=== PATIENT | female | born 1955 | race Two or more races ===

== ENCOUNTER 2016-08-03 21:01 | Emergency (ER) | payer MEDICAID ==
[~2016-08-03] VITALS: Ht 149.9 cm; Wt 61.2 kg
[~2016-08-03 21:01] MED LIST: CARV25TA55 PO; CLON0.1T PO; DOXA4TAB40 PO; FENO134C PO; IBUP800T24 PO; NIFE30TA76 PO; PIRO-23 PO
[2016-08-03] MEDS ORDERED: diphenhdrAMINE HCL 50 MG/1 ML VL IV ONE (21:15)
[2016-08-03] MEDS ORDERED: diphenhdrAMINE HCL 25 MG CAP PO ONE (21:15)
[2016-08-03] MEDS ORDERED: ONDANSETRON HCL 4 MG/2 ML VIAL IV ONE (21:15)
[2016-08-04 01:00] VITALS: BP 131/51
== END 2016-08-04 01:17 | disposition home or self-care (01) ==
LOC: ER 21:02
DX: L02.818 Cutaneous abscess of other sites (principal); L29.9 Pruritus, unspecified; T36.1X5A Adverse effect of cephalosporins and other beta-lactam antibiotics, initial encounter; Z86.73 Personal history of transient ischemic attack (TIA), and cerebral infarction without residual deficits; E78.5 Hyperlipidemia, unspecified; I10 Essential (primary) hypertension; H60.90 Unspecified otitis externa, unspecified ear; Z88.1 Allergy status to other antibiotic agents; Z88.8 Allergy status to other drugs, medicaments and biological substances; Z79.899 Other long term (current) drug therapy; Y93.89 Activity, other specified; Y99.8 Other external cause status; Y92.89 Other specified places as the place of occurrence of the external cause
CPT/HCPCS: 94761; 96374; 96375; 99284; J1200; J2405

== ENCOUNTER 2017-05-12 13:03 | Emergency (ER) | payer MEDICARE, MEDICAID ==
[~2017-05-12] VITALS: Ht 149.9 cm; Wt 68.0 kg
[2017-05-12 14:10] LABS: Basophils # (auto) 0 uL; Eosinophils # (auto) 0.3 uL; Hematocrit 30.6 % (36.0-46.0); Hemoglobin 9.7 g/dL (12.2-16.2); Mean Corpuscular Hemoglobin 24.7 pg (28.0-32.0); Monocytes # (auto) 0.7 uL; Nucleated Red Blood Cells % 0.1 %
[2017-05-12 14:13] LABS: Basophils % (auto) 0.5 % (0.0-2.0); Eosinophils % (auto) 4.9 % (0.0-7.0); Lymphocytes # (auto) 1.4 uL; Lymphocytes % (auto) 21.4 % (10.0-50.0); Mean Corpuscular Hgb Conc. 31.7 g/dL (32.0-36.0); Mean Corpuscular Volume 77.9 fL (80.0-100.0); Monocytes % (auto) 9.9 % (0.0-12.0); Neutrophils # (auto) 4.2 uL; Neutrophils % (auto) 63.3 % (37.0-80.0); Platelet Count (auto) 190 10^3/uL (140-450); Red Cell Distribution Width 19.2 % (11.8-14.3); White Blood Cell 6.6 10^3/uL (4.4-10.8)
[2017-05-12 14:29] LABS: BUN/Creatinine Ratio 21.7; Bilirubin, Total 0.6 mg/dL (0.2-1.0); Calcium 6.9 mg/dL (8.5-10.1); Total Protein 8.5 g/dL (6.4-8.2)
[2017-05-12 15:57] LABS: Platelet Estimate Adequate
[2017-05-12 15:58] LABS: Stomatocytes Few
[2017-05-12 15:59] LABS: Anisocytosis Slight; Hypochromia Slight; Microcytosis Slight
[2017-05-12] MEDS ORDERED: LABETALOL HCL 5 MG/ML 4ML SYRINGE IV ONE (16:15)
[2017-05-12] MEDS ORDERED: LABETALOL HCL 5 MG/ML ML 20ML VIAL IV ONE (16:30)
[2017-05-12 17:17] VITALS: BP 145/89
== END 2017-05-12 17:43 | disposition home or self-care (01) ==
LOC: ER 13:03
DX: I10 Essential (primary) hypertension (principal); E46 Unspecified protein-calorie malnutrition; R94.5 Abnormal results of liver function studies; E78.5 Hyperlipidemia, unspecified; Z88.1 Allergy status to other antibiotic agents; Z88.8 Allergy status to other drugs, medicaments and biological substances; Z98.51 Tubal ligation status
CPT/HCPCS: 36415; 70450; 71010; 80053; 82962; 85025; 93005; 96374; 99285; J7030

== ENCOUNTER 2017-10-17 11:19 | Observation (INO) | payer MEDICARE, MEDICAID ==
[~2017-10-17] VITALS: Ht 160 cm; Wt 72.6 kg
[2017-10-17 12:04] LABS: Basophils # (auto) 0 uL; Basophils % (auto) 0.5 % (0.0-2.0); Eosinophils # (auto) 0.3 uL; Eosinophils % (auto) 4.4 % (0.0-7.0); Hematocrit 42.5 % (36.0-46.0); Hemoglobin 14.3 g/dL (12.2-16.2); Lymphocytes # (auto) 0.8 uL; Lymphocytes % (auto) 11.3 % (10.0-50.0); Mean Corpuscular Hemoglobin 30.8 pg (28.0-32.0); Mean Corpuscular Hgb Conc. 33.5 g/dL (32.0-36.0); Mean Corpuscular Volume 91.8 fL (80.0-100.0); Monocytes # (auto) 0.4 uL; Monocytes % (auto) 5.1 % (0.0-12.0); Neutrophils # (auto) 5.8 uL; Neutrophils % (auto) 78.7 % (37.0-80.0); Platelet Count (auto) 192 10^3/uL (140-450); Red Blood Cells 4.63 10^6/uL (4.0-5.20); Red Cell Distribution Width 15.3 % (11.8-14.3); White Blood Cell 7.4 10^3/uL (4.4-10.8)
[2017-10-17 12:21] LABS: INR 0.99 (0.9-1.15); Partial Thromboplastin Time 27.3 sec (22.64-33.71); Prothrombin Time 10.8 sec (9.37-12.3)
[2017-10-17 12:24] LABS: Alanine Aminotransferase 59 U/L (13-56); Albumin 3.2 g/dL (3.4-5.0); Alkaline Phosphatase 490 U/L (45-117); Anion Gap 8 (5-15); Aspartate Aminotransferase 63 U/L (15-37); BUN/Creatinine Ratio 18.5; Bilirubin, Total 1.9 mg/dL (0.2-1.0); Blood Urea Nitrogen 15 mg/dL (7-18); Calcium 8.1 mg/dL (8.5-10.1); Carbon Dioxide 24 mmol/L (21-32); Chloride 106 mmol/L (98-107); GFR African American 93 mL/min; GFR Non-African American 77 mL/min; Glucose 172 mg/dL (74-106); Potassium 3.4 mmol/L (3.5-5.1); Sodium 138 mmol/L (136-145); Total Protein 9.1 g/dL (6.4-8.2)
[2017-10-17] MEDS ORDERED: LEVETIRACETAM INJ 500 MG in D5W 5% 100 ML IV ONE (12:45)
[2017-10-17] MEDS ORDERED: ONDANSETRON HCL 4 MG/2 ML VIAL ONE (12:45)
[2017-10-17] MEDS ORDERED: NICARDIPINE 25MG/250ML BAG KIT 250 ML IV SCH (12:45)
[2017-10-17] MEDS ORDERED: LOSARTAN/HCT (12:46)
[2017-10-17] MEDS ORDERED: PROP10TA57 (12:46)
[2017-10-17] MEDS ORDERED: FERR-20 (12:46)
[2017-10-17] MEDS ORDERED: PANT40T (12:46)
[2017-10-17] MEDS ORDERED: METO-169 (12:46)
[2017-10-17] MEDS ORDERED: SIMV10TA84 (12:46)
[2017-10-17] MEDS ORDERED: BISA-3 (12:46)
[2017-10-17] MEDS ORDERED: NICARDIPINE 25MG/250ML BAG KIT 250 ML IV ONE (12:52)
[2017-10-17 13:00] VITALS: BP 190/111
[2017-10-17] MEDS ORDERED: ONDANSETRON HCL 4 MG/2 ML VIAL IV ONE (13:00)
== END 2017-10-17 13:13 | disposition short-term general hospital (02) | DRG 64 ==
LOC: EDBD 11:19 → ER 11:19 → OVERFLOW 11:58 → ER 13:13
PROVIDERS: ADMIT Family Medicine; ATTEND Family Medicine
DX: I61.4 Nontraumatic intracerebral hemorrhage in cerebellum (principal); G93.6 Cerebral edema; I63.9 Cerebral infarction, unspecified; K21.9 Gastro-esophageal reflux disease without esophagitis; I10 Essential (primary) hypertension; Z82.49 Family history of ischemic heart disease and other diseases of the circulatory system; Z83.3 Family history of diabetes mellitus; Z86.73 Personal history of transient ischemic attack (TIA), and cerebral infarction without residual deficits; E78.5 Hyperlipidemia, unspecified
CPT/HCPCS: 36415; 70450; 71045; 80053; 82962; 83735; 84484; 85025; 85610; 85730; 93005; 96374; 96375; 99285; G0378; J1953; J2405; J7060

== ENCOUNTER 2018-04-21 11:14 | Emergency (ER) | payer MEDICARE, MEDICAID ==
[~2018-04-21] VITALS: Ht 149.9 cm; Wt 59.0 kg
[~2018-04-21 11:14] MED LIST changes: +BISA-3; +FERR-20; +LOSARTAN/HCT; +METO-169; +PANT40T; +PROP10TA57; +SIMV10TA84
[2018-04-21 11:29] VITALS: BP 149/75
[2018-04-21] MEDS ORDERED: HYDROcodone-ACET 5/325MG TAB PO ONE (12:30)
[2018-04-21] MEDS ORDERED: KETOROLAC TROMETH 30 MG/ML 1ML VIAL IM ONE (12:30)
[2018-04-21] MEDS ORDERED: METHOCARBAMOL 500 MG TAB PO ONE (12:30)
[2018-04-21] MEDS ORDERED: IBUPROFEN 800 MG TAB PO ONE (13:13)
== END 2018-04-21 13:24 | disposition home or self-care (01) ==
LOC: ER 11:16
DX: M54.42 Lumbago with sciatica, left side (principal); M54.41 Lumbago with sciatica, right side; I10 Essential (primary) hypertension; K21.9 Gastro-esophageal reflux disease without esophagitis; E78.5 Hyperlipidemia, unspecified; Z86.73 Personal history of transient ischemic attack (TIA), and cerebral infarction without residual deficits; Z88.1 Allergy status to other antibiotic agents
CPT/HCPCS: 72100; 93005; 96372; 99284; J1885

== ENCOUNTER 2018-04-24 18:09 | Emergency (ER) | payer MEDICARE, MEDICAID ==
[~2018-04-24] VITALS: Ht 149.9 cm; Wt 59.0 kg
[2018-04-24 19:44] VITALS: BP 145/84
[2018-04-24] MEDS ORDERED: TRIAMCINOLONE 40MG/ML 1ML VIAL IM ONE (20:15)
== END 2018-04-24 21:09 | disposition home or self-care (01) ==
LOC: ER 18:14
DX: S33.5XXA Sprain of ligaments of lumbar spine, initial encounter (principal); M54.16 Radiculopathy, lumbar region; K21.9 Gastro-esophageal reflux disease without esophagitis; E78.5 Hyperlipidemia, unspecified; I10 Essential (primary) hypertension; Z86.73 Personal history of transient ischemic attack (TIA), and cerebral infarction without residual deficits; Z88.6 Allergy status to analgesic agent; X50.1XXA Overexertion from prolonged static or awkward postures, initial encounter; Y93.89 Activity, other specified; Y92.89 Other specified places as the place of occurrence of the external cause; Y99.8 Other external cause status
CPT/HCPCS: 20552; 99284; J3301

== ENCOUNTER 2018-05-29 06:30 | Emergency (ER) | payer MEDICARE, MEDICAID ==
[~2018-05-29] VITALS: Ht 149.9 cm; Wt 62.6 kg
[2018-05-29] MEDS ORDERED: SODIUM CHLORIDE 0.9% 1,000 ML IV ONE (08:05)
[2018-05-29] MEDS ORDERED: KETOROLAC TROMETH 30 MG/ML 1ML VIAL IV ONE (09:30)
[2018-05-29 10:02] LABS: Basophils # (auto) 0 uL; Basophils % (auto) 0.2 % (0.0-2.0); Eosinophils # (auto) 0 uL; Eosinophils % (auto) 0.2 % (0.0-7.0); Hematocrit 36.2 % (36.0-46.0); Hemoglobin 11.9 g/dL (12.2-16.2); Lymphocytes # (auto) 0.9 uL; Lymphocytes % (auto) 12.4 % (10.0-50.0); Mean Corpuscular Hemoglobin 30.4 pg (28.0-32.0); Mean Corpuscular Hgb Conc. 32.8 g/dL (32.0-36.0); Mean Corpuscular Volume 92.7 fL (80.0-100.0); Monocytes # (auto) 0.4 uL; Monocytes % (auto) 6.3 % (0.0-12.0); Neutrophils # (auto) 5.5 uL; Neutrophils % (auto) 80.9 % (37.0-80.0); Nucleated Red Blood Cells % 0.1 %; Platelet Count (auto) 201 10^3/uL (140-450); Red Cell Distribution Width 14.5 % (11.8-14.3); White Blood Cell 6.9 10^3/uL (4.4-10.8)
[2018-05-29 10:14] LABS: Alanine Aminotransferase 47 U/L (13-56); Albumin 2.3 g/dL (3.4-5.0); Anion Gap 7 (5-15); Aspartate Aminotransferase 40 U/L (15-37); Blood Urea Nitrogen 15 mg/dL (7-18); Calcium 7.8 mg/dL (8.5-10.1); Carbon Dioxide 28 mmol/L (21-32); Chloride 106 mmol/L (98-107); GFR African American 131 mL/min; GFR Non-African American 108 mL/min; Glucose 121 mg/dL (74-106); Magnesium 2.7 mg/dL (1.6-2.6); Potassium 3.5 mmol/L (3.5-5.1); Sodium 141 mmol/L (136-145)
[2018-05-29 10:19] LABS: Alkaline Phosphatase 878 U/L (45-117); Bilirubin, Total 1.6 mg/dL (0.2-1.0); Total Protein 7.7 g/dL (6.4-8.2)
[2018-05-29 10:34] VITALS: BP 168/90
== END 2018-05-29 11:07 | disposition home or self-care (01) ==
LOC: ER 06:36
DX: M25.512 Pain in left shoulder (principal); R74.8 Abnormal levels of other serum enzymes; E43 Unspecified severe protein-calorie malnutrition; I10 Essential (primary) hypertension; K21.9 Gastro-esophageal reflux disease without esophagitis; E78.00 Pure hypercholesterolemia, unspecified; Z86.73 Personal history of transient ischemic attack (TIA), and cerebral infarction without residual deficits; Z88.1 Allergy status to other antibiotic agents; Z88.8 Allergy status to other drugs, medicaments and biological substances; Z79.1 Long term (current) use of non-steroidal anti-inflammatories (NSAID); Z79.899 Other long term (current) drug therapy
CPT/HCPCS: 36415; 71046; 80053; 83735; 84484; 85025; 93005; 96374; 99285; J1885

== ENCOUNTER 2018-06-27 20:06 | Emergency (ER) | payer MEDICARE, MEDICAID ==
[~2018-06-27] VITALS: Ht 149.9 cm; Wt 61.2 kg
[~2018-06-27 20:06] MED LIST changes: +BENA40TA7 PO; -BISA-3; +CYCL1TAB18 PO; -DOXA4TAB40 PO; -FENO134C PO; -FERR-20; +HYDR-4683 PO; -IBUP800T24 PO; -LOSARTAN/HCT; +MECL-87 PO; -METO-169; +NAP500T PO; -NIFE30TA76 PO; -PANT40T; -PIRO-23 PO; -PROP10TA57; -SIMV10TA84
[2018-06-27] MEDS ORDERED: MORPHINE SULFATE 4 MG/ML SYR/VIAL IV ONE (21:00)
[2018-06-27] MEDS ORDERED: ONDANSETRON HCL 4 MG/2 ML VIAL IV ONE (21:00)
[2018-06-27 21:15] LABS: Basophils # (auto) 0 uL; Basophils % (auto) 0.3 % (0.0-2.0); Eosinophils # (auto) 0.1 uL; Eosinophils % (auto) 0.6 % (0.0-7.0); Hematocrit 28.8 % (36.0-46.0); Hemoglobin 9.9 g/dL (12.2-16.2); Lymphocytes % (auto) 12.8 % (10.0-50.0); Mean Corpuscular Hemoglobin 31.9 pg (28.0-32.0); Mean Corpuscular Hgb Conc. 34.3 g/dL (32.0-36.0); Mean Corpuscular Volume 92.9 fL (80.0-100.0); Monocytes # (auto) 0.8 uL; Monocytes % (auto) 9.5 % (0.0-12.0); Neutrophils # (auto) 6.2 uL; Neutrophils % (auto) 76.8 % (37.0-80.0); Platelet Count (auto) 200 10^3/uL (140-450); Red Cell Distribution Width 15.5 % (11.8-14.3); White Blood Cell 8.1 10^3/uL (4.4-10.8)
[2018-06-27 21:22] LABS: Alanine Aminotransferase 25 U/L (13-56); Albumin 1.6 g/dL (3.4-5.0); Anion Gap 7 (5-15); Aspartate Aminotransferase 42 U/L (15-37); BUN/Creatinine Ratio 14.1; Blood Urea Nitrogen 13 mg/dL (7-18); Calcium 7.7 mg/dL (8.5-10.1); Carbon Dioxide 25 mmol/L (21-32); Chloride 104 mmol/L (98-107); GFR African American 80 mL/min; GFR Non-African American 66 mL/min; Glucose 116 mg/dL (74-106); Magnesium 1.8 mg/dL (1.6-2.6); Potassium 3.9 mmol/L (3.5-5.1); Sodium 136 mmol/L (136-145)
[2018-06-27 21:28] LABS: Alkaline Phosphatase 940 U/L (45-117); Bilirubin, Total 2.1 mg/dL (0.2-1.0); Total Protein 7.9 g/dL (6.4-8.2)
[2018-06-27] MEDS ORDERED: SPIRONOLACTONE 25 MG TAB PO ONE (22:45)
[2018-06-27] MEDS ORDERED: FUROSEMIDE 20 MG/2 ML VIAL IV ONE (22:45)
[2018-06-27 23:19] VITALS: BP 116/61
== END 2018-06-28 00:29 | disposition home or self-care (01) ==
LOC: ER 20:06
DX: R60.0 Localized edema (principal); J90 Pleural effusion, not elsewhere classified; K72.90 Hepatic failure, unspecified without coma; I13.0 Hypertensive heart and chronic kidney disease with heart failure and stage 1 through stage 4 chronic kidney disease, or unspecified chronic kidney disease; N18.9 Chronic kidney disease, unspecified; K21.9 Gastro-esophageal reflux disease without esophagitis; E78.5 Hyperlipidemia, unspecified; E66.01 Morbid (severe) obesity due to excess calories; Z86.73 Personal history of transient ischemic attack (TIA), and cerebral infarction without residual deficits; Z98.51 Tubal ligation status; Z88.1 Allergy status to other antibiotic agents; Z68.27 Body mass index [BMI] 27.0-27.9, adult; Z79.899 Other long term (current) drug therapy
CPT/HCPCS: 36415; 74176; 80053; 83735; 83880; 84484; 85025; 93005; 96374; 96375; 99284; J1940; J2270; J2405

== ENCOUNTER 2018-07-02 07:47 | Emergency (ER) | payer MEDICARE, MEDICAID ==
[~2018-07-02] VITALS: Ht 149.9 cm; Wt 59.0 kg
[2018-07-02] MEDS ORDERED: DOCUSATE SOD 100 MG CAP PO ONE (08:45)
[2018-07-02 09:34] LABS: Basophils # (auto) 0 uL; Basophils % (auto) 0.4 % (0.0-2.0); Eosinophils # (auto) 0 uL; Eosinophils % (auto) 0.3 % (0.0-7.0); Hematocrit 31.7 % (36.0-46.0); Hemoglobin 10.4 g/dL (12.2-16.2); Lymphocytes # (auto) 1.3 uL; Lymphocytes % (auto) 11.4 % (10.0-50.0); Mean Corpuscular Hemoglobin 29.5 pg (28.0-32.0); Mean Corpuscular Hgb Conc. 32.7 g/dL (32.0-36.0); Mean Corpuscular Volume 90.1 fL (80.0-100.0); Monocytes # (auto) 0.9 uL; Monocytes % (auto) 8.1 % (0.0-12.0); Neutrophils # (auto) 9.3 uL; Neutrophils % (auto) 79.8 % (37.0-80.0); Platelet Count (auto) 315 10^3/uL (140-450); Red Blood Cells 3.51 10^6/uL (4.0-5.20); Red Cell Distribution Width 15.9 % (11.8-14.3); White Blood Cell 11.6 10^3/uL (4.4-10.8)
[2018-07-02 09:57] LABS: Alanine Aminotransferase 31 U/L (13-56); Albumin 1.9 g/dL (3.4-5.0); Anion Gap 11 (5-15); BUN/Creatinine Ratio 14.7; Blood Urea Nitrogen 19 mg/dL (7-18); Calcium 8.3 mg/dL (8.5-10.1); Carbon Dioxide 27 mmol/L (21-32); Chloride 100 mmol/L (98-107); GFR African American 54 mL/min; GFR Non-African American 45 mL/min; Glucose 122 mg/dL (74-106); Potassium 3.6 mmol/L (3.5-5.1); Sodium 138 mmol/L (136-145)
[2018-07-02 10:06] VITALS: BP 111/78
[2018-07-02 10:13] LABS: Alkaline Phosphatase 958 U/L (45-117); Aspartate Aminotransferase 40 U/L (15-37); Bilirubin, Total 2.7 mg/dL (0.2-1.0); Total Protein 8.6 g/dL (6.4-8.2)
[2018-07-02] MEDS ORDERED: FLEET ENEMA(ADULT) 135 ML PR ONE (10:45)
== END 2018-07-02 12:36 | disposition home or self-care (01) ==
LOC: ER 07:47
DX: K59.00 Constipation, unspecified (principal); E43 Unspecified severe protein-calorie malnutrition; J40 Bronchitis, not specified as acute or chronic; R11.0 Nausea; K92.2 Gastrointestinal hemorrhage, unspecified; K21.9 Gastro-esophageal reflux disease without esophagitis; E78.5 Hyperlipidemia, unspecified; I13.0 Hypertensive heart and chronic kidney disease with heart failure and stage 1 through stage 4 chronic kidney disease, or unspecified chronic kidney disease; N18.9 Chronic kidney disease, unspecified; I50.9 Heart failure, unspecified; Z98.51 Tubal ligation status; Z68.26 Body mass index [BMI] 26.0-26.9, adult; Z88.8 Allergy status to other drugs, medicaments and biological substances; Z79.899 Other long term (current) drug therapy; Z86.73 Personal history of transient ischemic attack (TIA), and cerebral infarction without residual deficits
CPT/HCPCS: 36415; 74176; 80053; 83880; 84484; 85025; 93005

== ENCOUNTER 2018-07-06 09:55 | Inpatient (IN) | payer MEDICARE, MEDICAID ==
[~2018-07-06] VITALS: Ht 149.9 cm; Wt 58.5 kg
[2018-07-06] MEDS ORDERED: HYDROmorphone HCL 2 MG/ML VL IV ONE (10:45)
[2018-07-06] MEDS ORDERED: ONDANSETRON HCL 4 MG/2 ML VIAL IV ONE (10:45)
[2018-07-06 11:19] LABS: Basophils # (auto) 0.1 uL; Basophils % (auto) 0.5 % (0.0-2.0); Eosinophils # (auto) 0.1 uL; Eosinophils % (auto) 0.7 % (0.0-7.0); Hematocrit 31.1 % (36.0-46.0); Hemoglobin 10.2 g/dL (12.2-16.2); Lymphocytes # (auto) 1.8 uL; Lymphocytes % (auto) 17.5 % (10.0-50.0); Mean Corpuscular Hemoglobin 29.3 pg (28.0-32.0); Mean Corpuscular Hgb Conc. 32.8 g/dL (32.0-36.0); Mean Corpuscular Volume 89.5 fL (80.0-100.0); Monocytes # (auto) 1.1 uL; Monocytes % (auto) 10.6 % (0.0-12.0); Neutrophils # (auto) 7.1 uL; Neutrophils % (auto) 70.7 % (37.0-80.0); Platelet Count (auto) 268 10^3/uL (140-450); Red Blood Cells 3.48 10^6/uL (4.0-5.20); Red Cell Distribution Width 15.9 % (11.8-14.3); White Blood Cell 10.1 10^3/uL (4.4-10.8)
[2018-07-06 11:29] LABS: INR 1.09 (0.9-1.15); Partial Thromboplastin Time 30.9 sec (23.78-33.04); Prothrombin Time 11.6 sec (9.27-12.13)
[2018-07-06 11:34] LABS: Anion Gap 7 (5-15); Blood Urea Nitrogen 18 mg/dL (7-18); Calcium 8.2 mg/dL (8.5-10.1); Carbon Dioxide 28 mmol/L (21-32); Chloride 100 mmol/L (98-107); Glucose 106 mg/dL (74-106); Potassium 3.2 mmol/L (3.5-5.1); Sodium 135 mmol/L (136-145)
[2018-07-06 11:54] LABS: Alanine Aminotransferase 39 U/L (13-56); Alkaline Phosphatase 1187 U/L (45-117); Aspartate Aminotransferase 71 U/L (15-37); BUN/Creatinine Ratio 18.9; Bilirubin, Total 2.5 mg/dL (0.2-1.0); GFR African American 77 mL/min; GFR Non-African American 64 mL/min; Total Protein 8.7 g/dL (6.4-8.2)
[2018-07-06] MEDS ORDERED: NITROGLYCERIN 0.4 MG SL TAB SL PRN (12:15)
[2018-07-06] MEDS ORDERED: MORPHINE SULFATE 4 MG/ML SYR/VIAL IV PRN (12:15)
[2018-07-06] MEDS ORDERED: ONDANSETRON HCL 4 MG/2 ML VIAL IV PRN (12:15)
[2018-07-06] MEDS ORDERED: HYDROcodone-ACET 5/325MG TAB PO PRN (12:15)
[2018-07-06] MEDS ORDERED: POTASSIUM EFFERVESENT TAB 25 MEQ PO ONE (12:30)
[2018-07-06] MEDS ORDERED: VANCOMYCIN PER PHARMACY 0 MG IV SCH (12:45)
[2018-07-06] MEDS: PANTOPRAZOLE 40 MG TAB PO SCH (12:56)
[2018-07-06] MEDS: VANCOMYCIN 1,250 MG in D5W 5% 250 ML IV SCH (13:41)
[2018-07-06 14:25] VITALS: BP 119/73
[2018-07-06] MEDS ORDERED: LEVOFLOXACIN 500MG 100 ML IV ONE (14:45)
[2018-07-06] MEDS: MORPHINE SULFATE 4 MG/ML SYR/VIAL IV PRN (15:04)
[2018-07-06 16:30] VITALS: BP 116/60
[2018-07-06] MEDS ORDERED: FUROSEMIDE 20 MG TAB PO SCH (18:00)
[2018-07-06] MEDS ORDERED: POTASSIUM CHLORIDE 8 MEQ TAB PO ONE (19:00)
[2018-07-06] MEDS ORDERED: LACTULOSE 20Gm/30ML SOLN PO PRN (21:00)
[2018-07-06 21:12] LABS: Urine Bacteria NONE SEEN /hpf (None Seen); Urine Blood Negative /uL (Negative); Urine Hyaline Cast FEW /lpf (0 - 2); Urine Specific Gravity 1.017 (1.001-1.035); Urine WBC 24 /hpf (0 - 5)
[2018-07-06] MEDS: PROPRANOLOL HCL 20 MG TAB PO SCH (21:48)
[2018-07-06 22:00] VITALS: BP 139/88
[2018-07-07] MEDS: MORPHINE SULFATE 4 MG/ML SYR/VIAL IV PRN ×2 (04:30→20:59)
[2018-07-07 05:00] VITALS: BP 135/76
[2018-07-07 06:04] LABS: Basophils # (auto) 0 uL; Basophils % (auto) 0.4 % (0.0-2.0); Eosinophils # (auto) 0.1 uL; Eosinophils % (auto) 0.9 % (0.0-7.0); Hematocrit 29.7 % (36.0-46.0); Hemoglobin 9.9 g/dL (12.2-16.2); Lymphocytes # (auto) 1.6 uL; Lymphocytes % (auto) 22.2 % (10.0-50.0); Mean Corpuscular Hemoglobin 29.5 pg (28.0-32.0); Mean Corpuscular Hgb Conc. 33.3 g/dL (32.0-36.0); Mean Corpuscular Volume 88.5 fL (80.0-100.0); Monocytes # (auto) 0.8 uL; Monocytes % (auto) 11.1 % (0.0-12.0); Neutrophils # (auto) 4.7 uL; Neutrophils % (auto) 65.4 % (37.0-80.0); Platelet Count (auto) 221 10^3/uL (140-450); Red Blood Cells 3.36 10^6/uL (4.0-5.20); Red Cell Distribution Width 15.6 % (11.8-14.3); White Blood Cell 7.3 10^3/uL (4.4-10.8)
[2018-07-07 06:14] LABS: BUN/Creatinine Ratio 18.6; Calcium 8.1 mg/dL (8.5-10.1); Potassium 4.1 mmol/L (3.5-5.1)
[2018-07-07 08:58] VITALS: BP 129/69
[2018-07-07] MEDS: PROPRANOLOL HCL 20 MG TAB PO SCH ×2 (09:28→21:48)
[2018-07-07] MEDS: BENAZEPRIL HCL 10 MG TAB PO SCH (09:29)
[2018-07-07] MEDS: PANTOPRAZOLE 40 MG TAB PO SCH (09:29)
[2018-07-07] MEDS ORDERED: LEVOFLOXACIN 500MG 100 ML IV SCH (10:00)
[2018-07-07] MEDS ORDERED: SPIRONOLACTONE 25 MG TAB PO SCH (10:00)
[2018-07-07] MEDS ORDERED: DOCUSATE SOD 100 MG CAP PO ONE (11:15)
[2018-07-07 12:53] VITALS: BP 125/79
[2018-07-07] MEDS: VANCOMYCIN 1,250 MG in D5W 5% 250 ML IV SCH (15:23)
[2018-07-07] MEDS: PIPERACILLIN-TAZOB 3.375GM 100 ML IV SCH ×2 (15:23→21:47)
[2018-07-07 17:01] VITALS: BP 125/78
[2018-07-07 21:33] VITALS: BP 127/79
[2018-07-07] MEDS: DOCUSATE SOD 100 MG CAP PO SCH (21:47)
[2018-07-08 05:03] VITALS: BP 122/71
[2018-07-08] MEDS: PIPERACILLIN-TAZOB 3.375GM 100 ML IV SCH ×3 (05:57→22:24)
[2018-07-08 09:00] VITALS: BP 110/67
[2018-07-08] MEDS: PROPRANOLOL HCL 20 MG TAB PO SCH ×2 (11:16→22:33)
[2018-07-08] MEDS: DOCUSATE SOD 100 MG CAP PO SCH ×2 (11:16→22:31)
[2018-07-08] MEDS: PANTOPRAZOLE 40 MG TAB PO SCH (11:17)
[2018-07-08] MEDS: BENAZEPRIL HCL 10 MG TAB PO SCH (11:17)
[2018-07-08 13:00] VITALS: BP 111/72
[2018-07-08 16:41] VITALS: BP 115/73
[2018-07-08] MEDS: VANCOMYCIN 1,250 MG in D5W 5% 250 ML IV SCH (16:52)
[2018-07-08 21:56] VITALS: BP 105/71
[2018-07-09 05:07] VITALS: BP 120/72
[2018-07-09] MEDS: PIPERACILLIN-TAZOB 3.375GM 100 ML IV SCH ×3 (05:41→21:57)
[2018-07-09 05:54] LABS: Basophils # (auto) 0 uL; Basophils % (auto) 0.5 % (0.0-2.0); Eosinophils # (auto) 0.1 uL; Eosinophils % (auto) 1.7 % (0.0-7.0); Hematocrit 30.6 % (36.0-46.0); Hemoglobin 9.9 g/dL (12.2-16.2); Lymphocytes # (auto) 2.2 uL; Mean Corpuscular Hemoglobin 29.2 pg (28.0-32.0); Mean Corpuscular Hgb Conc. 32.5 g/dL (32.0-36.0); Mean Corpuscular Volume 89.9 fL (80.0-100.0); Monocytes # (auto) 0.8 uL; Monocytes % (auto) 11.5 % (0.0-12.0); Neutrophils # (auto) 3.9 uL; Neutrophils % (auto) 55.3 % (37.0-80.0); Platelet Count (auto) 233 10^3/uL (140-450)
[2018-07-09 05:57] LABS: Calcium 8.2 mg/dL (8.5-10.1); Potassium 3.6 mmol/L (3.5-5.1)
[2018-07-09 06:00] LABS: BUN/Creatinine Ratio 16.5
[2018-07-09 08:31] VITALS: BP 122/70
[2018-07-09] MEDS: DOCUSATE SOD 100 MG CAP PO SCH ×2 (10:11→21:57)
[2018-07-09] MEDS: PANTOPRAZOLE 40 MG TAB PO SCH (10:11)
[2018-07-09] MEDS: BENAZEPRIL HCL 10 MG TAB PO SCH (10:11)
[2018-07-09] MEDS: PROPRANOLOL HCL 20 MG TAB PO SCH ×2 (10:12→21:59)
[2018-07-09 13:00] VITALS: BP 104/68
[2018-07-09] MEDS: traMADol HCL 50 MG TAB PO PRN (15:54)
[2018-07-09 16:33] VITALS: BP 114/75
[2018-07-09] MEDS: VANCOMYCIN 1GM/250ML 250 ML IV SCH (18:25)
[2018-07-09 22:00] VITALS: BP 123/76
[2018-07-10] MEDS: traMADol HCL 50 MG TAB PO PRN ×3 (04:00→20:06)
[2018-07-10 05:13] VITALS: BP 111/61
[2018-07-10] MEDS: PIPERACILLIN-TAZOB 3.375GM 100 ML IV SCH ×3 (05:36→21:19)
[2018-07-10] MEDS: CYCLOBENZAPRINE HCL 10 MG TAB PO PRN ×3 (05:47→21:20)
[2018-07-10 08:23] VITALS: BP 122/73
[2018-07-10] MEDS: DOCUSATE SOD 100 MG CAP PO SCH ×2 (09:27→21:19)
[2018-07-10] MEDS: PROPRANOLOL HCL 20 MG TAB PO SCH ×2 (09:27→21:20)
[2018-07-10] MEDS: PANTOPRAZOLE 40 MG TAB PO SCH (09:28)
[2018-07-10] MEDS: BENAZEPRIL HCL 10 MG TAB PO SCH (09:28)
[2018-07-10 12:37] VITALS: BP 114/67
[2018-07-10 16:27] VITALS: BP 113/66
[2018-07-10] MEDS: VANCOMYCIN 1GM/250ML 250 ML IV SCH (17:34)
[2018-07-10] MEDS: MORPHINE SULFATE 4 MG/ML SYR/VIAL IV PRN (18:44)
[2018-07-10 22:01] VITALS: BP 123/72
[2018-07-11] MEDS: PIPERACILLIN-TAZOB 3.375GM 100 ML IV SCH ×3 (05:05→21:32)
[2018-07-11 05:39] LABS: Basophils # (auto) 0 uL; Basophils % (auto) 0.6 % (0.0-2.0); Eosinophils # (auto) 0.1 uL; Eosinophils % (auto) 1.9 % (0.0-7.0); Hematocrit 30.4 % (36.0-46.0); Lymphocytes # (auto) 1.9 uL; Lymphocytes % (auto) 30.3 % (10.0-50.0); Mean Corpuscular Hemoglobin 29.7 pg (28.0-32.0); Mean Corpuscular Volume 90.1 fL (80.0-100.0); Monocytes # (auto) 0.7 uL; Monocytes % (auto) 10.6 % (0.0-12.0); Neutrophils # (auto) 3.6 uL; Neutrophils % (auto) 56.6 % (37.0-80.0); Platelet Count (auto) 208 10^3/uL (140-450); Red Blood Cells 3.38 10^6/uL (4.0-5.20); Red Cell Distribution Width 16.5 % (11.8-14.3); White Blood Cell 6.4 10^3/uL (4.4-10.8)
[2018-07-11 05:46] VITALS: BP 114/72
[2018-07-11 05:49] LABS: Albumin 1.9 g/dL (3.4-5.0); Potassium 3.9 mmol/L (3.5-5.1)
[2018-07-11 06:06] LABS: BUN/Creatinine Ratio 12.1; Bilirubin, Total 1.9 mg/dL (0.2-1.0)
[2018-07-11 08:25] VITALS: BP 120/71
[2018-07-11] MEDS: PROPRANOLOL HCL 20 MG TAB PO SCH ×2 (10:00→21:33)
[2018-07-11] MEDS: PANTOPRAZOLE 40 MG TAB PO SCH (10:00)
[2018-07-11] MEDS: DOCUSATE SOD 100 MG CAP PO SCH ×2 (10:31→21:32)
[2018-07-11] MEDS: BENAZEPRIL HCL 10 MG TAB PO SCH (10:32)
[2018-07-11] MEDS: MORPHINE SULFATE 4 MG/ML SYR/VIAL IV PRN ×3 (11:02→17:56)
[2018-07-11 12:13] VITALS: BP 121/70
[2018-07-11 14:42] VITALS: BP 139/80
[2018-07-11] MEDS: traMADol HCL 50 MG TAB PO PRN ×2 (16:15→21:32)
[2018-07-11] MEDS: VANCOMYCIN 1GM/250ML 250 ML IV SCH (18:00)
[2018-07-11] MEDS: CYCLOBENZAPRINE HCL 10 MG TAB PO PRN (18:03)
[2018-07-11 22:00] VITALS: BP 147/62
[2018-07-12] MEDS: traMADol HCL 50 MG TAB PO PRN ×2 (04:04→15:33)
[2018-07-12 05:18] VITALS: BP 143/87
[2018-07-12] MEDS: PIPERACILLIN-TAZOB 3.375GM 100 ML IV SCH (05:18)
[2018-07-12 09:00] VITALS: BP 149/90
[2018-07-12] MEDS ORDERED: VANCOMYCIN PER PHARMACY 0 MG IV SCH (10:15)
[2018-07-12] MEDS ORDERED: MORPHINE SULF 15mg ER tab PO ONE ×2 (10:15→11:15)
[2018-07-12] MEDS: DOCUSATE SOD 100 MG CAP PO SCH ×2 (10:16→21:44)
[2018-07-12] MEDS: BENAZEPRIL HCL 10 MG TAB PO SCH (10:17)
[2018-07-12] MEDS: PANTOPRAZOLE 40 MG TAB PO SCH (10:17)
[2018-07-12] MEDS: PROPRANOLOL HCL 20 MG TAB PO SCH ×2 (10:18→21:46)
[2018-07-12] MEDS: VANCOMYCIN 1,500 MG in D5W 5% 250 ML IV SCH (12:08)
[2018-07-12 12:42] LABS: INR 1.05 (0.9-1.15); Prothrombin Time 11.2 sec (9.27-12.13)
[2018-07-12 13:00] VITALS: BP 148/78
[2018-07-12 13:18] LABS: Albumin 1.9 g/dL (3.4-5.0); Potassium 3.6 mmol/L (3.5-5.1)
[2018-07-12 13:42] LABS: BUN/Creatinine Ratio 12.7; Bilirubin, Total 1.9 mg/dL (0.2-1.0); Total Protein 8.2 g/dL (6.4-8.2)
[2018-07-12] MEDS ORDERED: LIDOCAINE 1% (LOCAL ANESTH.) PF 5ml SDV ID ONE (16:45)
[2018-07-12 17:00] VITALS: BP 142/87
[2018-07-12 21:38] VITALS: BP 139/85
[2018-07-12] MEDS: MORPHINE SULF 15mg ER tab PO SCH (21:45)
[2018-07-12] MEDS: SODIUM CHLOR 0.9% PF (SALINE LOCK) 10ML VIAL/SYR IV SCH (21:46)
[2018-07-13] MEDS: traMADol HCL 50 MG TAB PO PRN (04:11)
[2018-07-13 05:04] VITALS: BP 131/77
[2018-07-13 06:07] LABS: Calcium 8.1 mg/dL (8.5-10.1); Potassium 3.9 mmol/L (3.5-5.1)
[2018-07-13 06:21] LABS: BUN/Creatinine Ratio 14.3; Bilirubin, Total 2.1 mg/dL (0.2-1.0); Total Protein 8.3 g/dL (6.4-8.2)
[2018-07-13 08:00] VITALS: BP 125/71
[2018-07-13 08:15] VITALS: BP 128/71
[2018-07-13] MEDS ORDERED: cefTRIAXone 1GM/50ML D5W 50 ML IV SCH (09:00)
[2018-07-13] MEDS: PANTOPRAZOLE 40 MG TAB PO SCH (09:07)
[2018-07-13] MEDS: MORPHINE SULF 15mg ER tab PO SCH (09:07)
[2018-07-13] MEDS: BENAZEPRIL HCL 10 MG TAB PO SCH (09:10)
[2018-07-13] MEDS: DOCUSATE SOD 100 MG CAP PO SCH (09:10)
[2018-07-13] MEDS: SODIUM CHLOR 0.9% PF (SALINE LOCK) 10ML VIAL/SYR IV SCH (09:11)
[2018-07-13] MEDS: PROPRANOLOL HCL 20 MG TAB PO SCH (09:12)
[2018-07-13] MEDS: VANCOMYCIN 1,500 MG in D5W 5% 250 ML IV SCH (11:35)
[2018-07-13 12:26] VITALS: BP 127/75
== END 2018-07-13 14:00 | disposition home or self-care (01) | DRG 539 ==
LOC: ER 09:55 → OVERFLOW 12:21 → CENTRAL 14:21
PROVIDERS: ADMIT Nurse Practitioner Acute Care; ATTEND Internal Medicine
PROC: 02HV33Z Insertion of Infusion Device into Superior Vena Cava, Percutaneous Approach (ICD-10-PCS; principal; 2018-07-13)
DX: M46.26 Osteomyelitis of vertebra, lumbar region (principal); K68.12 Psoas muscle abscess; G93.41 Metabolic encephalopathy; E44.0 Moderate protein-calorie malnutrition; I85.00 Esophageal varices without bleeding; I13.0 Hypertensive heart and chronic kidney disease with heart failure and stage 1 through stage 4 chronic kidney disease, or unspecified chronic kidney disease; N39.0 Urinary tract infection, site not specified; E87.6 Hypokalemia; G89.4 Chronic pain syndrome; K74.60 Unspecified cirrhosis of liver; N18.3 Chronic kidney disease, stage 3 (moderate); D64.9 Anemia, unspecified; K21.9 Gastro-esophageal reflux disease without esophagitis; I50.9 Heart failure, unspecified; K59.00 Constipation, unspecified; Z86.73 Personal history of transient ischemic attack (TIA), and cerebral infarction without residual deficits; Z88.8 Allergy status to other drugs, medicaments and biological substances; Z88.1 Allergy status to other antibiotic agents; Z79.899 Other long term (current) drug therapy; Z68.26 Body mass index [BMI] 26.0-26.9, adult
CPT/HCPCS: 36415; 36569; 71045; 72110; 72148; 80048; 80053; 80202; 81001; 82140; 82565; 82962; 83880; 84443; 84484; 85025; 85610; 85652; 85730; 87081; 93005; G0378; J0696; J1956; J2405; J2543; J7060

== ENCOUNTER → 2018-07-28 | Outpatient (CLI) | payer MEDICARE, MEDICAID ==
--- NOTE | 2018-07-28 16:10 | NUR ---
Discharge from Hospital In stable condition and in company of grandsons. PICC line in right position, pt and family notified. Out of radiology via w/c. Addendum: 08/02/18 at 1617 by Elva Cooley RN RN PICC line placement Patient and family educated on need for PICC line placement exchanged over guidewire due to misposition of PICC line due to been outside original chad. All risks and benefits explained and all questions and concerns addressed prior to procedure. Noted past medical history and allergies with no contraindications. 4 fr PICC line inserted via left brachial vein using [employer] US and Tip Location System. Sterile technique with maximum barrier precautions utilized. Blood return obtained from single lumen and flushed easily with NS using proper technique. PICC secured with Stat-lock; biodisc and occlusive dressing applied. Stat portable chest x-ray obtained for PICC tip placement. *Baseline Arm Circumference 0 cm. *Internal Length 45 cm. *External Length 0 cm. *PICC lot #[id number]. Note: FROM 07/28/18 AT 7424 AVI ROSE.
== END | disposition home or self-care (01) ==
LOC: XYW 13:31
PROVIDERS: ATTEND Internal Medicine
DX: Z45.2 Encounter for adjustment and management of vascular access device (principal); I70.0 Atherosclerosis of aorta; I50.9 Heart failure, unspecified; I72.9 Aneurysm of unspecified site; Z88.1 Allergy status to other antibiotic agents; Z88.8 Allergy status to other drugs, medicaments and biological substances; Z98.51 Tubal ligation status; Z83.3 Family history of diabetes mellitus; Z82.49 Family history of ischemic heart disease and other diseases of the circulatory system
CPT/HCPCS: 36569; 71045; C1751; J7050

== ENCOUNTER → 2018-08-17 | Outpatient (CLI) | payer MEDICARE, MEDICAID ==
[2018-08-17 10:49] LABS: Basophils # (auto) 0.1 uL; Basophils % (auto) 0.7 % (0.0-2.0); Eosinophils # (auto) 0.2 uL; Eosinophils % (auto) 2.7 % (0.0-7.0); Hematocrit 42.1 % (36.0-46.0); Hemoglobin 14.2 g/dL (12.2-16.2); Lymphocytes % (auto) 27.7 % (10.0-50.0); Mean Corpuscular Hemoglobin 29.9 pg (28.0-32.0); Mean Corpuscular Hgb Conc. 33.6 g/dL (32.0-36.0); Mean Corpuscular Volume 88.8 fL (80.0-100.0); Monocytes # (auto) 0.5 uL; Monocytes % (auto) 7.4 % (0.0-12.0); Neutrophils # (auto) 4.5 uL; Neutrophils % (auto) 61.5 % (37.0-80.0); Nucleated Red Blood Cells % 0.1 %; Platelet Count (auto) 214 10^3/uL (140-450); Red Blood Cells 4.74 10^6/uL (4.0-5.20); Red Cell Distribution Width 15.4 % (11.8-14.3); White Blood Cell 7.3 10^3/uL (4.4-10.8)
[2018-08-17 12:37] LABS: Potassium 3.5 mmol/L (3.5-5.1)
[2018-08-17 12:44] LABS: Albumin 2.9 g/dL (3.4-5.0); BUN/Creatinine Ratio 18.2; Bilirubin, Total 1.5 mg/dL (0.2-1.0); Calcium 8.7 mg/dL (8.5-10.1); Total Protein 9.4 g/dL (6.4-8.2)
== END | disposition home or self-care (01) ==
LOC: LAB 10:19
PROVIDERS: ATTEND Internal Medicine
DX: I11.0 Hypertensive heart disease with heart failure (principal); D64.9 Anemia, unspecified; D68.9 Coagulation defect, unspecified; I50.9 Heart failure, unspecified; Z79.899 Other long term (current) drug therapy
CPT/HCPCS: 36415; 80053; 83036; 85025; 85652

== ENCOUNTER → 2018-08-17 | Outpatient (CLI) | payer MEDICARE, MEDICAID ==
[2018-08-17 13:26] LABS: INR 0.96 (0.9-1.15); Prothrombin Time 10.3 sec (9.27-12.13)
== END | disposition home or self-care (01) ==
LOC: LAB 12:50
PROVIDERS: ATTEND Internal Medicine
DX: D68.9 Coagulation defect, unspecified (principal); M46.26 Osteomyelitis of vertebra, lumbar region
CPT/HCPCS: 36415; 85610

== ENCOUNTER → 2018-08-19 | Outpatient (CLI) | payer MEDICARE, MEDICAID ==
[~2018-08-19] MED LIST changes: +LIDOCAINE 1% (LOCAL ANESTH.) PF 5ml SDV ID ONE
--- NOTE | 2018-08-19 15:17 | NUR ---
PICC line placement Patient/Patient'S family educated on need for PICC line placement. All risks and benefits explained and all questions and concerns addressed prior to procedure. Noted past medical history and allergies with no contraindications. INR and Plt counts within acceptable range. 4 fr PICC line inserted via left brachial vein using [employer] R[employer] US and Tip Location System. Sterile technique with maximum barrier precautions utilized. Blood return obtained from single lumen and each flushed easily with NS using proper technique. PICC secured with Stat-lock; biodisc and occlusive dressing applied. Stat portable chest x-ray obtained for PICC tip placement. *Baseline Arm Circumference 26 cm. *Internal Length 43 cm. *External Length 0 cm. *PICC lot #[id number].
--- NOTE | 2018-08-19 15:21 | NUR ---
CXR at bedside.
== END | disposition home or self-care (01) ==
LOC: XYW 13:38
PROVIDERS: ATTEND Internal Medicine
DX: Z45.2 Encounter for adjustment and management of vascular access device (principal); I70.0 Atherosclerosis of aorta; Z88.1 Allergy status to other antibiotic agents
CPT/HCPCS: 36569; 71045; C1751; J7050

== ENCOUNTER → 2018-08-24 | Outpatient (CLI) | payer MEDICARE, MEDICAID ==
[~2018-08-24] MED LIST changes: -LIDOCAINE 1% (LOCAL ANESTH.) PF 5ml SDV ID ONE
[2018-08-24 12:46] LABS: Calcium 8.9 mg/dL (8.5-10.1); Potassium 4.2 mmol/L (3.5-5.1)
== END | disposition home or self-care (01) ==
LOC: LAB 11:06
PROVIDERS: ATTEND Internal Medicine
DX: K74.69 Other cirrhosis of liver (principal); M46.20 Osteomyelitis of vertebra, site unspecified; R18.8 Other ascites
CPT/HCPCS: 36415; 80048

== ENCOUNTER → 2018-08-25 | Outpatient (CLI) | payer MEDICARE, MEDICAID ==
[2018-08-25 13:41] LABS: BUN/Creatinine Ratio 24.3; Calcium 8.7 mg/dL (8.5-10.1); Potassium 3.9 mmol/L (3.5-5.1)
== END | disposition home or self-care (01) ==
LOC: LAB 13:05
PROVIDERS: ATTEND Internal Medicine
DX: K72.90 Hepatic failure, unspecified without coma (principal); M46.26 Osteomyelitis of vertebra, lumbar region
CPT/HCPCS: 36415; 80048

== ENCOUNTER → 2018-08-30 | Outpatient (CLI) | payer MEDICARE, MEDICAID ==
[~2018-08-30] MED LIST changes: +HYDR-4924 PO; +TRAM50TA2 PO
[2018-08-30 09:19] LABS: BUN/Creatinine Ratio 23.2; Calcium 8.5 mg/dL (8.5-10.1); Potassium 4.3 mmol/L (3.5-5.1)
== END | disposition home or self-care (01) ==
LOC: LAB 08:27
PROVIDERS: ATTEND Internal Medicine
DX: M46.26 Osteomyelitis of vertebra, lumbar region (principal); I10 Essential (primary) hypertension; D64.9 Anemia, unspecified
CPT/HCPCS: 36415; 80048

== ENCOUNTER → 2018-09-03 | Day surgery (SDC) | payer MEDICARE, MEDICAID ==
[2018-08-31 11:21] LABS: Basophils # (auto) 0 uL; Basophils % (auto) 0.7 % (0.0-2.0); Eosinophils # (auto) 0.3 uL; Eosinophils % (auto) 3.8 % (0.0-7.0); Hematocrit 39.1 % (36.0-46.0); Hemoglobin 13.5 g/dL (12.2-16.2); Lymphocytes # (auto) 1.7 uL; Lymphocytes % (auto) 24.7 % (10.0-50.0); Mean Corpuscular Hemoglobin 30.1 pg (28.0-32.0); Mean Corpuscular Hgb Conc. 34.7 g/dL (32.0-36.0); Monocytes # (auto) 0.5 uL; Monocytes % (auto) 7.8 % (0.0-12.0); Neutrophils # (auto) 4.2 uL; Platelet Count (auto) 204 10^3/uL (140-450); Red Blood Cells 4.49 10^6/uL (4.0-5.20); Red Cell Distribution Width 15.3 % (11.8-14.3); White Blood Cell 6.7 10^3/uL (4.4-10.8)
[2018-08-31 11:34] LABS: INR 0.94 (0.9-1.15); Partial Thromboplastin Time 28.5 sec (23.78-33.04); Prothrombin Time 10.1 sec (9.27-12.13)
[2018-08-31 11:41] LABS: % Iron Saturation 22.4 % (15-50)
[~2018-09-03] VITALS: Ht 149.9 cm; Wt 58.1 kg
[~2018-09-03] MED LIST changes: -CARV25TA55 PO; -CLON0.1T PO; -HYDR-4683 PO; +LIDOCAINE VISCOUS 2% 15ML UD ONE; -MECL-87 PO; +MIDAZOLAM HCL 5 MG/ML-1ML VIAL ONE; -NAP500T PO; +SODIUM CHLORIDE LOCK 10 ML ONE; +diphenhdrAMINE HCL 50 MG/1 ML VL ONE; +fentaNYL CITRATE 100 MCG/2 ML VL ONE
[2018-09-03 10:55] VITALS: BP 105/64
== END | disposition home or self-care (01) ==
LOC: GI 08:34
PROVIDERS: ATTEND Internal Medicine Gastroenterology
DX: K74.60 Unspecified cirrhosis of liver (principal); I85.10 Secondary esophageal varices without bleeding; K20.9 Esophagitis, unspecified; K76.6 Portal hypertension; K31.89 Other diseases of stomach and duodenum; I50.9 Heart failure, unspecified; E11.9 Type 2 diabetes mellitus without complications; Z90.710 Acquired absence of both cervix and uterus; Z82.49 Family history of ischemic heart disease and other diseases of the circulatory system; Z83.3 Family history of diabetes mellitus; Z88.1 Allergy status to other antibiotic agents; Z88.8 Allergy status to other drugs, medicaments and biological substances; Z98.51 Tubal ligation status
CPT/HCPCS: 36415; 82105; 82390; 83540; 83550; 85025; 85610; 85730; J2250; J3010; J7030; 43235

== ENCOUNTER 2018-09-07 18:07 | Emergency (ER) | payer MEDICARE, MEDICAID ==
[~2018-09-07] VITALS: Ht 149.9 cm; Wt 59.0 kg
[~2018-09-07 18:07] MED LIST changes: -LIDOCAINE VISCOUS 2% 15ML UD ONE; -MIDAZOLAM HCL 5 MG/ML-1ML VIAL ONE; -SODIUM CHLORIDE LOCK 10 ML ONE; -diphenhdrAMINE HCL 50 MG/1 ML VL ONE; -fentaNYL CITRATE 100 MCG/2 ML VL ONE
[2018-09-07] MEDS ORDERED: hydrOXYzine 25 MG TAB or CAP PO ONE (21:30)
[2018-09-07 21:37] LABS: Basophils # (auto) 0 uL; Basophils % (auto) 0.7 % (0.0-2.0); Eosinophils # (auto) 0.1 uL; Eosinophils % (auto) 1.7 % (0.0-7.0); Hematocrit 33.9 % (36.0-46.0); Hemoglobin 11.6 g/dL (12.2-16.2); Lymphocytes # (auto) 1.7 uL; Lymphocytes % (auto) 27.6 % (10.0-50.0); Mean Corpuscular Hgb Conc. 34.1 g/dL (32.0-36.0); Monocytes # (auto) 0.6 uL; Monocytes % (auto) 9.2 % (0.0-12.0); Neutrophils # (auto) 3.8 uL; Neutrophils % (auto) 60.8 % (37.0-80.0); Nucleated Red Blood Cells % 0.1 %; Platelet Count (auto) 146 10^3/uL (140-450); Red Blood Cells 3.86 10^6/uL (4.0-5.20); Red Cell Distribution Width 15.7 % (11.8-14.3); White Blood Cell 6.2 10^3/uL (4.4-10.8)
[2018-09-07 21:48] LABS: Albumin 2.6 g/dL (3.4-5.0); Anion Gap 9 (5-15); Blood Urea Nitrogen 22 mg/dL (7-18); Calcium 7.7 mg/dL (8.5-10.1); Carbon Dioxide 26 mmol/L (21-32); Chloride 106 mmol/L (98-107); Glucose 127 mg/dL (74-106); Magnesium 2.2 mg/dL (1.6-2.6); Potassium 3.3 mmol/L (3.5-5.1); Sodium 141 mmol/L (136-145)
[2018-09-07 21:50] LABS: Alanine Aminotransferase 70 U/L (13-56); Aspartate Aminotransferase 75 U/L (15-37); BUN/Creatinine Ratio 18.3; GFR African American 59 mL/min; GFR Non-African American 49 mL/min
[2018-09-07 21:55] LABS: Alkaline Phosphatase 478 U/L (45-117); Bilirubin, Total 1.1 mg/dL (0.2-1.0); Total Protein 7.8 g/dL (6.4-8.2)
[2018-09-07 21:58] LABS: INR 0.99 (0.9-1.15); Partial Thromboplastin Time 25.2 sec (23.78-33.04); Prothrombin Time 10.6 sec (9.27-12.13)
[2018-09-07 23:02] VITALS: BP 166/96
== END 2018-09-07 23:35 | disposition home or self-care (01) ==
LOC: ER 18:07
DX: I16.0 Hypertensive urgency (principal); I13.0 Hypertensive heart and chronic kidney disease with heart failure and stage 1 through stage 4 chronic kidney disease, or unspecified chronic kidney disease; N18.9 Chronic kidney disease, unspecified; I50.9 Heart failure, unspecified; R51 Headache; K21.9 Gastro-esophageal reflux disease without esophagitis; E78.5 Hyperlipidemia, unspecified; Z86.73 Personal history of transient ischemic attack (TIA), and cerebral infarction without residual deficits; Z98.51 Tubal ligation status; Z88.1 Allergy status to other antibiotic agents
CPT/HCPCS: 36415; 70450; 71045; 80053; 80320; 83735; 83880; 84443; 84484; 85025; 85379; 85610; 85730; 93005; 94761

== ENCOUNTER 2018-09-18 07:24 | Emergency (ER) | payer MEDICARE, MEDICAID ==
[~2018-09-18] VITALS: Ht 149.9 cm; Wt 59.9 kg
[2018-09-18 07:58] VITALS: BP 130/74
[2018-09-18] MEDS ORDERED: ACETAMINOPHEN/CODEINE#3 (300/30mg) TAB PO ONE (09:00)
[2018-09-18] MEDS ORDERED: hydrOXYzine 25 MG TAB or CAP PO ONE (09:00)
== END 2018-09-18 10:07 | disposition home or self-care (01) ==
LOC: ER 07:24
DX: S20.212A Contusion of left front wall of thorax, initial encounter (principal); L29.9 Pruritus, unspecified; I13.0 Hypertensive heart and chronic kidney disease with heart failure and stage 1 through stage 4 chronic kidney disease, or unspecified chronic kidney disease; N18.9 Chronic kidney disease, unspecified; I50.9 Heart failure, unspecified; K21.9 Gastro-esophageal reflux disease without esophagitis; E78.5 Hyperlipidemia, unspecified; Z98.51 Tubal ligation status; Z86.73 Personal history of transient ischemic attack (TIA), and cerebral infarction without residual deficits; Z88.1 Allergy status to other antibiotic agents; W18.12XA Fall from or off toilet with subsequent striking against object, initial encounter; Y93.89 Activity, other specified; Y92.091 Bathroom in other non-institutional residence as the place of occurrence of the external cause; Y99.8 Other external cause status
CPT/HCPCS: 71101

== ENCOUNTER 2018-10-01 04:56 | Emergency (ER) | payer MEDICAID, MEDICARE ==
[~2018-10-01] VITALS: Ht 149.9 cm; Wt 59.9 kg
[2018-10-01] MEDS ORDERED: cloNIDine HCL 0.1 MG TAB PO ONE (05:15)
[2018-10-01] MEDS ORDERED: ONDANSETRON ODT 4 MG TAB PO ONE (05:15)
[2018-10-01] MEDS ORDERED: HYDROcodone-ACET 10/325MG TAB PO ONE (06:15)
[2018-10-01 06:24] LABS: Basophils # (auto) 0 uL; Basophils % (auto) 0.4 % (0.0-2.0); Eosinophils # (auto) 0.2 uL; Eosinophils % (auto) 3.8 % (0.0-7.0); Hematocrit 34.2 % (36.0-46.0); Hemoglobin 11.3 g/dL (12.2-16.2); Lymphocytes % (auto) 15.8 % (10.0-50.0); Mean Corpuscular Hemoglobin 29.8 pg (28.0-32.0); Mean Corpuscular Hgb Conc. 32.9 g/dL (32.0-36.0); Mean Corpuscular Volume 90.4 fL (80.0-100.0); Monocytes # (auto) 0.5 uL; Monocytes % (auto) 7.8 % (0.0-12.0); Neutrophils # (auto) 4.6 uL; Neutrophils % (auto) 72.2 % (37.0-80.0); Platelet Count (auto) 149 10^3/uL (140-450); Red Blood Cells 3.79 10^6/uL (4.0-5.20); Red Cell Distribution Width 17.3 % (11.8-14.3); White Blood Cell 6.4 10^3/uL (4.4-10.8)
[2018-10-01 06:45] LABS: Alanine Aminotransferase 30 U/L (13-56); Albumin 2.6 g/dL (3.4-5.0); Anion Gap 9 (5-15); Aspartate Aminotransferase 44 U/L (15-37); BUN/Creatinine Ratio 22.7; Blood Urea Nitrogen 22 mg/dL (7-18); Calcium 8.3 mg/dL (8.5-10.1); Carbon Dioxide 26 mmol/L (21-32); Chloride 105 mmol/L (98-107); GFR African American 75 mL/min; GFR Non-African American 62 mL/min; Glucose 120 mg/dL (74-106); Potassium 3.2 mmol/L (3.5-5.1); Sodium 140 mmol/L (136-145)
[2018-10-01 06:50] LABS: Alkaline Phosphatase 408 U/L (45-117); Bilirubin, Total 1.9 mg/dL (0.2-1.0); Total Protein 7.7 g/dL (6.4-8.2)
[2018-10-01] MEDS ORDERED: amLODIPine BESYLATE 5 MG TAB ONE (06:59)
[2018-10-01] MEDS ORDERED: amLODIPine BESYLATE 5 MG TAB PO ONE (07:15)
[2018-10-01] MEDS ORDERED: POTASSIUM EFFERVESENT TAB 25 MEQ PO ONE (07:30)
[2018-10-01] MEDS ORDERED: FUROSEMIDE 40 MG/4 ML VIAL IV ONE (07:30)
[2018-10-01 09:28] LABS: Urine Bacteria NONE SEEN /hpf (None Seen); Urine Blood Negative /uL (Negative); Urine Specific Gravity 1.008 (1.001-1.035); Urine WBC <1 /hpf (0 - 5)
[2018-10-01 09:36] VITALS: BP 128/91
== END 2018-10-01 10:07 | disposition home or self-care (01) ==
LOC: ER 04:56
DX: I13.0 Hypertensive heart and chronic kidney disease with heart failure and stage 1 through stage 4 chronic kidney disease, or unspecified chronic kidney disease (principal); R42 Dizziness and giddiness; N18.9 Chronic kidney disease, unspecified; I50.9 Heart failure, unspecified; K21.9 Gastro-esophageal reflux disease without esophagitis; E78.5 Hyperlipidemia, unspecified; Z86.73 Personal history of transient ischemic attack (TIA), and cerebral infarction without residual deficits; Z98.51 Tubal ligation status; Z88.1 Allergy status to other antibiotic agents; Z79.899 Other long term (current) drug therapy
CPT/HCPCS: 36415; 70450; 72131; 80053; 81001; 82140; 83880; 84484; 85025; 94761; 96374; 99284; J1940

== ENCOUNTER 2018-10-20 07:53 | Inpatient (IN) | payer MEDICARE | END 2018-10-22 16:02 | disposition home or self-care (01) | LOC: ER 07:53 → TELE 13:04 → TELE-CENTR 17:25 | DX: I63.9 Cerebral infarction, unspecified (principal); I13.0 Hypertensive heart and chronic kidney disease with heart failure and stage 1 through stage 4 chronic kidney disease, or unspecified chronic kidney disease; E44.0 Moderate protein-calorie malnutrition; K76.6 Portal hypertension; G40.209 Localization-related (focal) (partial) symptomatic epilepsy and epileptic syndromes with complex partial seizures, not intractable, without status epilepticus; K92.2 Gastrointestinal hemorrhage, unspecified; I50.9 Heart failure, unspecified; N18.3 Chronic kidney disease, stage 3 (moderate); D63.8 Anemia in other chronic diseases classified elsewhere; E87.6 Hypokalemia; K74.60 Unspecified cirrhosis of liver; F02.80 Dementia in other diseases classified elsewhere, unspecified severity, without behavioral disturbance, psychotic disturbance, mood disturbance, and anxiety; G30.9 Alzheimer's disease, unspecified; E11.21 Type 2 diabetes mellitus with diabetic nephropathy; E11.22 Type 2 diabetes mellitus with diabetic chronic kidney disease ==

== ENCOUNTER 2018-11-29 17:08 | Emergency (ER) | payer MEDICARE, MEDICAID ==
[~2018-11-29] VITALS: Ht 149.9 cm; Wt 59.0 kg
[2018-11-29 18:34] LABS: Albumin 2.6 g/dL (3.4-5.0); Anion Gap 6 (5-15); Blood Urea Nitrogen 21 mg/dL (7-18); Carbon Dioxide 29 mmol/L (21-32); Chloride 104 mmol/L (98-107); Glucose 130 mg/dL (74-106); Magnesium 2.3 mg/dL (1.6-2.6); Potassium 3.7 mmol/L (3.5-5.1); Sodium 139 mmol/L (136-145)
[2018-11-29 18:40] LABS: Basophils # (auto) 0 uL; Basophils % (auto) 0.6 % (0.0-2.0); Eosinophils # (auto) 0.4 uL; Hematocrit 36.5 % (36.0-46.0); Hemoglobin 12.4 g/dL (12.2-16.2); Lymphocytes # (auto) 1.5 uL; Lymphocytes % (auto) 24.3 % (10.0-50.0); Mean Corpuscular Hemoglobin 29.5 pg (28.0-32.0); Mean Corpuscular Volume 86.8 fL (80.0-100.0); Monocytes # (auto) 0.6 uL; Monocytes % (auto) 10.5 % (0.0-12.0); Neutrophils # (auto) 3.6 uL; Neutrophils % (auto) 58.6 % (37.0-80.0); Platelet Count (auto) 167 10^3/uL (140-450); White Blood Cell 6.2 10^3/uL (4.4-10.8)
[2018-11-29 18:50] LABS: Alanine Aminotransferase 65 U/L (13-56); Alkaline Phosphatase 902 U/L (45-117); Aspartate Aminotransferase 93 U/L (15-37); BUN/Creatinine Ratio 17.9; Bilirubin, Total 1.1 mg/dL (0.2-1.0); GFR African American 60 mL/min; GFR Non-African American 50 mL/min; Total Protein 8.1 g/dL (6.4-8.2)
[2018-11-29 20:52] LABS: Urine Bacteria NONE SEEN /hpf (None Seen); Urine Blood Negative /uL (Negative); Urine Hyaline Cast FEW /lpf (0 - 2); Urine Specific Gravity 1.018 (1.001-1.035); Urine WBC 1 /hpf (0 - 5)
[2018-11-29 20:55] VITALS: BP 118/66
== END 2018-11-29 21:25 | disposition home or self-care (01) ==
LOC: ER 17:11
DX: R53.1 Weakness (principal); R51 Headache; R42 Dizziness and giddiness; I13.0 Hypertensive heart and chronic kidney disease with heart failure and stage 1 through stage 4 chronic kidney disease, or unspecified chronic kidney disease; E11.22 Type 2 diabetes mellitus with diabetic chronic kidney disease; N18.9 Chronic kidney disease, unspecified; I50.9 Heart failure, unspecified; E78.5 Hyperlipidemia, unspecified; Z86.2 Personal history of diseases of the blood and blood-forming organs and certain disorders involving the immune mechanism; Z86.73 Personal history of transient ischemic attack (TIA), and cerebral infarction without residual deficits; Z88.1 Allergy status to other antibiotic agents; Z88.8 Allergy status to other drugs, medicaments and biological substances; Z79.899 Other long term (current) drug therapy
CPT/HCPCS: 36415; 70450; 80053; 81001; 83735; 84484; 85025; 93005; 94761

== ENCOUNTER 2018-12-02 11:51 | Emergency (ER) | payer MEDICARE, MEDICAID ==
[~2018-12-02] VITALS: Ht 149.9 cm; Wt 59.0 kg
[2018-12-02 11:58] VITALS: BP 133/78
[2018-12-02] MEDS ORDERED: traMADol HCL 50 MG TAB PO ONE (13:45)
== END 2018-12-02 14:15 | disposition home or self-care (01) ==
LOC: ER 11:54
DX: S76.011A Strain of muscle, fascia and tendon of right hip, initial encounter (principal); S29.012A Strain of muscle and tendon of back wall of thorax, initial encounter; I13.0 Hypertensive heart and chronic kidney disease with heart failure and stage 1 through stage 4 chronic kidney disease, or unspecified chronic kidney disease; N18.9 Chronic kidney disease, unspecified; K21.9 Gastro-esophageal reflux disease without esophagitis; E78.5 Hyperlipidemia, unspecified; I50.9 Heart failure, unspecified; Z88.8 Allergy status to other drugs, medicaments and biological substances; Z79.899 Other long term (current) drug therapy; Z86.73 Personal history of transient ischemic attack (TIA), and cerebral infarction without residual deficits; Z98.51 Tubal ligation status; W01.0XXA Fall on same level from slipping, tripping and stumbling without subsequent striking against object, initial encounter; Y93.89 Activity, other specified; Y99.8 Other external cause status; Y92.89 Other specified places as the place of occurrence of the external cause
CPT/HCPCS: 72070; 72100; 73502

== ENCOUNTER 2018-12-04 16:20 | Emergency (ER) | payer MEDICARE, MEDICAID ==
[~2018-12-04] VITALS: Ht 149.9 cm; Wt 60.8 kg
[2018-12-04 19:58] LABS: Basophils # (auto) 0 uL; Basophils % (auto) 0.6 % (0.0-2.0); Eosinophils # (auto) 0.4 uL; Eosinophils % (auto) 5.4 % (0.0-7.0); Hematocrit 33.8 % (36.0-46.0); Hemoglobin 11.3 g/dL (12.2-16.2); Lymphocytes # (auto) 1.7 uL; Lymphocytes % (auto) 23.8 % (10.0-50.0); Mean Corpuscular Hemoglobin 28.7 pg (28.0-32.0); Mean Corpuscular Hgb Conc. 33.5 g/dL (32.0-36.0); Mean Corpuscular Volume 85.6 fL (80.0-100.0); Monocytes # (auto) 0.8 uL; Monocytes % (auto) 10.8 % (0.0-12.0); Neutrophils # (auto) 4.4 uL; Neutrophils % (auto) 59.4 % (37.0-80.0); Platelet Count (auto) 152 10^3/uL (140-450); Red Blood Cells 3.94 10^6/uL (4.0-5.20); Red Cell Distribution Width 14.6 % (11.8-14.3); White Blood Cell 7.3 10^3/uL (4.4-10.8)
[2018-12-04] MEDS ORDERED: traMADol HCL 50 MG TAB PO ONE (20:15)
[2018-12-04 20:20] LABS: Alanine Aminotransferase 37 U/L (13-56); Albumin 2.4 g/dL (3.4-5.0); Anion Gap 6 (5-15); Blood Urea Nitrogen 20 mg/dL (7-18); Calcium 8.3 mg/dL (8.5-10.1); Carbon Dioxide 28 mmol/L (21-32); Chloride 104 mmol/L (98-107); Glucose 120 mg/dL (74-106); Magnesium 2.6 mg/dL (1.6-2.6); Potassium 3.5 mmol/L (3.5-5.1); Sodium 138 mmol/L (136-145)
[2018-12-04 20:25] LABS: Alkaline Phosphatase 707 U/L (45-117); Aspartate Aminotransferase 54 U/L (15-37); BUN/Creatinine Ratio 21.5; Bilirubin, Total 1.1 mg/dL (0.2-1.0); GFR African American 79 mL/min; GFR Non-African American 65 mL/min; Total Protein 7.7 g/dL (6.4-8.2)
[2018-12-04 20:25] LABS: Urine WBC None Seen /hpf (0 - 5)
[2018-12-04 20:59] LABS: Urine Bacteria NONE SEEN /hpf (None Seen); Urine Blood Negative /uL (Negative); Urine Specific Gravity 1.016 (1.001-1.035)
[2018-12-04 21:32] VITALS: BP 131/74
[2018-12-04 21:54] LABS: INR 0.96 (0.9-1.15); Partial Thromboplastin Time 29.4 sec (23.78-33.04); Prothrombin Time 10.3 sec (9.27-12.13)
== END 2018-12-04 21:43 | disposition home or self-care (01) ==
LOC: ER 16:24
DX: R07.89 Other chest pain (principal); G89.29 Other chronic pain; M54.5 Low back pain; M47.896 Other spondylosis, lumbar region; C79.51 Secondary malignant neoplasm of bone; I12.9 Hypertensive chronic kidney disease with stage 1 through stage 4 chronic kidney disease, or unspecified chronic kidney disease; N18.9 Chronic kidney disease, unspecified; E78.5 Hyperlipidemia, unspecified; K21.9 Gastro-esophageal reflux disease without esophagitis
CPT/HCPCS: 36415; 71250; 72131; 80053; 81001; 83735; 83880; 84484; 85025; 85610; 85730; 93005; 94761

== ENCOUNTER → 2018-12-06 | Outpatient (CLI) | payer MEDICARE, MEDICAID | END | disposition home or self-care (01) | LOC: XY 08:15 | PROVIDERS: ATTEND Internal Medicine | DX: M46.24 Osteomyelitis of vertebra, thoracic region (principal); M54.9 Dorsalgia, unspecified; D72.829 Elevated white blood cell count, unspecified | CPT/HCPCS: 78805; A9547 ==

== ENCOUNTER → 2018-12-16 | Outpatient (CLI) | payer MEDICARE, MEDICAID | END | disposition home or self-care (01) | LOC: Rad HDHVI 09:48 | PROVIDERS: ATTEND Internal Medicine Cardiovascular Disease | DX: I25.5 Ischemic cardiomyopathy (principal); I11.0 Hypertensive heart disease with heart failure; I50.23 Acute on chronic systolic (congestive) heart failure | CPT/HCPCS: 93306 ==

== ENCOUNTER → 2018-12-21 | Outpatient (CLI) | payer MEDICARE, MEDICAID ==
[2018-12-21 14:21] LABS: Albumin 2.7 g/dL (3.4-5.0); BUN/Creatinine Ratio 19.6; Calcium 8.3 mg/dL (8.5-10.1); Potassium 3.6 mmol/L (3.5-5.1)
[2018-12-21 14:35] LABS: Bilirubin, Total 1.2 mg/dL (0.2-1.0); Total Protein 8.5 g/dL (6.4-8.2)
== END | disposition home or self-care (01) ==
LOC: LAB 13:49
PROVIDERS: ATTEND Internal Medicine
DX: I12.9 Hypertensive chronic kidney disease with stage 1 through stage 4 chronic kidney disease, or unspecified chronic kidney disease (principal); N18.3 Chronic kidney disease, stage 3 (moderate); E78.5 Hyperlipidemia, unspecified
CPT/HCPCS: 36415; 80053

== ENCOUNTER → 2019-01-13 | Outpatient (CLI) | payer MEDICARE, MEDICAID ==
[~2019-01-13] MED LIST changes: +ADENOSINE 49 MG in GIVE UN-DILUTED 0 ML IV ONE; +ADENOSINE 90 MG/30 ML INJ IV ONE
== END | disposition home or self-care (01) ==
LOC: Rad HDHVI 13:28
PROVIDERS: ATTEND Internal Medicine Cardiovascular Disease
DX: I25.5 Ischemic cardiomyopathy (principal); I13.0 Hypertensive heart and chronic kidney disease with heart failure and stage 1 through stage 4 chronic kidney disease, or unspecified chronic kidney disease; E11.22 Type 2 diabetes mellitus with diabetic chronic kidney disease; I50.43 Acute on chronic combined systolic (congestive) and diastolic (congestive) heart failure; N18.9 Chronic kidney disease, unspecified; I63.9 Cerebral infarction, unspecified; K76.89 Other specified diseases of liver; R06.02 Shortness of breath
CPT/HCPCS: 78452; 93005; 96374; 96375; A9500; J0153

== ENCOUNTER → 2019-01-17 | Outpatient (CLI) | payer MEDICARE, MEDICAID ==
[~2019-01-17] MED LIST changes: -ADENOSINE 49 MG in GIVE UN-DILUTED 0 ML IV ONE; -ADENOSINE 90 MG/30 ML INJ IV ONE
== END | disposition home or self-care (01) ==
LOC: XY 07:04
PROVIDERS: ATTEND Internal Medicine
DX: M46.26 Osteomyelitis of vertebra, lumbar region (principal)
CPT/HCPCS: 78306; A9503

== ENCOUNTER → 2019-01-25 | Outpatient (CLI) | payer MEDICARE, MEDICAID ==
[2019-01-25 13:31] LABS: Basophils # (auto) 0.1 uL; Basophils % (auto) 1.3 % (0.0-2.0); Eosinophils # (auto) 0.5 uL; Eosinophils % (auto) 9.1 % (0.0-7.0); Hematocrit 36.7 % (36.0-46.0); Hemoglobin 12.2 g/dL (12.2-16.2); Lymphocytes # (auto) 1.5 uL; Lymphocytes % (auto) 26.1 % (10.0-50.0); Mean Corpuscular Hemoglobin 28.8 pg (28.0-32.0); Mean Corpuscular Hgb Conc. 33.3 g/dL (32.0-36.0); Mean Corpuscular Volume 86.5 fL (80.0-100.0); Monocytes # (auto) 0.5 uL; Monocytes % (auto) 9.2 % (0.0-12.0); Neutrophils # (auto) 3.1 uL; Neutrophils % (auto) 54.3 % (37.0-80.0); Platelet Count (auto) 151 10^3/uL (140-450); Red Blood Cells 4.24 10^6/uL (4.0-5.20); Red Cell Distribution Width 17.1 % (11.8-14.3); White Blood Cell 5.6 10^3/uL (4.4-10.8)
[2019-01-25 14:38] LABS: Albumin 2.7 g/dL (3.4-5.0); Calcium 8.4 mg/dL (8.5-10.1); Potassium 3.6 mmol/L (3.5-5.1)
[2019-01-25 14:56] LABS: BUN/Creatinine Ratio 21.2; Bilirubin, Total 1.2 mg/dL (0.2-1.0); Total Protein 8.7 g/dL (6.4-8.2)
== END | disposition home or self-care (01) ==
LOC: LAB 13:04
PROVIDERS: ATTEND Internal Medicine
DX: I13.0 Hypertensive heart and chronic kidney disease with heart failure and stage 1 through stage 4 chronic kidney disease, or unspecified chronic kidney disease (principal); N18.9 Chronic kidney disease, unspecified; I50.9 Heart failure, unspecified; J44.9 Chronic obstructive pulmonary disease, unspecified
CPT/HCPCS: 36415; 80053; 85025

== ENCOUNTER 2019-02-16 01:05 | Inpatient (IN) | payer MEDICARE, MEDICAID | END 2019-02-18 15:00 | disposition home or self-care (01) | LOC: ER 01:05 → OVERFLOW 01:06 → CENTRAL 09:56 | DX: G93.41 Metabolic encephalopathy (principal); E43 Unspecified severe protein-calorie malnutrition; N17.0 Acute kidney failure with tubular necrosis; N39.0 Urinary tract infection, site not specified; D64.9 Anemia, unspecified; N18.3 Chronic kidney disease, stage 3 (moderate); F02.80 Dementia in other diseases classified elsewhere, unspecified severity, without behavioral disturbance, psychotic disturbance, mood disturbance, and anxiety; G30.9 Alzheimer's disease, unspecified; K72.90 Hepatic failure, unspecified without coma; K74.60 Unspecified cirrhosis of liver; I10 Essential (primary) hypertension; G92 Toxic encephalopathy ==

== ENCOUNTER → 2019-04-11 | Outpatient (CLI) | payer MEDICARE, MEDICAID ==
[~2019-04-11] MED LIST changes: +AMLO5TAB15 PO; +ASPI-404 PO; +ATOR20TA PO; +CALC667C PO; +CHOL20007 PO; +DOCU-55 PO; +GABA300C10 PO; +HYDR25TA4 PO; +PANT40TA2 PO; +POTA1TAB61 PO; +PROP60CA34 PO; +TEMA30CA PO
[2019-04-11 16:00] LABS: Cholesterol 165 mg/dL (< 200); HDL Cholesterol 30 mg/dL (40-59); LDL Cholesterol 101 mg/dL (< 100); Triglycerides 149 mg/dL (< 150)
== END | disposition home or self-care (01) ==
LOC: LAB 15:16
PROVIDERS: ATTEND Internal Medicine
DX: Z12.11 Encounter for screening for malignant neoplasm of colon (principal); K74.69 Other cirrhosis of liver; I13.0 Hypertensive heart and chronic kidney disease with heart failure and stage 1 through stage 4 chronic kidney disease, or unspecified chronic kidney disease; E11.22 Type 2 diabetes mellitus with diabetic chronic kidney disease; I50.9 Heart failure, unspecified; N18.3 Chronic kidney disease, stage 3 (moderate)
CPT/HCPCS: 36415; 80061; 82043; 83036

== ENCOUNTER → 2019-04-20 | Outpatient (CLI) | payer MEDICARE, MEDICAID ==
[~2019-04-20] MED LIST changes: +ATOR20TA50 PO; +DOCU100T15 PO; +FLUT110A INH; +FLUT1INH2 IN; +GABA300C PO; +KET30I PO; +LACT10SO70 PO; +MECL-87 PO; +MIDAZOLAM HCL 1MG/1ML-2 ML VIAL ONE; +POTA10TA51 PO; +URSO300C9 PO; +fentaNYL CITRATE 100 MCG/2 ML VL ONE
[2019-04-20 10:29] LABS: Basophils # (auto) 0 uL; Basophils % (auto) 0.7 % (0.0-2.0); Eosinophils # (auto) 0.4 uL; Hematocrit 38.6 % (36.0-46.0); Hemoglobin 13.3 g/dL (12.2-16.2); Lymphocytes # (auto) 0.6 uL; Lymphocytes % (auto) 9.3 % (10.0-50.0); Mean Corpuscular Hemoglobin 29.4 pg (28.0-32.0); Mean Corpuscular Hgb Conc. 34.5 g/dL (32.0-36.0); Mean Corpuscular Volume 85.2 fL (80.0-100.0); Monocytes # (auto) 0.6 uL; Monocytes % (auto) 8.5 % (0.0-12.0); Neutrophils # (auto) 5.1 uL; Neutrophils % (auto) 75.5 % (37.0-80.0); Nucleated Red Blood Cells % 0.1 %; Platelet Count (auto) 152 10^3/uL (140-450); Red Blood Cells 4.53 10^6/uL (4.0-5.20); Red Cell Distribution Width 16.7 % (11.8-14.3); White Blood Cell 6.7 10^3/uL (4.4-10.8)
[2019-04-20 10:42] LABS: INR 1.01 (0.9-1.15); Partial Thromboplastin Time 30.1 sec (23.64-32.05)
== END | disposition home or self-care (01) ==
LOC: LAB 09:55
PROVIDERS: ATTEND Internal Medicine Gastroenterology
DX: Z01.812 Encounter for preprocedural laboratory examination (principal); I11.0 Hypertensive heart disease with heart failure; I50.9 Heart failure, unspecified
CPT/HCPCS: 36415; 85025; 85610; 85730

== ENCOUNTER → 2019-04-21 | Outpatient (CLI) | payer MEDICARE, MEDICAID ==
[~2019-04-21] VITALS: Ht 30.5 cm; Wt 0.5 kg
[~2019-04-21] MED LIST changes: +GELATIN 1 SPONGE SIZE 50 TOP ONE; +LIDOCAINE 2%HCL (LOCAL ANESTH.) INJ 20ML MDV ONE; +MIDAZOLAM HCL 1MG/1ML-2 ML VIAL IV ONE; -MIDAZOLAM HCL 1MG/1ML-2 ML VIAL ONE; +fentaNYL CITRATE 100 MCG/2 ML VL IV ONE; -fentaNYL CITRATE 100 MCG/2 ML VL ONE
== END | disposition home or self-care (01) ==
LOC: CT 08:40
PROVIDERS: ATTEND Internal Medicine Gastroenterology
DX: K74.69 Other cirrhosis of liver (principal)
CPT/HCPCS: 47000; 74150; 77012; 88307; 88313; J2250; J3010; 10022; 99152; 99153

== ENCOUNTER 2019-04-26 10:06 | Inpatient (IN) | payer MEDICARE, MEDICAID ==
[~2019-04-26] VITALS: Ht 149.9 cm; Wt 63.4 kg
[~2019-04-26 10:06] MED LIST changes: -ATOR20TA50 PO; -DOCU100T15 PO; -FLUT110A INH; -FLUT1INH2 IN; -GABA300C PO; -GELATIN 1 SPONGE SIZE 50 TOP ONE; -KET30I PO; -LACT10SO70 PO; -LIDOCAINE 2%HCL (LOCAL ANESTH.) INJ 20ML MDV ONE; -MECL-87 PO; -MIDAZOLAM HCL 1MG/1ML-2 ML VIAL IV ONE; -POTA10TA51 PO; -URSO300C9 PO; -fentaNYL CITRATE 100 MCG/2 ML VL IV ONE
[2019-04-26 11:45] LABS: Basophils # (auto) 0 uL; Basophils % (auto) 0.8 % (0.0-2.0); Eosinophils # (auto) 0.4 uL; Eosinophils % (auto) 8.8 % (0.0-7.0); Hemoglobin 12.4 g/dL (12.2-16.2); Lymphocytes # (auto) 1.1 uL; Lymphocytes % (auto) 23.1 % (10.0-50.0); Mean Corpuscular Hemoglobin 29.5 pg (28.0-32.0); Mean Corpuscular Hgb Conc. 33.5 g/dL (32.0-36.0); Mean Corpuscular Volume 88.1 fL (80.0-100.0); Monocytes # (auto) 0.5 uL; Monocytes % (auto) 9.5 % (0.0-12.0); Neutrophils # (auto) 2.8 uL; Neutrophils % (auto) 57.8 % (37.0-80.0); Platelet Count (auto) 135 10^3/uL (140-450); Red Cell Distribution Width 16.9 % (11.8-14.3); White Blood Cell 4.9 10^3/uL (4.4-10.8)
[2019-04-26 12:49] LABS: Chloride 106 mmol/L (98-107); Potassium 3.6 mmol/L (3.5-5.1); Sodium 139 mmol/L (136-145)
[2019-04-26 13:05] LABS: Alanine Aminotransferase 103 U/L (13-56); Albumin 2.6 g/dL (3.4-5.0); Alkaline Phosphatase 819 U/L (45-117); Anion Gap 5 (5-15); Aspartate Aminotransferase 143 U/L (15-37); BUN/Creatinine Ratio 25.7; Bilirubin, Total 0.9 mg/dL (0.2-1.0); Blood Urea Nitrogen 29 mg/dL (7-18); Calcium 7.9 mg/dL (8.5-10.1); Carbon Dioxide 28 mmol/L (21-32); GFR African American 63 mL/min; GFR Non-African American 52 mL/min; Glucose 121 mg/dL (74-106); Total Protein 7.9 g/dL (6.4-8.2)
[2019-04-26 13:21] LABS: Urine Bacteria FEW /hpf (None Seen); Urine Blood 2+ /uL (Negative); Urine Hyaline Cast FEW /lpf (0 - 2); Urine Specific Gravity 1.014 (1.001-1.035); Urine WBC 2 /hpf (0 - 5)
[2019-04-26] MEDS ORDERED: MORPHINE SULF INJ 2 MG/ML SYRINGE 1ML IV PRN (14:45)
[2019-04-26] MEDS ORDERED: traMADol HCL 50 MG TAB PO PRN (14:45)
[2019-04-26] MEDS ORDERED: ONDANSETRON HCL 4 MG/2 ML VIAL IV PRN (14:45)
[2019-04-26] MEDS ORDERED: SODIUM CHLORIDE 0.9% 1,000 ML IV SCH (14:45)
[2019-04-26] MEDS ORDERED: NITROGLYCERIN 0.4 MG SL TAB SL PRN (14:45)
[2019-04-26] MEDS ORDERED: LEVOFLOXACIN 500MG 100 ML IV ONE (14:45)
[2019-04-26] MEDS ORDERED: FLUT110A INH (15:02)
--- NOTE | 2019-04-26 16:48 | NUR ---
Telemetry admit from ER NICOLE OROPEZA admitted to Telemetry unit after SBAR received. Patient oriented to LYNDA ODONNELL RN primary RN, unit, room, bed, and unit policies regarding patient care and visiting hours. Patient now on continuous telemetry monitoring, tele box # 1 and telemetry reading on arrival to unit is SR . Weighed by bedscale and encouraged to call if they need something. All questions and concerns addressed, patient verbalized understanding. Bed in lowest position with alarm on siderails up x2
[2019-04-26 17:55] VITALS: BP 147/87
[2019-04-26] MEDS ORDERED: BENA40TA7 PO (18:26)
[2019-04-26] MEDS ORDERED: MECL-87 PO (18:26)
[2019-04-26] MEDS ORDERED: TEMA30CA PO (18:26)
[2019-04-26] MEDS ORDERED: PANT40TA2 PO (18:26)
[2019-04-26] MEDS ORDERED: ATOR20TA50 PO (18:26)
[2019-04-26] MEDS ORDERED: HYDR25TA4 PO (18:26)
[2019-04-26] MEDS ORDERED: KET30I PO (18:26)
[2019-04-26] MEDS ORDERED: PROP60CA34 PO (18:26)
[2019-04-26] MEDS ORDERED: AMLO5TAB15 PO (18:26)
[2019-04-26] MEDS ORDERED: POTA10TA51 PO (18:26)
[2019-04-26] MEDS ORDERED: FLUT1INH2 IN (18:26)
[2019-04-26] MEDS ORDERED: ASPI-404 PO (18:26)
[2019-04-26] MEDS ORDERED: DOCU100T15 PO (18:26)
[2019-04-26] MEDS ORDERED: GABA300C PO (18:26)
[2019-04-26] MEDS ORDERED: CYCL1TAB18 PO (18:26)
--- NOTE | 2019-04-26 18:45 | NUR ---
PT TRANSFERRED TO NEW ROOM 18B NO S/S OF DISTRESS OR SOB NOTED AT TIME OF DEPARTURE.
[2019-04-26] MEDS: IPRATROPIUM BROM 0.5 MG/2.5ML INH SOL NEB SCH (19:11)
[2019-04-26] MEDS: ALBUTEROL SULF 2.5 MG/0.5ML(0.5%) NEB SOLN NEB SCH (19:11)
[2019-04-26 19:25] VITALS: BP 147/87
--- NOTE | 2019-04-26 19:30 | NUR ---
RECEIVED PATIENT FROM DAY SHIFT RN. PATIENT RESTING IN BED. NO S/S OF DISTRESS NOTED. DENIED PAIN FOR NOW. REORIENTED PATIENT SITUATION. PATIENT VERBALIZED UNDERSTANDING. POC INSTRUCTED AND ENCOURAGED PATIENT TO CALL FOR FINISH SPECIALIST IF NEEDED. BED IN LOWEST POSITION WITH SIDE RAILS UP X 2. CALL HAQ WITHIN REACH. ALARM ON. SITTER AT BEDSIDE FOR SAFETY. CONTINUE TO MONITOR FOR CHANGES Q1H AND PRN.
[2019-04-26] MEDS: rifAXIMin 550 MG TAB PO SCH (21:42)
[2019-04-26] MEDS: URSODIOL 300 MG CAP PO SCH (21:42)
[2019-04-26] MEDS: LACTULOSE 20Gm/30ML SOLN PO SCH (21:43)
[2019-04-26 22:03] VITALS: BP 117/78
--- NOTE | 2019-04-26 23:35 | NUR ---
PATIENT WALKED TO BATHROOM AND BACK TO BED WITH ASSIST. NO S/S OF DISTRESS NOTED. CONTINUE TO MONITOR.
[2019-04-27] MEDS: LACTULOSE 20Gm/30ML SOLN PO SCH ×6 (02:24→21:52)
--- NOTE | 2019-04-27 02:40 | NUR ---
PATIENT SLEEPING. NO S/S OF DISTRESS NOTED. CONTINUE CARE.
--- NOTE | 2019-04-27 04:42 | NUR ---
PATIENT UP TO THE COMMODE WITH ASSIST, HAD LOOSE BM. PATIENT TOLERATED WELL. NO C/O DIZZINESS AND NO S/S OF DISTRESS NOTED. CONTINUE TO MONITOR.
[2019-04-27 05:17] VITALS: BP 110/76
[2019-04-27] MEDS: URSODIOL 300 MG CAP PO SCH ×3 (05:48→21:53)
[2019-04-27 06:07] LABS: Basophils # (auto) 0 uL; Basophils % (auto) 1.2 % (0.0-2.0); Eosinophils # (auto) 0.4 uL; Eosinophils % (auto) 9.2 % (0.0-7.0); Hematocrit 35.9 % (36.0-46.0); Hemoglobin 11.9 g/dL (12.2-16.2); Lymphocytes # (auto) 0.8 uL; Lymphocytes % (auto) 20.8 % (10.0-50.0); Mean Corpuscular Hemoglobin 29.2 pg (28.0-32.0); Mean Corpuscular Hgb Conc. 33.2 g/dL (32.0-36.0); Mean Corpuscular Volume 87.8 fL (80.0-100.0); Monocytes # (auto) 0.4 uL; Monocytes % (auto) 10.1 % (0.0-12.0); Neutrophils # (auto) 2.3 uL; Neutrophils % (auto) 58.7 % (37.0-80.0); Nucleated Red Blood Cells % 0.1 %; Platelet Count (auto) 117 10^3/uL (140-450); Red Blood Cells 4.09 10^6/uL (4.0-5.20); Red Cell Distribution Width 16.6 % (11.8-14.3)
[2019-04-27] MEDS: ALBUTEROL SULF 2.5 MG/0.5ML(0.5%) NEB SOLN NEB SCH ×3 (06:19→18:28)
[2019-04-27] MEDS: IPRATROPIUM BROM 0.5 MG/2.5ML INH SOL NEB SCH ×3 (06:19→18:28)
[2019-04-27 06:24] LABS: INR 1.02 (0.9-1.15); Partial Thromboplastin Time 28.9 sec (23.64-32.05)
[2019-04-27 06:33] LABS: Potassium 3.7 mmol/L (3.5-5.1)
[2019-04-27 06:40] LABS: Albumin 2.6 g/dL (3.4-5.0); BUN/Creatinine Ratio 17.8; Bilirubin, Total 1.1 mg/dL (0.2-1.0); Calcium 8.1 mg/dL (8.5-10.1); Total Protein 7.7 g/dL (6.4-8.2)
--- NOTE | 2019-04-27 08:10 | NUR ---
Opening Shift Note Assumed care of patient, awake and alert. No S/S of distress/SOB or pain. Instructed on POC and to call for assist PRN, will continue to monitor for changes Q1hr and PRN. Sitter at bedside for safety.
[2019-04-27 09:00] VITALS: BP 150/73
[2019-04-27] MEDS: LEVOFLOXACIN 500MG 100 ML IV SCH (09:51)
[2019-04-27] MEDS: rifAXIMin 550 MG TAB PO SCH ×2 (09:52→21:52)
[2019-04-27] MEDS ORDERED: FAMOTIDINE 20 MG TAB PO SCH (10:00)
--- NOTE | 2019-04-27 12:51 | NUR ---
Estimated needs based on AJBW 48.6 kg-weight maintenance factors [id number] kcal (25-27 kcal/kg) 49-58 g protein (1.0-1.2 g/kg) Addendum: 04/27/19 at [address] Amended: Links added.
[2019-04-27 13:00] VITALS: BP 130/85
[2019-04-27 17:38] VITALS: BP 128/88
--- NOTE | 2019-04-27 19:48 | NUR ---
RECEIVED PATIENT FROM DAY SHIFT RN. PATIENT RESTING IN BED. NO S/S OF DISTRESS NOTED. DENIED PAIN FOR NOW. PATIENT COULD VERBALIZE SITUATION AND ANSWER QUESTIONS PROPERLY. POC INSTRUCTED AND ENCOURAGED PATIENT TO CALL FOR GEOSCIENCE SPECIALIST IF NEEDED. BED IN LOWEST POSITION WITH SIDE RAILS UP X 2. CALL HAQ WITHIN REACH. ALARM ON. SITTER AT BEDSIDE FOR SAFETY. CONTINUE TO MONITOR FOR CHANGES Q1H AND PRN.
[2019-04-27 21:40] VITALS: BP 135/75
--- NOTE | 2019-04-27 23:37 | NUR ---
PATIENT WALKED TO BATHROOM WITH ASSIST. NO S/S OF DISTRESS NOTED. CONTINUE CARE.
--- NOTE | 2019-04-28 01:47 | NUR ---
PATIENT SLEEPING. NO S/S OF DISTRESS NOTED. SITTER AT BEDSIDE FOR SAFETY. CONTINUE TO MONITOR.
[2019-04-28] MEDS: LACTULOSE 20Gm/30ML SOLN PO SCH ×3 (02:20→09:52)
--- NOTE | 2019-04-28 02:47 | NUR ---
ASSISTED PATIENT TO BATHROOM AND BACK TO BED WITH STEADY GAIT. PATIENT HAD BM. NO S/S OF DISTRESS NOTED. CONTINUE CARE.
[2019-04-28 05:06] VITALS: BP 142/78
[2019-04-28] MEDS: URSODIOL 300 MG CAP PO SCH (05:43)
[2019-04-28 06:25] LABS: Calcium 8.8 mg/dL (8.5-10.1); Potassium 3.5 mmol/L (3.5-5.1)
[2019-04-28 06:30] LABS: Albumin 2.7 g/dL (3.4-5.0); BUN/Creatinine Ratio 11.6; Bilirubin, Total 1.8 mg/dL (0.2-1.0); Total Protein 7.9 g/dL (6.4-8.2)
[2019-04-28] MEDS: IPRATROPIUM BROM 0.5 MG/2.5ML INH SOL NEB SCH ×2 (06:52→12:54)
[2019-04-28] MEDS: ALBUTEROL SULF 2.5 MG/0.5ML(0.5%) NEB SOLN NEB SCH ×2 (06:52→12:54)
[2019-04-28 08:00] VITALS: BP 137/83
[2019-04-28] MEDS: LEVOFLOXACIN 500MG 100 ML IV SCH (09:51)
[2019-04-28] MEDS: rifAXIMin 550 MG TAB PO SCH (09:52)
[2019-04-28] MEDS ORDERED: FAMOTIDINE 20 MG TAB PO SCH (10:00)
--- NOTE | 2019-04-28 10:20 | NUR ---
Family members at bedside.
[2019-04-28] MEDS ORDERED: LEVOFLOXACIN 500 MG TAB PO ONE (11:00)
[2019-04-28 11:23] VITALS: BP 137/83
--- NOTE | 2019-04-28 12:54 | NUR ---
Respiratory note: SCHEDULED MED NEB TX NOT GIVEN . PT IS DRESSED AND READY TO GET DISCHARGED. NO RESP DISTRESS NOTED. FAMILY AT BEDSIDE WAITING FOR DISCHARGE PAPERS.
--- NOTE | 2019-04-28 13:14 | NUR ---
Discharge instructions given as ordered. Encourage to follow up with PMD as instructed. All questions and concerns addressed. Patient verbalized understanding. Medication reconciliation form completed and copy given to patient. IV removed with catheter intact and pressure dressing applied. Telemetry unit returned to ICU. Patient taken to vehicle via wheelchair with all personal belongings, accompanied by staff and family member. No distress noted at time of departure.
[2019-04-29] MEDS ORDERED: LEVOFLOXACIN 500 MG TAB PO SCH (10:00)
[2019-06-07] MEDS ORDERED: URSO300C9 PO (15:32)
[2019-06-07] MEDS ORDERED: LACT10SO70 PO (15:32)
== END 2019-04-28 13:10 | disposition home or self-care (01) | DRG 442 ==
LOC: ER 10:06 → TELE 10:07 → TELE-EAST 16:51 → TELE-CENTR 18:45
PROVIDERS: ADMIT Internal Medicine; ATTEND Internal Medicine
DX: K72.90 Hepatic failure, unspecified without coma (principal); N39.0 Urinary tract infection, site not specified; E44.1 Mild protein-calorie malnutrition; K74.3 Primary biliary cirrhosis; K21.9 Gastro-esophageal reflux disease without esophagitis; N18.9 Chronic kidney disease, unspecified; I12.9 Hypertensive chronic kidney disease with stage 1 through stage 4 chronic kidney disease, or unspecified chronic kidney disease; Z86.73 Personal history of transient ischemic attack (TIA), and cerebral infarction without residual deficits; Z87.440 Personal history of urinary (tract) infections; Z90.710 Acquired absence of both cervix and uterus; Z88.1 Allergy status to other antibiotic agents; Z88.8 Allergy status to other drugs, medicaments and biological substances; Z79.899 Other long term (current) drug therapy
CPT/HCPCS: 36415; 71045; 76700; 80053; 81001; 82140; 83880; 84484; 85025; 85610; 85730; 87081; 87086; 94640; 94761; 96361; 96365; 96367; 97116; 97530; G0378; J1956; J2250

== ENCOUNTER 2019-05-26 11:29 | Emergency (ER) | payer MEDICARE, MEDICAID ==
[~2019-05-26] VITALS: Ht 149.9 cm; Wt 61.2 kg
[~2019-05-26 11:29] MED LIST changes: +ATOR20TA50 PO; +DOCU100T15 PO; +FLUT110A INH; +FLUT1INH2 IN; +GABA300C PO; +KET30I PO; +MECL-87 PO; +POTA10TA51 PO
[2019-05-26 13:41] LABS: Basophils # (auto) 0.1 uL; Basophils % (auto) 0.7 % (0.0-2.0); Eosinophils # (auto) 0.5 uL; Eosinophils % (auto) 7.3 % (0.0-7.0); Hematocrit 36.2 % (36.0-46.0); Hemoglobin 11.9 g/dL (12.2-16.2); Lymphocytes # (auto) 1.4 uL; Lymphocytes % (auto) 19.7 % (10.0-50.0); Mean Corpuscular Hgb Conc. 32.8 g/dL (32.0-36.0); Mean Corpuscular Volume 88.4 fL (80.0-100.0); Monocytes # (auto) 0.6 uL; Monocytes % (auto) 9.3 % (0.0-12.0); Neutrophils # (auto) 4.4 uL; Nucleated Red Blood Cells % 0.1 %; Platelet Count (auto) 149 10^3/uL (140-450)
[2019-05-26 13:58] LABS: Albumin 2.9 g/dL (3.4-5.0); BUN/Creatinine Ratio 19.6; Calcium 8.7 mg/dL (8.5-10.1)
[2019-05-26 14:01] LABS: Bilirubin, Total 0.8 mg/dL (0.2-1.0); Total Protein 8.4 g/dL (6.4-8.2)
[2019-05-26 14:08] LABS: Potassium 2.9 mmol/L (3.5-5.1)
[2019-05-26] MEDS ORDERED: SODIUM CHLORIDE 0.9% 1,000 ML IVB ONE (15:08)
[2019-05-26] MEDS ORDERED: ONDANSETRON HCL 4 MG/2 ML VIAL IV ONE (15:15)
[2019-05-26 15:47] LABS: Magnesium 2.3 mg/dL (1.6-2.6)
[2019-05-26] MEDS: POTASSIUM CHL 20MEQ/100ML 100 ML IV SCH ×2 (16:06→17:15)
[2019-05-26 16:47] VITALS: BP 131/67
[2019-05-26] MEDS ORDERED: POTASSIUM CHL 20 Meq TABLET PO ONE (17:00)
== END 2019-05-26 18:13 | disposition home or self-care (01) ==
LOC: ER 11:29
DX: E87.6 Hypokalemia (principal); D64.9 Anemia, unspecified; I63.81 Other cerebral infarction due to occlusion or stenosis of small artery; R42 Dizziness and giddiness; I12.9 Hypertensive chronic kidney disease with stage 1 through stage 4 chronic kidney disease, or unspecified chronic kidney disease; N18.9 Chronic kidney disease, unspecified; K21.9 Gastro-esophageal reflux disease without esophagitis; E78.5 Hyperlipidemia, unspecified; Z86.73 Personal history of transient ischemic attack (TIA), and cerebral infarction without residual deficits; Z98.51 Tubal ligation status; Z90.710 Acquired absence of both cervix and uterus
CPT/HCPCS: 36415; 70450; 71045; 80053; 83735; 84484; 85025; 93005; 94761; 96361; 96365; 96375; 99284; J2405; J3480; J7030

== ENCOUNTER → 2019-05-31 | Outpatient (CLI) | payer MEDICARE, MEDICAID ==
[2019-05-31 11:28] LABS: BUN/Creatinine Ratio 17.6; Calcium 8.7 mg/dL (8.5-10.1); Potassium 3.9 mmol/L (3.5-5.1)
== END | disposition home or self-care (01) ==
LOC: LAB 10:41
PROVIDERS: ATTEND Internal Medicine
DX: E87.6 Hypokalemia (principal)
CPT/HCPCS: 36415; 80048

== ENCOUNTER → 2019-06-06 | Outpatient (CLI) | payer MEDICARE, MEDICAID ==
[~2019-06-06] MED LIST changes: +LACT10SO70 PO; +URSO300C9 PO
[2019-06-06 12:08] LABS: Albumin 2.9 g/dL (3.4-5.0); BUN/Creatinine Ratio 15.8; Bilirubin, Total 0.9 mg/dL (0.2-1.0); Calcium 8.4 mg/dL (8.5-10.1); Total Protein 8.3 g/dL (6.4-8.2)
== END | disposition home or self-care (01) ==
LOC: LAB 11:19
PROVIDERS: ATTEND Internal Medicine Gastroenterology
DX: K74.69 Other cirrhosis of liver (principal); I10 Essential (primary) hypertension; E78.5 Hyperlipidemia, unspecified; K74.60 Unspecified cirrhosis of liver; Z98.890 Other specified postprocedural states; Z88.8 Allergy status to other drugs, medicaments and biological substances
CPT/HCPCS: 36415; 80053

== ENCOUNTER → 2019-07-18 | Outpatient (CLI) | payer MEDICARE, MEDICAID ==
[~2019-07-18] MED LIST changes: -ATOR20TA PO; -DOCU-55 PO; -DOCU100T15 PO; -FLUT1INH2 IN; -GABA300C10 PO; -POTA1TAB61 PO
[2019-07-18 10:25] LABS: BUN/Creatinine Ratio 27.8; Potassium 4.1 mmol/L (3.5-5.1)
== END | disposition home or self-care (01) ==
LOC: LAB 09:32
PROVIDERS: ATTEND Internal Medicine
DX: E11.9 Type 2 diabetes mellitus without complications (principal)
CPT/HCPCS: 36415; 80048

== ENCOUNTER → 2019-08-25 | Outpatient (CLI) | payer MEDICARE ==
[2019-08-25 08:21] LABS: Basophils # (auto) 0 uL; Basophils % (auto) 0.7 % (0.0-2.0); Eosinophils # (auto) 0.5 uL; Eosinophils % (auto) 11.3 % (0.0-7.0); Hematocrit 34.9 % (36.0-46.0); Hemoglobin 11.5 g/dL (12.2-16.2); Lymphocytes % (auto) 24.8 % (10.0-50.0); Mean Corpuscular Hemoglobin 27.9 pg (28.0-32.0); Mean Corpuscular Hgb Conc. 32.8 g/dL (32.0-36.0); Monocytes # (auto) 0.4 uL; Monocytes % (auto) 9.7 % (0.0-12.0); Neutrophils # (auto) 2.2 uL; Neutrophils % (auto) 53.5 % (37.0-80.0); Nucleated Red Blood Cells % 0.1 %; Platelet Count (auto) 131 10^3/uL (140-450); Red Blood Cells 4.11 10^6/uL (4.0-5.20); Red Cell Distribution Width 15.9 % (11.8-14.3)
[2019-08-25 08:47] LABS: Potassium 3.6 mmol/L (3.5-5.1)
[2019-08-25 08:53] LABS: Albumin 3.1 g/dL (3.4-5.0); BUN/Creatinine Ratio 15.4; Bilirubin, Total 0.9 mg/dL (0.2-1.0); Total Protein 8.7 g/dL (6.4-8.2)
== END | disposition home or self-care (01) ==
LOC: LAB 07:59
PROVIDERS: ATTEND Internal Medicine
DX: E11.8 Type 2 diabetes mellitus with unspecified complications (principal); K74.5 Biliary cirrhosis, unspecified
CPT/HCPCS: 36415; 80053; 85025

== ENCOUNTER → 2019-09-06 | Outpatient (CLI) | payer MEDICARE ==
[2019-09-06 11:18] LABS: INR 1.07 (0.9-1.15)
== END | disposition home or self-care (01) ==
LOC: LAB 10:43
PROVIDERS: ATTEND Internal Medicine Gastroenterology
DX: I85.00 Esophageal varices without bleeding (principal); K74.60 Unspecified cirrhosis of liver; K72.90 Hepatic failure, unspecified without coma
CPT/HCPCS: 36415; 82105; 82140; 85610

== ENCOUNTER 2019-09-12 10:12 | Emergency (ER) | payer MEDICARE, MEDICAID ==
[~2019-09-12] VITALS: Ht 149.9 cm; Wt 65.8 kg
[2019-09-12 11:06] VITALS: BP 141/95
== END 2019-09-12 12:12 | disposition home or self-care (01) ==
LOC: ER 10:12
DX: J04.0 Acute laryngitis (principal); I12.9 Hypertensive chronic kidney disease with stage 1 through stage 4 chronic kidney disease, or unspecified chronic kidney disease; N18.9 Chronic kidney disease, unspecified; J45.909 Unspecified asthma, uncomplicated; K21.9 Gastro-esophageal reflux disease without esophagitis; E78.5 Hyperlipidemia, unspecified; Z86.73 Personal history of transient ischemic attack (TIA), and cerebral infarction without residual deficits; Z98.51 Tubal ligation status; Z79.899 Other long term (current) drug therapy; Z88.8 Allergy status to other drugs, medicaments and biological substances

== ENCOUNTER → 2019-11-22 | Outpatient (CLI) | payer MEDICARE, MEDICAID ==
[~2019-11-22] MED LIST changes: -ASPI-404 PO; +ASPI-543 PO; +CYCL10TA6 PO; -CYCL1TAB18 PO; -MECL-87 PO; +MECL25TA18 PO
[2019-11-22 10:29] LABS: Eosinophils # (auto) 0.5 10 ^3/uL (0-0.8); Hematocrit 37.7 % (36.0-46.0); Hemoglobin 12.1 g/dL (12.2-16.2); Lymphocytes # (auto) 1.4 10 ^3/uL (0.4-5.4); Monocytes # (auto) 0.5 10 ^3/uL (0-1.3); Neutrophils # (auto) 3.1 10 ^3/uL (1.6-8.6); Red Blood Cells 4.47 10^6/uL (4.0-5.20); Red Cell Distribution Width 17.6 % (11.8-14.3); White Blood Cell 5.6 10^3/uL (4.4-10.8)
[2019-11-22 10:31] LABS: Basophils # (auto) 0 10 ^3/uL (0-0.2); Basophils % (auto) 0.7 % (0.0-2.0); Eosinophils % (auto) 8.9 % (0.0-7.0); Lymphocytes % (auto) 24.6 % (10.0-50.0); Mean Corpuscular Hemoglobin 27.2 pg (28.0-32.0); Mean Corpuscular Hgb Conc. 32.2 g/dL (32.0-36.0); Mean Corpuscular Volume 84.4 fL (80.0-100.0); Monocytes % (auto) 9.8 % (0.0-12.0); Nucleated Red Blood Cells % 0.1 %; Platelet Count (auto) 143 10^3/uL (140-450)
[2019-11-22 10:36] LABS: Urine Bacteria MANY /hpf (None Seen); Urine Blood 1+ /uL (Negative); Urine Hyaline Cast FEW /lpf (0 - 2); Urine Mucus FEW (None Seen); Urine Specific Gravity 1.023 (1.001-1.035); Urine WBC 21 /hpf (0 - 5)
[2019-11-22 10:49] LABS: Albumin 2.9 g/dL (3.4-5.0); Calcium 8.3 mg/dL (8.5-10.1); Potassium 4.2 mmol/L (3.5-5.1)
[2019-11-22 10:54] LABS: BUN/Creatinine Ratio 18.4; Bilirubin, Total 0.7 mg/dL (0.2-1.0); CRP High Sensitivity 0.25 mg/dL (< 0.3); Total Protein 8.5 g/dL (6.4-8.2)
== END | disposition home or self-care (01) ==
LOC: LAB 10:06
PROVIDERS: ATTEND Internal Medicine
DX: E11.9 Type 2 diabetes mellitus without complications (principal); I11.0 Hypertensive heart disease with heart failure; I50.9 Heart failure, unspecified; D64.9 Anemia, unspecified; K74.60 Unspecified cirrhosis of liver
CPT/HCPCS: 36415; 80053; 81001; 83036; 85025; 85652; 86141

== ENCOUNTER 2020-01-21 11:37 | Emergency (ER) | payer MEDICARE, MEDICAID ==
[~2020-01-21] VITALS: Ht 149.9 cm; Wt 65.8 kg
[2020-01-21 12:24] LABS: Basophils # (auto) 0 10 ^3/uL (0-0.2); Basophils % (auto) 0.8 % (0.0-2.0); Eosinophils # (auto) 0.6 10 ^3/uL (0-0.8); Eosinophils % (auto) 10.9 % (0.0-7.0); Hematocrit 35.6 % (36.0-46.0); Hemoglobin 11.7 g/dL (12.2-16.2); Lymphocytes # (auto) 1.2 10 ^3/uL (0.4-5.4); Lymphocytes % (auto) 21.7 % (10.0-50.0); Mean Corpuscular Hemoglobin 28.4 pg (28.0-32.0); Mean Corpuscular Hgb Conc. 32.7 g/dL (32.0-36.0); Mean Corpuscular Volume 86.9 fL (80.0-100.0); Monocytes # (auto) 0.5 10 ^3/uL (0-1.3); Neutrophils # (auto) 3.3 10 ^3/uL (1.6-8.6); Neutrophils % (auto) 57.6 % (37.0-80.0); Platelet Count (auto) 134 10^3/uL (140-450); Red Cell Distribution Width 16.7 % (11.8-14.3); White Blood Cell 5.7 10^3/uL (4.4-10.8)
[2020-01-21 12:41] LABS: Albumin 2.9 g/dL (3.4-5.0); Anion Gap 8 (5-15); Blood Urea Nitrogen 23 mg/dL (7-18); Calcium 8.4 mg/dL (8.5-10.1); Carbon Dioxide 24 mmol/L (21-32); Chloride 108 mmol/L (98-107); Glucose 108 mg/dL (74-106); Magnesium 2.6 mg/dL (1.6-2.6); Potassium 4.4 mmol/L (3.5-5.1); Sodium 140 mmol/L (136-145)
[2020-01-21 12:48] LABS: Alanine Aminotransferase 23 U/L (13-56); Alkaline Phosphatase 261 U/L (45-117); Aspartate Aminotransferase 29 U/L (15-37); BUN/Creatinine Ratio 20.7; Bilirubin, Total 0.5 mg/dL (0.2-1.0); GFR African American 64 mL/min; GFR Non-African American 53 mL/min; Total Protein 8.6 g/dL (6.4-8.2)
[2020-01-21 14:01] VITALS: BP 143/74
[2020-01-21 14:20] LABS: Urine Bacteria MANY /hpf (None Seen); Urine Blood Negative /uL (Negative); Urine Specific Gravity 1.005 (1.001-1.035); Urine WBC 1 /hpf (0 - 5)
== END 2020-01-21 16:02 | disposition home or self-care (01) ==
LOC: ER 11:37
DX: G45.9 Transient cerebral ischemic attack, unspecified (principal); D64.9 Anemia, unspecified; N39.0 Urinary tract infection, site not specified; K21.9 Gastro-esophageal reflux disease without esophagitis; E78.5 Hyperlipidemia, unspecified; I10 Essential (primary) hypertension; Z86.73 Personal history of transient ischemic attack (TIA), and cerebral infarction without residual deficits
CPT/HCPCS: 36415; 70450; 71045; 80053; 81001; 83735; 84484; 85025; 93005

== ENCOUNTER 2020-05-10 01:46 | Emergency (ER) | payer MEDICARE, MEDICAID ==
[~2020-05-10] VITALS: Ht 149.9 cm; Wt 63.5 kg
[2020-05-10 04:09] LABS: Basophils # (auto) 0 10 ^3/uL (0-0.2); Basophils % (auto) 0.6 % (0.0-2.0); Eosinophils # (auto) 0.6 10 ^3/uL (0-0.8); Eosinophils % (auto) 8.8 % (0.0-7.0); Hemoglobin 10.6 g/dL (12.2-16.2); Lymphocytes # (auto) 1.4 10 ^3/uL (0.4-5.4); Lymphocytes % (auto) 18.9 % (10.0-50.0); Mean Corpuscular Hemoglobin 27.6 pg (28.0-32.0); Mean Corpuscular Hgb Conc. 32.2 g/dL (32.0-36.0); Mean Corpuscular Volume 85.7 fL (80.0-100.0); Monocytes # (auto) 0.7 10 ^3/uL (0-1.3); Monocytes % (auto) 10.2 % (0.0-12.0); Neutrophils # (auto) 4.4 10 ^3/uL (1.6-8.6); Neutrophils % (auto) 61.5 % (37.0-80.0); Platelet Count (auto) 129 10^3/uL (140-450); Red Blood Cells 3.85 10^6/uL (4.0-5.20); Red Cell Distribution Width 16.1 % (11.8-14.3); White Blood Cell 7.2 10^3/uL (4.4-10.8)
[2020-05-10 04:24] LABS: Albumin 3.1 g/dL (3.4-5.0); Anion Gap 6 (5-15); Blood Urea Nitrogen 29 mg/dL (7-18); Calcium 8.5 mg/dL (8.5-10.1); Carbon Dioxide 24 mmol/L (21-32); Chloride 104 mmol/L (98-107); Glucose 125 mg/dL (74-106); Potassium 4.5 mmol/L (3.5-5.1); Sodium 134 mmol/L (136-145)
[2020-05-10 04:29] LABS: Alanine Aminotransferase 23 U/L (13-56); Alkaline Phosphatase 243 U/L (45-117); Aspartate Aminotransferase 29 U/L (15-37); Bilirubin, Total 0.8 mg/dL (0.2-1.0); Blood Alcohol < 3.0 mg/dL (0-5); GFR African American 47 mL/min; GFR Non-African American 39 mL/min; Total Protein 8.2 g/dL (6.4-8.2)
[2020-05-10 05:03] LABS: Urine Bacteria FEW /hpf (None Seen); Urine Blood Negative /uL (Negative); Urine Hyaline Cast FEW /lpf (0 - 2); Urine Mucus FEW (None Seen); Urine WBC 5 /hpf (0 - 5)
[2020-05-10 05:13] LABS: INR 1.04 (0.9-1.15); Partial Thromboplastin Time 23.5 sec (23.0-31.2)
[2020-05-10 05:20] LABS: Alcohol, Urine < 3.0 mg/dL (0-10); Amphetamine Screen, Urine NEGATIVE (NEGATIVE); Barbiturate Scree,Urine NEGATIVE (NEGATIVE); Benzodiazephine Screen, Urine NEGATIVE (NEGATIVE); Cannabinoid Screen, Urine NEGATIVE (NEGATIVE); Cocaine Screen, Urine NEGATIVE (NEGATIVE); Opiate Scree,Urine NEGATIVE (NEGATIVE); Phencyclidine Screen, Urine NEGATIVE (NEGATIVE)
[2020-05-10] MEDS ORDERED: SPIR50TA5 PO (07:33)
[2020-05-10] MEDS ORDERED: ASPI1TAB19 PO (07:33)
[2020-05-10] MEDS ORDERED: GABA300C10 PO (07:33)
[2020-05-10] MEDS ORDERED: CYCL-611 PO (07:33)
[2020-05-10] MEDS ORDERED: PANT40T PO (07:33)
[2020-05-10] MEDS ORDERED: ALBUTEROL SULF 2.5 MG/0.5ML(0.5%) NEB SOLN NEB ONE (07:45)
[2020-05-10] MEDS ORDERED: methylPREDNISolone SOD SUCC 125 MG/2 ML VL IV ONE (07:45)
[2020-05-10] MEDS ORDERED: FUROSEMIDE 20 MG/2 ML VIAL IV ONE (08:15)
[2020-05-10 08:31] VITALS: BP 106/67
== END 2020-05-10 09:06 | disposition home or self-care (01) ==
LOC: ER 01:48
DX: I11.0 Hypertensive heart disease with heart failure (principal); I50.43 Acute on chronic combined systolic (congestive) and diastolic (congestive) heart failure; J45.31 Mild persistent asthma with (acute) exacerbation; K21.9 Gastro-esophageal reflux disease without esophagitis; E78.5 Hyperlipidemia, unspecified; G93.89 Other specified disorders of brain
CPT/HCPCS: 36415; 70450; 71045; 80053; 80307; 80320; 81001; 85025; 85610; 85730; 94640; 96374; 96375; 99285; J1940; J2930

== ENCOUNTER → 2020-06-05 | Outpatient (CLI) | payer MEDICARE, MEDICAID ==
[~2020-06-05] MED LIST changes: +ALBUTEROL SULF 2.5 MG/0.5ML(0.5%) NEB SOLN ONE; +ASPI1TAB19 PO; +CYCL-611 PO; +GABA300C10 PO; +PANT40T PO; +SPIR50TA5 PO
== END | disposition home or self-care (01) ==
LOC: RT 08:40
PROVIDERS: ATTEND Internal Medicine Pulmonary Disease
DX: R06.00 Dyspnea, unspecified (principal); J45.31 Mild persistent asthma with (acute) exacerbation
CPT/HCPCS: 94010

== ENCOUNTER → 2020-06-08 | Outpatient (CLI) | payer MEDICARE, MEDICAID ==
[~2020-06-08] MED LIST changes: -ALBUTEROL SULF 2.5 MG/0.5ML(0.5%) NEB SOLN ONE
[2020-06-08 10:50] LABS: Cholesterol 134 mg/dL (< 200); HDL Cholesterol 36 mg/dL (40-59); LDL Cholesterol 78 mg/dL (< 100); Triglycerides 168 mg/dL (< 150)
== END | disposition home or self-care (01) ==
LOC: LAB 09:46
PROVIDERS: ATTEND Internal Medicine
DX: K74.60 Unspecified cirrhosis of liver (principal); M54.9 Dorsalgia, unspecified; I10 Essential (primary) hypertension; E11.9 Type 2 diabetes mellitus without complications; Z87.39 Personal history of other diseases of the musculoskeletal system and connective tissue
CPT/HCPCS: 36415; 80061; 82043; 83036; 85652

== ENCOUNTER → 2020-09-10 | Outpatient (CLI) | payer MEDICARE, MEDICAID ==
[~2020-09-10] VITALS: Ht 149.9 cm; Wt 59.0 kg
[~2020-09-10] MED LIST changes: +ADENOSINE 50 MG in GIVE UN-DILUTED 0 ML IV STA; +AMLO-489 PO; -AMLO5TAB15 PO; -BENA40TA7 PO; +BENA40TA8 PO
[2020-09-10 08:54] VITALS: BP 124/71
== END | disposition home or self-care (01) ==
LOC: XY 07:35
PROVIDERS: ATTEND Internal Medicine
DX: Z01.810 Encounter for preprocedural cardiovascular examination (principal)
CPT/HCPCS: 78452; 93017; A9500; J0153

== ENCOUNTER 2020-11-12 05:42 | Inpatient (IN) | payer MEDICARE, MEDICAID ==
[~2020-11-12] VITALS: Ht 149.9 cm; Wt 71.6 kg
[~2020-11-12 05:42] MED LIST changes: -ADENOSINE 50 MG in GIVE UN-DILUTED 0 ML IV STA
[2020-11-12] MEDS ORDERED: SODIUM CHLORIDE 0.9% 1,000 ML IV ONE ×2 (06:45)
[2020-11-12] MEDS ORDERED: InsuLIN REG 1unit/0.01ml Soln (100units/ml) IV ONE (06:45)
[2020-11-12 08:00] LABS: Basophils # (auto) 0 10 ^3/uL (0-0.2); Eosinophils # (auto) 0.1 10 ^3/uL (0-0.8); Lymphocytes # (auto) 1.1 10 ^3/uL (0.4-5.4); Mean Corpuscular Hemoglobin 25.2 pg (28.0-32.0); Monocytes # (auto) 0.4 10 ^3/uL (0-1.3); Neutrophils # (auto) 2.6 10 ^3/uL (1.6-8.6); Nucleated Red Blood Cells % 0.1 %; Red Blood Cells 4.11 10^6/uL (4.0-5.20); White Blood Cell 4.2 10^3/uL (4.4-10.8)
[2020-11-12 08:03] LABS: Basophils % (auto) 0.4 % (0.0-2.0); Eosinophils % (auto) 2.3 % (0.0-7.0); Hematocrit 32.8 % (36.0-46.0); Hemoglobin 10.3 g/dL (12.2-16.2); Lymphocytes % (auto) 26.4 % (10.0-50.0); Mean Corpuscular Hgb Conc. 31.6 g/dL (32.0-36.0); Mean Corpuscular Volume 79.7 fL (80.0-100.0); Monocytes % (auto) 8.5 % (0.0-12.0); Neutrophils % (auto) 62.4 % (37.0-80.0); Platelet Count (auto) 99 10^3/uL (140-450); Red Cell Distribution Width 16.1 % (11.8-14.3)
[2020-11-12 08:23] LABS: Albumin 2.9 g/dL (3.4-5.0); Anion Gap 8 (5-15); Blood Urea Nitrogen 19 mg/dL (7-18); Calcium 8.4 mg/dL (8.5-10.1); Carbon Dioxide 27 mmol/L (21-32); Chloride 99 mmol/L (98-107); Potassium 4.1 mmol/L (3.5-5.1); Sodium 134 mmol/L (136-145)
[2020-11-12 08:28] LABS: Alanine Aminotransferase 46 U/L (13-56); Alkaline Phosphatase 298 U/L (45-117); Aspartate Aminotransferase 30 U/L (15-37); BUN/Creatinine Ratio 16.4; Bilirubin, Total 0.5 mg/dL (0.2-1.0); GFR African American 61 mL/min; GFR Non-African American 50 mL/min; Glucose 479 mg/dL (74-106)
[2020-11-12] MEDS ORDERED: MORPHINE SULF INJ 2 MG/ML SYRINGE 1ML IV PRN (09:30)
[2020-11-12] MEDS ORDERED: DEXTROSE (50%) 50ML SYRG IV PRN (09:30)
[2020-11-12] MEDS ORDERED: NITROGLYCERIN 0.4 MG SL TAB SL PRN (09:30)
[2020-11-12] MEDS ORDERED: ALBUTEROL SULF 2.5 MG/0.5ML(0.5%) NEB SOLN NEB PRN (09:30)
[2020-11-12] MEDS ORDERED: ACETAMINOPHEN 500 MG TAB PO PRN (09:30)
[2020-11-12] MEDS ORDERED: IPRATROPIUM BROM 0.5 MG/2.5ML INH SOL NEB PRN (09:30)
[2020-11-12] MEDS: PANTOPRAZOLE 40 MG TAB PO SCH (10:00)
[2020-11-12] MEDS: LACTULOSE 20Gm/30ML SOLN PO SCH ×2 (10:00→21:25)
[2020-11-12] MEDS: PROPRANOLOL HCL 60 MG PO SCH (10:00)
[2020-11-12] MEDS: SODIUM CHLORIDE 0.9% 1,000 ML IV SCH ×2 (10:00→23:48)
[2020-11-12] MEDS: amLODIPine BESYLATE 5 MG TAB PO SCH (10:00)
[2020-11-12] MEDS: ATORVASTATIN 20 MG TAB PO SCH (10:00)
[2020-11-12] MEDS: ASPirin-EC 81 mg tab PO SCH (10:00)
[2020-11-12 10:18] VITALS: BP 114/63
[2020-11-12 11:11] LABS: Urine Bacteria NONE SEEN /hpf (None Seen); Urine Blood Negative /uL (Negative); Urine Specific Gravity 1.026 (1.001-1.035); Urine WBC 5 /hpf (0 - 5)
[2020-11-12] MEDS: InsuLIN REG 1unit/0.01ml Soln (100units/ml) SC SCH ×3 (11:37→21:41)
[2020-11-12] MEDS: ACCU-CHEK COMFORT CURVE STRIP VI SCH ×3 (11:38→21:42)
[2020-11-12] MEDS: traMADol HCL 50 MG TAB PO PRN ×2 (16:28→21:42)
[2020-11-12] MEDS: rifAXIMin 550 MG TAB PO SCH (21:26)
[2020-11-12] MEDS: TEMAZEPAM 15 MG CAP PO SCH (21:26)
[2020-11-12 22:00] VITALS: BP 126/78
[2020-11-13 05:00] VITALS: BP 109/57
[2020-11-13] MEDS: ACCU-CHEK COMFORT CURVE STRIP VI SCH ×6 (06:07→21:02)
[2020-11-13] MEDS: InsuLIN REG 1unit/0.01ml Soln (100units/ml) SC SCH ×3 (06:09→21:01)
[2020-11-13 06:11] LABS: Basophils # (auto) 0 10 ^3/uL (0-0.2); Basophils % (auto) 0.4 % (0.0-2.0); Eosinophils # (auto) 0.2 10 ^3/uL (0-0.8); White Blood Cell 4.6 10^3/uL (4.4-10.8)
[2020-11-13 06:13] LABS: Eosinophils % (auto) 3.3 % (0.0-7.0); Hematocrit 30.5 % (36.0-46.0); Hemoglobin 9.9 g/dL (12.2-16.2); Lymphocytes # (auto) 1.4 10 ^3/uL (0.4-5.4); Lymphocytes % (auto) 31.1 % (10.0-50.0); Mean Corpuscular Hemoglobin 25.7 pg (28.0-32.0); Mean Corpuscular Hgb Conc. 32.4 g/dL (32.0-36.0); Mean Corpuscular Volume 79.3 fL (80.0-100.0); Monocytes # (auto) 0.3 10 ^3/uL (0-1.3); Monocytes % (auto) 7.4 % (0.0-12.0); Neutrophils # (auto) 2.7 10 ^3/uL (1.6-8.6); Neutrophils % (auto) 57.8 % (37.0-80.0); Platelet Count (auto) 97 10^3/uL (140-450); Red Blood Cells 3.85 10^6/uL (4.0-5.20)
[2020-11-13 09:00] VITALS: BP 117/71
[2020-11-13] MEDS: PROPRANOLOL HCL 60 MG PO SCH (10:00)
[2020-11-13] MEDS: rifAXIMin 550 MG TAB PO SCH ×2 (10:23→20:52)
[2020-11-13] MEDS: ASPirin-EC 81 mg tab PO SCH (10:23)
[2020-11-13] MEDS: LACTULOSE 20Gm/30ML SOLN PO SCH ×2 (10:23→20:52)
[2020-11-13] MEDS: PANTOPRAZOLE 40 MG TAB PO SCH (10:23)
[2020-11-13] MEDS: amLODIPine BESYLATE 5 MG TAB PO SCH (10:24)
[2020-11-13] MEDS: ATORVASTATIN 20 MG TAB PO SCH (10:24)
[2020-11-13] MEDS: ONDANSETRON HCL 4 MG/2 ML VIAL IV PRN ×2 (12:14→19:19)
[2020-11-13] MEDS ORDERED: DEXTROSE (50%) 50ML SYRG IV PRN (12:45)
[2020-11-13 13:00] VITALS: BP 129/74
[2020-11-13] MEDS ORDERED: levoFLOXacin 500MG 100 ML IV ONE (13:00)
[2020-11-13] MEDS: SODIUM CHLORIDE 0.9% 1,000 ML IV SCH (14:45)
[2020-11-13 17:00] VITALS: BP 155/89
[2020-11-13] MEDS: TEMAZEPAM 15 MG CAP PO SCH (20:52)
[2020-11-13] MEDS ORDERED: LORazepam 2MG/ML-1ML VIAL IV PRN (21:30)
[2020-11-13 22:00] VITALS: BP 147/86
[2020-11-14] MEDS: SODIUM CHLORIDE 0.9% 1,000 ML IV SCH ×2 (02:31→12:34)
[2020-11-14 05:00] VITALS: BP 119/81
[2020-11-14] MEDS: InsuLIN REG 1unit/0.01ml Soln (100units/ml) SC SCH ×4 (06:23→22:18)
[2020-11-14] MEDS: ACCU-CHEK COMFORT CURVE STRIP VI SCH ×4 (06:29→21:38)
[2020-11-14 07:14] LABS: Basophils # (auto) 0 10 ^3/uL (0-0.2); Basophils % (auto) 0.3 % (0.0-2.0); Eosinophils # (auto) 0.2 10 ^3/uL (0-0.8); Eosinophils % (auto) 3.7 % (0.0-7.0); Hematocrit 35.3 % (36.0-46.0); Hemoglobin 11.2 g/dL (12.2-16.2); Lymphocytes # (auto) 1.2 10 ^3/uL (0.4-5.4); Mean Corpuscular Hemoglobin 25.2 pg (28.0-32.0); Mean Corpuscular Hgb Conc. 31.9 g/dL (32.0-36.0); Mean Corpuscular Volume 79.2 fL (80.0-100.0); Monocytes # (auto) 0.3 10 ^3/uL (0-1.3); Monocytes % (auto) 6.9 % (0.0-12.0); Neutrophils # (auto) 3.2 10 ^3/uL (1.6-8.6); Neutrophils % (auto) 65.1 % (37.0-80.0); Nucleated Red Blood Cells % 0.2 %; Platelet Count (auto) 105 10^3/uL (140-450); Red Blood Cells 4.45 10^6/uL (4.0-5.20); Red Cell Distribution Width 16.3 % (11.8-14.3); White Blood Cell 4.9 10^3/uL (4.4-10.8)
[2020-11-14 07:34] LABS: BUN/Creatinine Ratio 14.4; Calcium 8.6 mg/dL (8.5-10.1); Potassium 4.3 mmol/L (3.5-5.1)
[2020-11-14 07:38] LABS: INR 1.05 (0.9-1.15); Partial Thromboplastin Time 24.5 sec (23.0-31.2)
[2020-11-14 09:00] VITALS: BP 152/91
[2020-11-14] MEDS: ATORVASTATIN 20 MG TAB PO SCH (09:57)
[2020-11-14] MEDS: PANTOPRAZOLE 40 MG TAB PO SCH (09:57)
[2020-11-14] MEDS: levoFLOXacin 500MG 100 ML IV SCH (09:57)
[2020-11-14] MEDS: rifAXIMin 550 MG TAB PO SCH ×2 (09:57→21:01)
[2020-11-14] MEDS: LACTULOSE 20Gm/30ML SOLN PO SCH ×2 (09:58→21:01)
[2020-11-14] MEDS: ASPirin-EC 81 mg tab PO SCH (09:58)
[2020-11-14 13:00] VITALS: BP 126/69
[2020-11-14] MEDS: ONDANSETRON HCL 4 MG/2 ML VIAL IV PRN ×2 (13:35→20:52)
[2020-11-14 16:50] VITALS: BP 122/82
[2020-11-14] MEDS: TEMAZEPAM 15 MG CAP PO SCH (21:37)
[2020-11-14 22:00] VITALS: BP 110/70
[2020-11-15 05:00] VITALS: BP 104/79
[2020-11-15] MEDS: ACCU-CHEK COMFORT CURVE STRIP VI SCH ×4 (06:34→22:53)
[2020-11-15] MEDS: InsuLIN REG 1unit/0.01ml Soln (100units/ml) SC SCH ×4 (06:35→22:54)
[2020-11-15] MEDS: SODIUM CHLORIDE 0.9% 1,000 ML IV SCH (07:37)
[2020-11-15 08:46] VITALS: BP 115/73
[2020-11-15 10:09] VITALS: BP 115/73
[2020-11-15] MEDS ORDERED: LIDOCAINE VISCOUS 2% 15ML UD ONE (11:00)
[2020-11-15] MEDS ORDERED: LABETALOL HCL 5 MG/ML 4ML SYRINGE IV PRN (11:15)
[2020-11-15] MEDS ORDERED: ONDANSETRON HCL 4 MG/2 ML VIAL IV PRN (11:15)
[2020-11-15] MEDS ORDERED: fentaNYL CITRATE 100 MCG/2 ML VL IV PRN (11:15)
[2020-11-15] MEDS ORDERED: ePHEDrine SULFATE 50 MG/ML AMP IV PRN (11:15)
[2020-11-15] MEDS ORDERED: MORPHINE SULFATE 4 MG/ML SYR/VIAL IV PRN (11:15)
[2020-11-15] MEDS ORDERED: MIDAZOLAM HCL 1MG/1ML-2 ML VIAL IV PRN (11:15)
[2020-11-15 13:00] VITALS: BP 151/83
[2020-11-15] MEDS: LACTULOSE 20Gm/30ML SOLN PO SCH ×2 (13:19→22:52)
[2020-11-15] MEDS: levoFLOXacin 500MG 100 ML IV SCH (13:19)
[2020-11-15] MEDS: ASPirin-EC 81 mg tab PO SCH (13:20)
[2020-11-15] MEDS: ATORVASTATIN 20 MG TAB PO SCH (13:20)
[2020-11-15] MEDS: rifAXIMin 550 MG TAB PO SCH ×2 (13:22→22:53)
[2020-11-15] MEDS: PANTOPRAZOLE 40 MG TAB PO SCH (13:22)
[2020-11-15 17:00] VITALS: BP 146/91
[2020-11-15] MEDS: metFORMIN HYDROCHLORIDE 500 MG TAB PO SCH (17:08)
[2020-11-15 22:00] VITALS: BP 137/86
[2020-11-15] MEDS: TEMAZEPAM 15 MG CAP PO SCH (22:52)
[2020-11-16 05:00] VITALS: BP 130/83
[2020-11-16] MEDS: ACCU-CHEK COMFORT CURVE STRIP VI SCH ×2 (06:40→11:59)
[2020-11-16] MEDS: InsuLIN REG 1unit/0.01ml Soln (100units/ml) SC SCH ×2 (06:41→11:59)
[2020-11-16 07:12] LABS: Basophils # (auto) 0 10 ^3/uL (0-0.2); Eosinophils # (auto) 0 10 ^3/uL (0-0.8); Hematocrit 32.4 % (36.0-46.0); Hemoglobin 10.5 g/dL (12.2-16.2); Lymphocytes # (auto) 0.6 10 ^3/uL (0.4-5.4); Mean Corpuscular Hemoglobin 25.4 pg (28.0-32.0); Mean Corpuscular Hgb Conc. 32.4 g/dL (32.0-36.0); Monocytes # (auto) 0.4 10 ^3/uL (0-1.3); Neutrophils # (auto) 5.7 10 ^3/uL (1.6-8.6); Platelet Count (auto) 90 10^3/uL (140-450); Red Blood Cells 4.12 10^6/uL (4.0-5.20); White Blood Cell 6.7 10^3/uL (4.4-10.8)
[2020-11-16 07:13] LABS: Basophils % (auto) 0.1 % (0.0-2.0); Lymphocytes % (auto) 8.9 % (10.0-50.0); Mean Corpuscular Volume 78.6 fL (80.0-100.0); Monocytes % (auto) 5.3 % (0.0-12.0); Neutrophils % (auto) 85.7 % (37.0-80.0); Red Cell Distribution Width 16.1 % (11.8-14.3)
[2020-11-16 07:24] LABS: Albumin 2.9 g/dL (3.4-5.0); Calcium 8.4 mg/dL (8.5-10.1); Potassium 4.2 mmol/L (3.5-5.1)
[2020-11-16 07:29] LABS: BUN/Creatinine Ratio 19.8; Bilirubin, Total 0.7 mg/dL (0.2-1.0); Total Protein 6.9 g/dL (6.4-8.2)
[2020-11-16 09:00] VITALS: BP 116/63
[2020-11-16] MEDS: metFORMIN HYDROCHLORIDE 500 MG TAB PO SCH (09:26)
[2020-11-16] MEDS: levoFLOXacin 500MG 100 ML IV SCH (09:26)
[2020-11-16] MEDS: LACTULOSE 20Gm/30ML SOLN PO SCH (09:27)
[2020-11-16] MEDS: ATORVASTATIN 20 MG TAB PO SCH (09:27)
[2020-11-16] MEDS: ASPirin-EC 81 mg tab PO SCH (09:27)
[2020-11-16] MEDS: rifAXIMin 550 MG TAB PO SCH (09:27)
[2020-11-16] MEDS: PANTOPRAZOLE 40 MG TAB PO SCH (09:27)
[2020-11-16 13:00] VITALS: BP 106/76
== END 2020-11-16 15:00 | disposition home or self-care (01) | DRG 312 ==
LOC: ER 05:42 → EDBD 05:42 → TELE 09:30 → TELE-WESTW 15:47
PROVIDERS: ADMIT Nurse Practitioner Acute Care; ATTEND Internal Medicine
PROC: 0DB68ZX Excision of Stomach, Via Natural or Artificial Opening Endoscopic, Diagnostic (ICD-10-PCS; principal; 2020-11-15 11:04)
DX: R55 Syncope and collapse (principal); I85.10 Secondary esophageal varices without bleeding; K76.6 Portal hypertension; E86.0 Dehydration; K74.60 Unspecified cirrhosis of liver; K72.90 Hepatic failure, unspecified without coma; S09.90XA Unspecified injury of head, initial encounter; E11.65 Type 2 diabetes mellitus with hyperglycemia; E66.9 Obesity, unspecified; I10 Essential (primary) hypertension; D63.8 Anemia in other chronic diseases classified elsewhere; W01.0XXA Fall on same level from slipping, tripping and stumbling without subsequent striking against object, initial encounter; J45.909 Unspecified asthma, uncomplicated; Z20.822 Contact with and (suspected) exposure to COVID-19; Y93.01 Activity, walking, marching and hiking; E78.5 Hyperlipidemia, unspecified; E78.00 Pure hypercholesterolemia, unspecified; Z88.8 Allergy status to other drugs, medicaments and biological substances; Y99.8 Other external cause status; Z68.32 Body mass index [BMI] 32.0-32.9, adult; Z79.51 Long term (current) use of inhaled steroids; Z79.84 Long term (current) use of oral hypoglycemic drugs; Y92.091 Bathroom in other non-institutional residence as the place of occurrence of the external cause; Z79.82 Long term (current) use of aspirin; Z79.899 Other long term (current) drug therapy; Z82.3 Family history of stroke; Z82.49 Family history of ischemic heart disease and other diseases of the circulatory system; Z83.3 Family history of diabetes mellitus; Z86.73 Personal history of transient ischemic attack (TIA), and cerebral infarction without residual deficits; Z86.79 Personal history of other diseases of the circulatory system; Z90.710 Acquired absence of both cervix and uterus
CPT/HCPCS: 36415; 43239; 70450; 70551; 71045; 80048; 80053; 81001; 82140; 82962; 83036; 84484; 85025; 85610; 85730; 87426; 93005; 94640; 95819; 96361; 96374; G0378; J1815; J1956; J2405

== ENCOUNTER → 2021-01-03 | Outpatient (CLI) | payer MEDICARE, MEDICAID ==
[~2021-01-03] MED LIST changes: -ASPI-543 PO; -CALC667C PO; -CHOL20007 PO; -CYCL-611 PO; -GABA300C10 PO; -HYDR-4924 PO; -HYDR25TA4 PO; -PANT40T PO; -POTA10TA51 PO
[2021-01-03 08:54] LABS: Basophils # (auto) 0 10 ^3/uL (0-0.2); Eosinophils # (auto) 0.5 10 ^3/uL (0-0.8); Lymphocytes # (auto) 0.9 10 ^3/uL (0.4-5.4); Mean Corpuscular Hgb Conc. 31.9 g/dL (32.0-36.0); Monocytes # (auto) 0.5 10 ^3/uL (0-1.3); Neutrophils # (auto) 3.5 10 ^3/uL (1.6-8.6); White Blood Cell 5.5 10^3/uL (4.4-10.8)
[2021-01-03 08:56] LABS: Basophils % (auto) 0.5 % (0.0-2.0); Eosinophils % (auto) 9.5 % (0.0-7.0); Hematocrit 31.7 % (36.0-46.0); Hemoglobin 10.1 g/dL (12.2-16.2); Lymphocytes % (auto) 17.1 % (10.0-50.0); Mean Corpuscular Volume 78.5 fL (80.0-100.0); Monocytes % (auto) 8.8 % (0.0-12.0); Neutrophils % (auto) 64.1 % (37.0-80.0); Platelet Count (auto) 126 10^3/uL (140-450); Red Blood Cells 4.04 10^6/uL (4.0-5.20); Red Cell Distribution Width 17.1 % (11.8-14.3)
[2021-01-03 09:44] LABS: Calcium 9.5 mg/dL (8.5-10.1)
[2021-01-03 09:49] LABS: Albumin 3.2 g/dL (3.4-5.0); BUN/Creatinine Ratio 21.2; Bilirubin, Total 0.7 mg/dL (0.2-1.0); Total Protein 7.8 g/dL (6.4-8.2)
== END | disposition home or self-care (01) ==
LOC: LAB 08:35
PROVIDERS: ATTEND Internal Medicine
DX: E11.9 Type 2 diabetes mellitus without complications (principal); K74.60 Unspecified cirrhosis of liver; E78.5 Hyperlipidemia, unspecified; I42.5 Other restrictive cardiomyopathy
CPT/HCPCS: 36415; 80053; 83036; 83880; 84443; 85025

== ENCOUNTER 2021-02-08 08:58 | Inpatient (IN) | payer MEDICARE, MEDICAID ==
[~2021-02-08] VITALS: Ht 149.9 cm; Wt 65.0 kg
[2021-02-08] MEDS ORDERED: LACTULOSE 20Gm/30ML SOLN PO ONE (09:30)
[2021-02-08 09:51] LABS: Basophils # (auto) 0 10 ^3/uL (0-0.2); Eosinophils # (auto) 0.4 10 ^3/uL (0-0.8); Hemoglobin 10.2 g/dL (12.2-16.2)
[2021-02-08 09:53] LABS: Basophils % (auto) 0.4 % (0.0-2.0); Eosinophils % (auto) 9.1 % (0.0-7.0); Hematocrit 32.8 % (36.0-46.0); Lymphocytes % (auto) 20.5 % (10.0-50.0); Mean Corpuscular Hemoglobin 23.3 pg (28.0-32.0); Mean Corpuscular Hgb Conc. 31.1 g/dL (32.0-36.0); Mean Corpuscular Volume 74.8 fL (80.0-100.0); Monocytes # (auto) 0.5 10 ^3/uL (0-1.3); Monocytes % (auto) 9.7 % (0.0-12.0); Neutrophils # (auto) 2.8 10 ^3/uL (1.6-8.6); Neutrophils % (auto) 60.3 % (37.0-80.0); Nucleated Red Blood Cells % 0.1 %; Red Blood Cells 4.39 10^6/uL (4.0-5.20); Red Cell Distribution Width 16.8 % (11.8-14.3); White Blood Cell 4.6 10^3/uL (4.4-10.8)
[2021-02-08 10:15] LABS: Partial Thromboplastin Time 26.7 sec (23.0-31.2)
[2021-02-08 10:25] LABS: Urine Bacteria NONE SEEN /hpf (None Seen); Urine Blood Negative /uL (Negative); Urine WBC 10 /hpf (0 - 5)
[2021-02-08 10:34] LABS: Chloride 112 mmol/L (98-107); Sodium 140 mmol/L (136-145)
[2021-02-08 10:43] LABS: Alanine Aminotransferase 32 U/L (13-56); Albumin 3.3 g/dL (3.4-5.0); Alkaline Phosphatase 282 U/L (45-117); Anion Gap 4 (5-15); Aspartate Aminotransferase 33 U/L (15-37); BUN/Creatinine Ratio 22.8; Bilirubin, Total 0.5 mg/dL (0.2-1.0); Blood Alcohol < 3.0 mg/dL (0-5); Blood Urea Nitrogen 28 mg/dL (7-18); Calcium 8.7 mg/dL (8.5-10.1); Carbon Dioxide 24 mmol/L (21-32); GFR African American 57 mL/min; GFR Non-African American 47 mL/min; Glucose 119 mg/dL (74-106); Total Protein 8.1 g/dL (6.4-8.2)
[2021-02-08] MEDS ORDERED: NITROGLYCERIN 0.4 MG SL TAB SL PRN (11:00)
[2021-02-08] MEDS ORDERED: levoFLOXacin 500MG 100 ML IV ONE ×2 (11:00)
[2021-02-08] MEDS ORDERED: SODIUM CHLORIDE 0.9% 1,000 ML IV ONE (11:00)
[2021-02-08] MEDS ORDERED: MORPHINE SULF INJ 2 MG/ML SYRINGE 1ML IV PRN (11:00)
[2021-02-08] MEDS ORDERED: traMADol HCL 50 MG TAB PO PRN (12:00)
[2021-02-08] MEDS ORDERED: LACTULOSE 20Gm/30ML SOLN PO SCH ×2 (12:00→14:00)
[2021-02-08] MEDS ORDERED: ONDANSETRON HCL 4 MG/2 ML VIAL IV PRN (12:15)
[2021-02-08] MEDS ORDERED: ACETAMINOPHEN 500 MG TAB PO PRN (12:15)
[2021-02-08] MEDS ORDERED: DEXTROSE (50%) 50ML SYRG IV PRN (12:15)
[2021-02-08] MEDS: SODIUM CHLORIDE 0.9% 1,000 ML IV SCH (13:36)
[2021-02-08] MEDS: PROPRANOLOL HCL 20 MG TAB PO SCH ×2 (14:38→22:47)
[2021-02-08] MEDS: InsuLIN REG 1unit/0.01ml Soln (100units/ml) SC SCH ×2 (16:46→22:27)
[2021-02-08] MEDS: ACCU-CHEK COMFORT CURVE STRIP VI SCH ×2 (16:46→22:48)
[2021-02-08 18:45] VITALS: BP 126/75
[2021-02-08] MEDS ORDERED: CHOL20009 (18:46)
[2021-02-08] MEDS ORDERED: ASCO500C49 (18:46)
[2021-02-08] MEDS ORDERED: OMEG306C (18:46)
[2021-02-08 22:00] VITALS: BP 120/73
[2021-02-08] MEDS: URSODIOL 300 MG CAP PO SCH (22:00)
[2021-02-08] MEDS: FLUTICASONE 100 MCG IN SCH (22:00)
[2021-02-08] MEDS: LACTULOSE 20Gm/30ML SOLN PO SCH (22:46)
[2021-02-08] MEDS: CYCLOBENZAPRINE HCL 10 MG TAB PO SCH (22:46)
[2021-02-08 23:00] VITALS: BP 120/73
[2021-02-09 05:00] VITALS: BP 125/69
[2021-02-09] MEDS ORDERED: RIFA550T PO (05:47)
[2021-02-09] MEDS: ACCU-CHEK COMFORT CURVE STRIP VI SCH ×4 (06:08→21:53)
[2021-02-09] MEDS: InsuLIN REG 1unit/0.01ml Soln (100units/ml) SC SCH ×4 (06:09→21:42)
[2021-02-09] MEDS: PROPRANOLOL HCL 20 MG TAB PO SCH ×3 (06:20→21:36)
[2021-02-09] MEDS: SODIUM CHLORIDE 0.9% 1,000 ML IV SCH (06:20)
[2021-02-09] MEDS: LACTULOSE 20Gm/30ML SOLN PO SCH ×3 (06:21→21:53)
[2021-02-09 06:44] LABS: Basophils # (auto) 0 10 ^3/uL (0-0.2); Basophils % (auto) 0.2 % (0.0-2.0); Eosinophils # (auto) 0.2 10 ^3/uL (0-0.8); Eosinophils % (auto) 1.8 % (0.0-7.0); Hematocrit 35.5 % (36.0-46.0); Hemoglobin 11.1 g/dL (12.2-16.2); Lymphocytes # (auto) 1.4 10 ^3/uL (0.4-5.4); Mean Corpuscular Hgb Conc. 31.2 g/dL (32.0-36.0); Mean Corpuscular Volume 73.7 fL (80.0-100.0); Monocytes # (auto) 0.9 10 ^3/uL (0-1.3); Neutrophils # (auto) 10.2 10 ^3/uL (1.6-8.6); Red Blood Cells 4.81 10^6/uL (4.0-5.20); Red Cell Distribution Width 16.6 % (11.8-14.3); White Blood Cell 12.8 10^3/uL (4.4-10.8)
[2021-02-09 06:59] LABS: Potassium 4.7 mmol/L (3.5-5.1)
[2021-02-09] MEDS: URSODIOL 300 MG CAP PO SCH ×3 (07:00→21:53)
[2021-02-09 07:06] LABS: Albumin 3.4 g/dL (3.4-5.0); BUN/Creatinine Ratio 15.9; Bilirubin, Total 0.9 mg/dL (0.2-1.0); Calcium 8.5 mg/dL (8.5-10.1); Total Protein 8.4 g/dL (6.4-8.2)
[2021-02-09 08:57] VITALS: BP 111/67
[2021-02-09] MEDS: PANTOPRAZOLE 40 MG TAB PO SCH (09:54)
[2021-02-09] MEDS: CYCLOBENZAPRINE HCL 10 MG TAB PO SCH ×2 (09:55→21:53)
[2021-02-09] MEDS: ATORVASTATIN 20 MG TAB PO SCH (09:55)
[2021-02-09] MEDS: levoFLOXacin 500MG 100 ML IV SCH (09:55)
[2021-02-09] MEDS: FLUTICASONE 100 MCG IN SCH ×2 (09:55→21:59)
[2021-02-09] MEDS: ASPirin-EC 81 mg tab PO SCH (09:55)
[2021-02-09] MEDS ORDERED: PATIENTS OWN MEDICATION (Spironolactone 1 TAB) PO SCH (10:00)
[2021-02-09] MEDS ORDERED: PANTOPRAZOLE 40 MG TAB PO SCH (10:00)
[2021-02-09 12:58] VITALS: BP 104/70
[2021-02-09 17:00] VITALS: BP 104/63
[2021-02-09 22:00] VITALS: BP 104/62
[2021-02-10 05:00] VITALS: BP 109/54
[2021-02-10 05:20] LABS: Basophils # (auto) 0 10 ^3/uL (0-0.2); Eosinophils # (auto) 0.2 10 ^3/uL (0-0.8); Lymphocytes # (auto) 1.3 10 ^3/uL (0.4-5.4); Mean Corpuscular Hemoglobin 23.9 pg (28.0-32.0); Monocytes # (auto) 0.7 10 ^3/uL (0-1.3)
[2021-02-10 05:23] LABS: Basophils % (auto) 0.3 % (0.0-2.0); Eosinophils % (auto) 2.3 % (0.0-7.0); Hematocrit 26.8 % (36.0-46.0); Hemoglobin 8.6 g/dL (12.2-16.2); Lymphocytes % (auto) 15.8 % (10.0-50.0); Mean Corpuscular Hgb Conc. 32.2 g/dL (32.0-36.0); Mean Corpuscular Volume 74.3 fL (80.0-100.0); Monocytes % (auto) 8.7 % (0.0-12.0); Neutrophils # (auto) 5.8 10 ^3/uL (1.6-8.6); Neutrophils % (auto) 72.9 % (37.0-80.0); Red Blood Cells 3.61 10^6/uL (4.0-5.20); Red Cell Distribution Width 16.6 % (11.8-14.3)
[2021-02-10 05:41] LABS: BUN/Creatinine Ratio 15.3; Calcium 8.1 mg/dL (8.5-10.1); Potassium 4.1 mmol/L (3.5-5.1)
[2021-02-10] MEDS: URSODIOL 300 MG CAP PO SCH ×2 (06:10→14:00)
[2021-02-10] MEDS: LACTULOSE 20Gm/30ML SOLN PO SCH ×2 (06:11→14:00)
[2021-02-10] MEDS: ACCU-CHEK COMFORT CURVE STRIP VI SCH ×2 (06:12→12:16)
[2021-02-10] MEDS: PROPRANOLOL HCL 20 MG TAB PO SCH ×2 (06:12→14:00)
[2021-02-10] MEDS: InsuLIN REG 1unit/0.01ml Soln (100units/ml) SC SCH ×2 (06:15→12:15)
[2021-02-10] MEDS: levoFLOXacin 500MG 100 ML IV SCH (09:21)
[2021-02-10] MEDS: PANTOPRAZOLE 40 MG TAB PO SCH (09:21)
[2021-02-10] MEDS: CYCLOBENZAPRINE HCL 10 MG TAB PO SCH (09:21)
[2021-02-10] MEDS: ATORVASTATIN 20 MG TAB PO SCH (09:21)
[2021-02-10] MEDS: ASPirin-EC 81 mg tab PO SCH (09:21)
[2021-02-10] MEDS: FLUTICASONE 100 MCG IN SCH (09:40)
[2021-02-10 10:00] VITALS: BP 128/73
[2021-02-10] MEDS ORDERED: LEVO-28 PO (12:00)
[2021-02-10] MEDS ORDERED: LACT10SO3 PO (12:03)
== END 2021-02-10 14:05 | disposition home or self-care (01) | DRG 441 ==
LOC: ER 08:58 → TELE 10:59 → TELE-EAST 18:54
PROVIDERS: ADMIT Internal Medicine; ATTEND Internal Medicine
DX: K72.90 Hepatic failure, unspecified without coma (principal); G93.41 Metabolic encephalopathy; K76.6 Portal hypertension; N39.0 Urinary tract infection, site not specified; E86.0 Dehydration; Z20.822 Contact with and (suspected) exposure to COVID-19; D64.9 Anemia, unspecified; E78.5 Hyperlipidemia, unspecified; K21.9 Gastro-esophageal reflux disease without esophagitis; E11.22 Type 2 diabetes mellitus with diabetic chronic kidney disease; N18.30 Chronic kidney disease, stage 3 unspecified; I12.9 Hypertensive chronic kidney disease with stage 1 through stage 4 chronic kidney disease, or unspecified chronic kidney disease; E66.9 Obesity, unspecified; E88.09 Other disorders of plasma-protein metabolism, not elsewhere classified; F03.90 Unspecified dementia, unspecified severity, without behavioral disturbance, psychotic disturbance, mood disturbance, and anxiety; K74.60 Unspecified cirrhosis of liver; Z82.3 Family history of stroke; Z82.49 Family history of ischemic heart disease and other diseases of the circulatory system; Z83.3 Family history of diabetes mellitus; Z86.73 Personal history of transient ischemic attack (TIA), and cerebral infarction without residual deficits; Z71.3 Dietary counseling and surveillance; Z79.899 Other long term (current) drug therapy; Z88.8 Allergy status to other drugs, medicaments and biological substances; Z68.28 Body mass index [BMI] 28.0-28.9, adult
CPT/HCPCS: 36415; 70450; 71045; 80048; 80053; 80320; 81001; 82140; 82962; 83036; 83605; 83735; 84484; 85025; 85610; 85730; 87040; 87086; 87426; 93005; 96365; G0378; J1815; J1956; J2405

== ENCOUNTER 2021-02-12 14:51 | Inpatient (IN) | payer MEDICARE, MEDICAID ==
[~2021-02-12] VITALS: Ht 149.9 cm; Wt 70.6 kg
[~2021-02-12 14:51] MED LIST changes: +ASCO500C49; -ASPI1TAB19 PO; +CHOL20009; -FLUT110A INH; -KET30I PO; +LACT10SO3 PO; +LEVO-28 PO; -MECL25TA18 PO; +OMEG306C; -PANT40TA2 PO; +RIFA550T PO; -TRAM50TA2 PO
[2021-02-12] MEDS ORDERED: SODIUM CHLORIDE 0.9% 500 ML IV ONE (16:15)
[2021-02-12 16:36] LABS: Basophils # (auto) 0 10 ^3/uL (0-0.2); Basophils % (auto) 0.6 % (0.0-2.0); Eosinophils # (auto) 0.5 10 ^3/uL (0-0.8); Eosinophils % (auto) 7.1 % (0.0-7.0); Hematocrit 30.3 % (36.0-46.0); Hemoglobin 9.3 g/dL (12.2-16.2); Lymphocytes # (auto) 1.5 10 ^3/uL (0.4-5.4); Lymphocytes % (auto) 22.5 % (10.0-50.0); Mean Corpuscular Hemoglobin 23.3 pg (28.0-32.0); Mean Corpuscular Hgb Conc. 30.8 g/dL (32.0-36.0); Mean Corpuscular Volume 75.6 fL (80.0-100.0); Monocytes # (auto) 0.7 10 ^3/uL (0-1.3); Monocytes % (auto) 10.5 % (0.0-12.0); Neutrophils # (auto) 3.9 10 ^3/uL (1.6-8.6); Neutrophils % (auto) 59.3 % (37.0-80.0); Nucleated Red Blood Cells % 0.1 %; Red Cell Distribution Width 17.1 % (11.8-14.3); White Blood Cell 6.5 10^3/uL (4.4-10.8)
[2021-02-12 16:39] LABS: Albumin 2.9 g/dL (3.4-5.0); Anion Gap 4 (5-15); Blood Urea Nitrogen 26 mg/dL (7-18); Calcium 8.2 mg/dL (8.5-10.1); Carbon Dioxide 24 mmol/L (21-32); Chloride 110 mmol/L (98-107); Glucose 65 mg/dL (74-106); Potassium 4.1 mmol/L (3.5-5.1); Sodium 138 mmol/L (136-145)
[2021-02-12 16:45] LABS: Alanine Aminotransferase 32 U/L (13-56); Alkaline Phosphatase 217 U/L (45-117); Aspartate Aminotransferase 32 U/L (15-37); Bilirubin, Total 0.5 mg/dL (0.2-1.0); GFR African American 50 mL/min; GFR Non-African American 41 mL/min; Total Protein 7.4 g/dL (6.4-8.2)
[2021-02-12 17:06] LABS: Urine Bacteria NONE SEEN /hpf (None Seen); Urine Blood Negative /uL (Negative); Urine Hyaline Cast FEW /lpf (0 - 2); Urine Specific Gravity 1.018 (1.001-1.035); Urine WBC 77 /hpf (0 - 5)
[2021-02-12] MEDS ORDERED: cefTRIAXone 1GM/50ML D5W 50 ML IV ONE (17:30)
[2021-02-12] MEDS ORDERED: LACTULOSE 20Gm/30ML SOLN PO ONE (18:15)
[2021-02-12] MEDS ORDERED: HYDROcodone-ACET 5/325MG TAB PO PRN (19:15)
[2021-02-12] MEDS ORDERED: NITROGLYCERIN 0.4 MG SL TAB SL PRN (19:15)
[2021-02-12] MEDS ORDERED: ACETAMINOPHEN 500 MG TAB PO PRN (19:15)
[2021-02-12] MEDS ORDERED: MORPHINE SULF INJ 2 MG/ML SYRINGE 1ML IV PRN ×2 (19:15)
[2021-02-12] MEDS ORDERED: SODIUM CHLORIDE 0.9% 1,000 ML IV ONE (19:15)
[2021-02-12] MEDS ORDERED: ONDANSETRON HCL 4 MG/2 ML VIAL IV PRN (19:15)
[2021-02-12 22:00] VITALS: BP 110/58
[2021-02-12] MEDS: LACTULOSE 20Gm/30ML SOLN PO SCH (22:27)
[2021-02-13] VITALS (7 sets, daily range): BP systolic 91–136; BP diastolic 42–80
[2021-02-13] MEDS ORDERED: TEMA15CA PO (06:18)
[2021-02-13] MEDS ORDERED: URSO300C9 PO (08:54)
[2021-02-13] MEDS ORDERED: CYCL10TA6 PO (08:54)
[2021-02-13] MEDS ORDERED: RIFA550T PO (08:54)
[2021-02-13] MEDS ORDERED: GABA300C10 PO (08:54)
[2021-02-13] MEDS ORDERED: ASPI-543 PO (08:54)
[2021-02-13] MEDS ORDERED: PROP60CA34 PO (08:54)
[2021-02-13] MEDS ORDERED: TRAM50TA2 PO (08:54)
[2021-02-13] MEDS ORDERED: PANT1INJ3 PO (08:54)
[2021-02-13] MEDS ORDERED: MECL25TA18 PO (08:58)
[2021-02-13] MEDS ORDERED: cefTRIAXone 1GM/50ML D5W 50 ML IV SCH (09:00)
[2021-02-13] MEDS ORDERED: METF-370 PO (09:01)
[2021-02-13] MEDS ORDERED: LACT10SO3 PO (09:01)
[2021-02-13] MEDS ORDERED: DAPA1TAB4 PO (09:01)
[2021-02-13] MEDS ORDERED: GLIP5TAB12 PO (09:01)
[2021-02-13] MEDS: LACTULOSE 20Gm/30ML SOLN PO SCH ×2 (09:55→21:55)
[2021-02-13] MEDS ORDERED: levoFLOXacin 500MG 100 ML IV SCH (10:00)
[2021-02-13] MEDS ORDERED: TEMAZEPAM 15 MG CAP PO PRN ×2 (10:45→22:00)
[2021-02-13] MEDS ORDERED: ERTAPENEM SOD INJ 1 GM in SODIUM CHL 0.9% 50 ML IV ONE (10:45)
[2021-02-13] MEDS ORDERED: DEXTROSE (50%) 50ML SYRG IV PRN (10:45)
[2021-02-13] MEDS: ACCU-CHEK COMFORT CURVE STRIP VI SCH ×3 (11:42→21:56)
[2021-02-13] MEDS: InsuLIN REG 1unit/0.01ml Soln (100units/ml) SC SCH ×3 (11:44→21:56)
[2021-02-13] MEDS: ATORVASTATIN 20 MG TAB PO SCH (21:56)
[2021-02-14 05:09] VITALS: BP 116/72
[2021-02-14] MEDS: ACCU-CHEK COMFORT CURVE STRIP VI SCH ×4 (06:21→22:03)
[2021-02-14] MEDS: InsuLIN REG 1unit/0.01ml Soln (100units/ml) SC SCH ×4 (06:22→22:06)
[2021-02-14 06:57] LABS: Basophils # (auto) 0 10 ^3/uL (0-0.2); Hemoglobin 9.1 g/dL (12.2-16.2); Lymphocytes # (auto) 0.8 10 ^3/uL (0.4-5.4); Monocytes # (auto) 0.4 10 ^3/uL (0-1.3); Neutrophils # (auto) 1.9 10 ^3/uL (1.6-8.6)
[2021-02-14 06:59] LABS: Basophils % (auto) 0.7 % (0.0-2.0); Eosinophils # (auto) 0.3 10 ^3/uL (0-0.8); Eosinophils % (auto) 9.9 % (0.0-7.0); Hematocrit 28.6 % (36.0-46.0); Lymphocytes % (auto) 23.6 % (10.0-50.0); Monocytes % (auto) 11.5 % (0.0-12.0); Neutrophils % (auto) 54.3 % (37.0-80.0); Red Blood Cells 3.81 10^6/uL (4.0-5.20); Red Cell Distribution Width 17.2 % (11.8-14.3); White Blood Cell 3.4 10^3/uL (4.4-10.8)
[2021-02-14 07:21] LABS: BUN/Creatinine Ratio 14.9; Calcium 8.9 mg/dL (8.5-10.1); Potassium 4.3 mmol/L (3.5-5.1)
[2021-02-14 08:05] VITALS: BP 136/63
[2021-02-14 08:34] VITALS: BP 111/65
[2021-02-14] MEDS: LACTULOSE 20Gm/30ML SOLN PO SCH ×3 (11:00→21:59)
[2021-02-14] MEDS: ERTAPENEM SOD INJ 1 GM in SODIUM CHL 0.9% 50 ML IV SCH (11:00)
[2021-02-14] MEDS: ASPirin 81 mg TAB PO SCH (11:00)
[2021-02-14 12:35] VITALS: BP 118/74
[2021-02-14 17:00] VITALS: BP 130/86
[2021-02-14] MEDS: traMADol HCL 50 MG TAB PO PRN (21:34)
[2021-02-14] MEDS: ATORVASTATIN 20 MG TAB PO SCH (21:35)
[2021-02-14 21:37] VITALS: BP 132/90
[2021-02-15 04:52] VITALS: BP 112/62
[2021-02-15] MEDS: ACCU-CHEK COMFORT CURVE STRIP VI SCH ×4 (06:26→22:36)
[2021-02-15] MEDS: InsuLIN REG 1unit/0.01ml Soln (100units/ml) SC SCH ×4 (06:46→22:00)
[2021-02-15 09:00] VITALS: BP 139/93
[2021-02-15] MEDS: ASPirin 81 mg TAB PO SCH (09:30)
[2021-02-15] MEDS: LACTULOSE 20Gm/30ML SOLN PO SCH ×2 (09:30→22:00)
[2021-02-15] MEDS: ERTAPENEM SOD INJ 1 GM in SODIUM CHL 0.9% 50 ML IV SCH (10:10)
[2021-02-15 12:23] LABS: Urine Bacteria FEW /hpf (None Seen); Urine Blood Negative /uL (Negative); Urine Hyaline Cast FEW /lpf (0 - 2); Urine Mucus FEW (None Seen); Urine Specific Gravity 1.026 (1.001-1.035); Urine WBC 2 /hpf (0 - 5)
[2021-02-15 13:09] VITALS: BP 136/83
[2021-02-15 22:00] VITALS: BP 127/81
[2021-02-15] MEDS: ATORVASTATIN 20 MG TAB PO SCH (23:02)
[2021-02-16] MEDS ORDERED: diphenhdrAMINE HCL 50 MG/1 ML VL IV PRN (02:15)
[2021-02-16 05:00] VITALS: BP 120/69
[2021-02-16] MEDS: ACCU-CHEK COMFORT CURVE STRIP VI SCH ×4 (06:26→22:13)
[2021-02-16] MEDS: InsuLIN REG 1unit/0.01ml Soln (100units/ml) SC SCH ×4 (06:26→22:00)
[2021-02-16 08:38] VITALS: BP 116/69
[2021-02-16] MEDS: LACTULOSE 20Gm/30ML SOLN PO SCH ×2 (09:55→22:00)
[2021-02-16] MEDS: ERTAPENEM SOD INJ 1 GM in SODIUM CHL 0.9% 50 ML IV SCH (09:55)
[2021-02-16] MEDS: ASPirin 81 mg TAB PO SCH (09:55)
[2021-02-16 12:47] VITALS: BP 116/67
[2021-02-16 16:46] VITALS: BP 124/68
[2021-02-16 22:00] VITALS: BP 116/68
[2021-02-16] MEDS: ATORVASTATIN 20 MG TAB PO SCH (22:12)
[2021-02-17] MEDS: ACCU-CHEK COMFORT CURVE STRIP VI SCH ×4 (06:17→21:09)
[2021-02-17] MEDS: InsuLIN REG 1unit/0.01ml Soln (100units/ml) SC SCH ×4 (06:17→21:08)
[2021-02-17] MEDS: ERTAPENEM SOD INJ 1 GM in SODIUM CHL 0.9% 50 ML IV SCH (09:18)
[2021-02-17] MEDS: ASPirin 81 mg TAB PO SCH (09:18)
[2021-02-17] MEDS: LACTULOSE 20Gm/30ML SOLN PO SCH ×2 (09:19→21:09)
[2021-02-17 12:30] VITALS: BP 111/63
[2021-02-17] MEDS: traMADol HCL 50 MG TAB PO PRN (19:59)
[2021-02-17] MEDS: ATORVASTATIN 20 MG TAB PO SCH (21:09)
[2021-02-17 22:00] VITALS: BP 115/67
[2021-02-18 05:00] VITALS: BP 120/60
[2021-02-18] MEDS: ACCU-CHEK COMFORT CURVE STRIP VI SCH ×2 (06:17→11:30)
[2021-02-18] MEDS: InsuLIN REG 1unit/0.01ml Soln (100units/ml) SC SCH ×2 (06:17→11:40)
[2021-02-18 09:00] VITALS: BP 110/65
[2021-02-18] MEDS: ERTAPENEM SOD INJ 1 GM in SODIUM CHL 0.9% 50 ML IV SCH (10:25)
[2021-02-18] MEDS: LACTULOSE 20Gm/30ML SOLN PO SCH (10:25)
[2021-02-18] MEDS: ASPirin 81 mg TAB PO SCH (10:25)
== END 2021-02-18 14:27 | disposition home or self-care (01) | DRG 91 ==
LOC: ER 14:51 → OVERFLOW 19:13 → CENTRAL 21:08 → EAST 02-16 17:35
PROVIDERS: ADMIT Nurse Practitioner Acute Care; ATTEND Internal Medicine
DX: G92 Toxic encephalopathy (principal); N17.0 Acute kidney failure with tubular necrosis; E44.0 Moderate protein-calorie malnutrition; D61.818 Other pancytopenia; N30.90 Cystitis, unspecified without hematuria; I95.9 Hypotension, unspecified; I10 Essential (primary) hypertension; K21.9 Gastro-esophageal reflux disease without esophagitis; E66.9 Obesity, unspecified; D64.9 Anemia, unspecified; Z20.822 Contact with and (suspected) exposure to COVID-19; B95.1 Streptococcus, group B, as the cause of diseases classified elsewhere; K74.60 Unspecified cirrhosis of liver; E11.9 Type 2 diabetes mellitus without complications; E78.5 Hyperlipidemia, unspecified; F03.90 Unspecified dementia, unspecified severity, without behavioral disturbance, psychotic disturbance, mood disturbance, and anxiety; Z79.82 Long term (current) use of aspirin; Z79.899 Other long term (current) drug therapy; Z82.3 Family history of stroke; Z83.3 Family history of diabetes mellitus; Z68.32 Body mass index [BMI] 32.0-32.9, adult; Z88.1 Allergy status to other antibiotic agents; Z88.8 Allergy status to other drugs, medicaments and biological substances; Z82.49 Family history of ischemic heart disease and other diseases of the circulatory system; Z86.73 Personal history of transient ischemic attack (TIA), and cerebral infarction without residual deficits; Z87.440 Personal history of urinary (tract) infections
CPT/HCPCS: 36415; 71045; 80048; 80053; 81001; 82140; 82565; 82962; 84484; 85025; 87081; 87086; 87088; 87426; 93005; 96361; 96365; 96366; 97116; 97163; 97530; G0378; J0696; J1335; J1815; J1956

== ENCOUNTER → 2021-05-31 | Outpatient (CLI) | payer MEDICARE, MEDICAID ==
[~2021-05-31] MED LIST changes: -ASCO500C49; +ASPI-543 PO; -CHOL20009; +CHOL25CH3 PO; +CYCL-839 PO; -CYCL10TA6 PO; +DAPA1TAB4 PO; +FLUT100I IN; -GABA300C PO; +GABA300C10 PO; +GLIP5TAB12 PO; -LACT10SO70 PO; +MECL25TA18 PO; +METF-370 PO; +OMEG100062 PO; -OMEG306C; +PANT1INJ3 PO; +PANT40T PO; +PROP1TAB59 PO; +SUCR1SUS10 PO; +TEMA15CA PO; -TEMA30CA PO; +TRAM50TA2 PO
[2021-05-31 16:02] LABS: Basophils # (auto) 0 10 ^3/uL (0-0.2); Eosinophils # (auto) 0.5 10 ^3/uL (0-0.8); Hematocrit 30.1 % (36.0-46.0); Monocytes # (auto) 0.5 10 ^3/uL (0-1.3); Nucleated Red Blood Cells % 0.1 %; Red Blood Cells 4.18 10^6/uL (4.0-5.20)
[2021-05-31 16:04] LABS: Basophils % (auto) 0.7 % (0.0-2.0); Eosinophils % (auto) 9.9 % (0.0-7.0); Hemoglobin 9.1 g/dL (12.2-16.2); Lymphocytes # (auto) 1.3 10 ^3/uL (0.4-5.4); Mean Corpuscular Hemoglobin 21.9 pg (28.0-32.0); Mean Corpuscular Hgb Conc. 30.4 g/dL (32.0-36.0); Monocytes % (auto) 9.6 % (0.0-12.0); Neutrophils # (auto) 2.9 10 ^3/uL (1.6-8.6); Neutrophils % (auto) 55.8 % (37.0-80.0); White Blood Cell 5.3 10^3/uL (4.4-10.8)
[2021-05-31 16:20] LABS: INR 1.04 (0.9-1.15); Partial Thromboplastin Time 26.8 sec (23.6-33.0)
[2021-05-31 17:06] LABS: Albumin 3.4 g/dL (3.4-5.0); Calcium 8.2 mg/dL (8.5-10.1); Potassium 3.8 mmol/L (3.5-5.1)
[2021-05-31 17:11] LABS: Bilirubin, Total 0.6 mg/dL (0.2-1.0); Total Protein 7.8 g/dL (6.4-8.2)
== END | disposition home or self-care (01) ==
LOC: LAB 15:44
PROVIDERS: ATTEND Internal Medicine Gastroenterology
DX: Z01.812 Encounter for preprocedural laboratory examination (principal)
CPT/HCPCS: 36415; 80053; 85025; 85610; 85730

== ENCOUNTER → 2021-06-06 | Day surgery (SDC) | payer MEDICARE, MEDICAID ==
[~2021-06-06] VITALS: Ht 149.9 cm; Wt 74.4 kg
[~2021-06-06] MED LIST changes: +LIDOCAINE VISCOUS 2% 15ML UD ONE; +MIDAZOLAM HCL 5 MG/ML-1ML VIAL ONE; +diphenhdrAMINE HCL 50 MG/1 ML VL ONE; +fentaNYL CITRATE 100 MCG/2 ML VL ONE
[2021-06-06 10:55] VITALS: BP 107/53
== END | disposition home or self-care (01) ==
LOC: GI 08:47
PROVIDERS: ATTEND Internal Medicine Gastroenterology
DX: R10.13 Epigastric pain (principal); K29.70 Gastritis, unspecified, without bleeding; I85.00 Esophageal varices without bleeding; K31.89 Other diseases of stomach and duodenum; E11.9 Type 2 diabetes mellitus without complications; I10 Essential (primary) hypertension; J44.9 Chronic obstructive pulmonary disease, unspecified; I25.118 Atherosclerotic heart disease of native coronary artery with other forms of angina pectoris; I72.8 Aneurysm of other specified arteries; Z88.1 Allergy status to other antibiotic agents; Z20.822 Contact with and (suspected) exposure to COVID-19; Z98.51 Tubal ligation status; Z79.82 Long term (current) use of aspirin; Z88.8 Allergy status to other drugs, medicaments and biological substances; Z68.33 Body mass index [BMI] 33.0-33.9, adult
CPT/HCPCS: 43239; 82962; J2250; J3010; J7030; U0003; G0500

== ENCOUNTER 2021-06-07 07:57 | Inpatient (IN) | payer MEDICARE, MEDICAID ==
[~2021-06-07] VITALS: Ht 149.9 cm; Wt 71.8 kg
[~2021-06-07 07:57] MED LIST changes: -LIDOCAINE VISCOUS 2% 15ML UD ONE; -MIDAZOLAM HCL 5 MG/ML-1ML VIAL ONE; -PANT40T PO; -PROP1TAB59 PO; -SUCR1SUS10 PO; -diphenhdrAMINE HCL 50 MG/1 ML VL ONE; -fentaNYL CITRATE 100 MCG/2 ML VL ONE
[2021-06-07] MEDS ORDERED: IOHEXOL 300 MG/ML 100ML BOTTLE IJ ONE (08:25)
[2021-06-07] MEDS ORDERED: SODIUM CHLORIDE 0.9% 1,000 ML IV ONE (08:30)
[2021-06-07] MEDS ORDERED: ONDANSETRON HCL 4 MG/2 ML VIAL IV ONE (08:30)
[2021-06-07] MEDS ORDERED: MORPHINE SULFATE 4 MG/ML SYR/VIAL IV ONE (08:30)
[2021-06-07 09:31] LABS: Basophils # (auto) 0 10 ^3/uL (0-0.2); Eosinophils # (auto) 0.2 10 ^3/uL (0-0.8); Hemoglobin 8.8 g/dL (12.2-16.2); Lymphocytes # (auto) 0.7 10 ^3/uL (0.4-5.4); Monocytes # (auto) 0.5 10 ^3/uL (0-1.3); Red Cell Distribution Width 17.1 % (11.8-14.3); White Blood Cell 5.9 10^3/uL (4.4-10.8)
[2021-06-07 09:32] LABS: Basophils % (auto) 0.6 % (0.0-2.0); Eosinophils % (auto) 4.1 % (0.0-7.0); Hematocrit 29.6 % (36.0-46.0); Lymphocytes % (auto) 12.6 % (10.0-50.0); Mean Corpuscular Hemoglobin 21.3 pg (28.0-32.0); Mean Corpuscular Hgb Conc. 29.8 g/dL (32.0-36.0); Mean Corpuscular Volume 71.3 fL (80.0-100.0); Monocytes % (auto) 7.8 % (0.0-12.0); Neutrophils # (auto) 4.4 10 ^3/uL (1.6-8.6); Neutrophils % (auto) 74.9 % (37.0-80.0); Nucleated Red Blood Cells % 0.1 %; Red Blood Cells 4.15 10^6/uL (4.0-5.20)
[2021-06-07 09:49] LABS: Calcium 8.5 mg/dL (8.5-10.1); Magnesium 2.5 mg/dL (1.6-2.6); Potassium 4.1 mmol/L (3.5-5.1)
[2021-06-07 09:52] LABS: Bilirubin, Total 0.7 mg/dL (0.2-1.0); Total Protein 7.6 g/dL (6.4-8.2)
[2021-06-07] MEDS ORDERED: HYDROmorphone HCL 2 MG/ML VL IV PRN ×2 (10:30→10:45)
[2021-06-07] MEDS ORDERED: ONDANSETRON HCL 4 MG/2 ML VIAL IV PRN (10:45)
[2021-06-07] MEDS ORDERED: MECLIZINE HCL 25 MG TAB PO PRN (10:45)
[2021-06-07] MEDS ORDERED: CYCLOBENZAPRINE HCL 10 MG TAB PO PRN (10:45)
[2021-06-07] MEDS ORDERED: ACETAMINOPHEN 325 MG TAB PO PRN (10:45)
[2021-06-07] MEDS ORDERED: DOCUSATE SOD 100 MG CAP PO PRN (10:45)
[2021-06-07] MEDS ORDERED: HYDROcodone-ACET 5/325MG TAB PO PRN (10:45)
[2021-06-07] MEDS: SUCRALFATE 1 GM/10 ML ORAL SUSP PO SCH ×3 (11:45→21:54)
[2021-06-07] MEDS: SODIUM CHLORIDE 0.9% 1,000 ML IV SCH (11:49)
[2021-06-07 13:34] LABS: Urine Bacteria NONE SEEN /hpf (None Seen); Urine Blood Negative /uL (Negative); Urine Specific Gravity 1.038 (1.001-1.035); Urine WBC <1 /hpf (0 - 5)
[2021-06-07] MEDS ORDERED: LACTULOSE 20Gm/30ML SOLN PO SCH (14:00)
[2021-06-07] MEDS ORDERED: PANT40T PO (14:20)
[2021-06-07] MEDS: GABAPENTIN 300 MG CAP PO SCH ×2 (14:22→21:55)
[2021-06-07] MEDS ORDERED: PROP1TAB59 PO (14:31)
[2021-06-07 20:00] VITALS: BP 114/66
[2021-06-07] MEDS: URSODIOL 300 MG CAP PO SCH (21:52)
[2021-06-07] MEDS: PROPRANOLOL HCL 20 MG TAB PO SCH (21:55)
[2021-06-07] MEDS: rifAXIMin 550 MG TAB PO SCH (21:56)
[2021-06-07] MEDS: PANTOPRAZOLE 40 MG TAB PO SCH (21:56)
[2021-06-07] MEDS: LACTULOSE 20Gm/30ML SOLN PO SCH (21:58)
[2021-06-07 22:00] VITALS: BP 114/66
[2021-06-07] MEDS ORDERED: PROPRANOLOL HCL 60 MG PO SCH ×2 (22:00)
[2021-06-08] MEDS: SODIUM CHLORIDE 0.9% 1,000 ML IV SCH (04:14)
[2021-06-08 05:00] VITALS: BP 106/64
[2021-06-08 05:22] LABS: Basophils # (auto) 0 10 ^3/uL (0-0.2); Eosinophils # (auto) 0.3 10 ^3/uL (0-0.8); Hemoglobin 7.8 g/dL (12.2-16.2); Lymphocytes # (auto) 1.2 10 ^3/uL (0.4-5.4); Monocytes # (auto) 0.4 10 ^3/uL (0-1.3)
[2021-06-08 05:26] LABS: Basophils % (auto) 0.6 % (0.0-2.0); Eosinophils % (auto) 5.6 % (0.0-7.0); Hematocrit 25.1 % (36.0-46.0); Lymphocytes % (auto) 25.6 % (10.0-50.0); Monocytes % (auto) 9.3 % (0.0-12.0); Neutrophils # (auto) 2.7 10 ^3/uL (1.6-8.6); Neutrophils % (auto) 58.9 % (37.0-80.0); Red Blood Cells 3.54 10^6/uL (4.0-5.20); Red Cell Distribution Width 17.3 % (11.8-14.3); White Blood Cell 4.5 10^3/uL (4.4-10.8)
[2021-06-08 05:47] LABS: Albumin 2.6 g/dL (3.4-5.0); BUN/Creatinine Ratio 14.1; Calcium 8.1 mg/dL (8.5-10.1); Potassium 4.1 mmol/L (3.5-5.1)
[2021-06-08 05:50] LABS: Bilirubin, Total 0.8 mg/dL (0.2-1.0); Total Protein 6.3 g/dL (6.4-8.2)
[2021-06-08] MEDS: GABAPENTIN 300 MG CAP PO SCH ×2 (06:24→14:00)
[2021-06-08] MEDS: SUCRALFATE 1 GM/10 ML ORAL SUSP PO SCH ×2 (06:24→11:30)
[2021-06-08] MEDS: PROPRANOLOL HCL 20 MG TAB PO SCH ×2 (06:24→14:00)
[2021-06-08 07:57] VITALS: BP 110/66
[2021-06-08 08:00] VITALS: BP 110/66
[2021-06-08] MEDS: PANTOPRAZOLE 40 MG TAB PO SCH (09:03)
[2021-06-08] MEDS: rifAXIMin 550 MG TAB PO SCH (09:04)
[2021-06-08] MEDS: URSODIOL 300 MG CAP PO SCH (09:05)
[2021-06-08] MEDS: LACTULOSE 20Gm/30ML SOLN PO SCH (09:06)
[2021-06-08] MEDS ORDERED: ATORVASTATIN 20 MG TAB PO SCH (10:00)
[2021-06-08] MEDS ORDERED: amLODIPine BESYLATE 5 MG TAB PO SCH (10:00)
[2021-06-08] MEDS ORDERED: SPIRONOLACTONE 25 MG TAB PO SCH (10:00)
[2021-06-08 11:36] VITALS: BP 102/60
[2021-06-08] MEDS ORDERED: SUCR1SUS10 PO (12:56)
[2021-06-08 14:32] VITALS: BP 110/66
== END 2021-06-08 15:20 | disposition home or self-care (01) | DRG 394 ==
LOC: ER 07:57 → OVERFLOW 10:39 → CENTRAL 17:05
PROVIDERS: ADMIT Hospitalist; ATTEND Hospitalist
DX: K31.7 Polyp of stomach and duodenum (principal); R18.8 Other ascites; K74.60 Unspecified cirrhosis of liver; D50.9 Iron deficiency anemia, unspecified; D63.8 Anemia in other chronic diseases classified elsewhere; E11.9 Type 2 diabetes mellitus without complications; E66.9 Obesity, unspecified; E78.5 Hyperlipidemia, unspecified; F03.90 Unspecified dementia, unspecified severity, without behavioral disturbance, psychotic disturbance, mood disturbance, and anxiety; I10 Essential (primary) hypertension; K21.9 Gastro-esophageal reflux disease without esophagitis; K72.90 Hepatic failure, unspecified without coma; R53.83 Other fatigue; Z20.822 Contact with and (suspected) exposure to COVID-19; Z82.3 Family history of stroke; Z82.49 Family history of ischemic heart disease and other diseases of the circulatory system; Z83.3 Family history of diabetes mellitus; Z86.73 Personal history of transient ischemic attack (TIA), and cerebral infarction without residual deficits; Z90.710 Acquired absence of both cervix and uterus; G89.18 Other acute postprocedural pain
CPT/HCPCS: 36415; 71260; 74177; 80053; 81001; 82962; 83605; 83690; 83735; 84484; 85025; 87426; 93005; 96361; 96374; 96375; G0378; J2405

== ENCOUNTER 2021-06-28 08:50 | Emergency (ER) | payer MEDICARE, MEDICAID ==
[~2021-06-28] VITALS: Ht 149.9 cm; Wt 65.3 kg
[~2021-06-28 08:50] MED LIST changes: -ASPI-543 PO; -CYCL-839 PO; -LEVO-28 PO; -PANT1INJ3 PO; +PANT40T PO; +PROP1TAB59 PO; -PROP60CA34 PO; +SUCR1SUS10 PO
[2021-06-28] MEDS ORDERED: ALBUTEROL SULF 2.5 MG/0.5ML(0.5%) NEB SOLN NEB ONE (10:15)
[2021-06-28] MEDS ORDERED: IPRATROPIUM BROM 0.5 MG/2.5ML INH SOL NEB ONE (10:15)
[2021-06-28] MEDS ORDERED: methylPREDNISolone SOD SUCC 125 MG/2 ML VL IV ONE (10:15)
[2021-06-28 10:52] LABS: Basophils # (auto) 0 10 ^3/uL (0-0.2); Eosinophils # (auto) 0.3 10 ^3/uL (0-0.8); Lymphocytes # (auto) 0.8 10 ^3/uL (0.4-5.4); Monocytes # (auto) 0.6 10 ^3/uL (0-1.3)
[2021-06-28 10:54] LABS: Basophils % (auto) 0.5 % (0.0-2.0); Hematocrit 27.9 % (36.0-46.0); Hemoglobin 8.4 g/dL (12.2-16.2); Lymphocytes % (auto) 11.6 % (10.0-50.0); Mean Corpuscular Hemoglobin 21.4 pg (28.0-32.0); Mean Corpuscular Hgb Conc. 30.1 g/dL (32.0-36.0); Mean Corpuscular Volume 71.1 fL (80.0-100.0); Monocytes % (auto) 8.8 % (0.0-12.0); Neutrophils # (auto) 4.9 10 ^3/uL (1.6-8.6); Neutrophils % (auto) 74.1 % (37.0-80.0); Nucleated Red Blood Cells % 0.1 %; Red Blood Cells 3.93 10^6/uL (4.0-5.20); Red Cell Distribution Width 17.4 % (11.8-14.3); White Blood Cell 6.6 10^3/uL (4.4-10.8)
[2021-06-28 11:10] LABS: Albumin 3.2 g/dL (3.4-5.0); Calcium 8.7 mg/dL (8.5-10.1); Potassium 5.2 mmol/L (3.5-5.1)
[2021-06-28 11:16] LABS: BUN/Creatinine Ratio 16.3; Bilirubin, Total 0.7 mg/dL (0.2-1.0); Total Protein 8.2 g/dL (6.4-8.2)
[2021-06-28 12:44] VITALS: BP 119/87
[2021-06-28 12:57] LABS: Urine Bacteria FEW /hpf (None Seen); Urine Blood Negative /uL (Negative); Urine Hyaline Cast MANY /lpf (0 - 2); Urine Mucus FEW (None Seen); Urine Specific Gravity 1.029 (1.001-1.035); Urine WBC 18 /hpf (0 - 5)
== END 2021-06-28 12:52 | disposition home or self-care (01) ==
LOC: ER 08:50
DX: J45.901 Unspecified asthma with (acute) exacerbation (principal); I10 Essential (primary) hypertension; E78.5 Hyperlipidemia, unspecified; Z86.73 Personal history of transient ischemic attack (TIA), and cerebral infarction without residual deficits; Z79.899 Other long term (current) drug therapy; Z88.8 Allergy status to other drugs, medicaments and biological substances
CPT/HCPCS: 36415; 70450; 71045; 80053; 81001; 83880; 84484; 85025; 94640; 96374; 99285; J2930; J7644

== ENCOUNTER → 2021-07-22 | Outpatient (CLI) | payer MEDICARE, MEDICAID ==
[2021-07-22 10:51] LABS: INR 1.04 (0.9-1.15)
[2021-07-22 10:55] LABS: Basophils # (auto) 0 10 ^3/uL (0-0.2); Eosinophils # (auto) 0.4 10 ^3/uL (0-0.8); Hemoglobin 8.2 g/dL (12.2-16.2); Lymphocytes # (auto) 0.8 10 ^3/uL (0.4-5.4); Neutrophils # (auto) 3.2 10 ^3/uL (1.6-8.6)
[2021-07-22 10:57] LABS: Basophils % (auto) 0.6 % (0.0-2.0); Eosinophils % (auto) 7.7 % (0.0-7.0); Hematocrit 27.7 % (36.0-46.0); Lymphocytes % (auto) 17.3 % (10.0-50.0); Mean Corpuscular Hemoglobin 20.8 pg (28.0-32.0); Mean Corpuscular Hgb Conc. 29.6 g/dL (32.0-36.0); Monocytes # (auto) 0.4 10 ^3/uL (0-1.3); Monocytes % (auto) 9.1 % (0.0-12.0); Neutrophils % (auto) 65.3 % (37.0-80.0); Nucleated Red Blood Cells % 0.1 %; Red Blood Cells 3.95 10^6/uL (4.0-5.20); White Blood Cell 4.8 10^3/uL (4.4-10.8)
[2021-07-22 11:21] LABS: Potassium 4.3 mmol/L (3.5-5.1)
[2021-07-22 11:28] LABS: Mean Corpuscular Volume 70.1 fL (80.0-100.0); Red Cell Distribution Width 17.9 % (11.8-14.3)
[2021-07-22 11:31] LABS: Albumin 3.3 g/dL (3.4-5.0); BUN/Creatinine Ratio 22.3; Bilirubin, Total 0.5 mg/dL (0.2-1.0); Calcium 8.7 mg/dL (8.5-10.1); Total Protein 7.6 g/dL (6.4-8.2)
[2021-07-23 10:27] LABS: Basophils # (auto) 0 10 ^3/uL (0-0.2); Hemoglobin 8.3 g/dL (12.2-16.2); Lymphocytes # (auto) 0.9 10 ^3/uL (0.4-5.4); Nucleated Red Blood Cells % 0.1 %
[2021-07-23 10:29] LABS: Basophils % (auto) 0.7 % (0.0-2.0); Eosinophils # (auto) 0.4 10 ^3/uL (0-0.8); Eosinophils % (auto) 7.8 % (0.0-7.0); Hematocrit 27.7 % (36.0-46.0); Lymphocytes % (auto) 19.8 % (10.0-50.0); Mean Corpuscular Hgb Conc. 29.9 g/dL (32.0-36.0); Monocytes # (auto) 0.5 10 ^3/uL (0-1.3); Monocytes % (auto) 10.3 % (0.0-12.0); Neutrophils # (auto) 2.9 10 ^3/uL (1.6-8.6); Neutrophils % (auto) 61.4 % (37.0-80.0); Red Blood Cells 3.98 10^6/uL (4.0-5.20); White Blood Cell 4.7 10^3/uL (4.4-10.8)
[2021-07-23 10:37] LABS: Mean Corpuscular Hemoglobin 20.8 pg (28.0-32.0); Mean Corpuscular Volume 69.6 fL (80.0-100.0)
== END | disposition home or self-care (01) ==
LOC: LAB 10:14
PROVIDERS: ATTEND Internal Medicine Gastroenterology
DX: M79.671 Pain in right foot (principal); D64.9 Anemia, unspecified
CPT/HCPCS: 36415; 80053; 84550; 85025; 85610; 85652

== ENCOUNTER 2021-08-29 15:55 | Emergency (ER) | payer MEDICARE, MEDICAID ==
[~2021-08-29] VITALS: Ht 149.9 cm; Wt 70.3 kg
[2021-08-29 18:52] LABS: Urine Bacteria NONE SEEN /hpf (None Seen); Urine Blood Negative /uL (Negative); Urine Mucus FEW (None Seen); Urine Specific Gravity 1.028 (1.001-1.035); Urine WBC 1 /hpf (0 - 5)
[2021-08-29 19:09] LABS: Basophils # (auto) 0 10 ^3/uL (0-0.2); Eosinophils # (auto) 0.2 10 ^3/uL (0-0.8); Lymphocytes # (auto) 1.2 10 ^3/uL (0.4-5.4); Monocytes # (auto) 0.6 10 ^3/uL (0-1.3); Neutrophils # (auto) 3.2 10 ^3/uL (1.6-8.6); Nucleated Red Blood Cells % 0.1 %; White Blood Cell 5.2 10^3/uL (4.4-10.8)
[2021-08-29 19:12] LABS: Basophils % (auto) 0.5 % (0.0-2.0); Eosinophils % (auto) 3.6 % (0.0-7.0); Hematocrit 26.7 % (36.0-46.0); Hemoglobin 7.9 g/dL (12.2-16.2); Mean Corpuscular Hgb Conc. 29.7 g/dL (32.0-36.0); Mean Corpuscular Volume 70.7 fL (80.0-100.0); Monocytes % (auto) 11.2 % (0.0-12.0); Neutrophils % (auto) 61.7 % (37.0-80.0); Red Blood Cells 3.78 10^6/uL (4.0-5.20); Red Cell Distribution Width 18.7 % (11.8-14.3)
[2021-08-29 19:28] LABS: Calcium 8.3 mg/dL (8.5-10.1); Magnesium 3.7 mg/dL (1.6-2.6); Potassium 4.9 mmol/L (3.5-5.1)
[2021-08-29 19:32] LABS: BUN/Creatinine Ratio 16.6; Bilirubin, Total 1.1 mg/dL (0.2-1.0); Total Protein 7.4 g/dL (6.4-8.2)
[2021-08-30 00:58] VITALS: BP 124/68
== END 2021-08-30 01:00 | disposition home or self-care (01) ==
LOC: ER 15:59
DX: G45.9 Transient cerebral ischemic attack, unspecified (principal); I10 Essential (primary) hypertension; E78.5 Hyperlipidemia, unspecified; Z86.73 Personal history of transient ischemic attack (TIA), and cerebral infarction without residual deficits; Z79.899 Other long term (current) drug therapy; Z88.8 Allergy status to other drugs, medicaments and biological substances
CPT/HCPCS: 36415; 70450; 80053; 81001; 83735; 84484; 85025; 93005

== ENCOUNTER 2021-09-23 08:02 | Inpatient (IN) | payer MEDICARE, MEDICAID ==
[~2021-09-23] VITALS: Ht 149.9 cm; Wt 88.2 kg
[2021-09-23 08:53] LABS: Basophils # (auto) 0.1 10 ^3/uL (0-0.2); Basophils % (auto) 0.8 % (0.0-2.0); Eosinophils # (auto) 0.4 10 ^3/uL (0-0.8); Hemoglobin 7.5 g/dL (12.2-16.2); Lymphocytes # (auto) 0.7 10 ^3/uL (0.4-5.4); Mean Corpuscular Hgb Conc. 29.2 g/dL (32.0-36.0); Monocytes # (auto) 0.5 10 ^3/uL (0-1.3)
[2021-09-23 08:55] LABS: Eosinophils % (auto) 5.5 % (0.0-7.0); Hematocrit 25.5 % (36.0-46.0); Lymphocytes % (auto) 10.9 % (10.0-50.0); Mean Corpuscular Hemoglobin 20.7 pg (28.0-32.0); Monocytes % (auto) 6.8 % (0.0-12.0); Neutrophils # (auto) 5.2 10 ^3/uL (1.6-8.6); Nucleated Red Blood Cells % 0.1 %; Red Cell Distribution Width 17.4 % (11.8-14.3); White Blood Cell 6.8 10^3/uL (4.4-10.8)
[2021-09-23] MEDS ORDERED: SODIUM CHLORIDE 0.9% 500 ML IV ONE (09:00)
[2021-09-23 09:06] LABS: Mean Corpuscular Volume 70.9 fL (80.0-100.0)
[2021-09-23 09:15] LABS: Albumin 2.3 g/dL (3.4-5.0); BUN/Creatinine Ratio 18.3; Calcium 6.5 mg/dL (8.5-10.1); Potassium 3.7 mmol/L (3.5-5.1)
[2021-09-23 09:20] LABS: Bilirubin, Total 0.4 mg/dL (0.2-1.0); Total Protein 5.7 g/dL (6.4-8.2)
[2021-09-23 12:42] LABS: Urine Bacteria MANY /hpf (None Seen); Urine Blood Negative /uL (Negative); Urine Hyaline Cast FEW /lpf (0 - 2); Urine Mucus MANY (None Seen); Urine Specific Gravity 1.025 (1.001-1.035); Urine WBC 2 /hpf (0 - 5)
[2021-09-23] MEDS ORDERED: LACTULOSE 20Gm/30ML SOLN PO ONE (12:45)
[2021-09-23] MEDS ORDERED: ONDANSETRON HCL 4 MG/2 ML VIAL IV ONE (12:45)
[2021-09-23] MEDS ORDERED: cefTRIAXone 1GM/50ML D5W 50 ML IV ONE ×2 (13:15→13:30)
[2021-09-23] MEDS ORDERED: NITROGLYCERIN 0.4 MG SL TAB SL PRN (13:15)
[2021-09-23] MEDS ORDERED: MORPHINE SULFATE INJECTION 2 MG/ML SYRG IV PRN ×2 (13:15→14:45)
[2021-09-23] MEDS ORDERED: FUROSEMIDE 20 MG/2 ML VIAL IV ONE (13:15)
[2021-09-23] MEDS ORDERED: CALCIUM GLUC 1,000mg/50ml-NS 50 ML IV ONE (13:15)
[2021-09-23] MEDS ORDERED: SUCRALFATE 1 GM/10 ML ORAL SUSP PO ONE (14:45)
[2021-09-23] MEDS ORDERED: hydrALAZINE HCL 20 MG/ML VL IV PRN (14:45)
[2021-09-23] MEDS ORDERED: IPRATROPIUM BROM 0.5 MG/2.5ML INH SOL NEB ONE (14:45)
[2021-09-23] MEDS ORDERED: BUDESONIDE (INHALATION) 0.5 MG/2 ML NEB NEB ONE (14:45)
[2021-09-23] MEDS ORDERED: LORazepam 0.5 MG TAB PO PRN (14:45)
[2021-09-23] MEDS ORDERED: HYDROcodone-ACET 5/325MG TAB PO PRN (14:45)
[2021-09-23] MEDS ORDERED: MONTELUKAST SODIUM 10 MG TAB PO ONE (14:45)
[2021-09-23] MEDS ORDERED: HYDROcodone-ACET 5/325MG TAB PO ONE (14:45)
[2021-09-23] MEDS ORDERED: FOLIC ACID 1 MG TAB PO ONE (14:45)
[2021-09-23] MEDS ORDERED: ONDANSETRON HCL 4 MG/2 ML VIAL IV PRN (14:45)
[2021-09-23 14:47] LABS: Magnesium 2.8 mg/dL (1.6-2.6); Phosphorus 5.3 mg/dL (2.5-4.90)
[2021-09-23] MEDS ORDERED: DEXTROSE (50%) 50ML SYRG IV PRN (15:00)
[2021-09-23] MEDS: SODIUM CHLORIDE 0.9% 1,000 ML IV SCH ×2 (15:15→16:45)
[2021-09-23] MEDS ORDERED: IPRATROPIUM BROM 0.5 MG/2.5ML INH SOL NEB PRN (15:30)
[2021-09-23 15:47] VITALS: BP 119/63
[2021-09-23 16:29] LABS: INR 1.01 (0.9-1.15); Partial Thromboplastin Time < 20.0 sec (23.6-33.0)
[2021-09-23 17:00] VITALS: BP 119/63
[2021-09-23] MEDS ORDERED: TEMAZEPAM 15 MG CAP PO PRN (17:00)
[2021-09-23] MEDS: InsuLIN REG 1unit/0.01ml Soln (100units/ml) SC SCH ×2 (17:00→22:00)
[2021-09-23] MEDS: SUCRALFATE 1 GM/10 ML ORAL SUSP PO SCH ×2 (17:14→22:11)
[2021-09-23] MEDS: ACCU-CHEK COMFORT CURVE STRIP VI SCH ×2 (17:14→22:13)
[2021-09-23] MEDS ORDERED: IPRATROPIUM BROM 0.5 MG/2.5ML INH SOL NEB SCH (18:00)
[2021-09-23] MEDS ORDERED: CYCL-839 PO (18:17)
[2021-09-23] MEDS ORDERED: ASPI325T4 PO (18:17)
[2021-09-23] MEDS: LACTULOSE 20Gm/30ML SOLN PO SCH ×2 (18:24→22:10)
[2021-09-23] MEDS: BUDESONIDE (INHALATION) 0.5 MG/2 ML NEB NEB SCH (19:24)
[2021-09-23] MEDS ORDERED: ATORVASTATIN 20 MG TAB PO SCH (22:00)
[2021-09-23] MEDS: PANTOPRAZOLE 40 MG/10 ML VIAL INJ IV SCH (22:10)
[2021-09-23] MEDS: PROPRANOLOL HCL 20 MG TAB PO SCH (22:11)
[2021-09-23] MEDS: MONTELUKAST SODIUM 10 MG TAB PO SCH (22:13)
[2021-09-23 22:39] VITALS: BP 123/52
[2021-09-24] MEDS: LACTULOSE 20Gm/30ML SOLN PO SCH ×5 (01:46→17:15)
[2021-09-24 04:51] VITALS: BP 118/50
[2021-09-24] MEDS: SUCRALFATE 1 GM/10 ML ORAL SUSP PO SCH ×4 (06:26→22:22)
[2021-09-24] MEDS: InsuLIN REG 1unit/0.01ml Soln (100units/ml) SC SCH ×4 (06:26→22:35)
[2021-09-24] MEDS: ACCU-CHEK COMFORT CURVE STRIP VI SCH ×4 (06:26→22:24)
[2021-09-24 06:52] LABS: Eosinophils # (auto) 0.3 10 ^3/uL (0-0.8); Lymphocytes # (auto) 0.5 10 ^3/uL (0.4-5.4); Monocytes # (auto) 0.5 10 ^3/uL (0-1.3); Neutrophils # (auto) 6.3 10 ^3/uL (1.6-8.6); Nucleated Red Blood Cells % 0.1 %; White Blood Cell 7.7 10^3/uL (4.4-10.8)
[2021-09-24 06:55] LABS: Basophils # (auto) 0 10 ^3/uL (0-0.2); Basophils % (auto) 0.4 % (0.0-2.0); Eosinophils % (auto) 4.2 % (0.0-7.0); Hemoglobin 7.6 g/dL (12.2-16.2); Mean Corpuscular Hemoglobin 21.2 pg (28.0-32.0); Monocytes % (auto) 6.6 % (0.0-12.0); Neutrophils % (auto) 81.8 % (37.0-80.0); Red Blood Cells 3.59 10^6/uL (4.0-5.20); Red Cell Distribution Width 17.1 % (11.8-14.3)
[2021-09-24 07:00] LABS: Potassium 4.8 mmol/L (3.5-5.1)
[2021-09-24 07:01] LABS: INR 1.07 (0.9-1.15); Partial Thromboplastin Time 25.6 sec (23.6-33.0)
[2021-09-24 07:03] LABS: Mean Corpuscular Volume 69.8 fL (80.0-100.0)
[2021-09-24 07:04] LABS: Mean Corpuscular Hgb Conc. 30.3 g/dL (32.0-36.0)
[2021-09-24 07:13] LABS: BUN/Creatinine Ratio 23.9; Calcium 8.8 mg/dL (8.5-10.1)
[2021-09-24 07:18] LABS: Bilirubin, Total 0.8 mg/dL (0.2-1.0); Phosphorus 3.7 mg/dL (2.5-4.90); Total Protein 7.6 g/dL (6.4-8.2)
[2021-09-24 07:29] LABS: Thyroid Stimulating Hormone 1.92 uIU/mL (0.358-3.74)
[2021-09-24 07:30] VITALS: BP 123/73
[2021-09-24] MEDS: BUDESONIDE (INHALATION) 0.5 MG/2 ML NEB NEB SCH ×2 (08:33→18:34)
[2021-09-24 09:00] VITALS: BP 123/73
[2021-09-24] MEDS ORDERED: levoFLOXacin 500MG 100 ML IV ONE (10:00)
[2021-09-24] MEDS: cefTRIAXone 1GM/50ML D5W 50 ML IV SCH (10:26)
[2021-09-24] MEDS: PANTOPRAZOLE 40 MG/10 ML VIAL INJ IV SCH ×2 (10:27→22:22)
[2021-09-24] MEDS: FOLIC ACID 1 MG TAB PO SCH (10:27)
[2021-09-24] MEDS: PROPRANOLOL HCL 20 MG TAB PO SCH ×2 (10:28→22:23)
[2021-09-24] MEDS: BENAZEPRIL HCL 10 MG TAB PO SCH (10:29)
[2021-09-24 13:00] VITALS: BP 105/63
[2021-09-24 17:00] VITALS: BP 118/54
[2021-09-24] MEDS: CLINDAMYCIN 600MG IV 50 ML IV SCH ×2 (17:05→22:22)
[2021-09-24 22:00] VITALS: BP 129/72
[2021-09-24] MEDS ORDERED: ATORVASTATIN 20 MG TAB PO SCH (22:00)
[2021-09-24] MEDS: MONTELUKAST SODIUM 10 MG TAB PO SCH (22:23)
[2021-09-24] MEDS: rifAXIMin 550 MG TAB PO SCH (22:24)
[2021-09-25] MEDS: LACTULOSE 20Gm/30ML SOLN PO SCH ×3 (00:49→11:52)
[2021-09-25 05:00] VITALS: BP 113/65
[2021-09-25] MEDS: CLINDAMYCIN 600MG IV 50 ML IV SCH ×2 (05:47→14:00)
[2021-09-25] MEDS: SUCRALFATE 1 GM/10 ML ORAL SUSP PO SCH ×2 (06:16→11:51)
[2021-09-25] MEDS: ACCU-CHEK COMFORT CURVE STRIP VI SCH ×2 (06:16→11:30)
[2021-09-25] MEDS: InsuLIN REG 1unit/0.01ml Soln (100units/ml) SC SCH ×2 (06:21→11:30)
[2021-09-25 08:41] LABS: Amphetamine Screen, Urine NEGATIVE (NEGATIVE); Barbiturate Scree,Urine NEGATIVE (NEGATIVE); Benzodiazephine Screen, Urine POSITIVE (NEGATIVE); Cannabinoid Screen, Urine NEGATIVE (NEGATIVE); Cocaine Screen, Urine NEGATIVE (NEGATIVE); Opiate Scree,Urine NEGATIVE (NEGATIVE); Phencyclidine Screen, Urine NEGATIVE (NEGATIVE)
[2021-09-25 09:00] VITALS: BP 114/65
[2021-09-25] MEDS: cefTRIAXone 1GM/50ML D5W 50 ML IV SCH (09:00)
[2021-09-25] MEDS: BENAZEPRIL HCL 10 MG TAB PO SCH (10:00)
[2021-09-25] MEDS: PANTOPRAZOLE 40 MG/10 ML VIAL INJ IV SCH (10:00)
[2021-09-25] MEDS: PROPRANOLOL HCL 20 MG TAB PO SCH (10:00)
[2021-09-25] MEDS: FOLIC ACID 1 MG TAB PO SCH (10:00)
[2021-09-25] MEDS ORDERED: levoFLOXacin 250MG 50 ML IV SCH (10:00)
[2021-09-25] MEDS: rifAXIMin 550 MG TAB PO SCH (10:00)
[2021-09-25] MEDS: BUDESONIDE (INHALATION) 0.5 MG/2 ML NEB NEB SCH (10:21)
[2021-09-25 12:30] VITALS: BP 118/74
[2021-09-25] MEDS ORDERED: DOXY-340 PO (12:55)
[2021-09-25 14:21] VITALS: BP 118/74
[2021-09-25] MEDS ORDERED: CLINDAMYCIN 600MG IV 50 ML IV SCH (22:00)
[2021-11-19] MEDS ORDERED: QUET50TA81 PO (11:17)
[2021-11-19] MEDS ORDERED: RIFA550T PO (11:20)
== END 2021-09-25 16:30 | disposition home or self-care (01) | DRG 441 ==
LOC: ER 08:02 → TELE 13:06 → TELE-WESTW 15:48
PROVIDERS: ADMIT Hospitalist; ATTEND Internal Medicine
DX: K72.00 Acute and subacute hepatic failure without coma (principal); E43 Unspecified severe protein-calorie malnutrition; N39.0 Urinary tract infection, site not specified; K76.6 Portal hypertension; I16.9 Hypertensive crisis, unspecified; K74.60 Unspecified cirrhosis of liver; Z20.822 Contact with and (suspected) exposure to COVID-19; N18.32 Chronic kidney disease, stage 3b; D50.9 Iron deficiency anemia, unspecified; E66.01 Morbid (severe) obesity due to excess calories; E78.5 Hyperlipidemia, unspecified; E11.22 Type 2 diabetes mellitus with diabetic chronic kidney disease; F03.90 Unspecified dementia, unspecified severity, without behavioral disturbance, psychotic disturbance, mood disturbance, and anxiety; K21.9 Gastro-esophageal reflux disease without esophagitis; I13.10 Hypertensive heart and chronic kidney disease without heart failure, with stage 1 through stage 4 chronic kidney disease, or unspecified chronic kidney disease; Z79.84 Long term (current) use of oral hypoglycemic drugs; Z79.899 Other long term (current) drug therapy; Z82.3 Family history of stroke; Z82.49 Family history of ischemic heart disease and other diseases of the circulatory system; Z83.3 Family history of diabetes mellitus; Z86.73 Personal history of transient ischemic attack (TIA), and cerebral infarction without residual deficits; Z88.1 Allergy status to other antibiotic agents; Z88.8 Allergy status to other drugs, medicaments and biological substances; Z98.51 Tubal ligation status; Z68.33 Body mass index [BMI] 33.0-33.9, adult
CPT/HCPCS: 36415; 70450; 71045; 74176; 80053; 80061; 80307; 81001; 82140; 82270; 82962; 83036; 83615; 83735; 83880; 84100; 84443; 84484; 85025; 85379; 85610; 85730; 86850; 86900; 86901; 87040; 87077; 87081; 87086; 87186; 93005; 94640; 96361; 96365; 96375; C9113; G0378; J0696; J1815; J1956; J2405; J3490

== ENCOUNTER → 2021-10-04 | Outpatient (CLI) | payer MEDICARE, MEDICAID ==
[~2021-10-04] MED LIST changes: +ASPI325T4 PO; -BENA40TA8 PO; +CYCL-839 PO; +DOXY-340 PO; -MECL25TA18 PO; -PROP1TAB59 PO; -SUCR1SUS10 PO
[2021-10-04 08:51] LABS: Basophils # (auto) 0 10 ^3/uL (0-0.2); Lymphocytes # (auto) 0.8 10 ^3/uL (0.4-5.4); Mean Corpuscular Hemoglobin 20.8 pg (28.0-32.0); Monocytes # (auto) 0.4 10 ^3/uL (0-1.3); Neutrophils # (auto) 3.4 10 ^3/uL (1.6-8.6)
[2021-10-04 08:53] LABS: Basophils % (auto) 0.6 % (0.0-2.0); Eosinophils # (auto) 0.3 10 ^3/uL (0-0.8); Eosinophils % (auto) 6.9 % (0.0-7.0); Hematocrit 24.2 % (36.0-46.0); Hemoglobin 7.5 g/dL (12.2-16.2); Lymphocytes % (auto) 15.4 % (10.0-50.0); Mean Corpuscular Hgb Conc. 30.9 g/dL (32.0-36.0); Mean Corpuscular Volume 67.4 fL (80.0-100.0); Monocytes % (auto) 8.3 % (0.0-12.0); Neutrophils % (auto) 68.8 % (37.0-80.0); Red Cell Distribution Width 17.5 % (11.8-14.3)
== END | disposition home or self-care (01) ==
LOC: LAB 08:12
PROVIDERS: ATTEND Internal Medicine Gastroenterology
DX: K74.60 Unspecified cirrhosis of liver (principal)
CPT/HCPCS: 36415; 85025

== ENCOUNTER → 2021-10-10 | Outpatient (CLI) | payer MEDICARE, MEDICAID ==
[2021-10-10 10:28] LABS: Hemoglobin 7.8 g/dL (12.2-16.2); Mean Corpuscular Volume 67.9 fL (80.0-100.0); Neutrophils # (auto) 3.3 10 ^3/uL (1.6-8.6); White Blood Cell 4.4 10^3/uL (4.4-10.8)
[2021-10-10 10:31] LABS: Basophils # (auto) 0 10 ^3/uL (0-0.2); Basophils % (auto) 1.1 % (0.0-2.0); Eosinophils # (auto) 0.2 10 ^3/uL (0-0.8); Eosinophils % (auto) 5.5 % (0.0-7.0); Hematocrit 25.9 % (36.0-46.0); Lymphocytes # (auto) 0.6 10 ^3/uL (0.4-5.4); Lymphocytes % (auto) 14.1 % (10.0-50.0); Mean Corpuscular Hemoglobin 20.5 pg (28.0-32.0); Mean Corpuscular Hgb Conc. 30.2 g/dL (32.0-36.0); Monocytes # (auto) 0.3 10 ^3/uL (0-1.3); Monocytes % (auto) 5.6 % (0.0-12.0); Neutrophils % (auto) 73.7 % (37.0-80.0); Nucleated Red Blood Cells % 0.1 %; Red Blood Cells 3.81 10^6/uL (4.0-5.20); Red Cell Distribution Width 17.1 % (11.8-14.3)
[2021-10-10 10:38] LABS: Urine Bacteria FEW /hpf (None Seen); Urine Blood Negative /uL (Negative); Urine Mucus FEW (None Seen); Urine Specific Gravity 1.023 (1.001-1.035); Urine WBC 27 /hpf (0 - 5)
[2021-10-10 11:01] LABS: Albumin 3.4 g/dL (3.4-5.0); Calcium 8.8 mg/dL (8.5-10.1); Potassium 4.1 mmol/L (3.5-5.1)
[2021-10-10 11:04] LABS: BUN/Creatinine Ratio 23.3; Bilirubin, Total 0.7 mg/dL (0.2-1.0); Total Protein 8.1 g/dL (6.4-8.2)
== END | disposition home or self-care (01) ==
LOC: LAB 09:28
PROVIDERS: ATTEND Internal Medicine
DX: E11.22 Type 2 diabetes mellitus with diabetic chronic kidney disease (principal); N18.30 Chronic kidney disease, stage 3 unspecified; K74.3 Primary biliary cirrhosis; D64.9 Anemia, unspecified; M79.671 Pain in right foot; Z87.39 Personal history of other diseases of the musculoskeletal system and connective tissue
CPT/HCPCS: 36415; 80053; 81001; 82043; 82150; 85025; 85652; 87040

== ENCOUNTER → 2021-11-21 | Day surgery (SDC) | payer MEDICARE, MEDICAID ==
[2021-11-19 12:06] LABS: Basophils # (auto) 0 10 ^3/uL (0-0.2); Basophils % (auto) 0.7 % (0.0-2.0); Eosinophils # (auto) 0.3 10 ^3/uL (0-0.8); Eosinophils % (auto) 4.3 % (0.0-7.0); Hematocrit 24.9 % (36.0-46.0); Hemoglobin 7.5 g/dL (12.2-16.2); Lymphocytes % (auto) 15.5 % (10.0-50.0); Mean Corpuscular Hemoglobin 19.4 pg (28.0-32.0); Mean Corpuscular Volume 64.7 fL (80.0-100.0); Monocytes # (auto) 0.6 10 ^3/uL (0-1.3); Monocytes % (auto) 9.4 % (0.0-12.0); Neutrophils # (auto) 4.4 10 ^3/uL (1.6-8.6); Neutrophils % (auto) 70.1 % (37.0-80.0); Nucleated Red Blood Cells % 0.1 %; Red Blood Cells 3.85 10^6/uL (4.0-5.20); Red Cell Distribution Width 17.5 % (11.8-14.3); White Blood Cell 6.3 10^3/uL (4.4-10.8)
[2021-11-19 12:20] LABS: INR 1.09 (0.9-1.15); Partial Thromboplastin Time 26.5 sec (23.6-33.0)
[2021-11-19 12:40] LABS: Albumin 3.2 g/dL (3.4-5.0); BUN/Creatinine Ratio 21.5; Bilirubin, Total 0.9 mg/dL (0.2-1.0); Total Protein 8.1 g/dL (6.4-8.2)
[~2021-11-21] VITALS: Ht 149.9 cm; Wt 62.1 kg
[~2021-11-21] MED LIST changes: +LIDOCAINE VISCOUS 2% 15ML UD ONE; +QUET50TA81 PO; +SODIUM CHLORIDE LOCK 10 ML ONE; -TEMA15CA PO; +diphenhdrAMINE HCL 50 MG/1 ML VL ONE
[2021-11-21] MEDS: fentaNYL CITRATE 100 MCG/2 ML VL ONE ×4 (10:20→10:39)
[2021-11-21] MEDS: MIDAZOLAM HCL 5 MG/ML-1ML VIAL ONE ×4 (10:20→10:39)
[2021-11-21 11:25] VITALS: BP 101/56
== END | disposition home or self-care (01) ==
LOC: GI 08:40
PROVIDERS: ATTEND Internal Medicine Gastroenterology
DX: D64.9 Anemia, unspecified (principal); K57.30 Diverticulosis of large intestine without perforation or abscess without bleeding; K64.8 Other hemorrhoids; K63.89 Other specified diseases of intestine; K74.60 Unspecified cirrhosis of liver; I85.00 Esophageal varices without bleeding; K31.7 Polyp of stomach and duodenum; K29.70 Gastritis, unspecified, without bleeding; I11.0 Hypertensive heart disease with heart failure; I50.9 Heart failure, unspecified; E11.9 Type 2 diabetes mellitus without complications; K21.9 Gastro-esophageal reflux disease without esophagitis; E78.5 Hyperlipidemia, unspecified; J45.909 Unspecified asthma, uncomplicated; I20.9 Angina pectoris, unspecified; Z98.51 Tubal ligation status; Z98.890 Other specified postprocedural states; Z79.899 Other long term (current) drug therapy; Z88.1 Allergy status to other antibiotic agents; Z95.5 Presence of coronary angioplasty implant and graft; Z90.710 Acquired absence of both cervix and uterus; Z82.49 Family history of ischemic heart disease and other diseases of the circulatory system; Z83.3 Family history of diabetes mellitus; Z20.822 Contact with and (suspected) exposure to COVID-19
CPT/HCPCS: 36415; 43235; 45378; 80053; 85025; 85610; 85730; J1200; J2250; J3010; J7030; U0003; 43239; 99153; G0500

== ENCOUNTER 2022-01-02 11:00 | Emergency (ER) | payer MEDICARE, MEDICAID ==
[~2022-01-02] VITALS: Ht 149.9 cm; Wt 62.6 kg
[2022-01-02 12:00] LABS: Basophils # (auto) 0 10 ^3/uL (0-0.2); Lymphocytes # (auto) 0.8 10 ^3/uL (0.4-5.4); Monocytes # (auto) 0.5 10 ^3/uL (0-1.3); Neutrophils # (auto) 3.4 10 ^3/uL (1.6-8.6)
[2022-01-02 12:02] LABS: Basophils % (auto) 0.5 % (0.0-2.0); Eosinophils # (auto) 0.3 10 ^3/uL (0-0.8); Eosinophils % (auto) 6.5 % (0.0-7.0); Hematocrit 23.8 % (36.0-46.0); Lymphocytes % (auto) 15.6 % (10.0-50.0); Mean Corpuscular Hemoglobin 18.8 pg (28.0-32.0); Mean Corpuscular Volume 64.9 fL (80.0-100.0); Monocytes % (auto) 10.5 % (0.0-12.0); Neutrophils % (auto) 66.9 % (37.0-80.0); Nucleated Red Blood Cells % 0.2 %; Red Blood Cells 3.66 10^6/uL (4.0-5.20); White Blood Cell 5.1 10^3/uL (4.4-10.8)
[2022-01-02 12:07] LABS: Hemoglobin 6.9 g/dL (12.2-16.2)
[2022-01-02 12:24] LABS: Albumin 3.4 g/dL (3.4-5.0); Calcium 8.7 mg/dL (8.5-10.1)
[2022-01-02 12:28] LABS: BUN/Creatinine Ratio 23.1; Bilirubin, Total 0.9 mg/dL (0.2-1.0); Total Protein 8.1 g/dL (6.4-8.2)
[2022-01-02 16:22] VITALS: BP 152/75
[2022-01-02 16:37] VITALS: BP 124/70
[2022-01-02 17:37] VITALS: BP 125/65
[2022-01-02] MEDS ORDERED: LACTULOSE 20Gm/30ML SOLN PO ONE (18:15)
[2022-01-02 18:37] VITALS: BP 126/79
[2022-01-02 20:15] VITALS: BP 155/75
== END 2022-01-02 20:43 | disposition home or self-care (01) ==
LOC: ER 11:00
DX: D64.9 Anemia, unspecified (principal); I10 Essential (primary) hypertension; E78.5 Hyperlipidemia, unspecified; Z86.73 Personal history of transient ischemic attack (TIA), and cerebral infarction without residual deficits; Z79.899 Other long term (current) drug therapy; Z79.82 Long term (current) use of aspirin; Z88.8 Allergy status to other drugs, medicaments and biological substances
CPT/HCPCS: 36415; 36430; 71045; 80053; 82140; 84484; 85025; 86850; 86900; 86901; 86920; 99291; P9016

== ENCOUNTER → 2022-01-02 | Outpatient (CLI) | payer OTHER, MEDICAID ==
[~2022-01-02] MED LIST changes: -LIDOCAINE VISCOUS 2% 15ML UD ONE; -SODIUM CHLORIDE LOCK 10 ML ONE; -diphenhdrAMINE HCL 50 MG/1 ML VL ONE
[2022-01-02 10:04] LABS: Eosinophils # (auto) 0.3 10 ^3/uL (0-0.8); Hematocrit 23.5 % (36.0-46.0); Nucleated Red Blood Cells % 0.1 %; Red Cell Distribution Width 19.1 % (11.8-14.3); White Blood Cell 4.9 10^3/uL (4.4-10.8)
[2022-01-02 10:06] LABS: Basophils # (auto) 0.1 10 ^3/uL (0-0.2); Basophils % (auto) 1.7 % (0.0-2.0); Lymphocytes # (auto) 0.7 10 ^3/uL (0.4-5.4); Lymphocytes % (auto) 14.2 % (10.0-50.0); Mean Corpuscular Hemoglobin 18.9 pg (28.0-32.0); Mean Corpuscular Hgb Conc. 29.4 g/dL (32.0-36.0); Mean Corpuscular Volume 64.2 fL (80.0-100.0); Monocytes # (auto) 0.4 10 ^3/uL (0-1.3); Neutrophils # (auto) 3.4 10 ^3/uL (1.6-8.6); Neutrophils % (auto) 68.1 % (37.0-80.0); Red Blood Cells 3.67 10^6/uL (4.0-5.20)
[2022-01-02 10:20] LABS: Hemoglobin 6.9 g/dL (12.2-16.2)
== END | disposition home or self-care (01) ==
LOC: LAB 09:40
PROVIDERS: ATTEND Internal Medicine Gastroenterology
DX: D64.9 Anemia, unspecified (principal)
CPT/HCPCS: 36415; 85025

== ENCOUNTER 2022-01-29 10:30 | Outpatient (CLI) | payer MEDICARE, MEDICAID ==
[2022-01-29 11:21] LABS: INR 1.07 (0.9-1.15); Partial Thromboplastin Time 28.8 sec (23.6-33.0)
[2022-01-29 11:22] LABS: Albumin 3.3 g/dL (3.4-5.0); Calcium 8.5 mg/dL (8.5-10.1); Potassium 3.8 mmol/L (3.5-5.1)
[2022-01-29 11:25] LABS: BUN/Creatinine Ratio 22.5; Bilirubin, Total 0.9 mg/dL (0.2-1.0); Total Protein 8.3 g/dL (6.4-8.2)
[2022-01-29 12:10] LABS: Basophils # (auto) 0 10 ^3/uL (0-0.2); Eosinophils # (auto) 0.4 10 ^3/uL (0-0.8); Lymphocytes # (auto) 0.7 10 ^3/uL (0.4-5.4); Mean Corpuscular Hgb Conc. 28.9 g/dL (32.0-36.0); Monocytes # (auto) 0.5 10 ^3/uL (0-1.3); Neutrophils # (auto) 3.4 10 ^3/uL (1.6-8.6); Nucleated Red Blood Cells % 0.1 %
[2022-01-29 12:14] LABS: Basophils % (auto) 0.5 % (0.0-2.0); Eosinophils % (auto) 8.2 % (0.0-7.0); Hematocrit 30.7 % (36.0-46.0); Hemoglobin 8.9 g/dL (12.2-16.2); Lymphocytes % (auto) 13.2 % (10.0-50.0); Mean Corpuscular Volume 72.5 fL (80.0-100.0); Monocytes % (auto) 9.7 % (0.0-12.0); Neutrophils % (auto) 68.4 % (37.0-80.0); Red Blood Cells 4.23 10^6/uL (4.0-5.20); Red Cell Distribution Width 24.8 % (11.8-14.3)
== END 2022-01-29 11:32 | disposition home or self-care (01) ==
LOC: LAB 10:30 → EDSTATUS 01-30 15:08
PROVIDERS: ATTEND Internal Medicine Gastroenterology
DX: I85.00 Esophageal varices without bleeding (principal); Z53.8 Procedure and treatment not carried out for other reasons; I50.9 Heart failure, unspecified; I20.9 Angina pectoris, unspecified; Z95.5 Presence of coronary angioplasty implant and graft; Z98.51 Tubal ligation status; Z90.710 Acquired absence of both cervix and uterus; Z86.2 Personal history of diseases of the blood and blood-forming organs and certain disorders involving the immune mechanism; Z82.49 Family history of ischemic heart disease and other diseases of the circulatory system; Z83.3 Family history of diabetes mellitus; Z20.822 Contact with and (suspected) exposure to COVID-19
CPT/HCPCS: 36415; 80053; 85025; 85610; 85730; U0003

== ENCOUNTER 2022-02-14 10:44 | Inpatient (IN) | payer MEDICARE, MEDICAID ==
[~2022-02-14] VITALS: Ht 149.9 cm; Wt 63.3 kg
[~2022-02-14 10:44] MED LIST changes: -SPIR50TA5 PO
[2022-02-14] MEDS ORDERED: FAMOTIDINE (10MG/ML) 2ML VL IV ONE (11:45)
[2022-02-14] MEDS ORDERED: LIDOCAINE VISCOUS 2% 15ML UD PO ONE (11:45)
[2022-02-14] MEDS ORDERED: ONDANSETRON HCL 4 MG/2 ML VIAL IV ONE (11:45)
[2022-02-14] MEDS ORDERED: ALUM & MAG HYDROX-SIMETH LIQ(MAALOX) 30 ML PO ONE (11:45)
[2022-02-14 13:18] LABS: Urine Bacteria FEW /hpf (None Seen); Urine Blood Negative /uL (Negative); Urine Specific Gravity 1.013 (1.001-1.035); Urine WBC <1 /hpf (0 - 5)
[2022-02-14 14:42] LABS: Basophils # (auto) 0 10 ^3/uL (0-0.2); Hemoglobin 9.1 g/dL (12.2-16.2); Lymphocytes # (auto) 0.7 10 ^3/uL (0.4-5.4); Monocytes # (auto) 0.4 10 ^3/uL (0-1.3); Neutrophils # (auto) 2.6 10 ^3/uL (1.6-8.6)
[2022-02-14 14:44] LABS: Basophils % (auto) 0.7 % (0.0-2.0); Calcium 8.4 mg/dL (8.5-10.1); Eosinophils # (auto) 0.2 10 ^3/uL (0-0.8); Eosinophils % (auto) 5.7 % (0.0-7.0); Mean Corpuscular Hemoglobin 20.8 pg (28.0-32.0); Mean Corpuscular Hgb Conc. 29.5 g/dL (32.0-36.0); Mean Corpuscular Volume 70.6 fL (80.0-100.0); Monocytes % (auto) 9.7 % (0.0-12.0); Neutrophils % (auto) 65.9 % (37.0-80.0); Potassium 3.4 mmol/L (3.5-5.1); Red Blood Cells 4.39 10^6/uL (4.0-5.20); Red Cell Distribution Width 23.1 % (11.8-14.3)
[2022-02-14 14:46] LABS: Bilirubin, Total 0.9 mg/dL (0.2-1.0); Total Protein 7.5 g/dL (6.4-8.2)
[2022-02-14 14:59] LABS: INR 0.98 (0.9-1.15); Partial Thromboplastin Time 26.4 sec (24.6-33.4)
[2022-02-14] MEDS ORDERED: ONDANSETRON HCL 4 MG/2 ML VIAL IV PRN (22:00)
[2022-02-14] MEDS ORDERED: DEXTROSE (50%) 50ML SYRG IV PRN (22:00)
[2022-02-14] MEDS ORDERED: DOCUSATE SOD 100 MG CAP PO PRN (22:00)
[2022-02-14] MEDS ORDERED: ACETAMINOPHEN 325 MG TAB PO PRN (22:00)
[2022-02-14] MEDS: SODIUM CHLOR 0.9% PF (SALINE LOCK) 10ML VIAL/SYR IV SCH (22:49)
[2022-02-14] MEDS ORDERED: POTASSIUM CHL 20MEQ/100ML 100 ML IV SCH (23:00)
[2022-02-14] MEDS: InsuLIN REG 1unit/0.01ml Soln (100units/ml) SC SCH (23:02)
[2022-02-14] MEDS: ACCU-CHEK COMFORT CURVE STRIP VI SCH (23:02)
[2022-02-15] MEDS ORDERED: MORPHINE SULFATE INJ 2 MG/ml SYRG IV PRN
[2022-02-15] MEDS ORDERED: NITROGLYCERIN 0.4 MG SL TAB SL PRN
[2022-02-15] MEDS ORDERED: POTASSIUM CHL 20 Meq TABLET PO ONE (00:30)
[2022-02-15 03:01] VITALS: BP 148/70
[2022-02-15 04:52] VITALS: BP 148/70
[2022-02-15] MEDS: ACCU-CHEK COMFORT CURVE STRIP VI SCH ×4 (05:36→21:31)
[2022-02-15] MEDS: SODIUM CHLOR 0.9% PF (SALINE LOCK) 10ML VIAL/SYR IV SCH ×3 (05:36→21:31)
[2022-02-15] MEDS: InsuLIN REG 1unit/0.01ml Soln (100units/ml) SC SCH ×4 (06:14→21:31)
[2022-02-15 08:00] VITALS: BP 135/60
[2022-02-15] MEDS: MULTIPLE VITAMIN TAB PO SCH (09:40)
[2022-02-15] MEDS ORDERED: ASPirin 81 mg TAB PO SCH (10:00)
[2022-02-15] MEDS ORDERED: FAMOTIDINE (10MG/ML) 2ML VL IV SCH (10:00)
[2022-02-15] MEDS ORDERED: ENOXAPARIN SOD 40 MG/0.4 ML SYRINGE SC SCH (10:00)
[2022-02-15] MEDS ORDERED: traMADol HCL 50 MG TAB PO PRN (10:15)
[2022-02-15 10:31] LABS: Basophils # (auto) 0 10 ^3/uL (0-0.2); Eosinophils # (auto) 0.3 10 ^3/uL (0-0.8); Hemoglobin 8.9 g/dL (12.2-16.2); Neutrophils # (auto) 2.8 10 ^3/uL (1.6-8.6)
[2022-02-15 10:33] LABS: Basophils % (auto) 0.6 % (0.0-2.0); Eosinophils % (auto) 6.8 % (0.0-7.0); Hematocrit 29.8 % (36.0-46.0); Lymphocytes # (auto) 0.6 10 ^3/uL (0.4-5.4); Lymphocytes % (auto) 14.1 % (10.0-50.0); Mean Corpuscular Hgb Conc. 29.8 g/dL (32.0-36.0); Monocytes # (auto) 0.3 10 ^3/uL (0-1.3); Monocytes % (auto) 8.4 % (0.0-12.0); Neutrophils % (auto) 70.1 % (37.0-80.0); Nucleated Red Blood Cells % 0.1 %; Red Cell Distribution Width 22.5 % (11.8-14.3)
[2022-02-15 10:47] LABS: Calcium 8.8 mg/dL (8.5-10.1); Potassium 4.9 mmol/L (3.5-5.1)
[2022-02-15 11:02] LABS: BUN/Creatinine Ratio 13.2
[2022-02-15 11:08] LABS: Mean Corpuscular Hemoglobin 21.2 pg (28.0-32.0)
[2022-02-15 12:00] VITALS: BP 141/79
[2022-02-15] MEDS: GABAPENTIN 300 MG CAP PO SCH ×2 (13:15→21:30)
[2022-02-15] MEDS: rifAXIMin 550 MG TAB PO SCH ×2 (13:15→21:25)
[2022-02-15] MEDS ORDERED: LACTULOSE 20Gm/30ML SOLN PO SCH (14:00)
[2022-02-15 16:00] VITALS: BP 138/68
[2022-02-15] MEDS: SUCRALFATE 1 GM/10 ML ORAL SUSP PO SCH ×2 (17:50→21:26)
[2022-02-15] MEDS: PANTOPRAZOLE 40 MG TAB PO SCH (21:26)
[2022-02-15] MEDS: URSODIOL 300 MG CAP PO SCH (21:30)
[2022-02-15 22:00] VITALS: BP 134/65
[2022-02-15] MEDS ORDERED: QUEtiapine FUMARATE 25 MG TAB PO SCH (22:00)
[2022-02-16] VITALS (7 sets, daily range): BP systolic 112–133; BP diastolic 41–71
[2022-02-16] MEDS: GABAPENTIN 300 MG CAP PO SCH ×3 (05:38→21:58)
[2022-02-16] MEDS: SODIUM CHLOR 0.9% PF (SALINE LOCK) 10ML VIAL/SYR IV SCH ×3 (05:38→21:59)
[2022-02-16] MEDS: ACCU-CHEK COMFORT CURVE STRIP VI SCH ×4 (06:17→21:59)
[2022-02-16] MEDS: SUCRALFATE 1 GM/10 ML ORAL SUSP PO SCH ×4 (06:18→21:58)
[2022-02-16] MEDS: InsuLIN REG 1unit/0.01ml Soln (100units/ml) SC SCH ×4 (06:18→22:00)
[2022-02-16 07:46] LABS: Basophils # (auto) 0 10 ^3/uL (0-0.2); Basophils % (auto) 0.8 % (0.0-2.0); Eosinophils # (auto) 0.3 10 ^3/uL (0-0.8); Eosinophils % (auto) 6.5 % (0.0-7.0); Hematocrit 30.5 % (36.0-46.0); Lymphocytes # (auto) 0.7 10 ^3/uL (0.4-5.4); Lymphocytes % (auto) 17.7 % (10.0-50.0); Mean Corpuscular Hemoglobin 21.3 pg (28.0-32.0); Mean Corpuscular Hgb Conc. 29.4 g/dL (32.0-36.0); Mean Corpuscular Volume 72.4 fL (80.0-100.0); Monocytes # (auto) 0.4 10 ^3/uL (0-1.3); Monocytes % (auto) 9.1 % (0.0-12.0); Neutrophils # (auto) 2.7 10 ^3/uL (1.6-8.6); Neutrophils % (auto) 65.9 % (37.0-80.0); Nucleated Red Blood Cells % 0.1 %; Red Blood Cells 4.22 10^6/uL (4.0-5.20)
[2022-02-16 07:52] LABS: Potassium 4.3 mmol/L (3.5-5.1)
[2022-02-16 07:58] LABS: Albumin 2.8 g/dL (3.4-5.0); BUN/Creatinine Ratio 17.6; Bilirubin, Total 0.8 mg/dL (0.2-1.0); Calcium 8.3 mg/dL (8.5-10.1); Total Protein 6.5 g/dL (6.4-8.2)
[2022-02-16 08:23] LABS: Red Cell Distribution Width 23.3 % (11.8-14.3)
[2022-02-16] MEDS: CYCLOBENZAPRINE HCL 10 MG TAB PO SCH (10:00)
[2022-02-16] MEDS ORDERED: PANTOPRAZOLE 40 MG TAB PO SCH (10:00)
[2022-02-16] MEDS: FLUTICASONE-VILANTEROL 100-25mCg INHALER IN SCH (10:00)
[2022-02-16] MEDS: URSODIOL 300 MG CAP PO SCH ×2 (11:33→21:59)
[2022-02-16] MEDS: MULTIPLE VITAMIN TAB PO SCH (11:33)
[2022-02-16] MEDS: PANTOPRAZOLE 40 MG TAB PO SCH ×2 (11:34→21:58)
[2022-02-16] MEDS: amLODIPine BESYLATE 5 MG TAB PO SCH (11:34)
[2022-02-16] MEDS: rifAXIMin 550 MG TAB PO SCH ×2 (11:34→21:58)
[2022-02-16] MEDS: HYDROcodone-ACET 5/325MG TAB PO PRN (20:17)
[2022-02-17 01:29] VITALS: BP 123/63
[2022-02-17 05:00] VITALS: BP 120/53
[2022-02-17] MEDS: SODIUM CHLOR 0.9% PF (SALINE LOCK) 10ML VIAL/SYR IV SCH ×2 (05:38→17:21)
[2022-02-17] MEDS: GABAPENTIN 300 MG CAP PO SCH ×2 (05:59→17:31)
[2022-02-17] MEDS: SUCRALFATE 1 GM/10 ML ORAL SUSP PO SCH ×4 (06:14→17:31)
[2022-02-17] MEDS: InsuLIN REG 1unit/0.01ml Soln (100units/ml) SC SCH ×3 (06:15→17:32)
[2022-02-17] MEDS: ACCU-CHEK COMFORT CURVE STRIP VI SCH ×3 (06:15→17:21)
[2022-02-17 06:34] LABS: Basophils # (auto) 0 10 ^3/uL (0-0.2); Hemoglobin 8.4 g/dL (12.2-16.2); Lymphocytes # (auto) 0.8 10 ^3/uL (0.4-5.4); Monocytes # (auto) 0.4 10 ^3/uL (0-1.3); Neutrophils # (auto) 2.1 10 ^3/uL (1.6-8.6); White Blood Cell 3.6 10^3/uL (4.4-10.8)
[2022-02-17 06:38] LABS: Basophils % (auto) 0.6 % (0.0-2.0); Eosinophils # (auto) 0.2 10 ^3/uL (0-0.8); Eosinophils % (auto) 6.6 % (0.0-7.0); Hematocrit 27.8 % (36.0-46.0); Lymphocytes % (auto) 22.5 % (10.0-50.0); Mean Corpuscular Hemoglobin 21.1 pg (28.0-32.0); Mean Corpuscular Hgb Conc. 30.1 g/dL (32.0-36.0); Mean Corpuscular Volume 70.1 fL (80.0-100.0); Monocytes % (auto) 12.2 % (0.0-12.0); Neutrophils % (auto) 58.1 % (37.0-80.0); Red Blood Cells 3.96 10^6/uL (4.0-5.20)
[2022-02-17 09:00] VITALS: BP 117/55
[2022-02-17] MEDS: CYCLOBENZAPRINE HCL 10 MG TAB PO SCH (10:00)
[2022-02-17] MEDS: FLUTICASONE-VILANTEROL 100-25mCg INHALER IN SCH (10:00)
[2022-02-17] MEDS: MULTIPLE VITAMIN TAB PO SCH (10:26)
[2022-02-17] MEDS: URSODIOL 300 MG CAP PO SCH (10:26)
[2022-02-17] MEDS: PANTOPRAZOLE 40 MG TAB PO SCH (10:27)
[2022-02-17] MEDS: rifAXIMin 550 MG TAB PO SCH (10:27)
[2022-02-17] MEDS: amLODIPine BESYLATE 5 MG TAB PO SCH (10:27)
[2022-02-17 11:39] LABS: INR 1.01 (0.9-1.15)
[2022-02-17] MEDS ORDERED: LIDOCAINE VISCOUS 2% 15ML UD ONE (12:32)
[2022-02-17] MEDS ORDERED: FLUMAZENIL 0.1 MG/ML INJ 10ML MDV IV ONE (12:32)
[2022-02-17] MEDS ORDERED: NALOXONE HCL 0.4 MG/ML VIAL ONE (12:32)
[2022-02-17] MEDS ORDERED: EPINEPHrine HCL 1 MG/10 ML SYRG ONE (12:32)
[2022-02-17] MEDS ORDERED: SODIUM CHLORIDE LOCK 10 ML ONE (12:32)
[2022-02-17] MEDS ORDERED: MIDAZOLAM HCL 5 MG/ML-1ML VIAL ONE (12:32)
[2022-02-17] MEDS ORDERED: fentaNYL CITRATE 100 MCG/2 ML VL ONE (12:33)
[2022-02-17] MEDS ORDERED: diphenhdrAMINE HCL 50 MG/1 ML VL ONE (12:33)
[2022-02-17 13:00] VITALS: BP 135/65
[2022-02-17] MEDS ORDERED: PANT40T PO (14:46)
[2022-02-17] MEDS ORDERED: SUCR1SUS10 PO (14:46)
[2022-02-17 17:00] VITALS: BP 141/74
[2022-02-17] MEDS: HYDROcodone-ACET 5/325MG TAB PO PRN (17:31)
[2022-02-17 18:07] VITALS: BP 141/74
== END 2022-02-17 20:07 | disposition home or self-care (01) | DRG 392 ==
LOC: ER 10:48 → CENTRAL 23:57
PROVIDERS: ADMIT Nurse Practitioner Family; ATTEND Internal Medicine
PROC: 30233R1 Transfusion of Nonautologous Platelets into Peripheral Vein, Percutaneous Approach (ICD-10-PCS; principal; 2022-02-16)
PROC: 0DJ08ZZ Inspection of Upper Intestinal Tract, Via Natural or Artificial Opening Endoscopic (ICD-10-PCS; 2022-02-17)
DX: K22.2 Esophageal obstruction (principal); D61.818 Other pancytopenia; K76.6 Portal hypertension; K20.90 Esophagitis, unspecified without bleeding; E78.5 Hyperlipidemia, unspecified; E87.6 Hypokalemia; E88.09 Other disorders of plasma-protein metabolism, not elsewhere classified; F03.90 Unspecified dementia, unspecified severity, without behavioral disturbance, psychotic disturbance, mood disturbance, and anxiety; I10 Essential (primary) hypertension; K72.90 Hepatic failure, unspecified without coma; K74.60 Unspecified cirrhosis of liver; R13.10 Dysphagia, unspecified; E11.9 Type 2 diabetes mellitus without complications; G47.00 Insomnia, unspecified; Z20.822 Contact with and (suspected) exposure to COVID-19; Z86.73 Personal history of transient ischemic attack (TIA), and cerebral infarction without residual deficits; Z88.8 Allergy status to other drugs, medicaments and biological substances
CPT/HCPCS: 36415; 71045; 80053; 81001; 82140; 82962; 83036; 83605; 83690; 84484; 85025; 85610; 85730; 86850; 86900; 86901; 93005; 96374; 96375; G0378; J1815; J2250; J2405; J3490

== ENCOUNTER 2022-03-05 12:07 | Emergency (ER) | payer MEDICARE, MEDICAID ==
[~2022-03-05] VITALS: Ht 149.9 cm; Wt 66.0 kg
[~2022-03-05 12:07] MED LIST changes: +SUCR1SUS10 PO
[2022-03-05] MEDS ORDERED: traMADol HCL 50 MG TAB PO ONE (14:45)
[2022-03-05 14:58] VITALS: BP 103/67
== END 2022-03-05 15:01 | disposition home or self-care (01) ==
LOC: ER 12:07 → EDBD 12:07 → ER 15:01
DX: S20.212A Contusion of left front wall of thorax, initial encounter (principal); R51.9 Headache, unspecified; E11.9 Type 2 diabetes mellitus without complications; I10 Essential (primary) hypertension; Z98.51 Tubal ligation status; Z79.899 Other long term (current) drug therapy; Z88.8 Allergy status to other drugs, medicaments and biological substances; Z86.73 Personal history of transient ischemic attack (TIA), and cerebral infarction without residual deficits; X58.XXXA Exposure to other specified factors, initial encounter; Y93.89 Activity, other specified; Y92.89 Other specified places as the place of occurrence of the external cause; Y99.8 Other external cause status
CPT/HCPCS: 70450; 71046

== ENCOUNTER → 2022-04-08 | Outpatient (CLI) | payer MEDICARE, MEDICAID ==
[2022-04-08 12:10] LABS: Basophils # (auto) 0 10 ^3/uL (0-0.2); Monocytes # (auto) 0.4 10 ^3/uL (0-1.3); Nucleated Red Blood Cells % 0.1 %
[2022-04-08 12:12] LABS: Basophils % (auto) 0.3 % (0.0-2.0); Eosinophils # (auto) 0.4 10 ^3/uL (0-0.8); Hematocrit 27.3 % (36.0-46.0); Lymphocytes # (auto) 0.8 10 ^3/uL (0.4-5.4); Lymphocytes % (auto) 17.8 % (10.0-50.0); Mean Corpuscular Hemoglobin 20.3 pg (28.0-32.0); Mean Corpuscular Hgb Conc. 29.3 g/dL (32.0-36.0); Mean Corpuscular Volume 69.1 fL (80.0-100.0); Monocytes % (auto) 9.2 % (0.0-12.0); Neutrophils # (auto) 2.9 10 ^3/uL (1.6-8.6); Neutrophils % (auto) 64.7 % (37.0-80.0); Red Blood Cells 3.95 10^6/uL (4.0-5.20); Red Cell Distribution Width 18.4 % (11.8-14.3); White Blood Cell 4.4 10^3/uL (4.4-10.8)
== END | disposition home or self-care (01) ==
LOC: LAB 10:28
PROVIDERS: ATTEND Internal Medicine Gastroenterology
DX: D64.9 Anemia, unspecified (principal)
CPT/HCPCS: 36415; 85025

== ENCOUNTER → 2022-06-24 | Outpatient (CLI) | payer MEDICARE, MEDICAID ==
[2022-06-24 12:44] LABS: Basophils # (auto) 0 10 ^3/uL (0-0.2); Lymphocytes # (auto) 0.9 10 ^3/uL (0.4-5.4); Mean Corpuscular Hgb Conc. 28.5 g/dL (32.0-36.0); White Blood Cell 6.2 10^3/uL (4.4-10.8)
[2022-06-24 12:46] LABS: Basophils % (auto) 0.6 % (0.0-2.0); Eosinophils # (auto) 0.3 10 ^3/uL (0-0.8); Eosinophils % (auto) 5.6 % (0.0-7.0); Hematocrit 27.4 % (36.0-46.0); Hemoglobin 7.8 g/dL (12.2-16.2); Lymphocytes % (auto) 13.9 % (10.0-50.0); Mean Corpuscular Hemoglobin 19.7 pg (28.0-32.0); Mean Corpuscular Volume 69.3 fL (80.0-100.0); Monocytes # (auto) 0.5 10 ^3/uL (0-1.3); Monocytes % (auto) 8.7 % (0.0-12.0); Neutrophils # (auto) 4.4 10 ^3/uL (1.6-8.6); Neutrophils % (auto) 71.2 % (37.0-80.0); Nucleated Red Blood Cells % 0.2 %; Red Blood Cells 3.96 10^6/uL (4.0-5.20); Red Cell Distribution Width 19.5 % (11.8-14.3)
== END | disposition home or self-care (01) ==
LOC: LAB 12:30
PROVIDERS: ATTEND Internal Medicine
DX: D64.9 Anemia, unspecified (principal)
CPT/HCPCS: 36415; 85025

== ENCOUNTER → 2022-06-25 | Outpatient (CLI) | payer MEDICARE, MEDICAID ==
[2022-06-25 11:01] LABS: Basophils # (auto) 0 10 ^3/uL (0-0.2); Basophils % (auto) 0.5 % (0.0-2.0); Eosinophils # (auto) 0.5 10 ^3/uL (0-0.8); Mean Corpuscular Volume 68.4 fL (80.0-100.0); Monocytes # (auto) 0.5 10 ^3/uL (0-1.3); Neutrophils # (auto) 3.1 10 ^3/uL (1.6-8.6); Nucleated Red Blood Cells % 0.1 %
[2022-06-25 11:04] LABS: Eosinophils % (auto) 11.4 % (0.0-7.0); Hematocrit 27.3 % (36.0-46.0); Lymphocytes # (auto) 0.7 10 ^3/uL (0.4-5.4); Lymphocytes % (auto) 14.6 % (10.0-50.0); Mean Corpuscular Hemoglobin 20.1 pg (28.0-32.0); Mean Corpuscular Hgb Conc. 29.4 g/dL (32.0-36.0); Monocytes % (auto) 9.4 % (0.0-12.0); Neutrophils % (auto) 64.1 % (37.0-80.0); Red Blood Cells 3.99 10^6/uL (4.0-5.20); Red Cell Distribution Width 18.7 % (11.8-14.3); White Blood Cell 4.8 10^3/uL (4.4-10.8)
[2022-06-25 12:13] LABS: Albumin 3.3 g/dL (3.4-5.0); BUN/Creatinine Ratio 22.3; Bilirubin, Total 0.7 mg/dL (0.2-1.0); Calcium 8.9 mg/dL (8.5-10.1); Potassium 4.1 mmol/L (3.5-5.1); Total Protein 7.4 g/dL (6.4-8.2)
[2022-06-25 18:30] LABS: Urine Blood Negative /uL (Negative); Urine Specific Gravity 1.005 (1.001-1.035)
== END | disposition home or self-care (01) ==
LOC: LAB 10:37
PROVIDERS: ATTEND Internal Medicine
DX: K74.3 Primary biliary cirrhosis (principal); K72.00 Acute and subacute hepatic failure without coma; R13.10 Dysphagia, unspecified; D64.9 Anemia, unspecified
CPT/HCPCS: 36415; 80053; 81001; 82140; 82150; 83690; 85025

== ENCOUNTER → 2022-07-07 | Outpatient (CLI) | payer MEDICARE, MEDICAID ==
[2022-07-07 11:59] LABS: Basophils # (auto) 0 10 ^3/uL (0-0.2); Eosinophils # (auto) 0.5 10 ^3/uL (0-0.8); Lymphocytes # (auto) 0.8 10 ^3/uL (0.4-5.4); Mean Corpuscular Hgb Conc. 29.5 g/dL (32.0-36.0); Monocytes # (auto) 0.5 10 ^3/uL (0-1.3); Neutrophils # (auto) 2.6 10 ^3/uL (1.6-8.6); White Blood Cell 4.5 10^3/uL (4.4-10.8)
[2022-07-07 12:03] LABS: Basophils % (auto) 0.6 % (0.0-2.0); Eosinophils % (auto) 11.1 % (0.0-7.0); Hematocrit 27.6 % (36.0-46.0); Hemoglobin 8.1 g/dL (12.2-16.2); Lymphocytes % (auto) 18.7 % (10.0-50.0); Mean Corpuscular Volume 67.6 fL (80.0-100.0); Monocytes % (auto) 11.5 % (0.0-12.0); Neutrophils % (auto) 58.1 % (37.0-80.0); Nucleated Red Blood Cells % 0.1 %; Red Blood Cells 4.08 10^6/uL (4.0-5.20); Red Cell Distribution Width 18.9 % (11.8-14.3)
== END | disposition home or self-care (01) ==
LOC: LAB 11:40
PROVIDERS: ATTEND Internal Medicine
DX: D64.9 Anemia, unspecified (principal)
CPT/HCPCS: 36415; 85025

== ENCOUNTER 2022-07-18 11:26 | Emergency (ER) | payer MEDICARE, MEDICAID ==
[~2022-07-18] VITALS: Ht 149.9 cm; Wt 67.0 kg
[2022-07-18 13:15] VITALS: BP 116/76
[2022-07-18] MEDS ORDERED: SODIUM CHLORIDE 0.9% 1,000 ML IV ONE (13:15)
[2022-07-18 13:42] LABS: Basophils # (auto) 0 10 ^3/uL (0-0.2); Eosinophils # (auto) 0.1 10 ^3/uL (0-0.8); Hemoglobin 8.5 g/dL (12.2-16.2); Monocytes # (auto) 0.1 10 ^3/uL (0-1.3); Neutrophils % (auto) 91.3 % (37.0-80.0)
[2022-07-18 13:44] LABS: Basophils % (auto) 0.5 % (0.0-2.0); Eosinophils % (auto) 1.6 % (0.0-7.0); Hematocrit 28.3 % (36.0-46.0); Lymphocytes # (auto) 0.3 10 ^3/uL (0.4-5.4); Lymphocytes % (auto) 4.8 % (10.0-50.0); Mean Corpuscular Hemoglobin 20.4 pg (28.0-32.0); Mean Corpuscular Hgb Conc. 29.9 g/dL (32.0-36.0); Mean Corpuscular Volume 68.1 fL (80.0-100.0); Monocytes % (auto) 1.8 % (0.0-12.0); Neutrophils # (auto) 6.2 10 ^3/uL (1.6-8.6); Red Blood Cells 4.16 10^6/uL (4.0-5.20); Red Cell Distribution Width 18.1 % (11.8-14.3); White Blood Cell 6.8 10^3/uL (4.4-10.8)
[2022-07-18 13:49] LABS: Urine Bacteria NONE SEEN /hpf (None Seen); Urine Blood Negative /uL (Negative); Urine Specific Gravity 1.028 (1.001-1.035); Urine WBC 2 /hpf (0 - 5)
[2022-07-18 13:58] LABS: Albumin 3.9 g/dL (3.4-5.0); Calcium 8.8 mg/dL (8.5-10.1); Magnesium 2.8 mg/dL (1.6-2.6); Potassium 4.5 mmol/L (3.5-5.1)
[2022-07-18 14:02] LABS: BUN/Creatinine Ratio 18.2; Bilirubin, Total 0.9 mg/dL (0.2-1.0); Total Protein 8.2 g/dL (6.4-8.2)
[2022-07-18] MEDS ORDERED: PIPERACILLIN-TAZOB 3.375GM 100 ML IV ONE (14:15)
[2022-07-18] MEDS ORDERED: CLINDAMYCIN 600MG IV 50 ML IV ONE (14:30)
[2022-07-18] MEDS ORDERED: AMOX-277 PO (15:29)
[2022-07-18] MEDS ORDERED: FER325T PO ×2 (15:29→15:53)
[2022-07-18] MEDS ORDERED: AMOX500T86 PO ×2 (15:31→15:53)
== END 2022-07-18 15:40 | disposition home or self-care (01) ==
LOC: ER 11:26
DX: D64.9 Anemia, unspecified (principal); R53.1 Weakness; H66.93 Otitis media, unspecified, bilateral; E11.22 Type 2 diabetes mellitus with diabetic chronic kidney disease; I12.9 Hypertensive chronic kidney disease with stage 1 through stage 4 chronic kidney disease, or unspecified chronic kidney disease; N18.9 Chronic kidney disease, unspecified; E78.5 Hyperlipidemia, unspecified; Z86.73 Personal history of transient ischemic attack (TIA), and cerebral infarction without residual deficits
CPT/HCPCS: 36415; 80053; 81001; 82962; 83735; 84484; 85025; 93005; 96361; 96365; 99284; J3490; J7030

== ENCOUNTER → 2023-03-24 | Outpatient (CLI) | payer MEDICARE, MEDICAID ==
[~2023-03-24] MED LIST changes: -AMLO-489 PO; +AMLO1TAB22 PO; +AMOX500T86 PO; -DOXY-340 PO; +DOXY1CAP57 PO; +FER325T PO; +GABA-1250 PO; -GABA300C10 PO; -SUCR1SUS10 PO; +SUCR1SUS26 PO; +URSO300C2 PO; -URSO300C9 PO
[2023-03-24 11:34] LABS: Basophils # (auto) 0 10 ^3/uL (0-0.2); Basophils % (auto) 0.4 % (0.0-2.0); Eosinophils # (auto) 0.2 10 ^3/uL (0-0.8); Eosinophils % (auto) 4.5 % (0.0-7.0); Monocytes # (auto) 0.4 10 ^3/uL (0-1.3); Neutrophils # (auto) 3.1 10 ^3/uL (1.6-8.6); White Blood Cell 4.6 10^3/uL (4.4-10.8)
[2023-03-24 11:36] LABS: Hematocrit 37.9 % (36.0-46.0); Lymphocytes # (auto) 0.8 10 ^3/uL (0.4-5.4); Lymphocytes % (auto) 17.6 % (10.0-50.0); Mean Corpuscular Hemoglobin 25.8 pg (28.0-32.0); Mean Corpuscular Hgb Conc. 31.8 g/dL (32.0-36.0); Mean Corpuscular Volume 81.2 fL (80.0-100.0); Monocytes % (auto) 9.3 % (0.0-12.0); Neutrophils % (auto) 68.2 % (37.0-80.0); Red Blood Cells 4.67 10^6/uL (4.0-5.20); Red Cell Distribution Width 17.1 % (11.8-14.3)
[2023-03-24 11:47] LABS: Urine Bacteria FEW /hpf (None Seen); Urine Blood Negative /uL (Negative); Urine Clarity HAZY (Clear); Urine Color Yellow (Yellow); Urine Mucus FEW (None Seen); Urine Protein, UAD TRACE (Negative); Urine Specific Gravity 1.032 (1.001-1.035); Urine Urobilinogen Normal (Negative); Urine WBC 7 /hpf (0 - 5)
[2023-03-24 12:01] LABS: Alanine Aminotransferase 36 U/L (7-40); Albumin 3.7 g/dL (3.2-4.8); Alkaline Phosphatase 192 U/L (46-116); Anion Gap 7.1 (5-15); Aspartate Aminotransferase 27 U/L (13-40); BUN/Creatinine Ratio 18.2 (10.0-20.0); Blood Urea Nitrogen 16 mg/dL (9-23); Calcium 8.9 mg/dL (8.5-10.1); Carbon Dioxide 26.9 mmol/L (20-30); Chloride 107 mmol/L (98-107); Creatinine, Urine 158.32 mg/dL (30.0-125.0); Glucose 91 mg/dL (74-106); LDL Cholesterol 69 mg/dL (< 100); Sodium 141 mmol/L (136-145); Triglycerides 131 mg/dL (< 150)
[2023-03-24 12:02] LABS: Bilirubin, Total 0.7 mg/dL (0.2-1.0); Cholesterol 131 mg/dL (< 200); HDL Cholesterol 40 mg/dL (40-59); Total Protein 6.9 g/dL (5.7-8.2)
== END | disposition home or self-care (01) ==
LOC: LAB 10:36
PROVIDERS: ATTEND Internal Medicine
DX: E11.9 Type 2 diabetes mellitus without complications (principal); D64.9 Anemia, unspecified
CPT/HCPCS: 36415; 80053; 80061; 81001; 82043; 82570; 83036; 85025

== ENCOUNTER → 2023-05-25 | Outpatient (CLI) | payer MEDICARE, MEDICAID | END | disposition home or self-care (01) | LOC: XYW 08:37 | PROVIDERS: ATTEND Internal Medicine | DX: Z01.818 Encounter for other preprocedural examination (principal) | CPT/HCPCS: 93306 ==

== ENCOUNTER 2023-08-30 12:45 | Inpatient (IN) | payer MEDICARE, MEDICAID ==
[~2023-08-30] VITALS: Ht 149.9 cm; Wt 66.7 kg
[2023-08-30 13:00] VITALS: PULSE 111; RESP 22; O2SAT 93
[2023-08-30 13:16] LABS: Basophils # (auto) 0 10 ^3/uL (0-0.2); Hematocrit 37.5 % (36.0-46.0); Hemoglobin 11.9 g/dL (12.2-16.2); Mean Corpuscular Hemoglobin 25.9 pg (28.0-32.0); Mean Corpuscular Hgb Conc. 31.8 g/dL (32.0-36.0); Monocytes # (auto) 0.4 10 ^3/uL (0-1.3); Neutrophils # (auto) 3.2 10 ^3/uL (1.6-8.6); Red Cell Distribution Width 17.9 % (11.8-14.3); White Blood Cell 4.7 10^3/uL (4.4-10.8)
[2023-08-30 13:18] LABS: Basophils % (auto) 0.5 % (0.0-2.0); Eosinophils # (auto) 0.2 10 ^3/uL (0-0.8); Eosinophils % (auto) 5.2 % (0.0-7.0); Lymphocytes # (auto) 0.8 10 ^3/uL (0.4-5.4); Lymphocytes % (auto) 17.8 % (10.0-50.0); Mean Corpuscular Volume 81.5 fL (80.0-100.0); Monocytes % (auto) 9.2 % (0.0-12.0); Neutrophils % (auto) 67.3 % (37.0-80.0); Red Blood Cells 4.61 10^6/uL (4.0-5.20)
[2023-08-30 13:32] LABS: Alanine Aminotransferase 77 U/L (7-40); Alkaline Phosphatase 403 U/L (46-116); Calcium 9.4 mg/dL (8.5-10.1); Carbon Dioxide 28 mmol/L (20-30); Chloride 105 mmol/L (98-107)
[2023-08-30 13:33] LABS: Albumin 3.9 g/dL (3.2-4.8); Anion Gap 7 (5-15); Aspartate Aminotransferase 52 U/L (13-40); Bilirubin, Total 0.9 mg/dL (0.2-1.0); Blood Urea Nitrogen 15 mg/dL (9-23); Glucose 184 mg/dL (74-106); Potassium 4.1 mmol/L (3.5-5.1); Sodium 140 mmol/L (136-145); Total Protein 7.2 g/dL (5.7-8.2)
[2023-08-30] MEDS: IOHEXOL 350 MG/ML 100ML IJ ONE (15:38)
[2023-08-30 16:57] LABS: Urine Bacteria FEW /hpf (None Seen); Urine Blood Negative /uL (Negative); Urine Clarity Clear (Clear); Urine Color Yellow (Yellow); Urine Protein, UAD Negative (Negative); Urine Specific Gravity 1.016 (1.001-1.035); Urine Urobilinogen Normal (Negative); Urine WBC 1 /hpf (0 - 5)
[2023-08-30] MEDS ORDERED: DEXTROSE (50%) 50ML SYRG IV PRN (17:45)
[2023-08-30] MEDS ORDERED: NITROGLYCERIN 0.4 MG SL TAB SL PRN (17:45)
[2023-08-30] MEDS ORDERED: DOCUSATE SOD 100 MG CAP PO PRN (17:45)
[2023-08-30] MEDS ORDERED: MORPHINE SULFATE INJ 2 MG/ml SYRG IV PRN (17:45)
[2023-08-30] MEDS ORDERED: ONDANSETRON HCL 4 MG/2 ML VIAL IV PRN (17:45)
[2023-08-30] MEDS: cefTRIAXone 1GM/50ML D5W 50 ML IV ONE (18:01)
[2023-08-30 19:43] VITALS: PULSE 83; RESP 18; O2SAT 94
[2023-08-30] MEDS: ACCU-CHEK COMFORT CURVE STRIP VI SCH (21:27)
[2023-08-30] MEDS: InsuLIN REG 1unit/0.01ml Soln (100units/ml) SC SCH (21:31)
[2023-08-30 23:34] VITALS: BP 126/74; PULSE 82; RESP 18; TEMP 98.3; O2SAT 96
[2023-08-30] MEDS: ACETAMINOPHEN 325 MG TAB PO PRN (23:40)
[2023-08-31] VITALS (7 sets, daily range): BP systolic 122–150; BP diastolic 58–90; PULSE 49–104; RESP 15–17; TEMP 97.6–98.3; O2SAT 94–96
[2023-08-31 06:30] LABS: Basophils # (auto) 0 10 ^3/uL (0-0.2); Eosinophils # (auto) 0.3 10 ^3/uL (0-0.8); Lymphocytes # (auto) 0.5 10 ^3/uL (0.4-5.4); Mean Corpuscular Hgb Conc. 31.7 g/dL (32.0-36.0); Monocytes # (auto) 0.3 10 ^3/uL (0-1.3); Neutrophils # (auto) 2.1 10 ^3/uL (1.6-8.6); White Blood Cell 3.2 10^3/uL (4.4-10.8)
[2023-08-31 06:33] LABS: Basophils % (auto) 0.4 % (0.0-2.0); Eosinophils % (auto) 8.4 % (0.0-7.0); Hematocrit 34.8 % (36.0-46.0); Lymphocytes % (auto) 14.9 % (10.0-50.0); Mean Corpuscular Hemoglobin 25.7 pg (28.0-32.0); Mean Corpuscular Volume 81.1 fL (80.0-100.0); Monocytes % (auto) 9.6 % (0.0-12.0); Neutrophils % (auto) 66.7 % (37.0-80.0); Nucleated Red Blood Cells % 0.1 %; Red Cell Distribution Width 17.4 % (11.8-14.3)
[2023-08-31 06:56] LABS: Alanine Aminotransferase 55 U/L (7-40); Alkaline Phosphatase 335 U/L (46-116); Anion Gap 9 (5-15); Blood Urea Nitrogen 11 mg/dL (9-23); Calcium 8.8 mg/dL (8.7-10.4); Carbon Dioxide 25 mmol/L (20-30); Chloride 107 mmol/L (98-107); Glucose 112 mg/dL (74-106); Potassium 3.8 mmol/L (3.5-5.1); Sodium 141 mmol/L (136-145)
[2023-08-31 06:57] LABS: Albumin 3.5 g/dL (3.2-4.8); Aspartate Aminotransferase 35 U/L (13-40); BUN/Creatinine Ratio 14.1 (10.0-20.0)
[2023-08-31 06:58] LABS: Bilirubin, Total 0.6 mg/dL (0.2-1.0); Total Protein 6.8 g/dL (5.7-8.2)
[2023-08-31] MEDS ORDERED: QUET50TA PO (09:03)
[2023-08-31] MEDS ORDERED: ASPI-498 PO (09:03)
[2023-08-31 09:07] LABS: Magnesium 1.8 mg/dL (1.6-2.6)
[2023-08-31] MEDS: cefTRIAXone 1GM/50ML D5W 50 ML IV SCH (09:13)
[2023-08-31] MEDS ORDERED: FLUT1INH28 INH (09:16)
[2023-08-31] MEDS: PANTOPRAZOLE 40 MG TAB PO SCH (09:24)
[2023-08-31 10:52] LABS: INR 1.11 (0.9-1.15); Partial Thromboplastin Time 30.8 SEC (24.5-34.5); Prothrombin Time 11.6 sec (9.3-11.8)
[2023-08-31] MEDS: GABAPENTIN 300 MG CAP PO SCH (17:37)
[2023-08-31] MEDS: QUEtiapine FUMARATE 100 MG TAB PO SCH (17:37)
[2023-08-31] MEDS: SUCRALFATE 1 GM/10 ML ORAL SUSP PO SCH (17:37)
[2023-08-31] MEDS: metFORMIN HYDROCHLORIDE 500 MG TAB PO SCH (22:00)
[2023-08-31] MEDS: rifAXIMin 550 MG TAB PO SCH (22:04)
[2023-09-01] VITALS (7 sets, daily range): BP systolic 107–157; BP diastolic 63–83; PULSE 63–94; RESP 15–18; TEMP 97.5–98.6; O2SAT 91–96
[2023-09-01 05:20] LABS: Basophils # (auto) 0 10 ^3/uL (0-0.2); Basophils % (auto) 0.6 % (0.0-2.0); Eosinophils # (auto) 0.3 10 ^3/uL (0-0.8); Eosinophils % (auto) 9.6 % (0.0-7.0); Hematocrit 35.7 % (36.0-46.0); Hemoglobin 11.3 g/dL (12.2-16.2); Lymphocytes # (auto) 0.5 10 ^3/uL (0.4-5.4); Lymphocytes % (auto) 17.9 % (10.0-50.0); Mean Corpuscular Hemoglobin 25.7 pg (28.0-32.0); Mean Corpuscular Hgb Conc. 31.8 g/dL (32.0-36.0); Mean Corpuscular Volume 80.7 fL (80.0-100.0); Monocytes # (auto) 0.4 10 ^3/uL (0-1.3); Monocytes % (auto) 12.2 % (0.0-12.0); Neutrophils # (auto) 1.8 10 ^3/uL (1.6-8.6); Neutrophils % (auto) 59.7 % (37.0-80.0); Nucleated Red Blood Cells % 0.1 %; Red Blood Cells 4.42 10^6/uL (4.0-5.20); Red Cell Distribution Width 17.4 % (11.8-14.3)
[2023-09-01] MEDS: Dapagliflozin Propanediol (Farxiga) 10MG TABLETS PO SCH (05:40)
[2023-09-01 05:43] LABS: Alanine Aminotransferase 44 U/L (7-40); Albumin 3.5 g/dL (3.2-4.8); Alkaline Phosphatase 305 U/L (46-116); Anion Gap 7 (5-15); Aspartate Aminotransferase 29 U/L (13-40); BUN/Creatinine Ratio 18.9 (10.0-20.0); Bilirubin, Total 0.6 mg/dL (0.2-1.0); Blood Urea Nitrogen 14 mg/dL (9-23); Calcium 8.9 mg/dL (8.7-10.4); Carbon Dioxide 25 mmol/L (20-30); Chloride 108 mmol/L (98-107); Glucose 114 mg/dL (74-106); Potassium 3.8 mmol/L (3.5-5.1); Sodium 140 mmol/L (136-145)
[2023-09-01 05:44] LABS: Total Protein 6.9 g/dL (5.7-8.2)
[2023-09-01 06:02] LABS: LDL Cholesterol 109 mg/dL (< 100); Triglycerides 190 mg/dL (< 150)
[2023-09-01 06:04] LABS: Cholesterol 168 mg/dL (< 200); HDL Cholesterol 29 mg/dL (40-59)
[2023-09-01] MEDS: amLODIPine BESYLATE 5 MG TAB PO SCH (09:36)
[2023-09-01] MEDS: ATORVASTATIN 20 MG TAB PO SCH ×2 (09:36→21:59)
[2023-09-01] MEDS: PANTOPRAZOLE 40 MG TAB PO SCH (09:36)
[2023-09-01] MEDS: ASPirin-EC 81 mg tab PO SCH (09:37)
[2023-09-01] MEDS: FLUTICASONE FUROATE VILANTEROL IN SCH (10:00)
[2023-09-02 05:00] VITALS: BP 96/76; PULSE 104; RESP 17; TEMP 98.2; O2SAT 93
[2023-09-02 06:40] LABS: Basophils # (auto) 0 10 ^3/uL (0-0.2); Eosinophils # (auto) 0.4 10 ^3/uL (0-0.8); Lymphocytes # (auto) 0.4 10 ^3/uL (0.4-5.4); Mean Corpuscular Volume 80.8 fL (80.0-100.0); Monocytes # (auto) 0.5 10 ^3/uL (0-1.3); Red Cell Distribution Width 17.3 % (11.8-14.3); White Blood Cell 3.5 10^3/uL (4.4-10.8)
[2023-09-02 06:44] LABS: Basophils % (auto) 0.7 % (0.0-2.0); Eosinophils % (auto) 10.1 % (0.0-7.0); Hematocrit 35.8 % (36.0-46.0); Hemoglobin 11.4 g/dL (12.2-16.2); Lymphocytes % (auto) 11.2 % (10.0-50.0); Mean Corpuscular Hemoglobin 25.6 pg (28.0-32.0); Mean Corpuscular Hgb Conc. 31.7 g/dL (32.0-36.0); Monocytes % (auto) 13.7 % (0.0-12.0); Neutrophils # (auto) 2.3 10 ^3/uL (1.6-8.6); Neutrophils % (auto) 64.3 % (37.0-80.0); Red Blood Cells 4.43 10^6/uL (4.0-5.20)
[2023-09-02 06:57] LABS: Alanine Aminotransferase 51 U/L (7-40); Albumin 3.3 g/dL (3.2-4.8); Alkaline Phosphatase 309 U/L (46-116); Anion Gap 8 (5-15); Aspartate Aminotransferase 51 U/L (13-40); Blood Urea Nitrogen 17 mg/dL (9-23); Calcium 8.6 mg/dL (8.5-10.1); Carbon Dioxide 25 mmol/L (20-30); Chloride 107 mmol/L (98-107); Glucose 101 mg/dL (74-106); Potassium 4.2 mmol/L (3.5-5.1); Sodium 140 mmol/L (136-145)
[2023-09-02 06:58] LABS: Bilirubin, Total 0.7 mg/dL (0.2-1.0); Total Protein 6.3 g/dL (5.7-8.2)
[2023-09-02 08:00] VITALS: BP 139/70; PULSE 92; PULSE 96; RESP 18; TEMP 98.5; O2SAT 91
[2023-09-02 09:00] VITALS: BP 139/70; PULSE 96; RESP 18; TEMP 98.5; O2SAT 91
[2023-09-02] MEDS: traMADol HCL 50 MG TAB PO PRN (09:18)
[2023-09-02 12:47] VITALS: BP 122/83; PULSE 94; RESP 18; TEMP 98.8; O2SAT 91
[2023-09-02 13:26] VITALS: BP 139/70
[2023-09-02] MEDS ORDERED: METOPROLOL SUCCINATE XL 50 MG TAB PO ONE (15:30)
[2023-09-03] MEDS ORDERED: METOPROLOL SUCCINATE XL 50 MG TAB PO SCH (10:00)
== END 2023-09-02 15:05 | disposition home or self-care (01) | DRG 689 ==
LOC: ER 12:45 → TELE 17:37 → TELE-CENTR 23:01
PROVIDERS: ADMIT Internal Medicine Pulmonary Disease; ATTEND Internal Medicine Pulmonary Disease
DX: N30.00 Acute cystitis without hematuria (principal); G93.41 Metabolic encephalopathy; I13.0 Hypertensive heart and chronic kidney disease with heart failure and stage 1 through stage 4 chronic kidney disease, or unspecified chronic kidney disease; I69.351 Hemiplegia and hemiparesis following cerebral infarction affecting right dominant side; R55 Syncope and collapse; E78.5 Hyperlipidemia, unspecified; F03.90 Unspecified dementia, unspecified severity, without behavioral disturbance, psychotic disturbance, mood disturbance, and anxiety; I95.9 Hypotension, unspecified; E11.22 Type 2 diabetes mellitus with diabetic chronic kidney disease; K74.60 Unspecified cirrhosis of liver; I50.9 Heart failure, unspecified; N18.30 Chronic kidney disease, stage 3 unspecified; E11.40 Type 2 diabetes mellitus with diabetic neuropathy, unspecified; D69.6 Thrombocytopenia, unspecified; Z79.4 Long term (current) use of insulin; Z88.1 Allergy status to other antibiotic agents; Z82.3 Family history of stroke; Z82.49 Family history of ischemic heart disease and other diseases of the circulatory system; Z83.3 Family history of diabetes mellitus
CPT/HCPCS: 36415; 70450; 70551; 71045; 71275; 80053; 80061; 81001; 82010; 82306; 82607; 82962; 83036; 83690; 83735; 83880; 84443; 84484; 85025; 85379; 85610; 85730; 87040; 87086; 93005; 96365; G0378; J1815

== ENCOUNTER → 2023-10-07 | Outpatient (CLI) | payer MEDICARE, MEDICAID ==
[~2023-10-07] MED LIST changes: -AMOX500T86 PO; +ASPI-498 PO; -ASPI325T4 PO; -CHOL25CH3 PO; -CYCL-839 PO; -DOXY1CAP57 PO; -FER325T PO; -FLUT100I IN; +FLUT1INH28 INH; -GLIP5TAB12 PO; -LACT10SO3 PO; -OMEG100062 PO; +QUET50TA PO; -QUET50TA81 PO
[2023-10-07 11:18] LABS: Alanine Aminotransferase 53 U/L (7-40); Alkaline Phosphatase 399 U/L (46-116); Anion Gap 7 (5-15); Aspartate Aminotransferase 42 U/L (13-40); BUN/Creatinine Ratio 15.5 (10.0-20.0); Bilirubin, Total 0.9 mg/dL (0.2-1.0); Blood Urea Nitrogen 13 mg/dL (9-23); Calcium 9.3 mg/dL (8.5-10.1); Carbon Dioxide 28 mmol/L (20-30); Chloride 107 mmol/L (98-107); Glucose 120 mg/dL (74-106); Potassium 3.5 mmol/L (3.5-5.1); Sodium 142 mmol/L (136-145); Total Protein 7.5 g/dL (5.7-8.2)
== END | disposition home or self-care (01) ==
LOC: LAB 10:29
PROVIDERS: ATTEND Internal Medicine
DX: E11.9 Type 2 diabetes mellitus without complications (principal); E55.9 Vitamin D deficiency, unspecified
CPT/HCPCS: 36415; 80053; 82306

== ENCOUNTER 2023-11-26 07:47 | Day surgery (SDC) | payer MEDICARE, MEDICAID ==
[2023-11-25 08:50] LABS: Urine Bacteria None Seen /hpf (None Seen)
[2023-11-25 08:54] LABS: Basophils # (auto) 0 10 ^3/uL (0-0.2); Eosinophils # (auto) 0.2 10 ^3/uL (0-0.8); Monocytes # (auto) 0.4 10 ^3/uL (0-1.3); Neutrophils # (auto) 3.3 10 ^3/uL (1.6-8.6); White Blood Cell 4.7 10^3/uL (4.4-10.8)
[2023-11-25 08:56] LABS: Basophils % (auto) 0.6 % (0.0-2.0); Eosinophils % (auto) 4.4 % (0.0-7.0); Hematocrit 35.7 % (36.0-46.0); Hemoglobin 11.3 g/dL (12.2-16.2); Lymphocytes # (auto) 0.8 10 ^3/uL (0.4-5.4); Mean Corpuscular Hemoglobin 25.4 pg (28.0-32.0); Mean Corpuscular Hgb Conc. 31.5 g/dL (32.0-36.0); Mean Corpuscular Volume 80.6 fL (80.0-100.0); Monocytes % (auto) 8.3 % (0.0-12.0); Neutrophils % (auto) 70.7 % (37.0-80.0); Nucleated Red Blood Cells % 0.1 %; Red Blood Cells 4.43 10^6/uL (4.0-5.20); Red Cell Distribution Width 17.8 % (11.8-14.3)
[2023-11-25 09:21] LABS: INR 1.05 (0.9-1.15); Partial Thromboplastin Time 26.5 SEC (24.5-34.5); Prothrombin Time 11.1 sec (9.3-11.8)
[2023-11-25 09:36] LABS: Urine Blood Negative /uL (Negative); Urine Clarity Clear (Clear); Urine Color Light-Yellow (Yellow); Urine Protein, UAD Negative (Negative); Urine Specific Gravity 1.036 (1.001-1.035); Urine Urobilinogen Normal (Negative); Urine WBC 4 /hpf (0 - 5); Urine pH 6.5 (5.0-9.0)
[2023-11-25 09:38] LABS: Alanine Aminotransferase 25 U/L (7-40); Alkaline Phosphatase 223 U/L (46-116); Anion Gap 9 (5-15); BUN/Creatinine Ratio 16.5 (10.0-20.0); Blood Urea Nitrogen 13 mg/dL (9-23); Carbon Dioxide 26 mmol/L (20-30); Chloride 106 mmol/L (98-107); Glucose 178 mg/dL (74-106); Potassium 3.4 mmol/L (3.5-5.1); Sodium 141 mmol/L (136-145)
[2023-11-25 09:39] LABS: Albumin 3.8 g/dL (3.2-4.8); Aspartate Aminotransferase 33 U/L (13-40); Bilirubin, Total 0.7 mg/dL (0.2-1.0); Total Protein 7.2 g/dL (5.7-8.2)
[~2023-11-26] VITALS: Ht 149.9 cm; Wt 64.9 kg
[~2023-11-26 07:47] MED LIST changes: -QUET50TA PO; +TRAZ-228 PO
[2023-11-26] MEDS ORDERED: HYDROmorphone HCL 2 MG/ML VL/or syr IV PRN (09:00)
[2023-11-26] MEDS ORDERED: ONDANSETRON HCL 4 MG/2 ML VIAL IV ONE (09:00)
[2023-11-26] MEDS ORDERED: fentaNYL CITRATE 100 MCG/2 ML VL ONE (09:07)
[2023-11-26] MEDS ORDERED: ONDANSETRON HCL 4 MG/2 ML VIAL ONE (09:08)
[2023-11-26] MEDS ORDERED: PROPOFOL 10 MG/ML 20 ML IV ONE (09:08)
[2023-11-26] MEDS ORDERED: GLYCOPYRROLATE 0.2 MG/ML 1ML VIAL ONE (09:08)
[2023-11-26 09:21] VITALS: RESP 11; TEMP 97.6; O2SAT 98
[2023-11-26 09:50] VITALS: BP 127/67; PULSE 81; RESP 17; O2SAT 93
== END 2023-11-26 10:03 | disposition home or self-care (01) ==
LOC: GI 07:47
PROVIDERS: ATTEND Internal Medicine Gastroenterology
DX: R13.10 Dysphagia, unspecified (principal); K74.60 Unspecified cirrhosis of liver; K44.9 Diaphragmatic hernia without obstruction or gangrene; K29.70 Gastritis, unspecified, without bleeding; K22.2 Esophageal obstruction; K20.90 Esophagitis, unspecified without bleeding; I20.9 Angina pectoris, unspecified; J33.8 Other polyp of sinus; J45.909 Unspecified asthma, uncomplicated; Z98.51 Tubal ligation status; E11.9 Type 2 diabetes mellitus without complications; Z79.899 Other long term (current) drug therapy; Z90.710 Acquired absence of both cervix and uterus; Z86.2 Personal history of diseases of the blood and blood-forming organs and certain disorders involving the immune mechanism; Z95.5 Presence of coronary angioplasty implant and graft; Z98.890 Other specified postprocedural states
CPT/HCPCS: 36415; 43235; 80053; 81001; 82962; 85025; 85610; 85730; J2405; J2704; J3010; J7030

== ENCOUNTER → 2024-04-08 | Outpatient (CLI) | payer MEDICARE, MEDICAID ==
[2024-04-08 11:03] LABS: Basophils # (auto) 0 10 ^3/uL (0-0.2); Eosinophils # (auto) 0.4 10 ^3/uL (0-0.8); Hematocrit 33.5 % (36.0-46.0); Lymphocytes # (auto) 0.8 10 ^3/uL (0.4-5.4); Lymphocytes % (auto) 18.3 % (10.0-50.0); Mean Corpuscular Hgb Conc. 32.7 g/dL (32.0-36.0); Monocytes # (auto) 0.4 10 ^3/uL (0-1.3); Red Cell Distribution Width 17.8 % (11.8-14.3); White Blood Cell 4.5 10^3/uL (4.4-10.8)
[2024-04-08 11:05] LABS: Basophils % (auto) 0.3 % (0.0-2.0); Eosinophils % (auto) 9.4 % (0.0-7.0); Hemoglobin 10.9 g/dL (12.2-16.2); Mean Corpuscular Hemoglobin 25.5 pg (28.0-32.0); Mean Corpuscular Volume 77.8 fL (80.0-100.0); Monocytes % (auto) 8.4 % (0.0-12.0); Neutrophils # (auto) 2.8 10 ^3/uL (1.6-8.6); Neutrophils % (auto) 63.6 % (37.0-80.0); Nucleated Red Blood Cells % 0.2 %; Platelet Count (auto) 99 10^3/uL (140-450)
[2024-04-08 11:47] LABS: Creatinine, Urine 171.27 mg/dL (30.0-125.0)
[2024-04-08 11:55] LABS: Alanine Aminotransferase 34 U/L (7-40); Albumin 3.8 g/dL (3.2-4.8); Alkaline Phosphatase 218 U/L (46-116); Anion Gap 4 (5-15); Aspartate Aminotransferase 39 U/L (13-40); BUN/Creatinine Ratio 20.3 (10.0-20.0); Bilirubin, Total 0.5 mg/dL (0.2-1.0); Blood Urea Nitrogen 16 mg/dL (9-23); Calcium 9.4 mg/dL (8.7-10.4); Carbon Dioxide 30 mmol/L (20-30); Chloride 105 mmol/L (98-107); Cholesterol 136 mg/dL (< 200); Glucose 92 mg/dL (74-106); HDL Cholesterol 39 mg/dL (40-59); LDL Cholesterol 74 mg/dL (< 100); Potassium 3.7 mmol/L (3.5-5.1); Sodium 139 mmol/L (136-145); Total Protein 7.1 g/dL (5.7-8.2); Triglycerides 122 mg/dL (< 150)
== END | disposition home or self-care (01) ==
LOC: LAB 09:26
PROVIDERS: ATTEND Internal Medicine
DX: J44.9 Chronic obstructive pulmonary disease, unspecified (principal); E78.5 Hyperlipidemia, unspecified; E11.40 Type 2 diabetes mellitus with diabetic neuropathy, unspecified
CPT/HCPCS: 36415; 80053; 80061; 82043; 82570; 83036; 85025

== ENCOUNTER → 2024-05-24 | Outpatient (CLI) | payer MEDICARE, MEDICAID ==
[2024-05-24 10:57] LABS: Basophils # (auto) 0 10 ^3/uL (0-0.2); Basophils % (auto) 0.6 % (0.0-2.0); Eosinophils # (auto) 0.3 10 ^3/uL (0-0.8); Hemoglobin 10.9 g/dL (12.2-16.2); Lymphocytes # (auto) 0.7 10 ^3/uL (0.4-5.4); Mean Corpuscular Hemoglobin 24.6 pg (28.0-32.0); Mean Corpuscular Hgb Conc. 31.4 g/dL (32.0-36.0); Monocytes # (auto) 0.3 10 ^3/uL (0-1.3); Neutrophils # (auto) 2.3 10 ^3/uL (1.6-8.6); Platelet Count (auto) 103 10^3/uL (140-450); Red Blood Cells 4.42 10^6/uL (4.0-5.20); White Blood Cell 3.6 10^3/uL (4.4-10.8)
[2024-05-24 11:00] LABS: Eosinophils % (auto) 7.4 % (0.0-7.0); Hematocrit 34.6 % (36.0-46.0); Lymphocytes % (auto) 19.7 % (10.0-50.0); Mean Corpuscular Volume 78.3 fL (80.0-100.0); Monocytes % (auto) 7.4 % (0.0-12.0); Neutrophils % (auto) 64.9 % (37.0-80.0); Red Cell Distribution Width 17.8 % (11.8-14.3)
[2024-05-24 11:20] LABS: Alanine Aminotransferase 46 U/L (7-40); Albumin 3.9 g/dL (3.2-4.8); Alkaline Phosphatase 287 U/L (46-116); Anion Gap 6 (5-15); Aspartate Aminotransferase 51 U/L (13-40); BUN/Creatinine Ratio 15.4 (10.0-20.0); Bilirubin, Total 0.6 mg/dL (0.2-1.0); Blood Urea Nitrogen 12 mg/dL (9-23); Calcium 9.5 mg/dL (8.7-10.4); Carbon Dioxide 27 mmol/L (20-31); Chloride 109 mmol/L (98-107); Glucose 107 mg/dL (74-106); Potassium 3.8 mmol/L (3.5-5.1); Sodium 142 mmol/L (136-145)
[2024-05-24 11:21] LABS: Total Protein 7.9 g/dL (5.7-8.2)
[2024-05-24 11:29] LABS: INR 1.07 (0.9-1.15); Partial Thromboplastin Time 27.9 SEC (24.5-34.5); Prothrombin Time 11.3 sec (9.3-11.8)
== END | disposition home or self-care (01) ==
LOC: LAB 10:11
PROVIDERS: ATTEND Internal Medicine
DX: E11.22 Type 2 diabetes mellitus with diabetic chronic kidney disease (principal); N18.9 Chronic kidney disease, unspecified; D64.9 Anemia, unspecified; K74.3 Primary biliary cirrhosis
CPT/HCPCS: 36415; 80053; 82105; 83036; 85025; 85610; 85730

== ENCOUNTER 2024-07-27 08:05 | Emergency (ER) | payer MEDICARE, MEDICAID ==
[~2024-07-27] VITALS: Ht 149.9 cm; Wt 58.2 kg
[2024-07-27 08:47] VITALS: BP 154/93; PULSE 95; RESP 16; TEMP 98.8; O2SAT 95
[2024-07-27] MEDS ORDERED: CIPR0.3S67 OP (08:54)
[2024-07-27] MEDS ORDERED: TRIA0.02 TOP (08:54)
--- NOTE | 2024-07-27 08:55 | ED.PDOC ---
Eye-HPI HPI Comments A 68 YEAR OLD FEMALE PRESENTS TO THE ED WITH COMPLAINT OF BILATERAL EYE REDNESS AND DISCHARGE. PATIENT STATES SHE HAS BEEN EXPERIENCING BILATERAL EYE REDNESS AND A YELLOW/GREEN DISCHARGE THAT STARTED YESTERDAY. PATIENT DENIES VISION CHANGES, FEVER, CHILLS, SHORTNESS OF BREATH, CHEST PAIN, ABDOMINAL PAIN, NAUSEA, VOMITING, HEADACHE, OR OTHER COMPLAINTS. NO OTHER SYMPTOMS OR MODIFYING FACTORS AT THIS TIME. PATIENT IS ALERT, ORIENTED X 4, AND HAS STEADY GAIT. Chief Complaint: Eye Problem Time Seen by MD: 08:17 Primary Care Provider: BELÉN Reviewed Notes: Nurses Notes, Medications, Allergies Allergies: Coded Allergies: Celecoxib (Verified Allergy, Unknown, 09/10/20) Cephalexin (Verified Allergy, Unknown, 09/10/20) Lorazepam (Verified Adverse Reaction, Unknown, 02/13/21) PATIENT BECOMES AGITATED AND EVEN MORE CONFUSED Home Meds Active Scripts Triamcinolone Acetonide (Triamcinolone Acetonide) 0.025 % Cre, 1 APPLIC TOP BID, #30 GRAMS Prov:THUY REYNOLDS 07/27/24 Ciprofloxacin HCl (Ophth) (Ciprofloxacin Hydrochlori) 0.3 % Brook[place]nn, 2 DROP OP QID, #5 ML Prov:THUY REYNOLDS 07/27/24 Sucralfate (CARAFATE SUSP) 1 Gm/10 Ml Ss, 1 GM PO QIDACHS for 30 Days, #120 ML Prov:RADHA DOMINGO MD 02/17/22 Reported Medications Trazodone Hcl (Trazodone Hcl) 100 Mg Tab, 100 MG PO QPM, TAB 11/25/23 Fluticasone Furoate-Vilanterol (Fluticasone Furoate/Vilan 200-25 Mcg/Act) 1 Inh Inh, 1 PUFF INH DAILY Trelegy Ellipta 200/62.5/25 Mcg/INH 1 AER 08/31/23 Aspirin (ASPIRIN 81) 81 Mg Tab, 1 TAB PO DAILY 08/31/23 Rifaximin (Xifaxan) 550 Mg Tab, 1 TAB PO BID 11/19/21 Pantoprazole Sodium Sesquihydr (Pantoprazole Sodium) 40 Mg Tab, 1 TAB PO DAILY 06/07/21 Metformin Hydrochloride (Metformin Hcl) 500 Mg Tab, 1 TAB PO BID 02/13/21 Dapagliflozin Propanediol (Farxiga) 10 Mg Tab, 1 TAB PO QAM 02/13/21 Tramadol Hcl (Tramadol Hcl) 50 Mg Tab, 1 TAB PO BID PRN for pain 02/13/21 Ursodiol (Ursodiol) 300 Mg Cap, 600 MG PO BID 02/13/21 Gabapentin (Gabapentin) 300 Mg Cap, 1 CAP PO QID 02/13/21 Atorvastatin Calcium (ATORVASTATIN CALCIUM) 20 Mg Tab, 1 TAB PO DAILY 04/26/19 Amlodipine Besylate (Amlodipine Besylate) 5 Mg Tab, 1 TAB PO DAILY 02/16/19 Information Source: Patient Mode of Arrival: Ambulatory Timing: Days Duration: Since onset, Days Prehospital treatment: None Quality: Pain, Red Eye Location: Bilateral Conjunctiva: Discharge, Yellow, Green Cornea: Normal Pupils: Normal EOM: Normal Fundus: Normal Slit lamp exam: Normal Anterior chamber: Normal Mouth: Normal ENT Ear Exam: Normal, Normal, Normal Nose: Normal Sinuses: Normal Oropharynx: Normal Onset: Spontaneous Throat Exposed to: None History of: None Last Tetanus: Unknown Associated signs and symptoms: Discharge, None Past Medical History PAST MEDICAL HISTORY: Anemia, CKF, CVA, Dementia, DM, High Lipids, HTN, Liver, TIA Surgical History: BTL, 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 Family History Family History: Reviewed,noncontributory to illness, Family hx of DM, Family hx of HTN, Family hx of stroke Social History Smoker: Non-Smoker Alcohol: Denies ETOH Use Drugs: Denies Drug Use Lives In: Home Constitutional: denies: chills, diaphoresis, fatigue, fever, malaise, sweats, weakness, others EENTM: reports: eye redness, others (BILATERAL EYE DISCHARGE); denies: blurred vision, double vision, ear bleeding, ear discharge, ear drainage, ear pain, ear ringing, eye pain, hearing loss, mouth pain, mouth swelling, nasal discharge, nose bleeding, nose congestion, nose pain, photophobia, tearing, throat pain, throat swelling, voice changes Respiratory: denies: cough, hemoptysis, orthopnea, SOB at rest, shortness of breath, SOB with excertion, stridor, wheezing, others Cardiovascular: denies: chest pain, dizzy spells, diaphoresis, Dyspnea on exertion, edema, irregular heart beat, left arm pain, lightheadedness, palpitations, PND, syncope, others Gastrointestinal: denies: abdomen distended, abdominal pain, blood streaked bowels, constipated, diarrhea, dysphagia, difficulty swallowing, hematemesis, melena, nausea, poor appetite, poor fluid intake, rectal bleeding, rectal pain, vomiting, others Genitourinary: denies: abnormal vagina bleeding, burning, dyspareunia, dysuria, flank pain, frequency, hematuria, incontinence, pain, , vagina discharge, urgency, others Neurological: denies: dizziness, fainting, headache, left sided numbness, left sided weakness, numbness, paresthesia, pre-existing deficit, right sided numbness, right sided weakness, seizure, speech problems, tingling, tremors, weakness, others Musculoskeletal: denies: back pain, gout, joint pain, joint swelling, muscle pain, muscle stiffness, neck pain, others Integumetry: reports: rash (LOWER EYELIDS ); denies: bruises, change in color, change in hair/nails, dryness, laceration, lesions, lumps, wounds, others Allergic/Immunocompromised: denies: Difficulty Healing, Frequent Infections, Hives, Itching, others Hematologic/Lymphatic: denies: anemia, blood clots, easy bleeding, easy bruising, swollen glands, others Endocrine: denies: excessive hunger, excessive sweating, excessive thirst, excessive urination, flushing, intolerance to cold, intolerance to heat, unexplained weight gain, unexplained weight loss, others Psychiatric: denies: anxiety, bipolar disorder, depression, hopeless, panic disorder, schizophrenia, sleepless, suicidal, others All Other Systems: Reviewed and Negative Physical Exam General Appearance: No Apparent Distress, Normal HEENT: Eye Lid (L) (MILD RED SKIN RASH ON LEFT LOWER EYELID. ), Eye Lid (R) (MILD RED SKIN RASH ON RIGHT LOWER EYELID. ), Normal ENT Inspection, PERRL/EOMI, Pharynx Normal, TMs Normal, Other (BILATERAL SUBCONJUNCTIVA HEMORRHAGE WITH GREEN DISCHARGE. ) Neck: Full Range of Motion, Non-Tender, Normal, Normal Inspection Respiratory: Chest Non-Tender, Lungs Clear, No Accessory Muscle Use, No Respiratory Distress, Normal Breath Sounds Cardiovascular: No Edema, No JVD, No Murmur, No Gallop, Normal Peripheral Pulses, Regular Rate/Rhythm Breast Exam: Deferred Gastrointestinal: No Organomegaly, Non Tender, No Pulsatile Mass, Normal Bowel Sounds, Soft Genitalia: Deferred Pelvic: Deferred Rectal: Deferred Extremities: No calf tenderness, Normal capillary refill, Normal inspection, Normal range of motion, Non-tender, No pedal edema Musculoskeletal : Apperance: Normal Neurologic: Alert, lathe machinist II-XII nml as Tested, No Motor Deficits, Normal Affect, Normal Mood, No Sensory Deficits Cerebellar Function: Normal Reflexes: Normal Skin: Dry, Normal Color, Warm Peripheral Pulses: 2+ carotid (R), 2+ carotid (L) Lymphatic: No Adenopathy Was a procedure done? Was a procedure done?: No EENT DIFF Eye: Conjunctivitis, Allergic, Bacterial, Viral, Hordeolum (stye) Ear: N/A Nose: N/A Mouth: N/A Sore Throat: N/A X-Ray, Labs, Meds, VS Vital Signs Date Time Temp Pulse Resp B/P (MAP) Pulse Ox O2 Delivery O2 Flow Rate FiO2 07/27/24 08:47 98.8 95 16 154/93 (113) 95 98.8 07/27/24 08:47 95 16 95 Room Air 07/27/24 08:12 98.8 95 16 154/93 (113) 95 X-Ray, Labs, Meds, VS Comment EXTERNAL MEDICAL RECORDS REVIEWED: [NONE] INDEPENDENT HISTORIANS: [NONE] SOCIAL DETERMINANTS OF HEALTH: [NONE] LABS ORDERED: NONE REVIEWED AND INTERPRETED RESULTS: NONE IMAGING ORDERED: NONE TREATMENTS ORDERED: NONE PROCEDURES PERFORMED: NONE CRITICAL CARE TIME: NONE I HAVE DISCUSSED THE PATIENT WITH THE ATTENDING PHYSICIAN DR. ALEXANDER AND HE AGREES WITH THE PATIENT'S PLAN OF CARE AND DISPOSITION. BASED ON HISTORY OF PRESENT ILLNESS, AND PHYSICAL EXAM, PATIENT WILL BE DISCHA RGED HOME. DISCUSSED PLAN FOR DISCHARGE HOME WITH RX [CIPRO EYE DROPS AND TRIAMCINOLONE CREAM]. MEDICATION WARNINGS GIVEN. SHARED DECISION MAKING: PATIENT INSTRUCTED TO FOLLOW UP WITH PRIMARY CARE PROVIDER IN 1-2 DAYS FOR RE-EVALUATION OF SYMPTOMS. PATIENT VERBALIZES UNDERSTANDING TO RETURN TO ED FOR NEW OR WORSENING SYMPTOMS OR IF FOLLOW UP WITH PCP CANNOT BE OBTAINED. PATIENT FEELS COMFORTABLE GOING HOME AT THIS TIME. ALL QUESTIONS ADDRESSED AT TIME OF DISCHARGE. Time of 1ST Reevaluation: 09:00 Reevaluation 1ST: Improved Patient Education/Counseling: Diagnosis, Treatment, Need For Follow Up Family Education/Counseling: Diagnosis, Treatment, Need For Follow Up Medical Screening: No EMC Exist At This Time Departure 1 Departure Time of Disposition: 09:10 Impression: Primary Impression: Acute conjunctivitis of both eyes Qualified Codes: H10.33 - Unspecified acute conjunctivitis, bilateral Additional Impression: Contact dermatitis Qualified Codes: L23.9 - Allergic contact dermatitis, unspecified cause Disposition: HOME / SELF CARE / HOMELESS Condition: Stable Additional Instructions: FOLLOW-UP WITH PCP IN 1 TO 2 DAYS. TAKE MEDICATIONS PRESCRIBED. RETURN TO ED FOR ANY NEW OR WORSENING SYMPTOMS. e-Prescriptions Triamcinolone Acetonide (Triamcinolone Acetonide) 0.025 % Cre 1 APPLIC TOP BID, #30 GRAMS Prov: THUY REYNOLDS 07/27/24 Ciprofloxacin HCl (Ophth) (Ciprofloxacin Hydrochlori) 0.3 % Brook[place]nn 2 DROP OP QID, #5 ML Prov: THUY REYNOLDS 07/27/24 Discharged With: Self, Relative Critical Care Note Critical Care Time?: No Stability Stability form required: No I personally scribed for THUY REYNOLDS ([email or web address]) on 07/27/24 at 08:55. Electronically submitted by Jass Melendez ([email or web address]). THUY REYNOLDS Jul 27, 2024 08:55
== END 2024-07-27 08:55 | disposition home or self-care (01) ==
LOC: ER 08:05
DX: H10.33 Unspecified acute conjunctivitis, bilateral (principal); L25.9 Unspecified contact dermatitis, unspecified cause; E11.9 Type 2 diabetes mellitus without complications; I10 Essential (primary) hypertension; E78.5 Hyperlipidemia, unspecified; Z86.73 Personal history of transient ischemic attack (TIA), and cerebral infarction without residual deficits; Z79.84 Long term (current) use of oral hypoglycemic drugs; Z79.82 Long term (current) use of aspirin; Z79.899 Other long term (current) drug therapy; Z88.1 Allergy status to other antibiotic agents; Z98.51 Tubal ligation status

== ENCOUNTER 2024-07-31 07:53 | Emergency (ER) | payer MEDICARE, MEDICAID ==
[~2024-07-31] VITALS: Ht 149.9 cm; Wt 57.6 kg
[~2024-07-31 07:53] MED LIST changes: +CIPR0.3S67 OP; +TRIA0.02 TOP
[2024-07-31 08:21] VITALS: BP 158/62; PULSE 84; RESP 16; TEMP 98; O2SAT 97
--- NOTE | 2024-07-31 08:42 | DVH ---
CHEST RADIOGRAPH Indication: sob Technique: Single frontal view of the chest was obtained Comparison: XY CHEST PORTABLE on DOS: 08/30/23, CHEST PORTABLE on DOS: 02/14/22, CHEST PORTABLE on DOS: 01/02/22, CXRP on DOS: 01/02/22, CHEST PORTABLE on DOS: 09/23/21 FINDINGS: Lines and Tubes: None Lungs: No focal consolidation. Pleura: No effusion. No pneumothorax. Cardiomediastinal contours: Unremarkable Bones: No acute osseous abnormality. IMPRESSION: No acute cardiopulmonary disease.
[2024-07-31] MEDS ORDERED: PRED10TA PO (09:03)
[2024-07-31] MEDS ORDERED: AMOX500T3 PO (09:03)
--- NOTE | 2024-07-31 09:03 | ED.PDOC ---
History of Present Illness HPI Comments Year old female came to the ER complaining of see taking deep breaths without having chest discomfort. Denies chest pain. Denies shortness of breath upon ambulating. She does complain of cough and congestion for the past four days. All these symptoms started four days ago. No nausea no vomiting. Was seen in the ER for conjunctivitis which has resolved. Patient denies chest pain shortness a breath upon exertion. No leg swelling. Denies any other symptoms. Chief Complaint: Flu like Time Seen by MD: 08:16 Primary Care Provider: BELÉN Reviewed Notes: Nurses Notes, Medications, Allergies Allergies: Coded Allergies: Celecoxib (Verified Allergy, Unknown, 09/10/20) Cephalexin (Verified Allergy, Unknown, 09/10/20) Lorazepam (Verified Adverse Reaction, Unknown, 02/13/21) PATIENT BECOMES AGITATED AND EVEN MORE CONFUSED Home Meds Active Scripts Triamcinolone Acetonide (Triamcinolone Acetonide) 0.025 % Cre, 1 APPLIC TOP BID, #30 GRAMS Prov:THUY REYNOLDS 07/27/24 Ciprofloxacin HCl (Ophth) (Ciprofloxacin Hydrochlori) 0.3 % Brook[place]nn, 2 DROP OP QID, #5 ML Prov:THUY REYNOLDS 07/27/24 Sucralfate (CARAFATE SUSP) 1 Gm/10 Ml Ss, 1 GM PO QIDACHS for 30 Days, #120 ML Prov:RADHA DOMINGO MD 02/17/22 Reported Medications Trazodone Hcl (Trazodone Hcl) 100 Mg Tab, 100 MG PO QPM, TAB 11/25/23 Fluticasone Furoate-Vilanterol (Fluticasone Furoate/Vilan 200-25 Mcg/Act) 1 Inh Inh, 1 PUFF INH DAILY Trelegy Ellipta 200/62.5/25 Mcg/INH 1 AER 08/31/23 Aspirin (ASPIRIN 81) 81 Mg Tab, 1 TAB PO DAILY 08/31/23 Rifaximin (Xifaxan) 550 Mg Tab, 1 TAB PO BID 11/19/21 Pantoprazole Sodium Sesquihydr (Pantoprazole Sodium) 40 Mg Tab, 1 TAB PO DAILY 06/07/21 Metformin Hydrochloride (Metformin Hcl) 500 Mg Tab, 1 TAB PO BID 02/13/21 Dapagliflozin Propanediol (Farxiga) 10 Mg Tab, 1 TAB PO QAM 02/13/21 Tramadol Hcl (Tramadol Hcl) 50 Mg Tab, 1 TAB PO BID PRN for pain 02/13/21 Ursodiol (Ursodiol) 300 Mg Cap, 600 MG PO BID 02/13/21 Gabapentin (Gabapentin) 300 Mg Cap, 1 CAP PO QID 02/13/21 Atorvastatin Calcium (ATORVASTATIN CALCIUM) 20 Mg Tab, 1 TAB PO DAILY 04/26/19 Amlodipine Besylate (Amlodipine Besylate) 5 Mg Tab, 1 TAB PO DAILY 02/16/19 Information Source: Patient Mode of Arrival: Ambulatory Severity: Mild Timing: Days Duration: Since onset Past Medical History PAST MEDICAL HISTORY: Anemia, CKF, CVA, Dementia, DM, High Lipids, HTN, Liver, TIA Surgical History: BTL, Tubal Ligation AUTO 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 CLEANER History Family History Family History: Reviewed,noncontributory to illness, Family hx of DM, Family hx of HTN, Family hx of stroke Social History Smoker: Non-Smoker Alcohol: Denies ETOH Use Drugs: Denies Drug Use Lives In: Home Constitutional: denies: chills, diaphoresis, fatigue, fever, malaise, sweats, weakness, others EENTM: denies: blurred vision, double vision, ear bleeding, ear discharge, ear drainage, ear pain, ear ringing, eye pain, eye redness, hearing loss, mouth pain, mouth swelling, nasal discharge, nose bleeding, nose congestion, nose pain, photophobia, tearing, throat pain, throat swelling, voice changes, others Respiratory: reports: cough; denies: hemoptysis, orthopnea, SOB at rest, shortness of breath, SOB with excertion, stridor, wheezing, others Cardiovascular: denies: chest pain, dizzy spells, diaphoresis, Dyspnea on e xertion, edema, irregular heart beat, left arm pain, lightheadedness, palpitations, PND, syncope, others Gastrointestinal: denies: abdomen distended, abdominal pain, blood streaked bowels, constipated, diarrhea, dysphagia, difficulty swallowing, hematemesis, melena, nausea, poor appetite, poor fluid intake, rectal bleeding, rectal pain, vomiting, others Genitourinary: denies: abnormal vagina bleeding, burning, dyspareunia, dysuria, flank pain, frequency, hematuria, incontinence, pain, , vagina discharge, urgency, others Neurological: denies: dizziness, fainting, headache, left sided numbness, left sided weakness, numbness, paresthesia, pre-existing deficit, right sided numbness, right sided weakness, seizure, speech problems, tingling, tremors, weakness, others Musculoskeletal: denies: back pain, gout, joint pain, joint swelling, muscle pain, muscle stiffness, neck pain, others Integumetry: denies: bruises, change in color, change in hair/nails, dryness, laceration, lesions, lumps, rash, wounds, others Allergic/Immunocompromised: denies: Difficulty Healing, Frequent Infections, Hives, Itching, others Hematologic/Lymphatic: denies: anemia, blood clots, easy bleeding, easy bruising, swollen glands, others Endocrine: denies: excessive hunger, excessive sweating, excessive thirst, excessive urination, flushing, intolerance to cold, intolerance to heat, unexplained weight gain, unexplained weight loss, others Psychiatric: denies: anxiety, bipolar disorder, depression, hopeless, panic disorder, schizophrenia, sleepless, suicidal, others Physical Exam General Appearance: Moderate Distress HEENT: Normal ENT Inspection, Pharynx Normal, TMs Normal Neck: Full Range of Motion, Non-Tender, Normal, Normal Inspection Respiratory: Chest Non-Tender, Lungs Clear, No Accessory Muscle Use, No Respiratory Distress, Normal Breath Sounds Cardiovascular: No Edema, No JVD, No Murmur, No Gallop, Normal Peripheral Pulses, Regular Rate/Rhythm Breast Exam: Deferred Gastrointestinal: No Organomegaly, Non Tender, No Pulsatile Mass, Normal Bowel Sounds, Soft Genitalia: Deferred Pelvic: Deferred Rectal: Deferred Extremities: No calf tenderness, Normal capillary refill, Normal inspection, Normal range of motion, Non-tender, No pedal edema Musculoskeletal : Apperance: Normal Neurologic: Alert, precision crop manager II-XII nml as Tested, No Motor Deficits, Normal Affect, Normal Mood, No Sensory Deficits Cerebellar Function: Normal Reflexes: Normal Skin: Dry, Normal Color, Warm Peripheral Pulses: 3+ Radial (R), 3+ Radial (L) Lymphatic: No Adenopathy Was a procedure done? Was a procedure done?: No Differential Dx Considerations may include: Pleurisy Bronchitis X-Ray, Labs, Meds, VS Vital Signs Date Time Temp Pulse Resp B/P (MAP) Pulse Ox O2 Delivery O2 Flow Rate FiO2 07/31/24 08:21 84 16 97 Room Air 07/31/24 08:21 98.0 84 16 158/62 (94) 97 98.0 07/31/24 08:06 16 97 Room Air* 0 21 07/31/24 08:02 98.0 84 16 158/62 (94) 97 Patient alert. Came in because of cough. Chest x-ray reviewed does not show any acute changes. No leg swelling. No discoloration. Good skin color. Not in distress. Saturation pristine on room air. Heart rate within normal limits. No calf tenderness. Does not meet any criteria. Was given prescription of prednisone amoxicillin antibiotic. Explained to the patient. Was told to follow up with her primary care physician. Was told to come back if there is any problem. Time of 1ST Reevaluation: 09:00 Reevaluation 1ST: Improved Patient Education/Counseling: Diagnosis, Treatment, Prognosis, Need For Follow Up Family Education/Counseling: Need For Follow Up Departure 1 Departure Time of Disposition: 09:01 Impression: Primary Impression: Pleurisy Disposition: 01 HOME / SELF CARE / HOMELESS Condition: Good e-Prescriptions Prednisone (Prednisone) 10 Mg Tab 10 MG PO DAILY for 5 Days, #5 MG Prov: CARLITOS BRENNAN MD 07/31/24 Amoxicillin Trihydrate (Amoxicillin) 500 Mg Tab 1 TAB PO BID for 7 Days, #14 TAB Prov: CARLITOS BRENNAN MD 07/31/24 Discharged With: Self Critical Care Note Critical Care Time?: No Stability Stability form required: No Heart Score Heart Score: Heart Score Response (Comments) Value History N/A 0 EKG N/A 0 Age N/A 0 Risk Factors N/A 0 Troponin N/A 0 Total 0 CARLITOS BRENNAN MD Jul 31, 2024 09:03
== END 2024-07-31 09:06 | disposition home or self-care (01) ==
LOC: ER 07:53
DX: R09.1 Pleurisy (principal); I12.9 Hypertensive chronic kidney disease with stage 1 through stage 4 chronic kidney disease, or unspecified chronic kidney disease; E11.22 Type 2 diabetes mellitus with diabetic chronic kidney disease; N18.9 Chronic kidney disease, unspecified; Z79.82 Long term (current) use of aspirin; Z79.84 Long term (current) use of oral hypoglycemic drugs; Z79.899 Other long term (current) drug therapy; Z86.73 Personal history of transient ischemic attack (TIA), and cerebral infarction without residual deficits; Z88.1 Allergy status to other antibiotic agents; Z98.51 Tubal ligation status
CPT/HCPCS: 71045

== ENCOUNTER 2024-08-03 10:38 | Inpatient (IN) | payer MEDICARE, MEDICAID ==
[~2024-08-03] VITALS: Ht 154.9 cm; Wt 57.5 kg
[~2024-08-03 10:38] MED LIST changes: +AMOX500T3 PO; +PRED10TA PO
[2024-08-03 11:26] VITALS: PULSE 65; RESP 11; O2SAT 95
--- NOTE | 2024-08-03 11:27 | ED.PDOC ---
Musculoskeletal HPI Comments 68Y F with PMHx DM, HTN, HLD, CKD, liver disease, anemia, TIA, CVA, and dementia presents to ED via EMS for chief complaint rt shoulder pain and rt hip pain s/p mechanical fall today. Pt denies head trauma and LOC. Upon ED arrival, rt shoulder has deformity. Per EMS, pt's family is unsure if pt is taking blood thinner medication. Chief Complaint: Fall Injury Time Seen by MD: 11:30 Primary Care Provider: UNKNOWN Reviewed Notes: Nurses Notes, Blocking Machine Tender Notes, Medications, Allergies Allergies: Coded Allergies: Celecoxib (Verified Allergy, Unknown, 09/10/20) Cephalexin (Verified Allergy, Unknown, 09/10/20) Lorazepam (Verified Adverse Reaction, Unknown, 02/13/21) PATIENT BECOMES AGITATED AND EVEN MORE CONFUSED Home Meds Active Scripts Prednisone (Prednisone) 10 Mg Tab, 10 MG PO DAILY for 5 Days, #5 MG Prov:CARLITOS BRENNAN MD 07/31/24 Amoxicillin Trihydrate (Amoxicillin) 500 Mg Tab, 1 TAB PO BID for 7 Days, #14 TAB Prov:CARLITOS BRENNAN MD 07/31/24 Triamcinolone Acetonide (Triamcinolone Acetonide) 0.025 % Cre, 1 APPLIC TOP BID, #30 GRAMS Prov:THUY REYNOLDS 07/27/24 Ciprofloxacin HCl (Ophth) (Ciprofloxacin Hydrochlori) 0.3 % [place], 2 DROP OP QID, #5 ML Prov:THUY REYNOLDS 07/27/24 Sucralfate (CARAFATE SUSP) 1 Gm/10 Ml Ss, 1 GM PO QIDACHS for 30 Days, #120 ML Prov:RADHA DOMINGO MD 02/17/22 Reported Medications Trazodone Hcl (Trazodone Hcl) 100 Mg Tab, 100 MG PO QPM, TAB 11/25/23 Fluticasone Furoate-Vilanterol (Fluticasone Furoate/Vilan 200-25 Mcg/Act) 1 Inh Inh, 1 PUFF INH DAILY Trelegy Ellipta 200/62.5/25 Mcg/INH 1 AER 08/31/23 Aspirin (ASPIRIN 81) 81 Mg Tab, 1 TAB PO DAILY 08/31/23 Rifaximin (Xifaxan) 550 Mg Tab, 1 TAB PO BID 11/19/21 Pantoprazole Sodium Sesquihydr (Pantoprazole Sodium) 40 Mg Tab, 1 TAB PO DAILY 06/07/21 Metformin Hydrochloride (Metformin Hcl) 500 Mg Tab, 1 TAB PO BID 02/13/21 Dapagliflozin Propanediol (Farxiga) 10 Mg Tab, 1 TAB PO QAM 02/13/21 Tramadol Hcl (Tramadol Hcl) 50 Mg Tab, 1 TAB PO BID PRN for pain 02/13/21 Ursodiol (Ursodiol) 300 Mg Cap, 600 MG PO BID 02/13/21 Gabapentin (Gabapentin) 300 Mg Cap, 1 CAP PO QID 02/13/21 Atorvastatin Calcium (ATORVASTATIN CALCIUM) 20 Mg Tab, 1 TAB PO DAILY 04/26/19 Amlodipine Besylate (Amlodipine Besylate) 5 Mg Tab, 1 TAB PO DAILY 02/16/19 Information Source: Patient, Emergency Med Personnel Mode of Arrival: EMS Brought in by: EMS Location: Right Extremity Location: Hip, Shoulder Timing: Hours Prehospital treatment: Accucheck, Other (18G IV to left AC) Severity: Moderate Able to Move Extremity: No Bear Weight: No Pain: Moderate Mechanism: Unknown Circumstances: Fall Onset of Symptoms: After Trauma Symptoms: Pain DVT Risk Factors: NONE Associated signs and symptoms: Shoulder pain, Hip pain Past Medical History PAST MEDICAL HISTORY: Anemia, CKF, CVA, Dementia, DM, High Lipids, HTN, Liver, TIA Surgical History: BTL, Tubal Ligation ESCALATOR ATTENDANT History: No Pertinent ESCALATOR ATTENDANT History Family History Family History: Reviewed,noncontributory to illness, Family hx of DM, Family hx of HTN, Family hx of stroke Social History Smoker: Non-Smoker Alcohol: Denies ETOH Use Drugs: Denies Drug Use Lives In: Home Constitutional: denies: chills, diaphoresis, fatigue, fever, malaise, sweats, weakness, others EENTM: denies: blurred vision, double vision, ear bleeding, ear discharge, ear drainage, ear pain, ear ringing, eye pain, eye redness, hearing loss, mouth pain, mouth swelling, nasal discharge, nose bleeding, nose congestion, nose pain, photophobia, tearing, throat pain, throat swelling, voice changes, others Respiratory: denies: cough, hemoptysis, orthopnea, SOB at rest, shortness of breath, SOB with excertion, stridor, wheezing, others Cardiovascular: denies: chest pain, dizzy spells, diaphoresis, Dyspnea on exertion, edema, irregular heart beat, left arm pain, lightheadedness, palpitations, PND, syncope, others Gastrointestinal: denies: abdomen distended, abdominal pain, blood streaked bowels, constipated, diarrhea, dysphagia, difficulty swallowing, hematemesis, melena, nausea, poor appetite, poor fluid intake, rectal bleeding, rectal pain, vomiting, others Genitourinary: denies: abnormal vagina bleeding, burning, dyspareunia, dysuria, flank pain, frequency, hematuria, incontinence, pain, , vagina discharge, urgency, others Neurological: denies: dizziness, fainting, headache, left sided numbness, left sided weakness, numbness, paresthesia, pre-existing deficit, right sided numbness, right sided weakness, seizure, speech problems, tingling, tremors, weakness, others Musculoskeletal: reports: others (rt shoulder pain, rt hip pain); denies: back pain, gout, joint pain, joint swelling, muscle pain, muscle stiffness, neck pain Integumetry: denies: bruises, change in color, change in hair/nails, dryness, laceration, lesions, lumps, rash, wounds, others Allergic/Immunocompromised: denies: Difficulty Healing, Frequent Infections, Hives, Itching, others Hematologic/Lymphatic: denies: anemia, blood clots, easy bleeding, easy bruising, swollen glands, others Endocrine: denies: excessive hunger, excessive sweating, excessive thirst, excessive urination, flushing, intolerance to cold, intolerance to heat, unexplained weight gain, unexplained weight loss, others Psychiatric: denies: anxiety, bipolar disorder, depression, hopeless, panic disorder, schizophrenia, sleepless, suicidal, others All Other Systems: Reviewed and Negative Physical Exam General Appearance: No Apparent Distress, Normal HEENT: Normal ENT Inspection, Pharynx Normal, TMs Normal Neck: Full Range of Motion, Non-Tender, Normal, Normal Inspection Respiratory: Chest Non-Tender, Lungs Clear, No Accessory Muscle Use, No Respiratory Distress, Normal Breath Sounds Cardiovascular: No Edema, No JVD, No Murmur, No Gallop, Normal Peripheral Pulses, Regular Rate/Rhythm Breast Exam: Deferred Gastrointestinal: No Organomegaly, Non Tender, No Pulsatile Mass, Normal Bowel Sounds, Soft Genitalia: Deferred Pelvic: Deferred Rectal: Deferred Extremities: No calf tenderness, Normal capillary refill, Normal inspection, Normal range of motion, Non-tender, No pedal edema Musculoskeletal : Location: Right Extremity Location: Hip, Shoulder Apperance: Deformity (rt shoulder), Tenderness (rt shoulder and rt hip) Neurologic: Alert, transportation project manager II-XII nml as Tested, No Motor Deficits, Normal Affect, Normal Mood, No Sensory Deficits Cerebellar Function: Normal Reflexes: Normal Skin: Dry, Normal Color, Warm Lymphatic: No Adenopathy Was a procedure done? Was a procedure done?: Yes Sedation Sedation?: Yes Informed consent obtained: Yes Sedation start time: 13:56 Sedation end time: 14:20 Sedation total time: 14 Sedation provider statement: pt was given etomidate with good sedative result. using traction, counter traction, the right shoulder slipped back in easily. pt tolerated procedure well, without complications and the post reduction xray shows shoulder was successfully reduced. pt has a sling placed with good position and intact neurovascular functions Reduction Indication: Dislocation Sedation: Consents obtained Intra-articular anesthetic nikita: No Nerve Block: Other (right shoulder) Post-reduction x-ray show: Reduction, Good Alignment Informed consent obtained: Yes Risks/benefits/alt described: Yes Differential Diagnosis EXT Differential Diagnosis: Fracture, Sprain, Dislocation, DJD, Contusion, Strain, Neurovascular injury, Arthritis, Bursitis X-Ray, Labs, Meds, VS Vital Signs Date Time Temp Pulse Resp B/P (MAP) Pulse Ox O2 Delivery O2 Flow Rate FiO2 08/03/24 13:56 95 20 97 28 83 12 97 88 97 08/03/24 12:00 76 08/03/24 11:26 65 11 95 Room Air* 0 21 08/03/24 11:13 98.0 65 11 157/82 (107) 95 98.0 08/03/24 10:52 98.1 62 14 161/71 (101) 97 Current Medications Medications (Trade) Dose Ordered Sig/Lashell Route Start Time Stop Time Status Last Admin Tramadol HCl (Ultram) 50 mg ONCE ONCE PO 08/03/24 12:00 08/03/24 12:01 DC 08/03/24 12:10 Etomidate 10 mg ONCE ONCE IV 08/03/24 12:00 08/03/24 12:01 DC 08/03/24 14:12 [place] [id number] Ph: [phone] DIAGNOSTIC IMAGING Diagnostic Imaging Report : [id number] Signed PATIENT: NICOLE OROPEZA ACCT: [id number] UNIT: [id number] : 1955 LOC: ER ROOM / BED: / AGE / SEX: 68 / F ADM STATUS: REG ER SERVICE 1053 ORDERING PHYSICIAN: ZAY ROSE MD PROCEDURE(s): HWOCT - HEAD WITHOUT CONTRAST REASON: fall ORDER NUMBER(s): [id number], ACCESSION NUMBER(s): [id number] CT HEAD WITHOUT CONTRAST INDICATION: fall EXAM DATE: 08/03/2024 11:25 AM COMPARISON: CT HEAD WITHOUT CONTRAST on DOS: 08/30/23, HEAD WITHOUT CONTRAST on DOS: 03/05/22, HEAD WITHOUT CONTRAST on DOS: 09/23/21 RADIATION DOSE: CTDIvol: 52 mGy, DLP: 920 mGy*cm PROCEDURE: CT scans of the head were obtained from the vertex to the skull base. Sagittal and coronal reconstructions were provided. All CT scans at this medical facility are performed using dose modulation techniques as appropriate to a performed exam including the following: Automated exposure control was utilized; adjustment of the MA and/or KV according to patient size; and use of iterative reconstruction technique. FINDINGS: Left frontal lobe encephalomalacia likely due to old infarct. There is sulcal and ventricular prominence. The brain otherwise shows normal morphology and koehler-white matter differentiation, without intracranial hemorrhage, extra- axial fluid collection, mass effect or acute large vessel infarct.The basal cisterns are patent. The skull and visible facial bones are intact. The paranasal sinuses, mastoid air cells and middle ear cavities are well-aerated. The soft tissues of the scalp are unremarkable. IMPRESSION: Left frontal lobe encephalomalacia likely due to old infarct. ATED BY: ROHITH ECHEVERRIA MD DICTATED DATE/TIME: 08/03/241156 SIGNED BY: ROHITH ECHEVERRIA MD SIGNED DATE/TIME: 08/03/242 CC: [place] [id number] Ph: [phone] DIAGNOSTIC IMAGING Diagnostic Imaging Report : [id number] Signed PATIENT: NICOLE OROPEZA ACCT: [id number] UNIT: [id number] : 1955 LOC: ER ROOM / BED: / AGE / SEX: 68 / F ADM STATUS: REG ER SERVICE 1053 ORDERING PHYSICIAN: ZAY ROSE MD PROCEDURE(s): RHIP - R HIP COMPLETE XRAY REASON: fall ORDER NUMBER(s): [id number], ACCESSION NUMBER(s): [id number] RIGHT HIP RADIOGRAPHS CLINICAL HISTORY: fall TECHNIQUE: AP and oblique views of the right hip were obtained. COMPARISON: None FINDINGS: There is shortening of the femoral neck with suspected fracture just below the femoral head with cortical step-off.. The alignment of the right hip joint is appropriate. The joint space is maintained. The soft tissues appear within normal limits. IMPRESSION: 1. Shortening of the right femoral neck with suspected fracture just below the right femoral head. HS:Y ATED BY: LUDIN ALLEN MD DICTATED DATE/TIME: 08/03/241157 SIGNED BY: LUDIN ALLEN MD SIGNED DATE/TIME: 08/03/24 115 CC: [address] [id number] Ph: [phone] DIAGNOSTIC IMAGING Diagnostic Imaging Report : [id number] Signed PATIENT: NICOLE OROPEZA ACCT: [id number] UNIT: [id number] : 1955 LOC: ER ROOM / BED: / AGE / SEX: 68 / F ADM STATUS: REG ER SERVICE 1053 ORDERING PHYSICIAN: ZAY ROSE MD PROCEDURE(s): RSHD2 - R SHOULDER 2+ VIEW XRAY REASON: fall ORDER NUMBER(s): [id number], ACCESSION NUMBER(s): [id number] PROCEDURE: Right shoulder radiographs. INDICATION: fall TECHNIQUE: 2 views of the right shoulder were obtained. COMPARISON: None FINDINGS: There is anterior glenohumeral joint dislocation. No acute fracture. IMPRESSION: 1. Anterior glenohumeral joint dislocation. No fracture. ATED BY: MACARENA SINGH MD DICTATED DATE/TIME: 08/03/24 1149 SIGNED BY: MACARENA SINGH MD SIGNED DATE/TIME: 08/03/24 1149 CC: Time of 1ST Reevaluation: 11:30 Reevaluation 1ST: Unchanged Time of 2ND Reevaluation: 15:08 Reevaluation 2ND: Improved Patient Education/Counseling: Diagnosis, Treatment, Prognosis, Need For Follow Up Family Education/Counseling: Diagnosis, Treatment, Prognosis, Need For Follow Up, No Family Present Additional Information I reviewed the following notes from patient's past medical encounters: [facility] ER 07/31/2024, 07/27/2024, 07/18/2022; [facility] discharge 09/02/2023, 02/17/2022, 09/25/2021 The following tests were ordered, and results were reviewed by me: CT head WO contrast, Rt hip x-ray, Rt shoulder x-ray Additional Information was gathered from interviewing the following independent historians: EMS I reviewed and agreed with the following test results read by other providers: CT head WO contrast, Rt hip x-ray, Rt shoulder x-ray I discussed treatment and results with medical personnel. the right shoulder is easily reduced. pt still has right hip pain. xray suspects a fracture. pt will be admitted for pain control and ortho consult of a possible right hip fracture Departure 1 Departure Time of Disposition: 15:09 Impression: Primary Impression: Shoulder dislocation Qualified Codes: S43.004A - Unspecified dislocation of right shoulder joint, initial encounter Additional Impressions: Hip fracture Qualified Codes: S72.001A - Fracture of unspecified part of neck of right femur, initial encounter for closed fracture Falling Disposition: ADMITTED INPATIENT Admit to: Med Surg Condition: Stable Discharged With: Self, Relative Critical Care Note Critical Care Time?: Yes (55 min-critical care time only) Critical care comment: Due to concerns for patients condition deteriorating, the care required my highest level of attention and readiness to intervene. I assessed the patient, reviewed the medical records, ordered the appropriate tests and treatments, then reassessed for results and responsiveness. I communicated with medical personnel and consultants and formulated a plan of care. Total critical care time excludes any procedures Stability Stability form required: No Heart Score Heart Score: Heart Score Response (Comments) Value History N/A 0 EKG N/A 0 Age N/A 0 Risk Factors N/A 0 Troponin N/A 0 Total 0 I personally scribed for ZAY ROSE MD ([facility]) on 08/03/24 at 11:27. Electronically submitted by Martha Oro ([employer]). I personally scribed for ZAY ROSE MD ([facility]) on 08/03/24 at 12:32. Electronically submitted by Martha Oro ([employer]). ZAY ROSE MD Aug 03, 2024 11:27
--- NOTE | 2024-08-03 11:51 | DVH ---
PROCEDURE: Right shoulder radiographs. INDICATION: fall TECHNIQUE: 2 views of the right shoulder were obtained. COMPARISON: None FINDINGS: There is anterior glenohumeral joint dislocation. No acute fracture. IMPRESSION: 1. Anterior glenohumeral joint dislocation. No fracture.
--- NOTE | 2024-08-03 11:59 | DVH ---
CT HEAD WITHOUT CONTRAST INDICATION: fall EXAM DATE: 08/03/2024 11:25 AM COMPARISON: CT HEAD WITHOUT CONTRAST on DOS: 08/30/23, HEAD WITHOUT CONTRAST on DOS: 03/05/22, HEAD WITH OUT CONTRAST on DOS: 09/23/21 RADIATION DOSE: CTDIvol: 52 mGy, DLP: 920 mGy*cm PROCEDURE: CT scans of the head were obtained from the vertex to the skull base. Sagittal and coronal reconstructions were provided. All CT scans at this medical facility are performed using dose modulation techniques as appropriate t o a performed exam including the following: Automated exposure control was utilized; adjustment of th e MA and/or KV according to patient size; and use of iterative reconstruction technique. FINDINGS: Left frontal lobe encephalomalacia likely due to old infarct. There is sulcal and ventricul ar prominence. The brain otherwise shows normal morphology and koehler-white matter differentiation, wit hout intracranial hemorrhage, extra-axial fluid collection, mass effect or acute large vessel infarct .The basal cisterns are patent. The skull and visible facial bones are intact. The paranasal sinuses, mastoid air cells and middle ear cavities are well-aerated. The soft tissues of the scalp are unrema rkable. IMPRESSION: Left frontal lobe encephalomalacia likely due to old infarct.
--- NOTE | 2024-08-03 11:59 | DVH ---
RIGHT HIP RADIOGRAPHS CLINICAL HISTORY: fall TECHNIQUE: AP and oblique views of the right hip were obtained. COMPARISON: None FINDINGS: There is shortening of the femoral neck with suspected fracture just below the femoral head with cor tical step-off.. The alignment of the right hip joint is appropriate. The joint space is maintained. The soft tissues appear within normal limits. IMPRESSION: 1. Shortening of the right femoral neck with suspected fracture just below the right femoral head. HS:Y
[2024-08-03] MEDS: traMADol HCL 50 MG TAB PO ONE (12:10)
[2024-08-03] MEDS: ETOMIDATE (2MG/ML) 20ML VIAL IV ONE (14:12)
--- NOTE | 2024-08-03 14:19 | DVH ---
CLINICAL INDICATION: S/P REDUCTION TECHNIQUE: 2 radiographic views of the right shoulder were obtained. Comparison: XY R SHOULDER 2+ VIEW XRAY on DOS: 08/03/24 FINDINGS/IMPRESSION: There is no evidence of acute fracture or dislocation. The visualized joint space is well maintained. The alignment is anatomical. There is no radiopaque foreign body.
--- NOTE | 2024-08-03 15:28 | DVH ---
INDICATION: Suspected Right hip fracture COMPARISON: None TECHNIQUE: CT of the right hip was performed without contrast. Volume transverse images were obtained and reconstructed in multiple planes using bone and soft tissue algorithms. Radiation Dose Information: CT Dose: CTDI volume is 13.22 mGy. Dose-length product is 341.04 mGy*cm FINDINGS: The alignment is normal. The joint spaces are normal. Comminuted and minimally displaced fracture of the right inferior pubic ramus at the pubic symphysis. There is no joint effusion. The soft tissues are normal. IMPRESSION: Comminuted and minimally displaced fracture of the right inferior pubic ramus at the pubic symphysis. All CT scans at this medical facility are performed using dose modulation techniques as appropriate t o a performed exam including the following: Automated exposure control was utilized; adjustment of th e MA and/or KV according to patient size; and use of iterative reconstruction technique.
[2024-08-03] MEDS ORDERED: ACETAMINOPHEN 325 MG TAB PO PRN (19:15)
[2024-08-03 19:30] VITALS: PULSE 89; RESP 18; O2SAT 96
[2024-08-03 20:03] LABS: Basophils # (auto) 0 10 ^3/uL (0-0.2); Basophils % (auto) 0.1 % (0.0-2.0); Eosinophils # (auto) 0 10 ^3/uL (0-0.8); Hemoglobin 10.6 g/dL (12.2-16.2); Lymphocytes # (auto) 0.7 10 ^3/uL (0.4-5.4); Mean Corpuscular Hemoglobin 24.7 pg (28.0-32.0); Monocytes # (auto) 0.4 10 ^3/uL (0-1.3); Monocytes % (auto) 5.1 % (0.0-12.0); Red Blood Cells 4.29 10^6/uL (4.0-5.20); White Blood Cell 7.4 10^3/uL (4.4-10.8)
[2024-08-03 20:04] LABS: Eosinophils % (auto) 0.2 % (0.0-7.0); Hematocrit 33.1 % (36.0-46.0); Lymphocytes % (auto) 9.5 % (10.0-50.0); Mean Corpuscular Volume 77.1 fL (80.0-100.0); Neutrophils # (auto) 6.3 10 ^3/uL (1.6-8.6); Neutrophils % (auto) 85.1 % (37.0-80.0); Nucleated Red Blood Cells % 0.1 %; Platelet Count (auto) 139 10^3/uL (140-450); Red Cell Distribution Width 19.1 % (11.8-14.3)
[2024-08-03 20:25] LABS: INR 1.14 (0.9-1.15); Partial Thromboplastin Time 25.9 SEC (24.5-34.5)
[2024-08-03 20:28] LABS: Albumin 3.4 g/dL (3.2-4.8); Anion Gap 8 (5-15); BUN/Creatinine Ratio 11.4 (10.0-20.0); Bilirubin, Total 0.7 mg/dL (0.2-1.0); Blood Urea Nitrogen 9 mg/dL (9-23); Carbon Dioxide 24 mmol/L (20-31); Chloride 105 mmol/L (98-107); Potassium 3.8 mmol/L (3.5-5.1); Sodium 137 mmol/L (136-145); Total Protein 7.2 g/dL (5.7-8.2)
--- NOTE | 2024-08-03 20:32 | DVHHP2 ---
History of Present Illness Reason for Visit: Fall injury History of Present Illness 68-year-old female presents for evaluation of right hip pain. Patient reports falling onto her right side and complaints of right hip pain and right shoulder pain. Right shoulder was noted to be dislocated has been reduced and placed by ER provider. She also complains of right hip pain. Denies numbness or tingling to right lower extremity. There is positive distal pulses. Denies head trauma or loss of consciousness. Past Medical History Chronic kidney disease, diabetes mellitus, dyslipidemia, hypertension, liver disease and dementia Past Surgical History Bilateral tubal ligation Family History Noncontributory Smoke: No ALCOHOL: none Drugs: None Lives: with Family Review of Systems Review of Systems Review of systems are currently negative otherwise addressed in HPI. Allergies: Coded Allergies: Celecoxib (Verified Allergy, Unknown, 09/10/20) Cephalexin (Verified Allergy, Unknown, 09/10/20) Lorazepam (Verified Adverse Reaction, Unknown, 02/13/21) PATIENT BECOMES AGITATED AND EVEN MORE CONFUSED Medications Current Medications Medications Dose Ordered Sig/Lashell Route Start Time Stop Time Status Last Admin Dose Admin Ursodiol 600 mg BID PO 08/03/24 22:00 UNV Rifaximin 550 mg BID PO 08/03/24 22:00 Amlodipine Besylate 5 mg DAILY PO 08/04/24 10:00 Atorvastatin Calcium 20 mg HS PO 08/03/24 22:00 Furosemide 20 mg DAILY PO 08/04/24 10:00 Acetaminophen/ Hydrocodone Bitart 1 tab Q4HP PRN PO 08/03/24 19:15 Ondansetron HCl 4 mg Q4HP PRN IV 08/03/24 19:15 Acetaminophen 650 mg Q6HP PRN PO 08/03/24 19:15 Morphine Sulfate 2 mg Q4HPRN PRN IV 08/03/24 19:15 Exam Vital Signs Vital Signs Date Time Temp Pulse Resp B/P (MAP) Pulse Ox O2 Delivery O2 Flow Rate FiO2 08/03/24 19:30 99.5 89 18 158/81 (106) 99.5 08/03/24 19:30 96 Room Air* 0 21 Exam Gen: 68-year-old female in mild distress Skin: Warm, dry, normal color and texture, no rash. HEENT: Normocephalic atraumatic, mucous membranes moist and pink. Neck: Cervical and supraclavicular nodes normal without enlargement, trachea is midline, thyroid gland is normal without masses. Pulmonary: Clear to auscultation and percussion bilaterally. Cardiac: Regular rate and rhythm. No murmur Abdomen: Soft, nontender, nondistended, bowel sounds present all 4 quadrants, no guarding, no rigidity, no organomegaly. Extremities: No cyanosis, clubbing, upper extremity sling, extremity with limited range motion positive distal pulses. Neuro: Cranial nerves II through XII grossly intact, normal affect and speech, no focal motor deficits. Labs/Xrays ORDERING PHYSICIAN: ZAY ROSE MD PROCEDURE(s): HWOCT - HEAD WITHOUT CONTRAST REASON: fall ORDER NUMBER(s): [id number], ACCESSION NUMBER(s): [id number] CT HEAD WITHOUT CONTRAST INDICATION: fall EXAM DATE: 08/03/2024 11:25 AM COMPARISON: CT HEAD WITHOUT CONTRAST on DOS: 08/30/23, HEAD WITHOUT CONTRAST on DOS: 03/05/22, HEAD WITHOUT CONTRAST on DOS: 09/23/21 RADIATION DOSE: CTDIvol: 52 mGy, DLP: 920 mGy*cm PROCEDURE: CT scans of the head were obtained from the vertex to the skull base. Sagittal and coronal reconstructions were provided. All CT scans at this medical facility are performed using dose modulation techniques as appropriate to a performed exam including the following: Automated exposure control was utilized; adjustment of the MA and/or KV according to patient size; and use of iterative reconstruction technique. FINDINGS: Left frontal lobe encephalomalacia likely due to old infarct. There is sulcal and ventricular prominence. The brain otherwise shows normal morphology a nd koehler-white matter differentiation, without intracranial hemorrhage, extra- axial fluid collection, mass effect or acute large vessel infarct.The basal cisterns are patent. The skull and visible facial bones are intact. The paranasal sinuses, mastoid air cells and middle ear cavities are well-aerated. The soft tissues of the scalp are unremarkable. IMPRESSION: Left frontal lobe encephalomalacia likely due to old infarct. RING PHYSICIAN: ZAY ROSE MD PROCEDURE(s): RSHD - R SHOULDER 1V XRAY REASON: S/P REDUCTION ORDER NUMBER(s): [id number], ACCESSION NUMBER(s): [id number] CLINICAL INDICATION: S/P REDUCTION TECHNIQUE: 2 radiographic views of the right shoulder were obtained. Comparison: XY R SHOULDER 2+ VIEW XRAY on DOS: 08/03/24 FINDINGS/IMPRESSION: There is no evidence of acute fracture or dislocation. The visualized joint space is well maintained. The alignment is anatomical. There is no radiopaque foreign body. RING PHYSICIAN: ELLY QUINONES MD PROCEDURE(s): RHPCT - CT R HIP WITH OUT CONTRAST REASON: Suspected Right hip fracture ORDER NUMBER(s): [id number], ACCESSION NUMBER(s): [id number] INDICATION: Suspected Right hip fracture COMPARISON: None TECHNIQUE: CT of the right hip was performed without contrast. Volume transverse images were obtained and reconstructed in multiple planes using bone and soft tissue algorithms. Radiation Dose Information: CT Dose: CTDI volume is 13.22 mGy. Dose-length product is 341.04 mGy*cm FINDINGS: The alignment is normal. The joint spaces are normal. Comminuted and minimally displaced fracture of the right inferior pubic ramus at the pubic symphysis. There is no joint effusion. The soft tissues are normal. IMPRESSION: Comminuted and minimally displaced fracture of the right inferior pubic ramus at the pubic symphysis. All CT scans at this medical facility are performed using dose modulation techniques as appropriate to a performed exam including the following: Automated exposure control was utilized; adjustment of the MA and/or KV according to patient size; and use of iterative reconstruction technique. Labs Test 08/03/24 19:38 08/03/24 12:11 Range/Units White Blood Count 7.4 4.4-10.8 10^3/uL Red Blood Count 4.29 4.0-5.20 10^6/uL Hemoglobin 10.6 L 12.2-16.2 g/dL Hematocrit 33.1 L 36.0-46.0 % Mean Corpuscular Volume 77.1 L 80.0-100.0 fL Mean Corpuscular Hemoglobin 24.7 L 28.0-32.0 pg Mean Corpuscular Hemoglobin Concent 32.0 32.0-36.0 g/dL Red Cell Distribution Width 19.1 H 11.8-14.3 % Platelet Count 139 L 140-450 10^3/uL Mean Platelet Volume 8.8 6.9-10.8 fL Neutrophils (%) (Auto) 85.1 H 37.0-80.0 % Lymphocytes (%) (Auto) 9.5 L 10.0-50.0 % Monocytes (%) (Auto) 5.1 0.0-12.0 % Eosinophils (%) (Auto) 0.2 0.0-7.0 % Basophils (%) (Auto) 0.1 0.0-2.0 % Neutrophils # (Auto) 6.3 1.6-8.6 10 ^3/uL Lymphocytes # (Auto) 0.7 0.4-5.4 10 ^3/uL Monocytes # (Auto) 0.4 0-1.3 10 ^3/uL Eosinophils # (Auto) 0 0-0.8 10 ^3/uL Basophils # (Auto) 0 0-0.2 10 ^3/uL Nucleated Red Blood Cells 0.1 % Prothrombin Time 12.0 H 9.3-11.8 sec Prothrombin Time INR 1.14 0.9-1.15 Activated Partial Thromboplast Time 25.9 24.5-34.5 SEC POC Glucose 146 H 70-106 mg/dl Assessment/Plan Assessment/Plan Assessment Right hip fracture Right shoulder dislocation, reduced Diabetes mellitus Hypertension ? Dementia Plan Admit the patient to [facility] to the hospitalist Orthopedic consultation Pain management Resume home medications Continue treatment per orders. Plan discussed with: Patient My Orders Orders - RADHA GARNER AGACNP Procedure Category Date Status Time Comprehensive LAB 08/03/24 In Process Metabolic Panel 19:02 Ursodiol (Actigall) PHA 08/03/24 Logged 22:00 Rifaximin (Xifaxan) PHA 08/03/24 In Process 22:00 Amlodipine Tablet PHA 08/04/24 In Process (Norvasc Tablet) 10:00 Atorvastatin (Lipitor) PHA 08/03/24 In Process 22:00 Furosemide Tablet PHA 08/04/24 In Process (Lasix Tablet) 10:00 Admit ADMIT 08/03/24 Transmitted 19:02 Hydrocodone-Acet PHA 08/03/24 In Process 5/325mg Tab ([place] 19:15 Ondansetron Hcl PHA 08/03/24 In Process (Zofran) 19:15 Cardiac DIET 08/04/24 Transmitted Diet-2gna,Lofat,Lochol Breakfast Condition: Stable MICHAEL 08/03/24 In Process 19:02 Acetaminophen Tablet PHA 08/03/24 In Process (Tylenol Tablet) 19:15 Bedrest With Bathroom MICHAEL 08/03/24 In Process Privileg 19:02 Morphine Sulfate PHA 08/03/24 In Process Injection 19:15 Date of Service: Aug 03, 2024 Billing Provider: RADHA GARNER Common Visit Codes: [id number] INP/OBS CARE (HIGH) RADHA GARNER Aug 03, 2024 20:32
[2024-08-03 20:41] LABS: Alanine Aminotransferase 42 U/L (7-40); Alkaline Phosphatase 281 U/L (46-116); Aspartate Aminotransferase 62 U/L (13-40); Glucose 165 mg/dL (74-106)
[2024-08-03] MEDS: rifAXIMin 550 MG TAB PO SCH (21:42)
[2024-08-03] MEDS: URSODIOL 300 MG CAP PO SCH (21:42)
[2024-08-03] MEDS: ATORVASTATIN 20 MG TAB PO SCH (21:42)
[2024-08-03] MEDS: MORPHINE SULFATE INJ 2 MG/ml SYRG IV PRN (21:49)
[2024-08-03] MEDS: ONDANSETRON HCL 4 MG/2 ML VIAL IV PRN (21:50)
[2024-08-04] VITALS (9 sets, daily range): BP systolic 115–153; BP diastolic 63–79; PULSE 72–85; RESP 14–18; TEMP 98–98.5; O2SAT 91–98
[2024-08-04] MEDS ORDERED: cloNIDine HCL 0.1 MG TAB PO PRN
[2024-08-04] MEDS ORDERED: ALBU2TAB11 PO (03:40)
[2024-08-04] MEDS ORDERED: FURO20TA3 PO (03:40)
[2024-08-04] MEDS ORDERED: LOSA-533 PO (03:40)
[2024-08-04] MEDS ORDERED: MECL12.586 PO (03:40)
[2024-08-04] MEDS: amLODIPine BESYLATE 5 MG TAB PO SCH (10:23)
[2024-08-04] MEDS: FUROSEMIDE 20 MG TAB PO SCH (10:24)
[2024-08-04] MEDS ORDERED: DEXTROSE (50%) 50ML SYRG IV PRN (15:30)
--- NOTE | 2024-08-04 15:35 | DVHPN2 ---
Progress Note Date Seen: Aug 04, 2024 Medical Necessity Reason Pt with a Central, PICC or Fol: Yes The following are medically ne: Guadarrama Catheter Reason for guadarrama catheter: Strict I&O Subjective Patient reports: No new complaints Review of Systems: HEENT:Normal, CVS:Normal, RESPIRATORY:Normal, GI:Normal, :Normal, MSK:Normal, NEURO:Normal Objective vital signs Vital Sign Date Time Temp Pulse Resp B/P (MAP) Pulse Ox O2 Delivery O2 Flow Rate FiO2 08/04/24 13:56 72 16 115/63 08/04/24 12:40 98.4 95 98.4 08/04/24 08:00 Room Air* 0 21 Total Intake and Output 08/03/24 08/03/24 08/04/24 15:00 23:00 07:00 Intake Total 0 ml Output Total 450 ml Balance -450 ml medications Current Medications Medications Dose Ordered Sig/Lashell Route Start Time Stop Time Status Last Admin Dose Admin Ursodiol 600 mg BID PO 08/03/24 22:00 08/03/24 21:42 600 MG Rifaximin 550 mg BID PO 08/03/24 22:00 08/04/24 10:23 550 MG Amlodipine Besylate 5 mg DAILY PO 08/04/24 10:00 08/04/24 10:23 5 MG Atorvastatin Calcium 20 mg HS PO 08/03/24 22:00 08/03/24 21:42 20 MG Furosemide 20 mg DAILY PO 08/04/24 10:00 08/04/24 10:24 20 MG Acetaminophen/ Hydrocodone Bitart 1 tab Q4HP PRN PO 08/03/24 19:15 Ondansetron HCl 4 mg Q4HP PRN IV 08/03/24 19:15 08/03/24 21:50 4 MG Acetaminophen 650 mg Q6HP PRN PO 08/03/24 19:15 Morphine Sulfate 2 mg Q4HPRN PRN IV 08/03/24 19:15 08/04/24 13:56 2 MG Clonidine HCl 0.1 mg Q6HP PRN PO 08/04/24 00:00 Examination: GENERAL:Normal, HEENT:Normal, NECK:Normal, LUNGS:Normal, CVS:Normal, ABDOMEN:Normal, MSK:Normal, SKIN:Normal, NEURO:Normal, :Normal laboratory and microbiology Laboratory Tests 08/03/24 19:38 Test 1/8/25 19:38 Range/Units Serum Glucose 165 H 74-106 mg/dL Problem List/Assessment/Plan Problem List/Assessment/Plan #1 right hip fracture/right pubic ramus fracture: ortho eval #2 dm: ssi #3 htn #4 liver cirrhosis: cont meds #5 h/o cva #6 s/p right shoulder dislocation advance care planning- full code- time spent 19 mins Plan discussed with: Patient, Daughter Date of Service: Aug 04, 2024 Billing Provider: RADHA DOMINGO MD Common Visit Codes: [id number] INP/OBS CARE(HIGH) Secondary Visit Codes: [id number] CARE PLAN 30 MINUTES RADHA DOMINGO MD Aug 04, 2024 15:35
--- NOTE | 2024-08-04 15:43 | DVH ---
CLINICAL INFORMATION: 68 years old, Female; rule out right hip fracture. TECHNIQUE: Multisequence multiplanar MRI images of the right hip were obtained without contrast. COMPARISON: CT dated 08/03/2024, radiographs dated 08/03/2024. FINDINGS: BONES: There is focal marrow edema at the right femoral neck with subtle subcapital fracture plane ex tending to the superior/ lateral cortex. Acute fracture involving the right pubic body near the pubic symphysis near the junction of the pubic body and superior pubic ramus. JOINT: Ydno-zf-[id number] joint space narrowing in the right hip. Small to moderate right hip joint eff usion. BURSAE: Mild edema and trace fluid in the trochanteric bursae bilaterally. TENDONS: Tendinosis of the distal gluteus medius and minimus tendons. Origins of the rectus femoris t endon and hamstring tendons are intact. Distal insertion of the iliopsoas tendon is intact. MUSCLES: Normal muscle bulk. No significant atrophy. No evidence of muscle strain or tear. OTHER: Key catheter extends into the bladder. IMPRESSION: 1. Acute, subcapital right femoral neck fracture. 2. Acute fracture of the right pubic bone as detailed above. 3. Additional findings as described above.
[2024-08-04 16:36] LABS: Urine Bacteria FEW /hpf (None Seen); Urine Blood 1+ /uL (Negative); Urine Clarity Clear (Clear); Urine Color Light-Yellow (Yellow); Urine Mucus FEW (None Seen); Urine Protein, UAD TRACE (Negative); Urine Specific Gravity 1.009 (1.001-1.035); Urine Squamous Epithelial Cell None Seen /hpf (<5); Urine Urobilinogen Normal (Negative); Urine WBC 5 /hpf (0 - 5)
[2024-08-04] MEDS: ACCU-CHEK COMFORT CURVE STRIP VI SCH (17:30)
[2024-08-04] MEDS: InsuLIN REG 1unit/0.01ml Soln (100units/ml) SC SCH (17:35)
--- NOTE | 2024-08-04 17:50 | DVHINCON2 ---
Date of service: Aug 04, 2024 Reason for Consultation right hip fracture/ shoulder dislocation History of Present Illness 68 yo F sp mechanical fall -- hx of aneurysm/stroke and landed on her right side -- dislocated her right shoulder/unable to bear weight on right leg. Patient had shoulder reduced in ER. Patient accompanied with family bedside - she is able to move her leg but with pain. Past Medical History Past Medical History Chronic kidney disease, diabetes mellitus, dyslipidemia, hypertension, liver disease and dementia Past Surgical History Bilateral tubal ligation Family History: Cerebrovascular accident (CVA) G8 MOTHER G8 FATHER Family history: Cardiovascular disease G8 MOTHER G8 SISTER Family history: Diabetes mellitus Family history: Hypertension G8 MOTHER Allergies: Coded Allergies: Celecoxib (Verified Allergy, Unknown, 09/10/20) Cephalexin (Verified Allergy, Unknown, 09/10/20) Lorazepam (Verified Adverse Reaction, Unknown, 02/13/21) PATIENT BECOMES AGITATED AND EVEN MORE CONFUSED Home Meds Active Scripts Prednisone (Prednisone) 10 Mg Tab, 10 MG PO DAILY for 5 Days, #5 MG Prov:CARLITOS BRENNAN MD 07/31/24 Amoxicillin Trihydrate (Amoxicillin) 500 Mg Tab, 1 TAB PO BID for 7 Days, #14 TAB Prov:CARLITOS BRENNAN MD 07/31/24 Triamcinolone Acetonide (Triamcinolone Acetonide) 0.025 % Cre, 1 APPLIC TOP BID, #30 GRAMS Prov:THUY REYNOLDS 07/27/24 Ciprofloxacin HCl (Ophth) (Ciprofloxacin Hydrochlori) 0.3 % [place], 2 DROP OP QID, #5 ML Prov:THUY REYNOLDS 07/27/24 Sucralfate (CARAFATE SUSP) 1 Gm/10 Ml Ss, 1 GM PO QIDACHS for 30 Days, #120 ML Prov:RADHA DOMINGO MD 02/17/22 Reported Medications Albuterol Sulfate (Albuterol Sulfate) 2 Mg Tab, 90 MCG PO Q6HP PRN for NASAL CONGESTION, MG 08/04/24 Losartan Potassium (Losartan Potassium) 25 Mg Tab, 25 MG PO DAILY for 30 Days, MG 08/04/24 Meclizine Hcl (Meclizine Hcl) 12.5 Mg Tab, 12.5 MG PO BIDP PRN for DIZZINESS for 30 Days, MG 08/04/24 Furosemide (Furosemide) 20 Mg Tab, 20 MG PO DAILY for 30 Days, MG 08/04/24 Gabapentin (Gabapentin) 300 Mg Cap, 300 MG PO QID for 30 Days, MG 08/04/24 Trazodone Hcl (Trazodone Hcl) 100 Mg Tab, 100 MG PO QPM, TAB 11/25/23 Fluticasone Furoate-Vilanterol (Fluticasone Furoate/Vilan 200-25 Mcg/Act) 1 Inh Inh, 1 PUFF INH DAILY Trelegy Ellipta 200/62.5/25 Mcg/INH 1 AER 08/31/23 Aspirin (ASPIRIN 81) 81 Mg Tab, 1 TAB PO DAILY 08/31/23 Rifaximin (Xifaxan) 550 Mg Tab, 1 TAB PO BID 11/19/21 Pantoprazole Sodium Sesquihydr (Pantoprazole Sodium) 40 Mg Tab, 1 TAB PO DAILY 06/07/21 Metformin Hydrochloride (Metformin Hcl) 500 Mg Tab, 1 TAB PO BID 02/13/21 Dapagliflozin Propanediol (Farxiga) 10 Mg Tab, 1 TAB PO QAM 02/13/21 Tramadol Hcl (Tramadol Hcl) 50 Mg Tab, 1 TAB PO BID PRN for pain 02/13/21 Ursodiol (Ursodiol) 300 Mg Cap, 600 MG PO BID 02/13/21 Gabapentin (Gabapentin) 300 Mg Cap, 1 CAP PO QID 02/13/21 Atorvastatin Calcium (ATORVASTATIN CALCIUM) 20 Mg Tab, 1 TAB PO DAILY 04/26/19 Amlodipine Besylate (Amlodipine Besylate) 5 Mg Tab, 1 TAB PO DAILY 02/16/19 Current Medications Current Medications Medications (Trade) Dose Ordered Sig/Lashell Route PRN Reason Start Time Stop Time Status Last Admin Ursodiol (Actigall) 600 mg BID PO 08/03/24 22:00 08/03/24 21:42 Rifaximin (Xifaxan) 550 mg BID PO 08/03/24 22:00 08/04/24 10:23 Amlodipine Besylate (Norvasc Tablet) 5 mg DAILY PO 08/04/24 10:00 08/04/24 10:23 Atorvastatin Calcium (Lipitor) 20 mg HS PO 08/03/24 22:00 08/03/24 21:42 Furosemide (Lasix Tablet) 20 mg DAILY PO 08/04/24 10:00 08/04/24 10:24 Acetaminophen/ Hydrocodone Bitart ([place] 5/325MG Tab) 1 tab Q4HP PRN PO MODERATE PAIN (4-6 PAIN SCALE) 08/03/24 19:15 Ondansetron HCl (Zofran) 4 mg Q4HP PRN IV NAUSEA / VOMITING 08/03/24 19:15 08/03/24 21:50 Acetaminophen (Tylenol Tablet) 650 mg Q6HP PRN PO PAIN SCALE 1-3 OR TEMP>100.4 08/03/24 19:15 Morphine Sulfate 2 mg Q4HPRN PRN IV SEVERE PAIN (7-10 PAIN SCALE) 08/03/24 19:15 08/04/24 13:56 Clonidine HCl (Catapres Tablet) 0.1 mg Q6HP PRN PO SBP>160 08/04/24 00:00 Diagnostic Test (Pha) (Accu-Chek Comfort Curve T) 1 strip Q6HR 08/04/24 18:00 08/04/24 17:30 Insulin Human Regular (InsuLIN R) Q6HR SC 08/04/24 18:00 08/04/24 17:35 Dextrose 50 ml UD PRN IV Blood Sugar LESS THAN 60 08/04/24 15:30 Albuterol (Ventolin Medneb) 2.5 mg Q6HWA NEB 08/04/24 18:00 Ipratropium [place] (Atrovent Medneb) 0.5 mg Q6HWA [facility] 08/04/24 18:00 Review of Systems 10 point ROS is neg except per HPI Vital Signs Vital Signs Date Time Temp Pulse Resp B/P (MAP) Pulse Ox O2 Delivery O2 Flow Rate FiO2 08/04/24 16:43 98.2 78 16 135/63 (87) 92 98.2 08/04/24 08:00 Room Air* 0 21 Physical Exam NAD RUE: sling in place +delt/bi/tri/we/wf RLE: pain with resisted SLR able to move hip with mild pain foot wwp Labs/Diagnostic Data Labs Test 08/04/24 16:19 08/03/24 19:38 08/03/24 12:11 Range/Units Urine Color Light-yellow Yellow Urine Clarity Clear Clear Urine pH 6.0 5.0-9.0 Urine Specific [place] 1.009 1.001-1.035 Urine Protein Trace H Negative Urine Ketones Negative Negative Urine Blood 1+ H Negative /uL Urine Nitrite 2+ H Negative Urine Bilirubin Negative Negative Urine Urobilinogen Normal Negative mg/dL Urine Leukocyte Esterase 2+ Negative /uL Urine RBC 3 0 - 4 /hpf Urine WBC 5 0 - 5 /hpf Urine Squamous Epithelial Cells None seen <5 /hpf Urine Bacteria Few H None Seen /hpf Urine Mucus Few None Seen Urine Glucose Normal Normal mg/dL White Blood Count 7.4 4.4-10.8 10^3/uL Red Blood Count 4.29 4.0-5.20 10^6/uL Hemoglobin 10.6 L 12.2-16.2 g/dL Hematocrit 33.1 L 36.0-46.0 % Mean Corpuscular Volume 77.1 L 80.0-100.0 fL Mean Corpuscular Hemoglobin 24.7 L 28.0-32.0 pg Mean Corpuscular Hemoglobin Concent 32.0 32.0-36.0 g/dL Red Cell Distribution Width 19.1 H 11.8-14.3 % Platelet Count 139 L 140-450 10^3/uL Mean Platelet Volume 8.8 6.9-10.8 fL Neutrophils (%) (Auto) 85.1 H 37.0-80.0 % Lymphocytes (%) (Auto) 9.5 L 10.0-50.0 % Monocytes (%) (Auto) 5.1 0.0-12.0 % Eosinophils (%) (Auto) 0.2 0.0-7.0 % Basophils (%) (Auto) 0.1 0.0-2.0 % Neutrophils # (Auto) 6.3 1.6-8.6 10 ^3/uL Lymphocytes # (Auto) 0.7 0.4-5.4 10 ^3/uL Monocytes # (Auto) 0.4 0-1.3 10 ^3/uL Eosinophils # (Auto) 0 0-0.8 10 ^3/uL Basophils # (Auto) 0 0-0.2 10 ^3/uL Nucleated Red Blood Cells 0.1 % Prothrombin Time 12.0 H 9.3-11.8 sec Prothrombin Time INR 1.14 0.9-1.15 Activated Partial Thromboplast Time 25.9 24.5-34.5 SEC Sodium Level 137 136-145 mmol/L Potassium Level 3.8 3.5-5.1 mmol/L Chloride Level 105 98-107 mmol/L Carbon Dioxide Level 24 20-31 mmol/L Anion Gap 8 5-15 Blood Urea Nitrogen 9 9-23 mg/dL Creatinine 0.79 0.550-1.02 mg/dL Glomerular Filtration Rate Calc 82 >90 mL/min BUN/Creatinine Ratio 11.4 10.0-20.0 Serum Glucose 165 H 74-106 mg/dL Calcium Level 9.0 8.7-10.4 mg/dL Total Bilirubin 0.7 0.2-1.0 mg/dL Aspartate Amino Transferase (AST) 62 H 13-40 U/L Alanine Aminotransferase (ALT) 42 H 7-40 U/L Alkaline Phosphatase 281 H 46-116 U/L Total Protein 7.2 5.7-8.2 g/dL Albumin 3.4 3.2-4.8 g/dL POC Glucose 146 H 70-106 mg/dl Plan/Recommendation 68 yo F sp fall with Right shoulder dislocation sp reduced/ Right subcapital femoral neck fracture and inferiror pubic rami fracture 1. I had a long and thorough discussion with patient regarding condition. Questions for patient answered. Risks benefits options and alternatives reviewed in depth. Risks include but not exclusive to bleeding infection nerve injury hardware failure nonunion malunion chronic pain blood clots cardiac and pulmonary complications dislocation amputation and . Patient understands the risks and wishes to proceed with surgery. We discussed the nature of hip fractures in the elderly. 2. Plan for open reduction internal fixation of right hip fracture; can treat shoulder injury with sling 3. NPO/IVF 4. pain control Plan discussed with: Patient, Daughter, Son ELLY QUINONES MD Aug 04, 2024 17:50
[2024-08-04] MEDS: IPRATROPIUM BROM 0.5 MG/2.5ML INH SOL NEB SCH (19:30)
[2024-08-04] MEDS: ALBUTEROL SULF 2.5 MG/0.5ML(0.5%) NEB SOLN NEB SCH (19:30)
[2024-08-05] VITALS (14 sets, daily range): BP systolic 113–146; BP diastolic 62–92; PULSE 71–83; RESP 14–18; TEMP 97.3–98.3; O2SAT 86–99
[2024-08-05 09:00] LABS: Basophils # (auto) 0 10 ^3/uL (0-0.2); Eosinophils # (auto) 0.2 10 ^3/uL (0-0.8); Hematocrit 34.4 % (36.0-46.0); Lymphocytes # (auto) 0.9 10 ^3/uL (0.4-5.4); Monocytes # (auto) 0.5 10 ^3/uL (0-1.3); Platelet Count (auto) 119 10^3/uL (140-450)
[2024-08-05 09:04] LABS: Basophils % (auto) 0.4 % (0.0-2.0); Mean Corpuscular Hemoglobin 24.6 pg (28.0-32.0); Mean Corpuscular Volume 76.7 fL (80.0-100.0); Monocytes % (auto) 7.7 % (0.0-12.0); Neutrophils # (auto) 4.6 10 ^3/uL (1.6-8.6); Neutrophils % (auto) 74.9 % (37.0-80.0); Red Blood Cells 4.49 10^6/uL (4.0-5.20); Red Cell Distribution Width 19.2 % (11.8-14.3); White Blood Cell 6.2 10^3/uL (4.4-10.8)
[2024-08-05 09:07] LABS: Alanine Aminotransferase 29 U/L (7-40); Albumin 3.3 g/dL (3.2-4.8); Anion Gap 6 (5-15); Aspartate Aminotransferase 37 U/L (13-40); BUN/Creatinine Ratio 14.9 (10.0-20.0); Blood Urea Nitrogen 11 mg/dL (9-23); Calcium 9.2 mg/dL (8.7-10.4); Carbon Dioxide 28 mmol/L (20-31); Chloride 105 mmol/L (98-107); Sodium 139 mmol/L (136-145)
[2024-08-05 09:09] LABS: Bilirubin, Total 0.8 mg/dL (0.2-1.0); Total Protein 6.8 g/dL (5.7-8.2)
[2024-08-05 09:12] LABS: Alkaline Phosphatase 246 U/L (46-116); Glucose 111 mg/dL (74-106); Potassium 3.3 mmol/L (3.5-5.1)
[2024-08-05] MEDS: ceFAZolin 2 GM/D5W100ml 100 ML IV ONE (14:58)
[2024-08-05] MEDS ORDERED: MIDAZOLAM HCL 2MG/2ML 2ml VIAL (1mg/ml) ONE (15:00)
[2024-08-05] MEDS ORDERED: MEPERIDINE HCL (25 MG/ML) 1ML VIAL ONE (15:00)
[2024-08-05] MEDS ORDERED: fentaNYL CITRATE 100 MCG/2 ML VL ONE (15:00)
--- NOTE | 2024-08-05 15:04 | DVH ---
CHEST RADIOGRAPH Indication: PRE-OP SURGERY Technique: Single frontal view of the chest was obtained Comparison: XY CHEST PORTABLE on DOS: 07/31/24, XY CHEST PORTABLE on DOS: 08/30/23, CHEST PORTABLE on DOS : 02/14/22 FINDINGS: Lines and Tubes: None Lungs: No focal consolidation. Pleura: No effusion. No pneumothorax. Cardiomediastinal contours: Unremarkable Bones: No acute osseous abnormality. IMPRESSION: 1. No acute cardiopulmonary disease.
[2024-08-05] MEDS ORDERED: PROPOFOL 10 MG/ML 20 ML IV ONE (15:05)
[2024-08-05] MEDS ORDERED: DexAMETHasone SOD PHOS 10MG/1ML VIAL INJ ONE (15:05)
[2024-08-05] MEDS ORDERED: KETAMINE 50mg/ML 1ml syringe ONE (15:06)
[2024-08-05] MEDS: BUPIVACAINE 0.5% P/F INJ 10 ML VIAL ONE (15:15)
[2024-08-05] MEDS: BUPIVACAINE HCL 0.25% P/F 10 ML VIAL ONE (15:25)
--- NOTE | 2024-08-05 15:53 | DVHPN2 ---
Subjective Continues to have hip pain Reviewed: Care Plan, H&P, Labs, Medications Changes from previous H/P or p: No Changes General: Per HPI Objective Vitals Vital Signs Date Time Temp Pulse Resp B/P (MAP) Pulse Ox O2 Delivery O2 Flow Rate FiO2 08/05/24 13:12 98.3 71 18 133/92 (106) 93 98.3 08/05/24 12:28 Nasal Cannula* 1 24 Intake/Output Intake and Output 08/05/24 07:00 Intake Total 975 ml Output Total 1050 ml Balance -75 ml Intake Oral 975 ml Output Urine Total 1050 ml General Appearance: Alert, Oriented X3, Cooperative, No acute distress HEENT: Atraumatic, PERRLA Lungs: Clear to auscultation, Normal air movement Cardiovascular: Normal S1, Normal S2 Abdomen: Normal bowel sounds Musculoskeletal: Normal sensory function, Normal motor function Neuro: Normal speech Psych/Mental Status: Mental status NL, Mood NL Medications Current Medications Medications Dose Ordered Sig/Lashell Route Start Time Stop Time Status Last Admin Dose Admin Ursodiol 600 mg BID PO 08/03/24 22:00 08/05/24 08:38 600 MG Rifaximin 550 mg BID PO 08/03/24 22:00 08/05/24 08:37 550 MG Amlodipine Besylate 5 mg DAILY PO 08/04/24 10:00 08/05/24 08:37 5 MG Atorvastatin Calcium 20 mg HS PO 08/03/24 22:00 08/04/24 21:25 20 MG Furosemide 20 mg DAILY PO 08/04/24 10:00 08/05/24 08:37 20 MG Acetaminophen/ Hydrocodone Bitart 1 tab Q4HP PRN PO 08/03/24 19:15 Ondansetron HCl 4 mg Q4HP PRN IV 08/03/24 19:15 08/03/24 21:50 4 MG Acetaminophen 650 mg Q6HP PRN PO 08/03/24 19:15 Morphine Sulfate 2 mg Q4HPRN PRN IV 08/03/24 19:15 08/05/24 08:38 2 MG Clonidine HCl 0.1 mg Q6HP PRN PO 08/04/24 00:00 Diagnostic Test (Pha) 1 strip Q6HR 08/04/24 18:00 08/05/24 11:45 1 STRIP Insulin Human Regular Q6HR SC 08/04/24 18:00 08/05/24 00:34 2 UNITS Dextrose 50 ml UD PRN IV 08/04/24 15:30 Albuterol 2.5 mg Q6HWA [facility] 08/04/24 18:00 08/05/24 12:28 2.5 MG Ipratropium [place] 0.5 mg Q6HWA [facility] 08/04/24 18:00 08/05/24 12:28 0.5 MG Cefazolin Sodium 50 ml @ 100 mls/hr Q8HR IV 08/05/24 22:00 08/06/24 14:29 Laboratory Results Laboratory Tests 08/05/24 07:07 Chemistry Test 08/05/24 07:07 Albumin 3.3 g/dL (3.2-4.8) Calcium Level 9.2 mg/dL (8.7-10.4) Total Protein 6.8 g/dL (5.7-8.2) LFT Test 08/05/24 07:07 Alanine Aminotransferase (ALT) 29 U/L (7-40) Alkaline Phosphatase 246 U/L (46-116) H Aspartate Amino Transferase (AST) 37 U/L (13-40) Total Bilirubin 0.8 mg/dL (0.2-1.0) HgA1c, TSH Test 08/05/24 07:07 Hemoglobin A1c 6.3 % A1C (<5.7) H Urinalysis Test 08/04/24 16:19 Urine Color Light-yellow (Yellow) Urine Clarity Clear (Clear) Urine pH 6.0 (5.0-9.0) Urine Specific [place] 1.009 (1.001-1.035) Urine Protein Trace (Negative) H Urine Ketones Negative (Negative) Urine Blood 1+ /uL (Negative) H Urine Nitrite 2+ (Negative) H Urine Bilirubin Negative (Negative) Urine Urobilinogen Normal mg/dL (Negative) Urine Leukocyte Esterase 2+ /uL (Negative) Urine RBC 3 /hpf (0 - 4) Urine WBC 5 /hpf (0 - 5) Urine Squamous Epithelial Cells None seen /hpf (<5) Urine Bacteria Few /hpf (None Seen) H Urine Mucus Few (None Seen) Urine Glucose Normal mg/dL (Normal) Labs and/or images reviewed: Labs reviewed by me, Image(s) reviewed by me Assessment/Plan Assessment/Plan Impression: -right hip fracture involving pubic ramus as well as right femoral neck -diabetes mellitus -primary hypertension -liver cirrhosis -history of CVA -right hip dislocation, status post closed reduction Plan: -patient to OR for ORIF of right hip -continue antihypertensives -regular insulin sliding scale -pain management -repeat labs in a.m. -further course of care per Orthopedic surgery Total time spent with patient discussing and formulating plan of care: 35 minutes. This medical document was created using an electronic medical record system with [employer] dictation system. Although this document has been carefully reviewed, there may still be some phonetic and typographical errors. These areas are purely typographical due to imperfections of the software programs, and do not reflect any compromise in the patient's medical care. Plan discussed with: Patient, Other (RN) My Orders Orders - KEVIN ROJAS NP Procedure Category Date Status Time Complete Blood Count LAB 08/06/24 Verified 04:00 Date of Service: Aug 05, 2024 Billing Provider: KEVIN ROJAS NP Common Visit Codes: [id number] INP/OBS CARE(HIGH) KEVIN ROJAS NP Aug 05, 2024 15:53
[2024-08-05] MEDS ORDERED: MIDAZOLAM HCL 2MG/2ML 2ml VIAL (1mg/ml) IV PRN (16:15)
[2024-08-05] MEDS ORDERED: hydrALAZINE HCL 20 MG/ML VL IV PRN (16:15)
[2024-08-05] MEDS ORDERED: MORPHINE SULFATE 4 MG/ML SYR/VIAL IV PRN (16:15)
[2024-08-05] MEDS: HYDROmorphone HCL 2 MG/ML VL/or syr ONE (16:15)
[2024-08-05] MEDS: ONDANSETRON HCL 4 MG/2 ML VIAL IV ONE (16:15)
[2024-08-05] MEDS ORDERED: HYDROmorphone HCL 2 MG/ML VL/or syr IV PRN (16:15)
[2024-08-05] MEDS ORDERED: ePHEDrine SULFATE 50 MG/ML AMP IV PRN (16:15)
--- NOTE | 2024-08-05 17:18 | DVH ---
CLINICAL INDICATION: ORIF RIGHT HIP TECHNIQUE: 6 radiographic views of the open reduction internal fixation of a right hip were obtained. Comparison: XY R HIP COMPLETE XRAY on DOS: 08/03/24 FINDINGS/IMPRESSION: Total fluoro time 32.7 seconds Cumulative dose: 4.39 mGy
--- NOTE | 2024-08-05 17:40 | DVH ---
C-ARM FLUOROSCOPY: PROCEDURE: Right hip ORIF FLUOROSCOPY TIME: 32.7 seconds DAP: 4.39 mgy FINDINGS: Spot intraoperative C arm radiographs demonstrating placement of 2 partially cannulated screws in the femoral neck screw at the base of the neck. IMPRESSION: 1. Please refer to surgical report for detailed findings.
[2024-08-05] MEDS: ceFAZolin 1GM/50ML 50 ML IV SCH (21:21)
[2024-08-06] VITALS (13 sets, daily range): BP systolic 106–137; BP diastolic 57–70; PULSE 64–78; RESP 14–20; TEMP 97.4–98.3; O2SAT 91–100
[2024-08-06 06:41] LABS: Basophils # (auto) 0 10 ^3/uL (0-0.2); Basophils % (auto) 0.1 % (0.0-2.0); Eosinophils # (auto) 0 10 ^3/uL (0-0.8); Hemoglobin 11.2 g/dL (12.2-16.2); Lymphocytes # (auto) 0.5 10 ^3/uL (0.4-5.4); Mean Corpuscular Hgb Conc. 32.4 g/dL (32.0-36.0); Monocytes # (auto) 0.4 10 ^3/uL (0-1.3); Neutrophils # (auto) 6.3 10 ^3/uL (1.6-8.6); White Blood Cell 7.3 10^3/uL (4.4-10.8)
[2024-08-06 06:45] LABS: Hematocrit 34.5 % (36.0-46.0); Lymphocytes % (auto) 7.2 % (10.0-50.0); Mean Corpuscular Hemoglobin 24.5 pg (28.0-32.0); Mean Corpuscular Volume 75.7 fL (80.0-100.0); Monocytes % (auto) 5.4 % (0.0-12.0); Neutrophils % (auto) 87.3 % (37.0-80.0); Platelet Count (auto) 128 10^3/uL (140-450); Red Blood Cells 4.56 10^6/uL (4.0-5.20); Red Cell Distribution Width 18.4 % (11.8-14.3)
--- NOTE | 2024-08-06 17:19 | DVHPN2 ---
Subjective Patient was states that her hip pain has improving. Reviewed: Care Plan, H&P, Labs, Medications Changes from previous H/P or p: Changes General: Per HPI Objective Vitals Vital Signs Date Time Temp Pulse Resp B/P (MAP) Pulse Ox O2 Delivery O2 Flow Rate FiO2 08/06/24 17:12 97.9 75 17 119/64 (82) 95 97.9 08/06/24 12:00 Nasal Cannula* 1 24 Intake/Output Intake and Output 08/06/24 07:00 Intake Total 990 ml Output Total 1725 ml Balance -735 ml Intake Oral 890 ml IV Total 100 ml Output Urine Total 1725 ml Stool Total 0 ml General Appearance: Alert, Oriented X3, Cooperative, No acute distress HEENT: Atraumatic, PERRLA Lungs: Clear to auscultation, Normal air movement Cardiovascular: Normal S1, Normal S2 Abdomen: Normal bowel sounds Musculoskeletal: Normal sensory function, Normal motor function Neuro: Normal speech Psych/Mental Status: Mental status NL, Mood NL Medications Current Medications Medications Dose Ordered Sig/Lashell Route Start Time Stop Time Status Last Admin Dose Admin Ursodiol 600 mg BID PO 08/03/24 22:00 08/06/24 09:36 600 MG Rifaximin 550 mg BID PO 08/03/24 22:00 08/06/24 09:34 550 MG Amlodipine Besylate 5 mg DAILY PO 08/04/24 10:00 08/06/24 09:35 5 MG Atorvastatin Calcium 20 mg HS PO 08/03/24 22:00 08/05/24 21:20 20 MG Furosemide 20 mg DAILY PO 08/04/24 10:00 08/06/24 09:35 20 MG Acetaminophen/ Hydrocodone Bitart 1 tab Q4HP PRN PO 08/03/24 19:15 Ondansetron HCl 4 mg Q4HP PRN IV 08/03/24 19:15 08/03/24 21:50 4 MG Acetaminophen 650 mg Q6HP PRN PO 08/03/24 19:15 Morphine Sulfate 2 mg Q4HPRN PRN IV 08/03/24 19:15 08/06/24 10:30 2 MG Clonidine HCl 0.1 mg Q6HP PRN PO 08/04/24 00:00 Diagnostic Test (Pha) 1 strip Q6HR 08/04/24 18:00 08/06/24 11:58 1 STRIP Insulin Human Regular Q6HR SC 08/04/24 18:00 08/06/24 05:56 2 UNITS Dextrose 50 ml UD PRN IV 08/04/24 15:30 Albuterol 2.5 mg Q6HWA [facility] 08/04/24 18:00 08/06/24 12:00 2.5 MG Ipratropium [place] 0.5 mg Q6HWA [facility] 08/04/24 18:00 08/06/24 12:00 0.5 MG Laboratory Results Laboratory Tests 08/05/24 07:07 08/06/24 06:20 Urinalysis Test 08/04/24 16:19 Urine Color Light-yellow (Yellow) Urine Clarity Clear (Clear) Urine pH 6.0 (5.0-9.0) Urine Specific [place] 1.009 (1.001-1.035) Urine Protein Trace (Negative) H Urine Ketones Negative (Negative) Urine Blood 1+ /uL (Negative) H Urine Nitrite 2+ (Negative) H Urine Bilirubin Negative (Negative) Urine Urobilinogen Normal mg/dL (Negative) Urine Leukocyte Esterase 2+ /uL (Negative) Urine RBC 3 /hpf (0 - 4) Urine WBC 5 /hpf (0 - 5) Urine Squamous Epithelial Cells None seen /hpf (<5) Urine Bacteria Few /hpf (None Seen) H Urine Mucus Few (None Seen) Urine Glucose Normal mg/dL (Normal) Labs and/or images reviewed: Labs reviewed by me, Image(s) reviewed by me Assessment/Plan Assessment/Plan Impression: -right hip fracture involving pubic ramus as well as right femoral neck -diabetes mellitus -primary hypertension -liver cirrhosis -history of CVA -right hip dislocation, status post closed reduction Plan: -day one ORIF to right hip. Dressing dry and intact. -physical therapy -continue antihypertensives -regular insulin sliding scale -pain management -repeat labs in a.m. Total time spent with patient discussing and formulating plan of care: 35 minutes. This medical document was created using an electronic medical record system with [employer] system. Although this document has been carefully reviewed, there may still be some phonetic and typographical errors. These areas are purely typographical due to imperfections of the software programs, and do not reflect any compromise in the patient's medical care. Plan discussed with: Patient, Other (RN) Date of Service: Aug 06, 2024 Billing Provider: KEVIN ROJAS NP Common Visit Codes: [id number] INP/OBS CARE(HIGH) KEVIN ROJAS NP Aug 06, 2024 17:19
[2024-08-06] MEDS: DOCUSATE SOD 100 MG CAP PO SCH (21:11)
[2024-08-07] VITALS (18 sets, daily range): BP systolic 101–138; BP diastolic 53–70; PULSE 70–94; RESP 14–18; TEMP 97.9–98.6; O2SAT 92–100
--- NOTE | 2024-08-07 09:42 | DVHOP2 ---
Operative Report - 2 Report Details Date: 08/05/24 Preop Diagnosis: Right femoral neck fracture Postop Diagnosis: Right femoral neck fracture Surgeon: Josue Abdi MD Anesthesiologist: Thor GUERRERO Anesthesia: Mac, Local Implant: Shoulder FX 8.0 screw x 2; locking screw x 1 Consent: The patient was informed of the risks and benefits of the procedure. These include but are not limited to complications of anesthesia, postoperative infection, incomplete relief of symptoms, recurrence of symptoms, damage to blood vessels, nerves and tendons, deep venous thrombosis, pulmonary embolism and possible need for repeat surgery in the future. Estimated Blood Loss: 50 cc Name of Procedure Performed Closed reduction internal fixation of right hip fracture; intraop fluoro Procedure Details Procedure Details: In the preoperative holding area, the consent was reviewed and the appropriate extremity was verified by the patient and marked with my initials. The patient was then transferred to the operating theatre. Patient was placed on a fracture table. Appropriate anesthetia was induced. All bony prominences were well padded. A time out was performed verifying the side and site of surgery according to standard protocol. Preoperative antibiotics were given. The extremity was then prepped and draped in the usual sterile fashion. An incision was made over femur. Two guide pins then drilled in the center of the femoral head and one off axis confirmed using fluoroscopy. We measured the screw lengths. Using a cannulated drill, we drilled the lateral cortex. The screws were then introduced. Once positioned, we once again confirmed that the screws were with the femoral head. Locking screw placed from greater troch to lesser troch through top icer. Final xrays were taken showing the hardware in perfect position. The wound was copiously irrigated. No fractures were seen on the rest of the femur. The fascia was closed with #1 Vicryl, the skin closed #2-0 Vicryl, and jeramy. A dry sterile dressing was placed on the patient. The patient was transferred to the recovery room in stable condition. Condition Good Disposition Still a Patient JOSUE ABDI MD Aug 07, 2024 09:42
--- NOTE | 2024-08-07 13:04 | DVHPN2 ---
Subjective Patient was states that her hip pain has improving. Reviewed: Care Plan, H&P, Labs, Medications Changes from previous H/P or p: No Changes General: Per HPI Objective Vitals Vital Signs Date Time Temp Pulse Resp B/P (MAP) Pulse Ox O2 Delivery O2 Flow Rate FiO2 08/07/24 12:56 84 16 111/55 08/07/24 11:57 100 08/07/24 09:57 Nasal Cannula 2.0 08/07/24 09:57 28 08/07/24 09:00 98.3 98.3 Intake/Output Intake and Output 08/07/24 07:00 Intake Total 900 ml Output Total 1050 ml Balance -150 ml Intake Oral 900 ml Output Urine Total 1050 ml General Appearance: Alert, Oriented X3, Cooperative, No acute distress HEENT: Atraumatic, PERRLA Lungs: Clear to auscultation, Normal air movement Cardiovascular: Normal S1, Normal S2 Abdomen: Normal bowel sounds Musculoskeletal: Normal sensory function, Normal motor function Neuro: Normal speech Skin: Dry, Intact, Warm Psych/Mental Status: Mental status NL, Mood NL Medications Current Medications Medications Dose Ordered Sig/Lashell Route Start Time Stop Time Status Last Admin Dose Admin Ursodiol 600 mg BID PO 08/03/24 22:00 08/07/24 09:53 600 MG Rifaximin 550 mg BID PO 08/03/24 22:00 08/07/24 09:51 550 MG Amlodipine Besylate 5 mg DAILY PO 08/04/24 10:00 08/07/24 09:51 5 MG Atorvastatin Calcium 20 mg HS PO 08/03/24 22:00 08/06/24 21:11 20 MG Furosemide 20 mg DAILY PO 08/04/24 10:00 08/07/24 09:53 20 MG Acetaminophen/ Hydrocodone Bitart 1 tab Q4HP PRN PO 08/03/24 19:15 Ondansetron HCl 4 mg Q4HP PRN IV 08/03/24 19:15 08/03/24 21:50 4 MG Acetaminophen 650 mg Q6HP PRN PO 08/03/24 19:15 Morphine Sulfate 2 mg Q4HPRN PRN IV 08/03/24 19:15 08/07/24 12:26 2 MG Clonidine HCl 0.1 mg Q6HP PRN PO 08/04/24 00:00 Diagnostic Test (Pha) 1 strip Q6HR 08/04/24 18:00 08/07/24 11:18 1 STRIP Insulin Human Regular Q6HR SC 08/04/24 18:00 08/07/24 11:31 2 UNITS Dextrose 50 ml UD PRN IV 08/04/24 15:30 Albuterol 2.5 mg Q6HWA [facility] 08/04/24 18:00 08/07/24 11:49 2.5 MG Ipratropium [place] 0.5 mg Q6HWA [facility] 08/04/24 18:00 08/07/24 11:49 0.5 MG Docusate Sodium 100 mg BID PO 08/06/24 22:00 08/07/24 09:52 100 MG Laboratory Results Laboratory Tests 08/05/24 07:07 08/06/24 06:20 Urinalysis Test 08/04/24 16:19 Urine Color Light-yellow (Yellow) Urine Clarity Clear (Clear) Urine pH 6.0 (5.0-9.0) Urine Specific [place] 1.009 (1.001-1.035) Urine Protein Trace (Negative) H Urine Ketones Negative (Negative) Urine Blood 1+ /uL (Negative) H Urine Nitrite 2+ (Negative) H Urine Bilirubin Negative (Negative) Urine Urobilinogen Normal mg/dL (Negative) Urine Leukocyte Esterase 2+ /uL (Negative) Urine RBC 3 /hpf (0 - 4) Urine WBC 5 /hpf (0 - 5) Urine Squamous Epithelial Cells None seen /hpf (<5) Urine Bacteria Few /hpf (None Seen) H Urine Mucus Few (None Seen) Urine Glucose Normal mg/dL (Normal) Labs and/or images reviewed: Labs reviewed by me, Image(s) reviewed by me Assessment/Plan Assessment/Plan Impression: -right hip fracture involving pubic ramus as well as right femoral neck -diabetes mellitus -primary hypertension -liver cirrhosis -history of CVA -right shoulder dislocation, status post closed reduction -UTI Plan: -events: Patient receiving physical therapy, noted range of motion, passive to right upper extremity. -physical therapy -Macrobid 100 mg p.o. b.i.d. -continue antihypertensives -regular insulin sliding scale -pain management -repeat labs in a.m. Total time spent with patient discussing and formulating plan of care: 35 minutes. This medical document was created using an electronic medical record system with [employer] dictation system. Although this document has been carefully reviewed, there may still be some phonetic and typographical errors. These areas are purely typographical due to imperfections of the software programs, and do not reflect any compromise in the patient's medical care. Plan discussed with: Patient, Other (Rn) My Orders Orders - KEVIN ROJAS NP Procedure Category Date Status Time Docusate Sodium PHA 08/06/24 In Process Capsule (Colace 22:00 Date of Service: Aug 07, 2024 Billing Provider: KEVIN ROJAS NP Common Visit Codes: [id number] INP/OBS CARE(HIGH) KEVIN ROJAS NP Aug 07, 2024 13:04
[2024-08-07] MEDS: HYDROcodone-ACET 5/325MG TAB PO PRN (15:51)
[2024-08-07] MEDS: NITROFURANTOIN 100 mg CAP PO SCH (21:16)
[2024-08-08] VITALS (14 sets, daily range): BP systolic 112–129; BP diastolic 59–75; PULSE 68–84; RESP 16–18; TEMP 97.8–98.5; O2SAT 93–100
--- NOTE | 2024-08-08 10:54 | ECG ---
[facility] Test Date: 2024-08-05 Test Time: 13:41:45 Pat Name: NICOLE OROPEZA Department: Room: 0290 B Gender: F [employer] Teacher: daniela : 1955 Requested By: ELLY QUINONES Order Number: [id number] Reading MD: Shamika Nur Measurements Intervals [place] Rate: 81 P: 27 IN: 173 QRS: -13 QRSD: 80 T: 1 QT: 383 QTc: 445 Interpretive Statements Incomplete analysis due to missing data in precordial lead(s) Sinus rhythm Borderline T wave abnormalities Missing lead(s): V3 Electronically Signed On 08-09-2024 12:04:19 PST by Shamika Nur Please click the below link to view image of tracing.
--- NOTE | 2024-08-08 11:45 | DVHPN2 ---
Progress Note Date Seen: Aug 08, 2024 Medical Necessity Reason Pt with a Central, PICC or Fol: Yes The following are medically ne: Guadarrama Catheter Reason for guadarrama catheter: Strict I&O Subjective Patient reports: No new complaints Review of Systems: HEENT:Normal, CVS:Normal, RESPIRATORY:Normal, GI:Normal, :Normal, MSK:Normal, NEURO:Normal Objective vital signs Vital Sign Date Time Temp Pulse Resp B/P (MAP) Pulse Ox O2 Delivery O2 Flow Rate FiO2 08/08/24 11:08 136/55 08/08/24 09:48 74 16 08/08/24 08:48 97.8 98 97.8 08/08/24 07:01 Nasal Cannula 2.0 08/08/24 07:01 28 Total Intake and Output 08/07/24 08/07/24 08/08/24 15:00 23:00 07:00 Intake Total 120 ml 420 ml 150 ml Output Total 600 ml 225 ml Balance 120 ml -180 ml -75 ml medications Current Medications Medications Dose Ordered Sig/Lashell Route Start Time Stop Time Status Last Admin Dose Admin Ursodiol 600 mg BID PO 08/03/24 22:00 08/08/24 11:17 600 MG Rifaximin 550 mg BID PO 08/03/24 22:00 08/08/24 11:07 550 MG Amlodipine Besylate 5 mg DAILY PO 08/04/24 10:00 08/08/24 11:08 5 MG Atorvastatin Calcium 20 mg HS PO 08/03/24 22:00 08/07/24 21:15 20 MG Furosemide 20 mg DAILY PO 08/04/24 10:00 08/08/24 11:07 20 MG Acetaminophen/ Hydrocodone Bitart 1 tab Q4HP PRN PO 08/03/24 19:15 08/08/24 01:35 1 TAB Ondansetron HCl 4 mg Q4HP PRN IV 08/03/24 19:15 08/03/24 21:50 4 MG Acetaminophen 650 mg Q6HP PRN PO 08/03/24 19:15 Morphine Sulfate 2 mg Q4HPRN PRN IV 08/03/24 19:15 08/08/24 09:18 2 MG Clonidine HCl 0.1 mg Q6HP PRN PO 08/04/24 00:00 Diagnostic Test (Pha) 1 strip Q6HR 08/04/24 18:00 08/08/24 05:23 1 STRIP Insulin Human Regular Q6HR SC 08/04/24 18:00 08/07/24 23:31 2 UNITS Dextrose 50 ml UD PRN IV 08/04/24 15:30 Albuterol 2.5 mg Q6HWA [facility] 08/04/24 18:00 08/08/24 07:01 2.5 MG Ipratropium [place] 0.5 mg Q6HWA [facility] 08/04/24 18:00 08/08/24 07:01 0.5 MG Docusate Sodium 100 mg BID PO 08/06/24 22:00 08/08/24 11:07 100 MG Nitrofurantoin Macrocrystals 100 mg BID PO 08/07/24 22:00 08/08/24 11:07 100 MG Enteral Nutritional Formula 240 ml TIDWM PO 08/08/24 12:00 Examination: GENERAL:Normal, HEENT:Normal, NECK:Normal, LUNGS:Normal, CVS:Normal, ABDOMEN:Normal, MSK:Normal, SKIN:Normal, NEURO:Normal, :Normal laboratory and microbiology Laboratory Tests 08/06/24 06:20 08/05/24 07:07 Test 08/05/24 07:07 Range/Units Serum Glucose 111 H 74-106 mg/dL Problem List/Assessment/Plan Problem List/Assessment/Plan #1 right hip fracture/right pubic ramus fracture: s/p hip surgery #2 dm: ssi #3 htn #4 liver cirrhosis: cont meds #5 h/o cva #6 s/p right shoulder dislocation #7 uti: macrobid advance care planning- full code- time spent 19 mins Plan discussed with: Patient, Daughter My Orders My Orders Orders - RADHA DOMINGO MD Procedure Category Date Status Time Complete Blood Count LAB 08/09/24 Verified 06:00 Comprehensive LAB 08/09/24 Verified Metabolic Panel 06:00 Date of Service: Aug 08, 2024 Billing Provider: RADHA DOMINGO MD Common Visit Codes: [id number] INP/OBS CARE(HIGH) RADHA DOMINGO MD Aug 08, 2024 11:45
[2024-08-08] MEDS: ENSURE CLEAR Mixed Berry 8oz Carton PO SCH (12:18)
[2024-08-08] MEDS ORDERED: PHENYLEPHRINE HCL 10 MG/ML VL IV ONE (12:59)
[2024-08-08] MEDS: ALBUTEROL SULF 2.5 MG/0.5ML(0.5%) NEB SOLN ONE (18:50)
[2024-08-08] MEDS: IPRATROPIUM BROM 0.5 MG/2.5ML INH SOL ONE (18:50)
[2024-08-09] VITALS (11 sets, daily range): BP systolic 107–130; BP diastolic 57–73; PULSE 77–88; RESP 16–20; TEMP 97.9–98.5; O2SAT 94–100
[2024-08-09 07:39] LABS: Alanine Aminotransferase 17 U/L (7-40); Albumin 3.2 g/dL (3.2-4.8); Anion Gap 8 (5-15); Aspartate Aminotransferase 25 U/L (13-40); BUN/Creatinine Ratio 20.3 (10.0-20.0); Bilirubin, Total 0.6 mg/dL (0.2-1.0); Blood Urea Nitrogen 13 mg/dL (9-23); Calcium 9.1 mg/dL (8.7-10.4); Carbon Dioxide 29 mmol/L (20-31); Chloride 104 mmol/L (98-107); Sodium 141 mmol/L (136-145); Total Protein 6.7 g/dL (5.7-8.2)
[2024-08-09 07:41] LABS: Alkaline Phosphatase 244 U/L (46-116); Glucose 115 mg/dL (74-106); Potassium 3.4 mmol/L (3.5-5.1)
[2024-08-09 07:43] LABS: Basophils # (auto) 0 10 ^3/uL (0-0.2); Eosinophils # (auto) 0.2 10 ^3/uL (0-0.8); Hemoglobin 11.1 g/dL (12.2-16.2); Monocytes # (auto) 0.4 10 ^3/uL (0-1.3); Red Blood Cells 4.57 10^6/uL (4.0-5.20); Red Cell Distribution Width 18.6 % (11.8-14.3)
[2024-08-09 07:45] LABS: Basophils % (auto) 0.5 % (0.0-2.0); Eosinophils % (auto) 3.7 % (0.0-7.0); Hematocrit 35.1 % (36.0-46.0); Lymphocytes # (auto) 0.7 10 ^3/uL (0.4-5.4); Lymphocytes % (auto) 14.2 % (10.0-50.0); Mean Corpuscular Hemoglobin 24.3 pg (28.0-32.0); Mean Corpuscular Hgb Conc. 31.7 g/dL (32.0-36.0); Mean Corpuscular Volume 76.7 fL (80.0-100.0); Monocytes % (auto) 7.4 % (0.0-12.0); Neutrophils # (auto) 3.8 10 ^3/uL (1.6-8.6); Neutrophils % (auto) 74.2 % (37.0-80.0); Nucleated Red Blood Cells % 0.2 %; Platelet Count (auto) 121 10^3/uL (140-450); White Blood Cell 5.2 10^3/uL (4.4-10.8)
--- NOTE | 2024-08-09 11:39 | DVHPN2 ---
Progress Note Date Seen: Aug 09, 2024 Medical Necessity Reason Pt with a Central, PICC or Fol: Yes The following are medically ne: Guadarrama Catheter Reason for guadarrama catheter: Strict I&O Subjective Patient reports: No new complaints Review of Systems: HEENT:Normal, CVS:Normal, RESPIRATORY:Normal, GI:Normal, :Normal, MSK:Normal, NEURO:Normal Objective vital signs Vital Sign Date Time Temp Pulse Resp B/P (MAP) Pulse Ox O2 Delivery O2 Flow Rate FiO2 08/09/24 11:34 79 16 100 08/09/24 11:28 Room Air* 0 21 08/09/24 09:41 115/73 08/09/24 05:00 98.5 98.5 Total Intake and Output 08/08/24 08/08/24 08/09/24 15:00 23:00 07:00 Intake Total 300 ml 200 ml Output Total 150 ml Balance 150 ml 200 ml medications Current Medications Medications Dose Ordered Sig/[place]hell Route Start Time Stop Time Status Last Admin Dose Admin Ursodiol 600 mg BID PO 08/03/24 22:00 08/09/24 09:40 600 MG Rifaximin 550 mg BID PO 08/03/24 22:00 08/09/24 09:40 550 MG Amlodipine Besylate 5 mg DAILY PO 08/04/24 10:00 08/09/24 09:39 5 MG Atorvastatin Calcium 20 mg HS PO 08/03/24 22:00 08/08/24 21:58 20 MG Furosemide 20 mg DAILY PO 08/04/24 10:00 08/09/24 09:39 20 MG Acetaminophen/ Hydrocodone Bitart 1 tab Q4HP PRN PO 08/03/24 19:15 08/08/24 12:07 1 TAB Ondansetron HCl 4 mg Q4HP PRN IV 08/03/24 19:15 08/03/24 21:50 4 MG Acetaminophen 650 mg Q6HP PRN PO 08/03/24 19:15 Morphine Sulfate 2 mg Q4HPRN PRN IV 08/03/24 19:15 08/09/24 09:41 2 MG Clonidine HCl 0.1 mg Q6HP PRN PO 08/04/24 00:00 Diagnostic Test (Pha) 1 strip Q6HR 08/04/24 18:00 08/09/24 05:15 1 STRIP Insulin Human Regular Q6HR SC 08/04/24 18:00 08/09/24 00:40 3 UNITS Dextrose 50 ml UD PRN IV 08/04/24 15:30 Albuterol 2.5 mg Q6HWA [facility] 08/04/24 18:00 08/09/24 11:28 2.5 MG Ipratropium [place] 0.5 mg Q6HWA [facility] 08/04/24 18:00 08/09/24 11:28 0.5 MG Docusate Sodium 100 mg BID PO 08/06/24 22:00 08/09/24 09:39 100 MG Nitrofurantoin Macrocrystals 100 mg BID PO 08/07/24 22:00 08/09/24 09:39 100 MG Enteral Nutritional Formula 240 ml TIDWM PO 08/08/24 12:00 08/09/24 08:00 240 ML Examination: GENERAL:Normal, HEENT:Normal, NECK:Normal, LUNGS:Normal, CVS:Normal, ABDOMEN:Normal, MSK:Normal, SKIN:Normal, NEURO:Normal, :Normal laboratory and microbiology Laboratory Tests 08/09/24 05:51 Test 08/09/24 05:51 Range/Units Serum Glucose 115 H 74-106 mg/dL Problem List/Assessment/Plan Problem List/Assessment/Plan #1 right hip fracture/right pubic ramus fracture: s/p hip surgery #2 dm: ssi #3 htn #4 liver cirrhosis: cont meds #5 h/o cva #6 s/p right shoulder dislocation #7 uti: macrobid advance care planning- full code- time spent 19 mins Plan discussed with: Patient Dietary Evaluation Review Comments: Recommend a 2 g Na CCHO-60 Lo fat Lo chol diet Expected Outcomes/Goals: controlled DM, lab values WNL Date of Service: Aug 09, 2024 Billing Provider: RADHA DOMINGO MD Common Visit Codes: [id number] INP/OBS CARE(HIGH) RADHA DOMINGO MD Aug 09, 2024 11:39
[2024-08-09] MEDS: POTASSIUM CHL 20 Meq TABLET PO ONE (12:41)
[2024-08-10] VITALS (12 sets, daily range): BP systolic 108–126; BP diastolic 59–68; PULSE 72–90; RESP 16–18; TEMP 97.5–98.4; O2SAT 94–100
--- NOTE | 2024-08-10 11:51 | DVHDS2 ---
Discharge Summary Date of Admission Aug 03, 2024 at 19:02 Date of Discharge: Aug 10, 2024 Labs/Diagnostic Data: Laboratory Results Test 08/10/24 05:26 08/09/24 05:51 08/05/24 07:07 08/04/24 16:19 POC Glucose 98 mg/dl (70-106) White Blood Count 5.2 10^3/uL (4.4-10.8) Red Blood Count 4.57 10^6/uL (4.0-5.20) Hemoglobin 11.1 g/dL (12.2-16.2) Hematocrit 35.1 % (36.0-46.0) Mean Corpuscular Volume 76.7 fL (80.0-100.0) Mean Corpuscular Hemoglobin 24.3 pg (28.0-32.0) Mean Corpuscular Hemoglobin Concent 31.7 g/dL (32.0-36.0) Red Cell Distribution Width 18.6 % (11.8-14.3) Platelet Count 121 10^3/uL (140-450) Mean Platelet Volume 9.4 fL (6.9-10.8) Neutrophils (%) (Auto) 74.2 % (37.0-80.0) Lymphocytes (%) (Auto) 14.2 % (10.0-50.0) Monocytes (%) (Auto) 7.4 % (0.0-12.0) Eosinophils (%) (Auto) 3.7 % (0.0-7.0) Basophils (%) (Auto) 0.5 % (0.0-2.0) Neutrophils # (Auto) 3.8 10 ^3/uL (1.6-8.6) Lymphocytes # (Auto) 0.7 10 ^3/uL (0.4-5.4) Monocytes # (Auto) 0.4 10 ^3/uL (0-1.3) Eosinophils # (Auto) 0.2 10 ^3/uL (0-0.8) Basophils # (Auto) 0 10 ^3/uL (0-0.2) Nucleated Red Blood Cells 0.2 % Sodium Level 141 mmol/L (136-145) Potassium Level 3.4 mmol/L (3.5-5.1) Chloride Level 104 mmol/L (98-107) Carbon Dioxide Level 29 mmol/L (20-31) Anion Gap 8 (5-15) Blood Urea Nitrogen 13 mg/dL (9-23) Creatinine 0.64 mg/dL (0.550-1.02) Glomerular Filtration Rate Calc 97 mL/min (>90) BUN/Creatinine Ratio 20.3 (10.0-20.0) Serum Glucose 115 mg/dL (74-106) Calcium Level 9.1 mg/dL (8.7-10.4) Total Bilirubin 0.6 mg/dL (0.2-1.0) Aspartate Amino Transferase (AST) 25 U/L (13-40) Alanine Aminotransferase (ALT) 17 U/L (7-40) Alkaline Phosphatase 244 U/L (46-116) Total Protein 6.7 g/dL (5.7-8.2) Albumin 3.2 g/dL (3.2-4.8) Hemoglobin A1c 6.3 % A1C (<5.7) Urine Color Light-yellow (Yellow) Urine Clarity Clear (Clear) Urine pH 6.0 (5.0-9.0) Urine Specific [place] 1.009 (1.001-1.035) Urine Protein Trace (Negative) Urine Ketones Negative (Negative) Urine Blood 1+ /uL (Negative) Urine Nitrite 2+ (Negative) Urine Bilirubin Negative (Negative) Urine Urobilinogen Normal mg/dL (Negative) Urine Leukocyte Esterase 2+ /uL (Negative) Urine RBC 3 /hpf (0 - 4) Urine WBC 5 /hpf (0 - 5) Urine Squamous Epithelial Cells None seen /hpf (<5) Urine Bacteria Few /hpf (None Seen) Urine Mucus Few (None Seen) Urine Glucose Normal mg/dL (Normal) Test 08/03/24 19:38 Prothrombin Time 12.0 sec (9.3-11.8) Prothrombin Time INR 1.14 (0.9-1.15) Activated Partial Thromboplast Time 25.9 SEC (24.5-34.5) Other Laboratory Tests 08/09/24 05:51 Brief Hx & Hospital Course: see dictated note Condition at Discharge: Fair Final Diagnosis/Problems List Right femoral neck fracture Discharge Disposition: Home with Health Services Discharge Instruct/Medications Diet: Cardiac 2g Na,low cholest Activity: No Restrictions, As Tolerated Follow Up/Referral: fu with ortho/pcp Medications: resume home meds script to pharmacy Discharge Statement: "Patient was advised to return to the ER or call 911 if any headaches, dizziness, shortness of breath, chest pain, abdominal pain, bleeding, fevers, or worsening of medical condition. Patient was counseled about treatment plan, medications, possible side effects, patientverbalized understanding. All questions were answered to the best of my ability. This discharge took greater then 30 minutes in planning, reviewing documentation, counseling the patient, and discussing with other team members." ASSESSMENT ASSESSMENT Assessment Right femoral neck fracture Date of Service: Aug 10, 2024 Billing Provider: RADHA DOMINGO MD Common Visit Codes: 55466-BAS/OBS DISCH DAY >30min RADHA DOMINGO MD Aug 10, 2024 11:51
[2024-08-10] MEDS ORDERED: HYDR1TAB97 PO (11:59)
--- NOTE | 2024-08-10 12:07 | DVHDS ---
DATE OF DISCHARGE: 08/10/2024 The patient is a 68-year-old lady who was admitted with history of fall and right hip pain and shoulder pain. She has history of liver cirrhosis, chronic kidney disease, diabetes, hypertension, and hyperlipidemia. HOSPITAL COURSE: The patient had MRI of the hip that showed a right hip fracture. The patient also had a right pelvic fracture. She was seen in orthopedic consult by Dr. Abdi and underwent surgery on 08/07/2024. The patient has since done well and has been ambulating with physical therapy. She will now be discharged home to resume her home medications as well as to be on [place] p.r.n. for pain. She will have home health for physical therapy as well as a bedside commode. She will follow up with orthopedic and the primary care doctor. FINAL DIAGNOSES: * Right hip fracture with right pubic ramus fracture, status post surgery. * Diabetes mellitus. * Hypertension. * Liver cirrhosis. * History of cerebrovascular accident. * Right shoulder dislocation status post. * Urinary tract infection. Time spent in discharge planning and review of plan with the patient, nursing, and family was 39 minutes. MD TERRA Starkey/JORGE TID: [id number] RECEIPT: [id number]
[2024-08-10] MEDS: LACTULOSE 20Gm/30ML SOLN PO ONE (12:49)
[2024-08-10] MEDS: POLYETHYLENE GLYCOL 17 GM PWDR PO ONE (12:49)
== END 2024-08-10 18:00 | disposition home health service (06) | DRG 956 ==
LOC: EDBD 10:38 → EEVIPCON 10:38 → ER 10:38 → OVERFLOW 19:02 → WEST WING 19:07
PROVIDERS: ADMIT Internal Medicine; ATTEND Internal Medicine
PROC: 0RSJXZZ Reposition Right Shoulder Joint, External Approach (ICD-10-PCS; 2024-08-03)
PROC: 0QS634Z Reposition Right Upper Femur with Internal Fixation Device, Percutaneous Approach (ICD-10-PCS; principal; 2024-08-05 14:58)
DX: S32.591A Other specified fracture of right pubis, initial encounter for closed fracture (principal); S72.011A Unspecified intracapsular fracture of right femur, initial encounter for closed fracture; N39.0 Urinary tract infection, site not specified; S73.004A Unspecified dislocation of right hip, initial encounter; S43.014A Anterior dislocation of right humerus, initial encounter; F03.90 Unspecified dementia, unspecified severity, without behavioral disturbance, psychotic disturbance, mood disturbance, and anxiety; K74.60 Unspecified cirrhosis of liver; N18.9 Chronic kidney disease, unspecified; I12.9 Hypertensive chronic kidney disease with stage 1 through stage 4 chronic kidney disease, or unspecified chronic kidney disease; E78.5 Hyperlipidemia, unspecified; E11.22 Type 2 diabetes mellitus with diabetic chronic kidney disease; Z83.3 Family history of diabetes mellitus; Z82.49 Family history of ischemic heart disease and other diseases of the circulatory system; Z82.3 Family history of stroke; Z86.73 Personal history of transient ischemic attack (TIA), and cerebral infarction without residual deficits; Z88.1 Allergy status to other antibiotic agents; W18.39XA Other fall on same level, initial encounter; Y93.89 Activity, other specified; Y92.89 Other specified places as the place of occurrence of the external cause; Y99.8 Other external cause status; Z86.79 Personal history of other diseases of the circulatory system
CPT/HCPCS: 23650; 36415; 70450; 71045; 73020; 73030; 73502; 73700; 73721; 76000; 80053; 81001; 82962; 83036; 85025; 85610; 85730; 86850; 86900; 86901; 93005; 94640; 97110; 97116; 97163; 97530; 99152; 99291; G0378; J1100; J1815; J2250; J2405; J2704; J3490

== ENCOUNTER → 2024-09-14 | Outpatient (CLI) | payer MEDICARE, MEDICAID ==
[~2024-09-14] MED LIST changes: +ALBU2TAB11 PO; +FURO20TA3 PO; +HYDR1TAB97 PO; +LOSA-533 PO; +MECL12.586 PO
[2024-09-14 10:24] LABS: Basophils # (auto) 0 10 ^3/uL (0-0.2); Eosinophils # (auto) 0.2 10 ^3/uL (0-0.8); Lymphocytes # (auto) 0.7 10 ^3/uL (0.4-5.4); Monocytes # (auto) 0.3 10 ^3/uL (0-1.3); Neutrophils # (auto) 1.9 10 ^3/uL (1.6-8.6); Neutrophils % (auto) 60.6 % (37.0-80.0); Nucleated Red Blood Cells % 0.1 %; White Blood Cell 3.1 10^3/uL (4.4-10.8)
[2024-09-14 10:26] LABS: Basophils % (auto) 0.6 % (0.0-2.0); Eosinophils % (auto) 6.2 % (0.0-7.0); Hematocrit 37.4 % (36.0-46.0); Hemoglobin 11.6 g/dL (12.2-16.2); Lymphocytes % (auto) 22.1 % (10.0-50.0); Mean Corpuscular Hemoglobin 24.2 pg (28.0-32.0); Mean Corpuscular Hgb Conc. 31.2 g/dL (32.0-36.0); Mean Corpuscular Volume 77.5 fL (80.0-100.0); Monocytes % (auto) 10.5 % (0.0-12.0); Platelet Count (auto) 119 10^3/uL (140-450); Red Blood Cells 4.82 10^6/uL (4.0-5.20); Red Cell Distribution Width 19.9 % (11.8-14.3)
== END | disposition home or self-care (01) ==
LOC: LAB 09:36
PROVIDERS: ATTEND Internal Medicine
DX: J44.9 Chronic obstructive pulmonary disease, unspecified (principal); E55.9 Vitamin D deficiency, unspecified; D64.9 Anemia, unspecified
CPT/HCPCS: 36415; 82306; 82607; 84443; 85025

== ENCOUNTER → 2024-11-09 | Outpatient (CLI) | payer MEDICARE, MEDICAID ==
[2024-11-09 12:42] LABS: Basophils # (auto) 0 10 ^3/uL (0-0.2); Basophils % (auto) 0.2 % (0.0-2.0); Eosinophils # (auto) 0 10 ^3/uL (0-0.8); Eosinophils % (auto) 0.6 % (0.0-7.0); Lymphocytes # (auto) 0.6 10 ^3/uL (0.4-5.4); Mean Corpuscular Hgb Conc. 31.8 g/dL (32.0-36.0); Monocytes # (auto) 0.2 10 ^3/uL (0-1.3); White Blood Cell 3.4 10^3/uL (4.4-10.8)
[2024-11-09 12:43] LABS: Hematocrit 34.6 % (36.0-46.0); Lymphocytes % (auto) 18.7 % (10.0-50.0); Mean Corpuscular Hemoglobin 26.1 pg (28.0-32.0); Mean Corpuscular Volume 81.9 fL (80.0-100.0); Monocytes % (auto) 7.3 % (0.0-12.0); Neutrophils # (auto) 2.5 10 ^3/uL (1.6-8.6); Neutrophils % (auto) 73.2 % (37.0-80.0); Platelet Count (auto) 93 10^3/uL (140-450); Red Blood Cells 4.22 10^6/uL (4.0-5.20); Red Cell Distribution Width 19.3 % (11.8-14.3)
[2024-11-09 13:03] LABS: Alanine Aminotransferase 21 U/L (7-40); Albumin 3.9 g/dL (3.2-4.8); Anion Gap 8 (5-15); Aspartate Aminotransferase 30 U/L (13-40); BUN/Creatinine Ratio 18.3 (10.0-20.0); Bilirubin, Total 0.9 mg/dL (0.2-1.0); Blood Urea Nitrogen 13 mg/dL (9-23); Calcium 9.7 mg/dL (8.7-10.4); Carbon Dioxide 28 mmol/L (20-31); Chloride 103 mmol/L (98-107); Sodium 139 mmol/L (136-145); Total Protein 7.3 g/dL (5.7-8.2)
[2024-11-09 13:07] LABS: Alkaline Phosphatase 220 U/L (46-116); Glucose 142 mg/dL (74-106); Magnesium 1.6 mg/dL (1.6-2.6); Potassium 3.5 mmol/L (3.5-5.1)
[2024-11-09 13:24] LABS: Platelet Estimate Decreased
[2024-11-09 13:25] LABS: Anisocytosis Slight
== END | disposition home or self-care (01) ==
LOC: LAB 12:17
PROVIDERS: ATTEND Internal Medicine
DX: E55.9 Vitamin D deficiency, unspecified (principal); K74.60 Unspecified cirrhosis of liver; E05.90 Thyrotoxicosis, unspecified without thyrotoxic crisis or storm; D69.6 Thrombocytopenia, unspecified; Z79.899 Other long term (current) drug therapy
CPT/HCPCS: 36415; 80053; 82306; 83735; 85025

== ENCOUNTER 2024-12-09 15:44 | Inpatient (IN) | payer MEDICARE, MEDICAID ==
[~2024-12-09] VITALS: Ht 152.4 cm; Wt 54.1 kg
[2024-12-09 01:15] VITALS: PULSE 55; RESP 20; O2SAT 98
[2024-12-09 16:00] VITALS: PULSE 74; RESP 15; O2SAT 100
[2024-12-09] MEDS: ETOMIDATE (2MG/ML) 20ML VIAL IV ONE ×2 (16:03→18:33)
[2024-12-09] MEDS: ROCURONIUM 10MG/ML 10ML VIAL IV ONE ×2 (16:04→18:33)
[2024-12-09] MEDS: MIDAZOLAM DRIP 50 mg/50mL 50 ML IV SCH (16:20)
--- NOTE | 2024-12-09 16:22 | ED.PDOC ---
SOB-HPI HPI Comments 69 year old female presents to the ED via EMS with a chief complaint of shortness of breath onset today (12/09/24) about 15 minutes prior to ED arrival. Per EMS patient had surgery at [facility] yesterday (12/08/24), fluid removed from lungs. Patient is not able to speak due to shortness of breath, is able to follow commands. Upon EMS arrival, O2 sat was 84% on RA rhonchi LT lower lobe, 2 breathing treatments were given, placed on C-pap, O2 improved to 88%. PMHx HTN, asthma, CKF, DM, liver, TIA, HLDm anemia, CVA, dementia. No other symptoms or modifying factors present at this time. 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 History Family History Family History: Reviewed,noncontributory to illness, Family hx of DM, Family hx of HTN, Family hx of stroke Social History Smoker: Non-Smoker Alcohol: Denies ETOH Use Drugs: Denies Drug Use Lives In: Home Constitutional: denies: chills, diaphoresis, fatigue, fever, malaise, sweats, weakness, others EENTM: denies: blurred vision, double vision, ear bleeding, ear discharge, ear drainage, ear pain, ear ringing, eye pain, eye redness, hearing loss, mouth pain, mouth swelling, nasal discharge, nose bleeding, nose congestion, nose pain, photophobia, tearing, throat pain, throat swelling, voice changes, others Respiratory: reports: shortness of breath; denies: cough, hemoptysis, orthopne a, SOB at rest, SOB with excertion, stridor, wheezing, others Cardiovascular: denies: chest pain, dizzy spells, diaphoresis, Dyspnea on exertion, edema, irregular heart beat, left arm pain, lightheadedness, palpitations, PND, syncope, others Gastrointestinal: denies: abdomen distended, abdominal pain, blood streaked bowels, constipated, diarrhea, dysphagia, difficulty swallowing, hematemesis, melena, nausea, poor appetite, poor fluid intake, rectal bleeding, rectal pain, vomiting, others Genitourinary: denies: abnormal vagina bleeding, burning, dyspareunia, dysuria, flank pain, frequency, hematuria, incontinence, pain, , vagina discharge, urgency, others Neurological: denies: dizziness, fainting, headache, left sided numbness, left sided weakness, numbness, paresthesia, pre-existing deficit, right sided numbness, right sided weakness, seizure, speech problems, tingling, tremors, weakness, others Musculoskeletal: denies: back pain, gout, joint pain, joint swelling, muscle pain, muscle stiffness, neck pain, others Integumetry: denies: bruises, change in color, change in hair/nails, dryness, laceration, lesions, lumps, rash, wounds, others Allergic/Immunocompromised: denies: Difficulty Healing, Frequent Infections, Hives, Itching, others Hematologic/Lymphatic: denies: anemia, blood clots, easy bleeding, easy bruising, swollen glands, others Endocrine: denies: excessive hunger, excessive sweating, excessive thirst, excessive urination, flushing, intolerance to cold, intolerance to heat, unexplained weight gain, unexplained weight loss, others Psychiatric: denies: anxiety, bipolar disorder, depression, hopeless, panic disorder, schizophrenia, sleepless, suicidal, others All Other Systems: Reviewed and Negative Physical Exam General Appearance: No Apparent Distress, Normal HEENT: Normal ENT Inspection, Pharynx Normal, TMs Normal Neck: Full Range of Motion, Non-Tender, Normal, Normal Inspection Respiratory: Chest Non-Tender, Lungs Clear, No Accessory Muscle Use, No Respiratory Distress, Normal Breath Sounds Cardiovascular: No Edema, No JVD, No Murmur, No Gallop, Normal Peripheral Pulses, Regular Rate/Rhythm Breast Exam: Deferred Gastrointestinal: No Organomegaly, Non Tender, No Pulsatile Mass, Normal Bowel Sounds, Soft Genitalia: Deferred Pelvic: Deferred Rectal: Deferred Extremities: No calf tenderness, Normal capillary refill, Normal inspection, Normal range of motion, Non-tender, No pedal edema Musculoskeletal : Apperance: Normal Neurologic: Alert, single pointed operator II-XII nml as Tested, No Motor Deficits, Normal Affect, Normal Mood, No Sensory Deficits Cerebellar Function: Normal Reflexes: Normal Skin: Dry, Normal Color, Warm Lymphatic: No Adenopathy Was a procedure done? 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: Attending Physician Indication: Hypotension, Inability to obtain IV Room prepared for procedure: Yes Towboat Operator performed hand hygien: Yes Maximal sterile barrier precau: Mask/Eye shield, Sterile gown, Cap, Sterlie gloves, Large sterlie drape Skin Preparation: Chlorhexidine gluconate, Providine iodine, Alcohol Skin preparation completely dr: Yes Insertion site: Right, Femoral Central line catheter type: [id number] dialysis Number of lumens: 3 Post Assessment: Chest X-Ray Informed consent obtained: Yes Risks/benefits/alt described: Yes Intubation Indication: Airway Protection Prep: Preoxygenation Pretreated with: Sedation Medicated with: Other (etomidate 20mg, Rocurinium 100 mg) Intubation Approach: Orotracheal Intubation size: cm (22) Informed consent obtained: Yes Risks/benefits/alt described: Yes Differential Dx Differential Diagnosis: Bronchitis, Cardiogenic Shock, CHF, Hypertension, Pneu monia, Pneumothorax, Allergic Rhinitis X-Ray, Labs, Meds, VS Vital Signs Date Time Temp Pulse Resp B/P (MAP) Pulse Ox O2 Delivery O2 Flow Rate FiO2 12/09/24 21:15 98.8 61 20 109/51 (70) 100 98.8 12/09/24 21:00 98.8 62 20 108/51 (70) 100 98.8 12/09/24 21:00 108/51 12/09/24 21:00 108/51 12/09/24 21:00 108/51 12/09/24 21:00 108/51 12/09/24 20:45 96.6 60 20 128/59 (82) 100 96.6 12/09/24 20:45 63 20 113/49 (70) 100 40 12/09/24 20:45 113/49 12/09/24 20:35 128/59 12/09/24 20:30 99.0 70 20 109/62 (78) 100 99.0 12/09/24 20:30 128/59 12/09/24 20:25 109/51 12/09/24 20:17 89/45 12/09/24 20:17 89/45 12/09/24 20:15 99.0 63 20 105/53 (70) 100 99.0 12/09/24 20:00 99.0 70 20 109/62 (78) 100 99.0 12/09/24 20:00 108/63 12/09/24 20:00 108/63 12/09/24 20:00 108/63 12/09/24 19:57 109/62 12/09/24 19:57 109/62 12/09/24 19:49 115/54 12/09/24 19:45 98.8 71 17 115/54 (74) 100 98.8 12/09/24 19:42 131/68 12/09/24 19:39 65 20 125/64 (84) 100 50 12/09/24 19:37 125/59 12/09/24 19:32 131/66 12/09/24 19:32 131/66 12/09/24 19:32 131/66 12/09/24 19:30 98.6 71 20 131/66 (87) 100 98.6 12/09/24 19:30 20 100 Bi-Pap+ 45 45 12/09/24 19:19 125/64 12/09/24 19:15 98.4 70 20 125/64 (84) 100 98.4 12/09/24 19:00 98.4 72 21 127/62 (83) 100 98.4 12/09/24 18:50 133/68 12/09/24 18:45 98.4 77 21 133/68 (89) 100 98.4 12/09/24 18:30 98.2 75 21 139/70 (93) 100 98.2 12/09/24 18:25 141/74 12/09/24 18:20 141/74 12/09/24 18:15 98.1 77 21 141/74 (96) 100 98.1 12/09/24 18:00 97.9 76 20 152/73 (99) 99 97.9 12/09/24 17:50 152/79 12/09/24 17:45 97.9 80 20 152/79 (103) 99 97.9 12/09/24 17:30 97.7 77 20 155/71 (99) 100 97.7 12/09/24 17:20 163/85 12/09/24 17:15 97.5 80 16 162/83 (109) 100 97.5 12/09/24 17:00 97.3 122 16 163/85 (111) 100 97.3 12/09/24 16:50 161/76 12/09/24 16:45 97.3 82 15 171/82 (111) 100 97.3 12/09/24 16:30 80 17 161/76 (104) 100 12/09/24 16:30 80 16 134/82 (99) 99 100 12/09/24 16:20 134/82 12/09/24 16:12 72 16 134/82 (99) 100 12/09/24 16:04 134/82 12/09/24 16:00 74 15 100 Bi-Pap+ 100 100 12/09/24 16:00 74 15 134/82 (99) 100 12/09/24 15:44 97.0 62 18 130/86 (101) 88 97.0 12/09/24 15:44 97.0 62 18 130/86 (101) 88 97.0 12/09/24 01:15 55 20 98 Mechanical Ventilator+ 30 30 Lab Test 12/09/24 20:08 12/09/24 19:25 12/09/24 18:31 12/09/24 17:44 Range/Units Hemoglobin A1c 5.3 <5.7 % A1C Blood Gas Specimen Type Arterial Blood Gas Sample Site Right radial Blood Gas Patient Temperature 37.0 Arterial Blood Date Drawn [id number] Arterial Blood pH 7.402 7.350-7.450 Arterial Blood Partial Pressure CO2 41.4 32.0-45.0 mmHg Arterial Blood Partial Pressure O2 87.9 83.0-108.0 mmHg Arterial Blood HCO3 25.2 21.0-28.0 mmol/L Arterial Blood Oxygen Saturation 96.2 94.0-98.0 % Arterial Blood Base Excess 0.4 -2.0-3.0 mmol/L Arterial Blood Oxyhemoglobin 95.1 94.0-98.0 % Arterial Blood Carboxyhemoglobin 0.4 L 0.5-1.5 % Arterial Blood Methemoglobin 0.7 0.0-1.5 % Jose Test Modified Blood Gas Total Hemoglobin 11.00 L 12.0-16.0 g/dL Blood Gas Set Respiration Rate 20.0 Blood Gas Modality Vent - ac FiO2 % 50.0 Blood Gas Tidal Volume 450.0 Blood Gas PEEP or CPAP 5.0 Troponin I High Sensitivity 7 5 </=34 ng/L Lactic Acid Level 1.4 0.4-2.0 mmol/L Test 12/09/24 16:51 12/09/24 16:41 12/09/24 16:26 Range/Units Urine Color Light-yellow Yellow Urine Clarity Clear Clear Urine pH 7.5 5.0-9.0 Urine Specific [place] 1.018 1.001-1.035 Urine Protein Negative Negative Urine Ketones Negative Negative Urine Blood Negative Negative /uL Urine Nitrite Negative Negative Urine Bilirubin Negative Negative Urine Urobilinogen Normal Negative mg/dL Urine Leukocyte Esterase Negative Negative /uL Urine RBC 1 0 - 4 /hpf Urine Microscopic WBC 1 0-5 /HPF Urine Squamous Epithelial Cells None seen <5 /hpf Urine Bacteria None seen None Seen /hpf Urine Glucose Normal Normal mg/dL Urine Opiates Screen Pos NEGATIVE Urine Fentanyl Screen Pos NEGATIVE Urine Barbiturates Screen Neg NEGATIVE Urine Phencyclidine Screen Neg NEGATIVE Urine Amphetamines Screen Neg NEGATIVE Urine Benzodiazepines Screen Pos NEGATIVE Urine Cocaine Screen Neg NEGATIVE Urine Cannabinoids Screen Neg NEGATIVE Blood Gas Specimen Type Arterial Blood Gas Sample Site Right radial Blood Gas Patient Temperature 37.0 Arterial Blood Date Drawn [id number] Arterial Blood pH 7.236 *L 7.350-7.450 Arterial Blood Partial Pressure CO2 59.6 H 32.0-45.0 mmHg Arterial Blood Partial Pressure O2 251.5 H 83.0-108.0 mmHg Arterial Blood HCO3 24.7 21.0-28.0 mmol/L Arterial Blood Oxygen Saturation 99.4 H 94.0-98.0 % Arterial Blood Base Excess -3.4 L -2.0-3.0 mmol/L Arterial Blood Oxyhemoglobin 98.4 H 94.0-98.0 % Arterial Blood Carboxyhemoglobin 0.4 L 0.5-1.5 % Arterial Blood Methemoglobin 0.6 0.0-1.5 % Jose Test Modified Blood Gas Total Hemoglobin 11.70 L 12.0-16.0 g/dL Blood Gas Set Respiration Rate 16.0 Blood Gas Modality Vent - ac FiO2 % 100.0 Blood Gas Tidal Volume 450.0 Blood Gas PEEP or CPAP 5.0 Blood Gas Critical Value Read Back Yes Blood Gas Notified Whom reji French md Blood Gas Notified Time [id number] Blood Gas Notified By Ansley nagel rrt White Blood Count 11.1 H 4.4-10.8 10^3/uL Red Blood Count 4.06 4.0-5.20 10^6/uL Hemoglobin 10.8 L 12.2-16.2 g/dL Hematocrit 33.8 L 36.0-46.0 % Mean Corpuscular Volume 83.2 80.0-100.0 fL Mean Corpuscular Hemoglobin 26.5 L 28.0-32.0 pg Mean Corpuscular Hemoglobin Concent 31.8 L 32.0-36.0 g/dL Red Cell Distribution Width 17.6 H 11.8-14.3 % Platelet Count 158 140-450 10^3/uL Mean Platelet Volume 9.6 6.9-10.8 fL Neutrophils (%) (Auto) 74.1 37.0-80.0 % Lymphocytes (%) (Auto) 15.1 10.0-50.0 % Monocytes (%) (Auto) 9.0 0.0-12.0 % Eosinophils (%) (Auto) 1.7 0.0-7.0 % Basophils (%) (Auto) 0.1 0.0-2.0 % Neutrophils # (Auto) 8.2 1.6-8.6 10 ^3/uL Lymphocytes # (Auto) 1.7 0.4-5.4 10 ^3/uL Monocytes # (Auto) 1.0 0-1.3 10 ^3/uL Eosinophils # (Auto) 0.2 0-0.8 10 ^3/uL Basophils # (Auto) 0 0-0.2 10 ^3/uL Nucleated Red Blood Cells 0.1 % Sodium Level 140 136-145 mmol/L Potassium Level 5.1 3.5-5.1 mmol/L Chloride Level 106 98-107 mmol/L Carbon Dioxide Level 27 20-31 mmol/L Anion Gap 7 5-15 Blood Urea Nitrogen 13 9-23 mg/dL Creatinine 0.59 0.550-1.02 mg/dL Glomerular Filtration Rate Calc 99 >90 mL/min BUN/Creatinine Ratio 22.0 H 10.0-20.0 Serum Glucose 87 74-106 mg/dL Lactic Acid Level 2.1 *H 0.4-2.0 mmol/L Calcium Level 8.2 L 8.7-10.4 mg/dL Total Bilirubin 0.8 0.2-1.0 mg/dL Aspartate Amino Transferase (AST) 36 13-40 U/L Alanine Aminotransferase (ALT) 20 7-40 U/L Alkaline Phosphatase 188 H 46-116 U/L Ammonia 68 H 11-32 umol/L Troponin I High Sensitivity 4 </=34 ng/L B-Type Natriuretic Peptide 196.92 0-100 pg/mL Total Protein 6.4 5.7-8.2 g/dL Albumin 3.5 3.2-4.8 g/dL Lipase 107 H 12-53 U/L Microbiology Date/Time Source Procedure Growth Status 12/09/24 17:44 Blood Blood Culture - Preliminary NO GROWTH AFTER 48 HOURS OF INCUBATION. Resulted 12/09/24 17:35 Blood Blood Culture - Preliminary NO GROWTH AFTER 48 HOURS OF INCUBATION. Resulted 12/09/24 16:51 Urine - [place] Urine Culture - Final Enterococcus faecalis Complete 12/09/24 16:15 Trachea Gram Stain - Final Resulted 12/09/24 16:15 Trachea Respiratory Culture - Preliminary Resulted Time of 1ST Reevaluation: 16:18 Reevaluation 1ST: Unchanged Patient Education/Counseling: Diagnosis, Treatment, Prognosis Family Education/Counseling: No Family Present Departure 1 Departure Time of Disposition: 17:25 (Patient presenting with the acute respiratory failure, altered mental status, not tolerating secretions, and hypotension. Patient was intubated central line placed. We will admit patient to ICU for further workup and expert consultation) Impression: Primary Impression: Acute respiratory failure Qualified Codes: J96.01 - Acute respiratory failure with hypoxia Additional Impressions: Acute on chronic diastolic heart failure Liver cirrhosis Qualified Codes: K74.60 - Unspecified cirrhosis of liver; R18.8 - Other ascites Acute metabolic encephalopathy Disposition: 09 ADMITTED INPATIENT Admit to: ICU Condition: Critical Critical Care Note Critical Care Time?: Yes Critical care comment: Acute on chronic respiratory failure Authorized and Performed by: Mango French MD Total critical care time: Approximately 144 minutes Due to a high probability of clinically significant, life threatening deterioration, the patient required my highest level of preparedness to intervene emergently and I personally spent this critical care time directly and personally managing the patient. This critical care time included obtaining a history; examining the patient; pulse oximetry; ordering and review of studies; arranging urgent treatment with development of a management plan; evaluation of patient's response to treatment; frequent reassessment; and, discussions with ot her providers. This critical care time was performed to assess and manage the high probability of imminent, life-threatening deterioration that could result in multi-organ failure. It was exclusive of separately billable procedures and treating other patients and teaching time. Please see my other sections and the rest of the note for further information on patient assessment and treatment. Stability Stability form required: No Heart Score Heart Score: Heart Score Response (Comments) Value History N/A 0 EKG N/A 0 Age N/A 0 Risk Factors N/A 0 Troponin N/A 0 Total 0 I personally scribed for MANGO FRENCH MD ([email or web address]) on 12/09/24 at 16:22. Electronically submitted by Graciela Turner ([email or web address]). I personally scribed for MANGO FRENCH MD ([email or web address]) on 12/09/24 at 16:36. Electronically submitted by Graciela Turner ([email or web address]). I personally scribed for MANGO FRENCH MD ([email or web address]) on 12/09/24 at 16:42. Electronically submitted by Graciela Turner ([email or web address]). MANGO FRENCH MD December 09, 2024 16:22
[2024-12-09 16:49] LABS: Basophils # (auto) 0 10 ^3/uL (0-0.2); Basophils % (auto) 0.1 % (0.0-2.0); Eosinophils # (auto) 0.2 10 ^3/uL (0-0.8); Eosinophils % (auto) 1.7 % (0.0-7.0); Hematocrit 33.8 % (36.0-46.0); Hemoglobin 10.8 g/dL (12.2-16.2); Lymphocytes # (auto) 1.7 10 ^3/uL (0.4-5.4); Lymphocytes % (auto) 15.1 % (10.0-50.0); Mean Corpuscular Hemoglobin 26.5 pg (28.0-32.0); Mean Corpuscular Hgb Conc. 31.8 g/dL (32.0-36.0); Mean Corpuscular Volume 83.2 fL (80.0-100.0); Neutrophils # (auto) 8.2 10 ^3/uL (1.6-8.6); Neutrophils % (auto) 74.1 % (37.0-80.0); Nucleated Red Blood Cells % 0.1 %; Platelet Count (auto) 158 10^3/uL (140-450); Red Blood Cells 4.06 10^6/uL (4.0-5.20); Red Cell Distribution Width 17.6 % (11.8-14.3); White Blood Cell 11.1 10^3/uL (4.4-10.8)
[2024-12-09 17:01] LABS: Urine Bacteria None Seen /hpf (None Seen)
[2024-12-09 17:02] LABS: Base Excess -3.4 mmol/L (-2.0-3.0)
--- NOTE | 2024-12-09 17:04 | DVH ---
CHEST RADIOGRAPH Indication: post intubation Technique: Single frontal view of the chest was obtained Comparison: XY CHEST XRAY 1 VIEW on DOS: 08/05/24, XY CHEST PORTABLE on DOS: 07/31/24, XY CHEST PORTABLE on DOS: 08/30/23 FINDINGS: Lines and Tubes: Endotracheal tube 1.7 cm above the edil recommend withdrawal 1-2 cm. Enteric tube below the left diaphragm in the stomach Lungs: No focal consolidation. Pleura: No effusion. No pneumothorax. Cardiomediastinal contours: Unremarkable Bones: No acute osseous abnormality. IMPRESSION: 1. Endotracheal tube 1-2 cm above the edil. Recommend withdrawal 1-2 cm. 2. Enteric tube below the left diaphragm in the stomach.
[2024-12-09 17:05] LABS: Alanine Aminotransferase 20 U/L (7-40); Albumin 3.5 g/dL (3.2-4.8); Alkaline Phosphatase 188 U/L (46-116); Anion Gap 7 (5-15); Aspartate Aminotransferase 36 U/L (13-40); Bilirubin, Total 0.8 mg/dL (0.2-1.0); Blood Urea Nitrogen 13 mg/dL (9-23); Calcium 8.2 mg/dL (8.7-10.4); Carbon Dioxide 27 mmol/L (20-31); Chloride 106 mmol/L (98-107); Glucose 87 mg/dL (74-106); Lactic Acid w/Reflex 2.1 mmol/L (0.4-2.0); Lipase 107 U/L (12-53); Potassium 5.1 mmol/L (3.5-5.1); Sodium 140 mmol/L (136-145); Total Protein 6.4 g/dL (5.7-8.2)
[2024-12-09 17:11] LABS: Urine Blood Negative /uL (Negative); Urine Clarity Clear (Clear); Urine Color Light-Yellow (Yellow); Urine Protein, UAD Negative (Negative); Urine Specific Gravity 1.018 (1.001-1.035); Urine Squamous Epithelial Cell None Seen /hpf (<5); Urine Urobilinogen Normal (Negative); Urine WBC 1 /HPF (0-5); Urine pH 7.5 (5.0-9.0)
[2024-12-09 17:35] LABS: Amphetamine Screen, Urine Neg (NEGATIVE); Barbiturate Scree,Urine Neg (NEGATIVE); Benzodiazephine Screen, Urine Pos (NEGATIVE); Cannabinoid Screen, Urine Neg (NEGATIVE); Cocaine Screen, Urine Neg (NEGATIVE); Opiate Scree,Urine Pos (NEGATIVE); Phencyclidine Screen, Urine Neg (NEGATIVE)
[2024-12-09] MEDS: fentaNYL Drip 2500mCg/250mlNS 250 ML IV SCH (18:25)
[2024-12-09] MEDS: MIDAZOLAM DRIP 50 mg/50mL 50 ML IV ONE (18:33)
[2024-12-09 19:30] VITALS: RESP 20; O2SAT 100
[2024-12-09] MEDS ORDERED: DEXTROSE (50%) 50ML SYRG IV PRN (19:30)
[2024-12-09] MEDS: PROPOFOL 100 ML IV SCH (19:32)
[2024-12-09 19:39] VITALS: BP 125/64; PULSE 65; RESP 20; O2SAT 100
[2024-12-09 19:39] LABS: Base Excess 0.4 mmol/L (-2.0-3.0)
[2024-12-09] MEDS: NOREPINEPHRINE 8 MG/250ML KIT 250 ML IV ONE (20:16)
[2024-12-09] MEDS: NOREPINEPHRINE 8 MG/250ML KIT 250 ML IV SCH (20:17)
[2024-12-09 20:45] VITALS: BP 113/49; PULSE 63; RESP 20; O2SAT 100
--- NOTE | 2024-12-09 21:23 | DVHHP2 ---
History of Present Illness Reason for Visit: Acute respiratory failure History of Present Illness The patient is a 69-year-old female with multiple past medical history including CVA, dementia, diabetes mellitus, liver disease, and hypertension who presented to [facility] with complaint of shortness of breaths. As reported by EMS, patient had surgery at [facility] yesterday (12/08/24), fluid removed from lungs. Patient is not able to speak due to shortness of breath, but able to follow commands. Patient was seen and evaluated in the ED with increased work of breathing, O2 saturation was 84% and was placed on CPAP O2 saturation improved to 88%. Patient was subsequently intubated. Laboratory data shows WBC 11.1, hemoglobin 10.8, hematocrit 33.8, platelets 150, sodium 140, potassium 5.1, BUN 13, creatinine 0.59, GFR 99, glucose 87, lactic acid 2.1, calcium 8.2, troponin 7, BNP 196.92, lipase 107, ammonia 68, blood pressure 125/64, pulse 77, tem perature 98.1 F, O2 saturation 99% ventilator. Urine toxicology positive for opiates, fentanyl, and benzo-diazepam. Please see medication orders section in the computer. On my assessment, patient is fully intubated, no diaphoresis, no vomiting, no diarrhea, no fever, no chills. Patient was admitted for further evaluation and medical management. Past Medical History Anemia, CKF, CVA, Dementia, DM, High Lipids, HTN, Liver, TIA Past Surgical History BTL, Tubal Ligation Family History Reviewed, noncontributory to the management of this case. Past Social History The patient lives at home, denies smoking, alcohol or illicit drugs abuse. Review of Systems Constitutional: Yes: Weakness; No: Fever, Chills, Sweats, Malaise, Other Eyes: No: Pain, Vision change, Conjunctivae inflammation, Eyelid inflammation, Other, Redness ENT: No: Ear pain, Ear discharge, Nose pain, Nose discharge, Nose congestion, Mouth pain, Mouth swelling, Throat pain, Throat swelling, Other Respiratory: Shortness of breath, Other (SOB at rest); No: Cough, Dry, SOB with excertion, Wheezing, Hemoptysis, Pleuritic Pain, Sputum, Wheezing Cardiovascular: No: Chest Pain, Palpitations, Orthopnea, Paroxysmal Noc. Dyspnea, Edema, Lt Headedness, Other Gastrointestinal: No: Nausea, Vomiting, Abdominal Pain, Diarrhea, Constipation, Melena, Hematochezia, Other Genitourinary: No Dysuria, No Frequency, No Incontinence, No Hematuria, No Retention; Other (Key catheter in place) Musculoskeletal: No: other, neck pain, shoulder pain, arm pain, back pain, hand pain, leg pain, foot pain Skin: No: Rash, Lesions, Jaundice, Bruising, Other Neurological: No: Weakness, Numbness, Incoordination, Change in speech, Confusion, Seizures, Other Allergies: Coded Allergies: Celecoxib (Verified Allergy, Unknown, 09/10/20) Cephalexin (Verified Allergy, Unknown, 09/10/20) Lorazepam (Verified Adverse Reaction, Unknown, 02/13/21) PATIENT BECOMES AGITATED AND EVEN MORE CONFUSED Medications Current Medications Medications Dose Ordered Sig/Lashell Route Start Time Stop Time Status Last Admin Dose Admin Propofol 100 ml @ 1.62 mls/hr Q24H IV 12/09/24 16:15 12/09/24 19:32 1.62 MLS/HR Fentanyl Citrate 250 ml @ 2.5 mls/hr Q24H IV 12/09/24 16:15 12/09/24 18:25 2.5 MLS/HR Midazolam HCl 50 ml @ 1 mls/hr Q24H IV 12/09/24 16:30 12/09/24 19:19 6 MLS/HR Lactulose 300 ml Q6HR ND 12/10/24 00:00 Famotidine 20 mg DAILY IV 12/10/24 10:00 Hydralazine HCl 10 mg Q6HP PRN IV 12/09/24 19:30 Dextrose/Sodium Chloride 1,000 ml @ 75 mls/hr [id number] IV 12/09/24 19:30 Furosemide 20 mg DAILY IV 12/10/24 10:00 Levofloxacin/ Dextrose 100 ml @ 100 mls/hr DAILY IV 12/10/24 10:00 Spironolactone 25 mg DAILY NG 12/10/24 10:00 Diagnostic Test (Pha) 1 strip Q6HR 12/10/24 00:00 Insulin Human Regular Q6HR SC 12/10/24 00:00 Dextrose 50 ml UD PRN IV 12/09/24 19:30 Ondansetron HCl 4 mg Q4HP PRN IV 12/09/24 19:30 Enoxaparin Sodium 40 mg DAILY SC 12/10/24 10:00 Acetaminophen 650 mg Q6HP PRN ND 12/09/24 19:30 Norepinephrine Bitartrate 250 ml @ 3.75 mls/hr Q24H IV 12/09/24 20:00 12/09/24 20:17 3.75 MLS/HR Exam Vital Signs Vital Signs Date Time Temp Pulse Resp B/P (MAP) Pulse Ox O2 Delivery O2 Flow Rate FiO2 12/09/24 20:17 89/45 12/09/24 19:39 65 20 100 50 12/09/24 19:15 98.4 98.4 12/09/24 16:00 Bi-Pap+ General Appearance: No acute distress, Other (Fully intubated) HEENT: Atraumatic, PERRLA, EOMI, Mucous membr. moist/pink Respiratory: Normal air movement, Other (On ventilator) Cardiovascular: Regular rate, Normal S1, Normal S2, No murmurs Abdominal: Normal bowel sounds, Soft, No tenderness, No hepatospenomegaly, No masses Extremities: No clubbing, No cyanosis, No edema, Normal pulses, No tenderness/swelling Skin: No rashes, No breakdown, No significant lesion Neuro: Normal tone, Cranial nerves 3-12 NL, Reflexes 2+, Other (Weakness) Psych/Mental Status: Other (Unable to obtain) Labs/Xrays Labs Test 12/09/24 20:08 12/09/24 19:25 12/09/24 18:31 12/09/24 17:44 Range/Units Hemoglobin A1c 5.3 <5.7 % A1C Blood Gas Specimen Type Arterial Blood Gas Sample Site Right radial Blood Gas Patient Temperature 37.0 Arterial Blood Date Drawn [id number] Arterial Blood pH 7.402 7.350-7.450 Arterial Blood Partial Pressure CO2 41.4 32.0-45.0 mmHg Arterial Blood Partial Pressure O2 87.9 83.0-108.0 mmHg Arterial Blood HCO3 25.2 21.0-28.0 mmol/L Arterial Blood Oxygen Saturation 96.2 94.0-98.0 % Arterial Blood Base Excess 0.4 -2.0-3.0 mmol/L Arterial Blood Oxyhemoglobin 95.1 94.0-98.0 % Arterial Blood Carboxyhemoglobin 0.4 L 0.5-1.5 % Arterial Blood Methemoglobin 0.7 0.0-1.5 % Jose Test Modified Blood Gas Total Hemoglobin 11.00 L 12.0-16.0 g/dL Blood Gas Set Respiration Rate 20.0 Blood Gas Modality Vent - ac FiO2 % 50.0 Blood Gas Tidal Volume 450.0 Blood Gas PEEP or CPAP 5.0 Troponin I High Sensitivity 7 </=34 ng/L Lactic Acid Level 1.4 0.4-2.0 mmol/L Test 12/09/24 16:51 12/09/24 16:41 12/09/24 16:26 Range/Units Urine Color Light-yellow Yellow Urine Clarity Clear Clear Urine pH 7.5 5.0-9.0 Urine Specific [place] 1.018 1.001-1.035 Urine Protein Negative Negative Urine Ketones Negative Negative Urine Blood Negative Negative /uL Urine Nitrite Negative Negative Urine Bilirubin Negative Negative Urine Urobilinogen Normal Negative mg/dL Urine Leukocyte Esterase Negative Negative /uL Urine RBC 1 0 - 4 /hpf Urine Microscopic WBC 1 0-5 /HPF Urine Squamous Epithelial Cells None seen <5 /hpf Urine Bacteria None seen None Seen /hpf Urine Glucose Normal Normal mg/dL Urine Opiates Screen Pos NEGATIVE Urine Fentanyl Screen Pos NEGATIVE Urine Barbiturates Screen Neg NEGATIVE Urine Phencyclidine Screen Neg NEGATIVE Urine Amphetamines Screen Neg NEGATIVE Urine Benzodiazepines Screen Pos NEGATIVE Urine Cocaine Screen Neg NEGATIVE Urine Cannabinoids Screen Neg NEGATIVE Blood Gas Critical Value Read Back Yes Blood Gas Notified Whom reji French md Blood Gas Notified Time [id number] Blood Gas Notified By Ansley nagel rrt White Blood Count 11.1 H 4.4-10.8 10^3/uL Red Blood Count 4.06 4.0-5.20 10^6/uL Hemoglobin 10.8 L 12.2-16.2 g/dL Hematocrit 33.8 L 36.0-46.0 % Mean Corpuscular Volume 83.2 80.0-100.0 fL Mean Corpuscular Hemoglobin 26.5 L 28.0-32.0 pg Mean Corpuscular Hemoglobin Concent 31.8 L 32.0-36.0 g/dL Red Cell Distribution Width 17.6 H 11.8-14.3 % Platelet Count 158 140-450 10^3/uL Mean Platelet Volume 9.6 6.9-10.8 fL Neutrophils (%) (Auto) 74.1 37.0-80.0 % Lymphocytes (%) (Auto) 15.1 10.0-50.0 % Monocytes (%) (Auto) 9.0 0.0-12.0 % Eosinophils (%) (Auto) 1.7 0.0-7.0 % Basophils (%) (Auto) 0.1 0.0-2.0 % Neutrophils # (Auto) 8.2 1.6-8.6 10 ^3/uL Lymphocytes # (Auto) 1.7 0.4-5.4 10 ^3/uL Monocytes # (Auto) 1.0 0-1.3 10 ^3/uL Eosinophils # (Auto) 0.2 0-0.8 10 ^3/uL Basophils # (Auto) 0 0-0.2 10 ^3/uL Nucleated Red Blood Cells 0.1 % Sodium Level 140 136-145 mmol/L Potassium Level 5.1 3.5-5.1 mmol/L Chloride Level 106 98-107 mmol/L Carbon Dioxide Level 27 20-31 mmol/L Anion Gap 7 5-15 Blood Urea Nitrogen 13 9-23 mg/dL Creatinine 0.59 0.550-1.02 mg/dL Glomerular Filtration Rate Calc 99 >90 mL/min BUN/Creatinine Ratio 22.0 H 10.0-20.0 Serum Glucose 87 74-106 mg/dL Calcium Level 8.2 L 8.7-10.4 mg/dL Total Bilirubin 0.8 0.2-1.0 mg/dL Aspartate Amino Transferase (AST) 36 13-40 U/L Alanine Aminotransferase (ALT) 20 7-40 U/L Alkaline Phosphatase 188 H 46-116 U/L Ammonia 68 H 11-32 umol/L B-Type Natriuretic Peptide 196.92 0-100 pg/mL Total Protein 6.4 5.7-8.2 g/dL Albumin 3.5 3.2-4.8 g/dL Lipase 107 H 12-53 U/L PATIENT: NICOLE OROPEZA ACCT: [id number] UNIT: [id number] : 1955 LOC: OVERFLOW ROOM / BED: [address] [place] [address] / AGE / SEX: 69 / F ADM STATUS: ADM IN SERVICE 5110 ORDERING PHYSICIAN: MANGO FRENCH MD PROCEDURE(s): CAPIV - CT CHEST/AB/PL W CON- IV ONLY REASON: hypoxic respiratory failure, ams ORDER NUMBER(s): [id number], ACCESSION NUMBER(s): [id number] Exam: CT CT CHEST/AB/PL W CON- IV ONLY History: hypoxic respiratory failure, ams Comparison Study: None Contrast: Type of contrast: Omni 300 Contrast injected: 100 mL Contrast wasted: 0 TECHNIQUE: A digital roper operator image was obtained. During the uneventful, intravenous administration of contrast material, multislice data acquisition was obtained through the abdomen and pelvis. The data set was subsequently reconstructed into axial images. Images were reviewed on a work station using a combination of axial and multiplanar using a variety of window levels and setti ngs. Radiation Dose Information: CT Dose: CTDI volume is 11.29 mGy. Dose-length product is 737.05 mGy*cm FINDINGS: Lung Bases: Endotracheal tube in place. Pulmonary atelectasis in the posterior costophrenic angles bilaterally. Calcified granulomas right middle lung field. Liver: The liver is normal in size. No focal lesions. Normal hepatic vascular enhancement. Gallbladder and Biliary Tree: Unremarkable Spleen: Unremarkable Pancreas: The pancreas is normal in appearance without focal lesions or abnormal enhancement. Adrenal Glands: Unremarkable Kidneys: Kidneys demonstrate normal symmetric enhancement without focal lesions, calculi or hydronephrosis. Bladder: Key catheter in the bladder Bowel: The stomach is grossly normal in appearance. Enteric tube in the stomach. Small bowel and colon are normal in caliber and distribution. Rectal tube in place The appendix is not visualized; however, no secondary findings of acute appendicitis identified. Ascites: Absent Lymphadenopathy: No mesenteric, retroperitoneal or periportal lymphadenopathy. Abdominal Wall and Mesentery: Unremarkable. Vasculature: The visualized abdominal aorta is normal in size and caliber. Abdominal and pelvic vessels demonstrate normal enhancement. Pelvic Organs: Unremarkable Musculoskeletal: No aggressive focal bony lesions, acute fractures or dislocation. Soft tissues: Unremarkable. IMPRESSION: 1. Endotracheal tube and enteric tube in place. 2. Bibasilar areas of atelectasis in the posterior costophrenic angles. 3. No findings to suggest pulmonary edema or pulmonary emboli. 4. Nodular surface of the liver suggesting cirrhotic liver disease. ORDERING PHYSICIAN: MANGO FRENCH MD PROCEDURE(s): HWOCT - HEAD WITHOUT CONTRAST REASON: ams, hypoxic respiratory failure, intubated ORDER NUMBER(s): [id number], ACCESSION NUMBER(s): [id number] EXAM: CT HEAD WITHOUT CONTRAST INDICATION: ams, hypoxic respiratory failure, intubated TECHNIQUE: CT of the head without intravenous contrast. Radiation Dose Information: CT Dose: CTDI volume is 52.77 mGy. Dose-length product is 934.47 mGy*cm The dose indicators for CT are the volume Computed Tomography (CT) Dose Index (CTDIvol) and the Dose Length Product (DLP), and are measured in units of mGy and mGy-cm, respectively. These indicators are not patient dose, but values generated from the CT scanner acquisition factors. The report includes radiation exposure data for exposures received during this examination. COMPARISON: CT HEAD WITHOUT CONTRAST on DOS: 08/03/24, CT HEAD WITHOUT CONTRAST on DOS: 08/30/23, HEAD WITHOUT CONTRAST on DOS: 03/05/22 FINDINGS: There is no evidence of acute intracranial hemorrhage, extra-axial collection, mass effect, midline shift, herniation or hydrocephalus. Ischemic changes in the deep white matter left frontal parietal lobe. The ventricles, sulci and cisterns are age appropriate. The koehler-white differentiation is intact. Patchy periventricular and subcortical white matter hypoattenuation is nonspecific but may be related to small vessel ischemic disease. The visualized paranasal sinuses and mastoid air cells are clear. The surrounding soft tissues and osseous structures are unremarkable. IMPRESSION: 1. No acute intracranial hemorrhage 2. Or ischemic change in the deep white matter left frontal parietal lobe. ORDERING PHYSICIAN: MANGO FRENCH MD PROCEDURE(s): CXR1 - CHEST XRAY 1 VIEW REASON: post intubation ORDER NUMBER(s): [id number], ACCESSION NUMBER(s): [id number] CHEST RADIOGRAPH Indication: post intubation Technique: Single frontal view of the chest was obtained Comparison: XY CHEST XRAY 1 VIEW on DOS: 08/05/24, XY CHEST PORTABLE on DOS: 07/31/24, XY CHEST PORTABLE on DOS: 08/30/23 FINDINGS: Lines and Tubes: Endotracheal tube 1.7 cm above the edil recommend withdrawal 1-2 cm. Enteric tube below the left diaphragm in the stomach Lungs: No focal consolidation. Pleura: No effusion. No pneumothorax. Cardiomediastinal contours: Unremarkable Bones: No acute osseous abnormality. IMPRESSION: 1. Endotracheal tube 1-2 cm above the edil. Recommend withdrawal 1-2 cm. 2. Enteric tube below the left diaphragm in the stomach. Assessment/Plan Assessment/Plan Acute respiratory failure Polydrug abuse Leukocytosis, unspecified Generalized weakness Metabolic encephalopathy Acute exacerbation of chronic heart failure Plan 1. Admit to intensive care unit 2. Breathing treatment 3. Pain control management 4. IV antibiotic management 5. Management of fluids and electrolytes 6. Consultation for hospitalist/pulmonology 7. Diagnostic test chest x-ray 8. DVT prophylaxis -on Lovenox 9. Repeat labs CBC, CMP in a.m. 10. Home medication reviewed and reconciled 11. Continue with current medical management 12. Treatment plan discussed with patient and RN. Patient verbalized understanding. Plan discussed with: Patient, Other (RN) My Orders Orders - TATI HALE DNP Procedure Category Date Status Time Lactulose Rectal PHA 12/10/24 In Process 00:00 Famotidine Injection PHA 12/10/24 In Process (Pepcid Injection) 10:00 Hydralazine Injection PHA 12/09/24 In Process (Apresoline Inject 19:30 D5w/Sod Chl 0.45% PHA 12/09/24 In Process (D5w 1/2ns) 19:30 Furosemide Injection PHA 12/10/24 In Process (Lasix Injection) 10:00 Levofloxacin 500mg PHA 12/10/24 In Process (Levaquin 500mg/ 100m 10:00 Spironolactone PHA 12/10/24 In Process (Aldactone) 10:00 Glucose Blood PHA 12/10/24 In Process (Accu-Chek Comfort 00:00 Insulin R (Human) PHA 12/10/24 In Process (Insulin R) 00:00 Dextrose 50% Syringe PHA 12/09/24 In Process 19:30 Allergies MICHAEL 12/09/24 In Process 19:30 Code Status CODE 12/09/24 Transmitted 19:30 Oxygen Per Hour RT 12/09/24 Transmitted 19:30 Ondansetron Hcl PHA 12/09/24 In Process (Zofran) 19:30 Enoxaparin Sodium PHA 12/10/24 In Process (Lovenox) 10:00 Fall Risk Precautions MICHAEL 12/09/[address] 19:30 Complete Blood Count LAB 12/10/24 Verified 04:00 Comprehensive LAB 12/10/24 Verified Metabolic Panel 04:00 Npo (Nothing By DIET 12/10/24 Transmitted Mouth) Diet Breakfast Condition: Critical MICHAEL 12/09/24 In Process 19:30 Maintain Bed Rest MICHAEL 12/09/24 In Process 19:30 Sequential MICHAEL 12/09/24 In Process Compression Device Acetaminophen PHA 12/09/24 In Process Suppository (Tylenol 19:30 *Consult CONS 12/09/24 Transmitted / 19:50 Admit ADMIT 12/09/24 Verified 21:19 Nitroglycerin PHA 12/09/24 Verified Sublingual (Ntrostat 21:30 Morphine Sulfate PHA 12/09/24 Verified Injection 21:30 Notify Of Changes [facility] 12/09/24 Verified From Base 21:19 Physical Science Technician For [facility] 12/09/24 Verified 24 Hours 21:19 Emergency Dysrhythmia [facility] 12/09/24 Verified Protocol 21:19 Rhythm Strips Once [facility] 12/09/24 Verified Every Shift 21:19 Oxygen By Nasal RT 12/09/24 Verified Cannula 21:19 Problem List: (1) Acute respiratory failure (2) Polydrug abuse (3) Generalized weakness (4) Leukocytosis, unspecified (5) Metabolic encephalopathy (6) Acute exacerbation of chronic heart failure Date of Service: December 09, 2024 Billing Provider: TATI HALE DNP Common Visit Codes: [id number] INP/OBS CARE (HIGH) TATI HALE DNP December 09, 2024 21:23
[2024-12-09] MEDS ORDERED: NITROGLYCERIN 0.4 MG SL TAB SL PRN (21:30)
[2024-12-09] MEDS ORDERED: MORPHINE SULFATE INJ 2 MG/ml SYRG IV PRN (21:30)
[2024-12-09 22:05] VITALS: BP 122/50; PULSE 65; RESP 20; O2SAT 100
[2024-12-09] MEDS: IOHEXOL 300 MG/ML 100ML BOTTLE IJ ONE (22:18)
--- NOTE | 2024-12-09 22:26 | DVH ---
EXAM: CT HEAD WITHOUT CONTRAST INDICATION: ams, hypoxic respiratory failure, intubated TECHNIQUE: CT of the head without intravenous contrast. Radiation Dose Information: CT Dose: CTDI volume is 52.77 mGy. Dose-length product is 934.47 mGy*cm The dose indicators for CT are the volume Computed Tomography (CT) Dose Index (CTDIvol) and the Dose Length Product (DLP), and are measured in units of mGy and mGy-cm, respectively. These indicators are not patient dose, but values generated from the CT scanner acquisition factors. The report includes radiation exposure data for exposures received during this examination. COMPARISON: CT HEAD WITHOUT CONTRAST on DOS: 08/03/24, CT HEAD WITHOUT CONTRAST on DOS: 08/30/23, HEAD WI THOUT CONTRAST on DOS: 03/05/22 FINDINGS: There is no evidence of acute intracranial hemorrhage, extra-axial collection, mass effect, midline s hift, herniation or hydrocephalus. Ischemic changes in the deep white matter left frontal parietal lobe. The ventricles, sulci and cisterns are age appropriate. The koehler-white differentiation is intact. Patchy periventricular and subcortical white matter hypoattenuation is nonspecific but may be related to small vessel ischemic disease. The visualized paranasal sinuses and mastoid air cells are clear. The surrounding soft tissues and osseous structures are unremarkable. IMPRESSION: 1. No acute intracranial hemorrhage 2. Or ischemic change in the deep white matter left frontal parietal lobe.
--- NOTE | 2024-12-09 22:35 | DVH ---
Exam: CT CT CHEST/AB/PL W CON- IV ONLY History: hypoxic respiratory failure, ams Comparison Study: None Contrast: Type of contrast: Omni 300 Contrast injected: 100 mL Contrast wasted: 0 TECHNIQUE: A digital atmospheric scientist image was obtained. During the uneventful, intravenous administration of c ontrast material, multislice data acquisition was obtained through the abdomen and pelvis. The data s et was subsequently reconstructed into axial images. Images were reviewed on a work station using a c ombination of axial and multiplanar using a variety of window levels and settings. Radiation Dose Information: CT Dose: CTDI volume is 11.29 mGy. Dose-length product is 737.05 mGy*cm FINDINGS: Lung Bases: Endotracheal tube in place. Pulmonary atelectasis in the posterior costophrenic angles bi laterally. Calcified granulomas right middle lung field. Liver: The liver is normal in size. No focal lesions. Normal hepatic vascular enhancement. Gallbladder and Biliary Tree: Unremarkable Spleen: Unremarkable Pancreas: The pancreas is normal in appearance without focal lesions or abnormal enhancement. Adrenal Glands: Unremarkable Kidneys: Kidneys demonstrate normal symmetric enhancement without focal lesions, calculi or hydroneph rosis. Bladder: Key catheter in the bladder Bowel: The stomach is grossly normal in appearance. Enteric tube in the stomach. Small bowel and colo n are normal in caliber and distribution. Rectal tube in place The appendix is not visualized; howeve r, no secondary findings of acute appendicitis identified. Ascites: Absent Lymphadenopathy: No mesenteric, retroperitoneal or periportal lymphadenopathy. Abdominal Wall and Mesentery: Unremarkable. Vasculature: The visualized abdominal aorta is normal in size and caliber. Abdominal and pelvic vess els demonstrate normal enhancement. Pelvic Organs: Unremarkable Musculoskeletal: No aggressive focal bony lesions, acute fractures or dislocation. Soft tissues: Unremarkable. IMPRESSION: 1. Endotracheal tube and enteric tube in place. 2. Bibasilar areas of atelectasis in the posterior costophrenic angles. 3. No findings to suggest pulmonary edema or pulmonary emboli. 4. Nodular surface of the liver suggesting cirrhotic liver disease. All CT scans at this medical facility are performed using dose modulation techniques as appropriate t o a performed exam including the following: Automated exposure control was utilized; adjustment of th e MA and/or KV according to patient size; and use of iterative reconstruction technique.
[2024-12-09] MEDS: CALCIUM GLUC 1,000mg/50ml-NS 50 ML IV ONE (22:58)
[2024-12-09] MEDS: levoFLOXacin 500MG 100 ML IV ONE (22:58)
[2024-12-09] MEDS: D5W/SOD CHL 0.45% 1,000 ML IV SCH (23:00)
[2024-12-10] VITALS (105 sets, daily range): BP systolic 80–151; BP diastolic 35–78; PULSE 55–77; RESP 13–24; TEMP 92.5–100.8; O2SAT 98–100
[2024-12-10] MEDS ORDERED: LACTULOSE 10g/15ml SOLN 473ML PR SCH
[2024-12-10] MEDS: InsuLIN REG 1unit/0.01ml Soln (100units/ml) SC SCH (01:27)
[2024-12-10] MEDS: LACTULOSE 20Gm/30ML SOLN PO ONE (01:27)
[2024-12-10] MEDS: ACCU-CHEK COMFORT CURVE STRIP VI SCH (01:28)
[2024-12-10 04:11] LABS: Basophils # (auto) 0 10 ^3/uL (0-0.2); Basophils % (auto) 0.2 % (0.0-2.0); Eosinophils # (auto) 0.3 10 ^3/uL (0-0.8); Eosinophils % (auto) 2.6 % (0.0-7.0); Hematocrit 31.4 % (36.0-46.0); Hemoglobin 10.3 g/dL (12.2-16.2); Lymphocytes # (auto) 1.3 10 ^3/uL (0.4-5.4); Lymphocytes % (auto) 12.8 % (10.0-50.0); Mean Corpuscular Hemoglobin 26.9 pg (28.0-32.0); Mean Corpuscular Hgb Conc. 32.9 g/dL (32.0-36.0); Mean Corpuscular Volume 81.9 fL (80.0-100.0); Monocytes # (auto) 1.1 10 ^3/uL (0-1.3); Monocytes % (auto) 10.5 % (0.0-12.0); Neutrophils # (auto) 7.6 10 ^3/uL (1.6-8.6); Neutrophils % (auto) 73.9 % (37.0-80.0); Platelet Count (auto) 200 10^3/uL (140-450); Red Blood Cells 3.84 10^6/uL (4.0-5.20); Red Cell Distribution Width 17.2 % (11.8-14.3); White Blood Cell 10.2 10^3/uL (4.4-10.8)
[2024-12-10 04:24] LABS: Alanine Aminotransferase 15 U/L (7-40); Albumin 3.4 g/dL (3.2-4.8); Anion Gap 8 (5-15); Aspartate Aminotransferase 30 U/L (13-40); BUN/Creatinine Ratio 17.4 (10.0-20.0); Bilirubin, Total 1.1 mg/dL (0.2-1.0); Blood Urea Nitrogen 12 mg/dL (9-23); Calcium 9.1 mg/dL (8.7-10.4); Carbon Dioxide 25 mmol/L (20-31); Chloride 103 mmol/L (98-107); Potassium 4.5 mmol/L (3.5-5.1); Sodium 136 mmol/L (136-145); Total Protein 6.4 g/dL (5.7-8.2)
[2024-12-10 04:26] LABS: Alkaline Phosphatase 186 U/L (46-116); Glucose 167 mg/dL (74-106)
[2024-12-10] MEDS: NOREPINEPHRINE 8 MG/250ML KIT 250 ML IV SCH (04:45)
[2024-12-10] MEDS: LACTULOSE 20Gm/30ML SOLN PO SCH (05:21)
[2024-12-10 07:23] LABS: Base Excess 0.5 mmol/L (-2.0-3.0)
--- NOTE | 2024-12-10 09:19 | DVH ---
EXAM: XR Chest, 1 View CLINICAL INDICATION: INTUBATED TECHNIQUE: Frontal view of the chest. COMPARISON: XY CHEST XRAY 1 VIEW on DOS: 12/09/24, XY CHEST XRAY 1 VIEW on DOS: 08/05/24, XY CHEST PO RTABLE on DOS: 07/31/24, XY CHEST PORTABLE on DOS: 08/30/23, CHEST PORTABLE on DOS: 02/14/22 FINDINGS: LUNGS AND PLEURAL SPACES: Bibasilar atelectasis or pneumonia. No pneumothorax. HEART: Unremarkable. No cardiomegaly. MEDIASTINUM: Unremarkable. Normal mediastinal contour. BONES/JOINTS: Unremarkable. No acute fracture. TUBES, LINES AND DEVICES: The endotracheal tube (ETT) is in satisfactory position. Enteric tube ti p in the stomach. OTHER FINDINGS: . . IMPRESSION: Bibasilar atelectasis or pneumonia.
[2024-12-10] MEDS: FAMOTIDINE (10MG/ML) 2ML VL IV SCH (09:40)
[2024-12-10] MEDS: SPIRONOLACTONE 25 MG TAB NG SCH (09:40)
[2024-12-10] MEDS: FUROSEMIDE 20 MG/2 ML VIAL IV SCH (09:40)
[2024-12-10] MEDS: ENOXAPARIN SOD 40 MG/0.4 ML SYRINGE SC SCH (09:40)
[2024-12-10] MEDS: levoFLOXacin 500MG 100 ML IV SCH (09:41)
--- NOTE | 2024-12-10 11:53 | DVH ---
Right lower extremity venous duplex Clinical History: R/O DVT Comparison: None Findings: Duplex Doppler evaluation of the deep venous system of the right lower extremity from the common femo ral vein to the popliteal vein including color Doppler and spectral/pulsed waveform analysis was perf ormed. The right common femoral vein the saphenous vein at the level of the groin and superficial femoral ve in proximally is not visualized due to a PICC line catheter in place.. The mid and distal superficial femoral vein demonstrates appropriate compressibility and waveform romero iability. The deep femoral vein demonstrates appropriate compressibility and waveform variability. The popliteal vein demonstrates appropriate compressibility and waveform variability. There is normal compressibility at the tibioperoneal trunk. Impression: 1. Limited study with right common femoral vein, proximal superficial femoral vein and saphenous vein of the level of the inguinal region not visualized due to PICC line catheter in place. 2. Remaining veins of right lower extremity otherwise appears to be patent with no evidence of deep v ein thrombosis
--- NOTE | 2024-12-10 12:11 | DVH ---
EXAM: US LT LOW EXT ART DUPLEX DATE OF SERVICE: 12/10/2024 11:27 AM ORDERING PHYSICIAN: TATI HALE REASON FOR EXAM: COLD TO TOUCH TECHNIQUE: Arterial Doppler study COMPARISON: None FINDINGS: There is biphasic waveform common femoral artery to the dorsalis pedis artery and posterio r tibial artery. There is no evidence of any arterial stenosis. There is mild occasional plaque seen. IMPRESSION: 1. No arterial stenosis seen End of Report
--- NOTE | 2024-12-10 12:12 | DVH ---
EXAM: XY R ANKLE 2 VIEW XRAY CLINICAL INDICATION: R/O FX TECHNIQUE: XY R ANKLE 2 VIEW XRAY Comparison: None FINDINGS/IMPRESSION: There is no evidence of acute fracture or dislocation. Mild osteopenia The visualized joint space is well maintained. The alignment is anatomical. There is no radiopaque foreign body. Bimalleolar soft tissue swelling.
--- NOTE | 2024-12-10 13:42 | DVHPN2 ---
Subjective Sedated and intubated Reviewed: Care Plan, H&P, Labs, Medications, Previous Orders, Radiology Changes from previous H/P or p: No Changes Genitourinary: Other (Key catheter in place) Objective Vitals Vital Signs Date Time Temp Pulse Resp B/P (MAP) Pulse Ox O2 Delivery O2 Flow Rate FiO2 12/10/24 12:18 109/56 12/10/24 11:29 63 23 100 30 12/10/24 08:45 99.9 211.8 12/10/24 08:00 Mechanical Ventilator+ Intake/Output Intake and Output 12/10/24 07:00 Intake Total 838.625 ml Output Total 450 ml Balance 388.625 ml Intake Oral 110 ml IV Total 728.625 ml Output Urine Total 450 ml General Appearance: Other (Sedated and intubated) HEENT: Atraumatic, PERRLA Lungs: Other (Very few crackles bilateral lungs with good air entry) Cardiovascular: Regular rate Abdomen: Normal bowel sounds, Soft Extremities: Other (Trace edema right lower extremity. Warm right foot and right lower extremity. Cold left foot) Medications Current Medications Medications Dose Ordered Sig/Lashell Route Start Time Stop Time Status Last Admin Dose Admin Propofol 100 ml @ 1.62 mls/hr Q24H IV 12/09/24 16:15 12/10/24 12:18 8.1 MLS/HR Fentanyl Citrate 250 ml @ 2.5 mls/hr Q24H IV 12/09/24 16:15 12/09/24 18:25 2.5 MLS/HR Midazolam HCl 50 ml @ 1 mls/hr Q24H IV 12/09/24 16:30 12/10/24 10:01 8 MLS/HR Famotidine 20 mg DAILY IV 12/10/24 10:00 12/10/24 09:40 20 MG Hydralazine HCl 10 mg Q6HP PRN IV 12/09/24 19:30 Dextrose/Sodium Chloride 1,000 ml @ 75 mls/hr [id number] IV 12/09/24 19:30 12/09/24 23:00 75 MLS/HR Furosemide 20 mg DAILY IV 12/10/24 10:00 12/10/24 09:40 20 MG Levofloxacin/ Dextrose 100 ml @ 100 mls/hr DAILY IV 12/10/24 10:00 12/10/24 09:41 100 MLS/HR Spironolactone 25 mg DAILY NG 12/10/24 10:00 12/10/24 09:40 25 MG Diagnostic Test (Pha) 1 strip Q6HR 12/10/24 00:00 12/10/24 12:06 1 STRIP Insulin Human Regular Q6HR SC 12/10/24 00:00 12/10/24 05:22 2 UNITS Dextrose 50 ml UD PRN IV 12/09/24 19:30 Ondansetron HCl 4 mg Q4HP PRN IV 12/09/24 19:30 Enoxaparin Sodium 40 mg DAILY SC 12/10/24 10:00 12/10/24 09:40 40 MG Acetaminophen 650 mg Q6HP PRN HI 12/09/24 19:30 Nitroglycerin 0.4 mg Q5MINP PRN SL 12/09/24 21:30 Morphine Sulfate 2 mg Q30M PRN IV 12/09/24 21:30 Lactulose 30 ml Q6HR PO 12/10/24 06:00 12/10/24 11:57 30 ML Norepinephrine Bitartrate 250 ml @ 1.875 mls/ hr Q24H IV 12/10/24 04:45 Laboratory Results Laboratory Tests 12/10/24 03:00 Chemistry Test 12/09/24 16:12/10/24 03:00 Albumin 3.5 g/dL (3.2-4.8) 3.4 g/dL (3.2-4.8) Calcium Level 8.2 mg/dL (8.7-10.4) L 9.1 mg/dL (8.7-10.4) Total Protein 6.4 g/dL (5.7-8.2) 6.4 g/dL (5.7-8.2) Lipid panel Test 12/09/24 16: Lipase 107 U/L (12-53) H Cardiac Markers Test 12/09/24: B-Type Natriuretic Peptide 196.92 pg/mL (0-100) LFT Test 12/09/24 16:26 12/10/24 03:00 Alanine Aminotransferase (ALT) 20 U/L (7-40) 15 U/L (7-40) Alkaline Phosphatase 188 U/L (46-116) H 186 U/L (46-116) H Aspartate Amino Transferase (AST) 36 U/L (13-40) 30 U/L (13-40) Total Bilirubin 0.8 mg/dL (0.2-1.0) 1.1 mg/dL (0.2-1.0) H HgA1c, TSH Test 12/09/24 20:08 Hemoglobin A1c 5.3 % A1C (<5.7) Urinalysis Test 12/09/24 16:51 Urine Color Light-yellow (Yellow) Urine Clarity Clear (Clear) Urine pH 7.5 (5.0-9.0) Urine Specific [place] 1.018 (1.001-1.035) Urine Protein Negative (Negative) Urine Ketones Negative (Negative) Urine Blood Negative /uL (Negative) Urine Nitrite Negative (Negative) Urine Bilirubin Negative (Negative) Urine Urobilinogen Normal mg/dL (Negative) Urine Leukocyte Esterase Negative /uL (Negative) Urine RBC 1 /hpf (0 - 4) Urine Microscopic WBC 1 /HPF (0-5) Urine Squamous Epithelial Cells None seen /hpf (<5) Urine Bacteria None seen /hpf (None Seen) Urine Glucose Normal mg/dL (Normal) Blood Gas Results Test 12/09/24 16:41 12/09/24 19:25 12/10/24 07:09 Arterial Blood pH 7.236 (7.350-7.450) 7.402 (7.350-7.450) 7.454 (7.350-7.450) FiO2 % 100.0 50.0 30.0 Microbiology Microbiology Date/Time Source Procedure Growth Status 12/10/24 03:00 Nose MRSA Screen - Final Complete Assessment/Plan Assessment/Plan Acute respiratory failure with hypoxemia Questionable aspiration pneumonia/atelectasis Possible mild diastolic heart failure Liver cirrhosis Chronic low back pain and hip pain status post hip surgery Status post outpatient spinal procedure by pain management done on the day before admission Status post right femoral neck fracture/ORIF in July 2024 History of TIA and CVA Liver cirrhosis Hypertension Dyslipidemia Mild dementia History of lumbar diskitis and osteomyelitis Plan: Ventilator support. We will obtain right lower extremity ultrasound rule out DVT and left lower extremity arterial ultrasound for peripheral artery disease. Recheck ammonia level. Start Xifaxan. Hold on the Lasix and spironolactone for now. IV antibiotics. Further plan per orders. Critical care time spent on the case 45 minutes Plan discussed with: Daughter, Other (Granddaughter) My Orders Orders - YA MELISSA MD Procedure Category Date Status Time Lt Low Ext Art Duplex US 12/10/24 Resulted 11:05 Rt Lower Dvt US 12/10/24 Resulted 11:10 R Ankle 2 View Xray XY 12/10/24 Resulted 11:10 * Wound Consult CONS 12/10/24 Transmitted 11:18 * Dietary Consult CONS 12/10/24 Transmitted 11:18 Complete Blood Count LAB 12/11/24 Verified 06:00 B-Type Natriuretic LAB 12/11/24 Verified Peptide 06:00 Ammonia LAB 12/11/24 Verified 06:00 Comprehensive LAB 12/11/24 Verified Metabolic Panel 06:00 Erythrocyte LAB 12/11/24 Verified Sedimentation Rate 05:00 Chest Portable XY 12/11/24 Logged 06:00 Abg W/ Co-Ox RT 12/11/24 Logged 06:00 Rifaximin (Xifaxan) PHA 12/10/24 Verified 22:00 Date of Service: December 10, 2024 Billing Provider: YA MELISSA MD Common Visit Codes: [id number] CARE 30-74 MIN YA MELISSA MD December 10, 2024 13:42
[2024-12-10] MEDS: DEXMEDETOMIDINE HCL IN D5W 100 ML IV SCH (16:30)
--- NOTE | 2024-12-10 18:50 | DVHINCON2 ---
Date of service: December 10, 2024 Referring Physician Cliff Chatterjee NP Reason for Consultation Acute hypoxic respiratory failure, on mechanical ventilator History of Present Illness A 69-year-old woman with multiple past medical history including CVA, dementia, diabetes mellitus, liver disease, and hypertension who presented to ED on 12/09/24 with complaint of shortness of breath. As reported by EMS, patient had s urgery at [facility] on 12/08/24 with fluid removed from lungs. Patient was unable to speak due to shortness of breath, but able to follow commands. Patient was seen and evaluated in the ED with increased work of breathing, O2 saturation was 84% and was placed on CPAP with O2 saturation improved to 88%. Patient was subsequently intubated and placed on mechanical ventilator. Labor atory data showed WBC 11.1, hemoglobin 10.8, hematocrit 33.8, platelets 150, sodium 140, potassium 5.1, BUN 13, creatinine 0.59, GFR 99, glucose 87, lactic acid 2.1, calcium 8.2, troponin 7, BNP 196.92, lipase 107, ammonia 68. Vitals normal, O2 saturation 99% on ventilator. Urine toxicology positive for opiates, fentanyl, and benzodiazepine. Patient was admitted for further care and pulmonary consultation requested for evaluation due to the above findings. Review of Systems: Unable to obtain d/t intubated status Past Medical History: Anemia, CKD, CVA, DM, High Lipids, HTN, Liver Disease, TIA, Dementia. Past Surgical History: Bilateral Tubal Ligation Medications: Reviewed. Allergies: Celecoxib. Cephalexin Lorazepam Family History: DM, hypertension, heart disease, CVA. Social History: Nonsmoker. No alcohol or illicit drug use. Family History: Cerebrovascular accident (CVA) G8 MOTHER G8 FATHER Family history: Cardiovascular disease G8 MOTHER G8 SISTER Family history: Diabetes mellitus Family history: Hypertension G8 MOTHER Allergies: Coded Allergies: Celecoxib (Verified Allergy, Unknown, 09/10/20) Cephalexin (Verified Allergy, Unknown, 09/10/20) Lorazepam (Verified Adverse Reaction, Unknown, 02/13/21) PATIENT BECOMES AGITATED AND EVEN MORE CONFUSED Home Meds Active Scripts Hydrocodone-Acetaminophen (Hydrocodone/Acetaminophen 5-325 mg) 1 Tab Tab, 1 TAB PO QIDP for 7 Days, #28 TAB Prov:RADHA DOMINGO MD 08/10/24 Prednisone (Prednisone) 10 Mg Tab, 10 MG PO DAILY for 5 Days, #5 MG Prov:CARLITOS BRENNAN MD 07/31/24 Amoxicillin Trihydrate (Amoxicillin) 500 Mg Tab, 1 TAB PO BID for 7 Days, #14 TAB Prov:CARLITOS BRENNAN MD 07/31/24 Triamcinolone Acetonide (Triamcinolone Acetonide) 0.025 % Cre, 1 APPLIC TOP BID, #30 GRAMS Prov:THUY REYNOLDS 07/27/24 Ciprofloxacin HCl (Ophth) (Ciprofloxacin Hydrochlori) 0.3 % [place], 2 DROP OP QID, #5 ML Prov:THUY REYNOLDS 07/27/24 Sucralfate (CARAFATE SUSP) 1 Gm/10 Ml Ss, 1 GM PO QIDACHS for 30 Days, #120 ML Prov:RADHA DOMINGO MD 02/17/22 Reported Medications Albuterol Sulfate (Albuterol Sulfate) 2 Mg Tab, 90 MCG PO Q6HP PRN for NASAL CONGESTION, MG 08/04/24 Losartan Potassium (Losartan Potassium) 25 Mg Tab, 25 MG PO DAILY for 30 Days, MG 08/04/24 Meclizine Hcl (Meclizine Hcl) 12.5 Mg Tab, 12.5 MG PO BIDP PRN for DIZZINESS for 30 Days, MG 08/04/24 Furosemide (Furosemide) 20 Mg Tab, 20 MG PO DAILY for 30 Days, MG 08/04/24 Gabapentin (Gabapentin) 300 Mg Cap, 300 MG PO QID for 30 Days, MG 08/04/24 Trazodone Hcl (Trazodone Hcl) 100 Mg Tab, 100 MG PO QPM, TAB 11/25/23 Fluticasone Furoate-Vilanterol (Fluticasone Furoate/Vilan 200-25 Mcg/Act) 1 Inh Inh, 1 PUFF INH DAILY Trelegy Ellipta 200/62.5/25 Mcg/INH 1 AER 08/31/23 Aspirin (ASPIRIN 81) 81 Mg Tab, 1 TAB PO DAILY 08/31/23 Rifaximin (Xifaxan) 550 Mg Tab, 1 TAB PO BID 11/19/21 Pantoprazole Sodium Sesquihydr (Pantoprazole Sodium) 40 Mg Tab, 1 TAB PO DAILY 06/07/21 Metformin Hydrochloride (Metformin Hcl) 500 Mg Tab, 1 TAB PO BID 02/13/21 Dapagliflozin Propanediol (Farxiga) 10 Mg Tab, 1 TAB PO QAM 02/13/21 Tramadol Hcl (Tramadol Hcl) 50 Mg Tab, 1 TAB PO BID PRN for pain 02/13/21 Ursodiol (Ursodiol) 300 Mg Cap, 600 MG PO BID 02/13/21 Gabapentin (Gabapentin) 300 Mg Cap, 1 CAP PO QID 02/13/21 Atorvastatin Calcium (ATORVASTATIN CALCIUM) 20 Mg Tab, 1 TAB PO DAILY 04/26/19 Amlodipine Besylate (Amlodipine Besylate) 5 Mg Tab, 1 TAB PO DAILY 02/16/19 Current Medications Current Medications Medications (Trade) Dose Ordered Sig/Lashell Route PRN Reason Start Time Stop Time Status Last Admin Lactulose 300 ml Q6HR ID 12/10/24 00:00 12/10/24 00:57 DC Famotidine (Pepcid Injection) 20 mg DAILY IV 12/10/24 10:00 12/10/24 09:40 Hydralazine HCl (Apresoline Injection) 10 mg Q6HP PRN IV SBP>150 12/09/24 19:30 Dextrose/Sodium Chloride 1,000 ml @ 75 mls/hr [id number] IV 12/09/24 19:30 12/10/24 14:39 Furosemide (Lasix Injection) 20 mg DAILY IV 12/10/24 10:00 12/10/24 13:32 DC 12/10/24 09:40 Levofloxacin/ Dextrose 100 ml @ 100 mls/hr DAILY IV 12/10/24 10:00 12/10/24 09:41 Spironolactone (Aldactone) 25 mg DAILY NG 12/10/24 10:00 12/10/24 13:32 DC 12/10/24 09:40 Diagnostic Test (Pha) (Accu-Chek Comfort Curve T) 1 strip Q6HR 12/10/24 00:00 12/10/24 17:28 Insulin Human Regular (InsuLIN R) Q6HR SC 12/10/24 00:00 12/10/24 05:22 Dextrose 50 ml UD PRN IV Blood Sugar LESS THAN 60 12/09/24 19:30 Ondansetron HCl (Zofran) 4 mg Q4HP PRN IV NAUSEA / VOMITING 12/09/24 19:30 Enoxaparin Sodium (Lovenox) 40 mg DAILY SC 12/10/24 10:00 12/10/24 09:40 Acetaminophen (Tylenol Suppository) 650 mg Q6HP PRN ID PAIN SCALE 1-3 OR TEMP>100.4 12/09/24 19:30 Norepinephrine Bitartrate 250 ml @ 3.75 mls/hr Q24H IV 12/09/24 20:00 12/10/24 04:38 DC 12/09/24 20:17 Nitroglycerin (Ntrostat Sublingual) 0.4 mg Q5MINP PRN SL FOR CHEST PAIN 12/09/24 21:30 Morphine Sulfate 2 mg Q30M PRN IV FOR CHEST PAIN 12/09/24 21:30 Lactulose 30 ml Q6HR PO 12/10/24 06:00 12/10/24 17:25 Norepinephrine Bitartrate 250 ml @ 1.875 mls/ hr Q24H IV 12/10/24 04:45 Rifaximin (Xifaxan) 550 mg BID NG 12/10/24 22:00 Vital Signs Vital Signs Date Time Temp Pulse Resp B/P (MAP) Pulse Ox O2 Delivery O2 Flow Rate FiO2 12/10/24 17:21 106/51 12/10/24 16:30 99.9 67 19 100 211.8 12/10/24 16:00 Mechanical Ventilator+ 30 30 Physical Exam Gen.: Patient lying in bed in medical ICU. Sedated, intubated on mechanical ventilator. Head: Normocephalic, atraumatic. Eyes: PERRLA. Ears: Normal external anatomy. Throat: Endotracheal tube and orogastric tube in place. Neck: Supple, trachea midline. Chest: Transmitted breath sounds bilaterally. Decreased air entry bilaterally. No wheezing. Bibasilar crackles. Cardiovascular: Positive S1, positive S2. Regular rate and rhythm. Abdomen: Positive bowel sounds in all 4 quadrants. Soft, nontender, nondist ended. : Key in place. Normal external genitalia. Rectal: Deferred. Skin: Warm, dry. Intact. Extremities: 2+ radial pulses bilaterally. No lower extremity edema. Neuro: Sedated. Labs/Diagnostic Data Labs Test 12/10/24 17:27 12/10/24 07:09 12/10/24 03:00 12/09/24 20:08 Range/Units POC Glucose 104 70-106 mg/dl Blood Gas Specimen Type Arterial Blood Gas Sample Site Right radial Blood Gas Patient Temperature 37.0 Arterial Blood Date Drawn [id number] Arterial Blood pH 7.454 H 7.350-7.450 Arterial Blood Partial Pressure CO2 35.1 32.0-45.0 mmHg Arterial Blood Partial Pressure O2 86.3 83.0-108.0 mmHg Arterial Blood HCO3 24.1 21.0-28.0 mmol/L Arterial Blood Oxygen Saturation 96.0 94.0-98.0 % Arterial Blood Base Excess 0.5 -2.0-3.0 mmol/L Arterial Blood Oxyhemoglobin 95.5 94.0-98.0 % Arterial Blood Carboxyhemoglobin 0.3 L 0.5-1.5 % Arterial Blood Methemoglobin 0.2 0.0-1.5 % Jose Test Modified Blood Gas Total Hemoglobin 11.30 L 12.0-16.0 g/dL Blood Gas Set Respiration Rate 20.0 Blood Gas Modality Vent - ac FiO2 % 30.0 Blood Gas Tidal Volume 450.0 Blood Gas PEEP or CPAP 5.0 White Blood Count 10.2 4.4-10.8 10^3/uL Red Blood Count 3.84 L 4.0-5.20 10^6/uL Hemoglobin 10.3 L 12.2-16.2 g/dL Hematocrit 31.4 L 36.0-46.0 % Mean Corpuscular Volume 81.9 80.0-100.0 fL Mean Corpuscular Hemoglobin 26.9 L 28.0-32.0 pg Mean Corpuscular Hemoglobin Concent 32.9 32.0-36.0 g/dL Red Cell Distribution Width 17.2 H 11.8-14.3 % Platelet Count 200 140-450 10^3/uL Mean Platelet Volume 10.1 6.9-10.8 fL Neutrophils (%) (Auto) 73.9 37.0-80.0 % Lymphocytes (%) (Auto) 12.8 10.0-50.0 % Monocytes (%) (Auto) 10.5 0.0-12.0 % Eosinophils (%) (Auto) 2.6 0.0-7.0 % Basophils (%) (Auto) 0.2 0.0-2.0 % Neutrophils # (Auto) 7.6 1.6-8.6 10 ^3/uL Lymphocytes # (Auto) 1.3 0.4-5.4 10 ^3/uL Monocytes # (Auto) 1.1 0-1.3 10 ^3/uL Eosinophils # (Auto) 0.3 0-0.8 10 ^3/uL Basophils # (Auto) 0 0-0.2 10 ^3/uL Nucleated Red Blood Cells 0.0 % Sodium Level 136 136-145 mmol/L Potassium Level 4.5 3.5-5.1 mmol/L Chloride Level 103 98-107 mmol/L Carbon Dioxide Level 25 20-31 mmol/L Anion Gap 8 5-15 Blood Urea Nitrogen 12 9-23 mg/dL Creatinine 0.69 0.550-1.02 mg/dL Glomerular Filtration Rate Calc 95 >90 mL/min BUN/Creatinine Ratio 17.4 10.0-20.0 Serum Glucose 167 H 74-106 mg/dL Calcium Level 9.1 8.7-10.4 mg/dL Total Bilirubin 1.1 H 0.2-1.0 mg/dL Aspartate Amino Transferase (AST) 30 13-40 U/L Alanine Aminotransferase (ALT) 15 7-40 U/L Alkaline Phosphatase 186 H 46-116 U/L Total Protein 6.4 5.7-8.2 g/dL Albumin 3.4 3.2-4.8 g/dL Hemoglobin A1c 5.3 <5.7 % A1C Test 12/09/24 18:31 12/09/24 17:44 12/09/24 16:51 12/09/24 16:41 Range/Units Troponin I High Sensitivity 7 </=34 ng/L Lactic Acid Level 1.4 0.4-2.0 mmol/L Urine Color Light-yellow Yellow Urine Clarity Clear Clear Urine pH 7.5 5.0-9.0 Urine Specific [place] 1.018 1.001-1.035 Urine Protein Negative Negative Urine Ketones Negative Negative Urine Blood Negative Negative /uL Urine Nitrite Negative Negative Urine Bilirubin Negative Negative Urine Urobilinogen Normal Negative mg/dL Urine Leukocyte Esterase Negative Negative /uL Urine RBC 1 0 - 4 /hpf Urine Microscopic WBC 1 0-5 /HPF Urine Squamous Epithelial Cells None seen <5 /hpf Urine Bacteria None seen None Seen /hpf Urine Glucose Normal Normal mg/dL Urine Opiates Screen Pos NEGATIVE Urine Fentanyl Screen Pos NEGATIVE Urine Barbiturates Screen Neg NEGATIVE Urine Phencyclidine Screen Neg NEGATIVE Urine Amphetamines Screen Neg NEGATIVE Urine Benzodiazepines Screen Pos NEGATIVE Urine Cocaine Screen Neg NEGATIVE Urine Cannabinoids Screen Neg NEGATIVE Blood Gas Critical Value Read Back Yes Blood Gas Notified Whom reji French md Blood Gas Notified Time [id number] Blood Gas Notified By Ansley nagel carton catcher Test 12/09/24 16:26 Range/Units Ammonia 68 H 11-32 umol/L B-Type Natriuretic Peptide 196.92 0-100 pg/mL Lipase 107 H 12-53 U/L Microbiology Date/Time Source Procedure Growth Status 12/10/24 03:00 Nose MRSA Screen - Final Complete 12/09/24 17:44 Blood Blood Culture - Preliminary NO GROWTH AFTER 24 HOURS OF INCUBATION. Resulted Assessment Impression: Acute hypoxic respiratory failure On mechanical ventilator Atelectasis S/p hip surgery Hypertension Liver cirrhosis Brain aneurysm Dementia Elevated lactulose Shock, on pressors Plan: S/p hip surgery at [facility] s/p intubation on mechanical ventilator. CXR image and report reviewed. Devices in place. Bilateral opacities. No pneumothorax. No pleural effusion. ABG reviewed. On AC mode; RR 20, VT 450, PEEP 5, FiO2 30% Titrate FIO2 to keep O2 saturation above 90%. VAP bundle. Daily ABG and CXR while intubated Sedate for ventilator synchrony On Propofol, Fentanyl Tapered sedation On pressors for hemodynamic support Levophed 1 mcg/min Titrate to keep mean arterial pressure greater than 65 mmHg. Continue antibiotics. F/u cultures. Accu-Cheks, ISS Monitor renal function Monitor electrolytes. Supplement as necessary. Monitor ins and outs. Diet and lifestyle modifications for weight reduction Obesity - complicates all care GI prophylaxis. DVT prophylaxis. Prognosis: Poor given patient's multiple co-morbidities. Condition: Critical Rest of plan per hospitalist and other consultants. A total of 35 minutes of critical care time was spent reviewing the patient record, examining the patient, making a diagnostic and therapeutic plan, discussing this plan with the medical personnel, following up on diagnostic studies and following the patient for clinical stability excluding any and all procedures. At least 50% of this time was spent in direct, [id number] contact. Thank you, MIA Chatterjee, for allowing me to participate in this patient's care. Further recommendations will depend on the patient's clinical course. Please do not hesitate to contact me if you have any questions or concerns. This medical document was created using an electronic medical record system with [employer] computerized dictation system. Although these documentations are being carefully reviewed, there may still be some phonetic and typographical changes. The errors are purely typographical, due to imperfection on the software program, and do not reflect any compromise in the patient's medical care. Plan discussed with: Other (AVI Sweeney/MIA Chatterjee/) BEE MARSHALL MD December 10, 2024 18:50
[2024-12-10] MEDS: ACETAMINOPHEN 650 MG RECT SUPP PR PRN (18:54)
[2024-12-10] MEDS: rifAXIMin 550 MG TAB NG SCH (22:09)
[2024-12-11] VITALS (107 sets, daily range): BP systolic 94–174; BP diastolic 38–114; PULSE 64–112; RESP 11–37; TEMP 98.6–100.8; O2SAT 97–100
[2024-12-11 04:13] LABS: Basophils # (auto) 0 10 ^3/uL (0-0.2); Basophils % (auto) 0.3 % (0.0-2.0); Eosinophils # (auto) 0.3 10 ^3/uL (0-0.8); Eosinophils % (auto) 4.4 % (0.0-7.0); Lymphocytes # (auto) 0.9 10 ^3/uL (0.4-5.4); Lymphocytes % (auto) 15.7 % (10.0-50.0); Mean Corpuscular Hemoglobin 27.4 pg (28.0-32.0); Mean Corpuscular Hgb Conc. 33.4 g/dL (32.0-36.0); Mean Corpuscular Volume 81.9 fL (80.0-100.0); Monocytes # (auto) 0.8 10 ^3/uL (0-1.3); Monocytes % (auto) 13.4 % (0.0-12.0); Neutrophils # (auto) 3.8 10 ^3/uL (1.6-8.6); Neutrophils % (auto) 66.2 % (37.0-80.0); Nucleated Red Blood Cells % 0.1 %; Red Cell Distribution Width 17.9 % (11.8-14.3); White Blood Cell 5.8 10^3/uL (4.4-10.8)
[2024-12-11 04:29] LABS: Alanine Aminotransferase 19 U/L (7-40); Anion Gap 9 (5-15); Aspartate Aminotransferase 33 U/L (13-40); BUN/Creatinine Ratio 10.9 (10.0-20.0); Calcium 8.8 mg/dL (8.7-10.4); Carbon Dioxide 24 mmol/L (20-31); Chloride 103 mmol/L (98-107); Potassium 3.9 mmol/L (3.5-5.1); Sodium 136 mmol/L (136-145); Total Protein 5.9 g/dL (5.7-8.2)
[2024-12-11 04:33] LABS: Platelet Count (auto) 90 10^3/uL (140-450)
[2024-12-11 04:45] LABS: Albumin 3.1 g/dL (3.2-4.8); Alkaline Phosphatase 185 U/L (46-116); Blood Urea Nitrogen 7 mg/dL (9-23); Glucose 134 mg/dL (74-106)
[2024-12-11 05:25] LABS: Erythrocyte Sedimentation Rate 43 mm/hr (0-20)
--- NOTE | 2024-12-11 05:51 | DVH ---
CHEST RADIOGRAPH Indication: fu Technique: Single frontal view of the chest was obtained Comparison: XY CHEST XRAY 1 VIEW on DOS: 12/10/24, XY CHEST XRAY 1 VIEW on DOS: 12/09/24, XY CHEST XRAY 1 VIEW on DOS: 08/05/24 IMPRESSION: Endotracheal tube and enteric tube appears satisfactory position. The heart appears normal in size. The lungs appear clear without focal airspace opacity, effusion, or pneumothorax.
[2024-12-11] MEDS ORDERED: VANCOMYCIN PER PHARMACY 0 MG IV SCH (06:30)
[2024-12-11] MEDS: VANCOMYCIN 1GM/200ML PM 200 ML IV ONE (06:55)
[2024-12-11 07:11] LABS: Base Excess -2.1 mmol/L (-2.0-3.0)
--- NOTE | 2024-12-11 09:07 | DVHPN2 ---
Subjective Intubated. Off sedation for CPAP trial Reviewed: Care Plan, H&P, Labs, Medications, Previous Orders, Radiology Changes from previous H/P or p: No Changes Genitourinary: Other (Key catheter in place) Objective Vitals Vital Signs Date Time Temp Pulse Resp B/P (MAP) Pulse Ox O2 Delivery O2 Flow Rate FiO2 12/11/24 08:26 90 25 144/80 (101) 100 30 12/11/24 07:15 99.5 211.1 12/11/24 06:00 Mechanical Ventilator+ Intake/Output Intake and Output 12/11/24 07:00 Intake Total 2514.225 ml Output Total 1625 ml Balance 889.225 ml Intake Oral 280 ml IV Total 2234.225 ml Output Urine Total 1625 ml General Appearance: Other (Sedated and intubated) HEENT: Atraumatic, PERRLA Lungs: Other (Very few crackles bilateral lungs with good air entry) Cardiovascular: Regular rate Abdomen: Normal bowel sounds, Soft Extremities: Other (better trace edema right lower extremity. Less Warm right foot and right lower extremity. ) Medications Current Medications Medications Dose Ordered Sig/Lashell Route Start Time Stop Time Status Last Admin Dose Admin Propofol 100 ml @ 1.62 mls/hr Q24H IV 12/09/24 16:15 12/11/24 06:34 8.1 MLS/HR Fentanyl Citrate 250 ml @ 2.5 mls/hr Q24H IV 12/09/24 16:15 12/09/24 18:25 2.5 MLS/HR Midazolam HCl 50 ml @ 1 mls/hr Q24H IV 12/09/24 16:30 12/11/24 02:28 5 MLS/HR Famotidine 20 mg DAILY IV 12/10/24 10:00 12/10/24 09:40 20 MG Hydralazine HCl 10 mg Q6HP PRN IV 12/09/24 19:30 Dextrose/Sodium Chloride 1,000 ml @ 75 mls/hr [id number] IV 12/09/24 19:30 12/11/24 03:48 75 MLS/HR Levofloxacin/ Dextrose 100 ml @ 100 mls/hr DAILY IV 12/10/24 10:00 12/10/24 09:41 100 MLS/HR Diagnostic Test (Pha) 1 strip Q6HR 12/10/24 00:00 12/11/24 05:55 1 STRIP Insulin Human Regular Q6HR SC 12/10/24 00:00 12/11/24 06:04 2 UNITS Dextrose 50 ml UD PRN IV 12/09/24 19:30 Ondansetron HCl 4 mg Q4HP PRN IV 12/09/24 19:30 Enoxaparin Sodium 40 mg DAILY SC 12/10/24 10:00 12/10/24 09:40 40 MG Acetaminophen 650 mg Q6HP PRN [place] 12/09/24 19:30 12/11/24 04:18 650 MG Nitroglycerin 0.4 mg Q5MINP PRN SL 12/09/24 21:30 Morphine Sulfate 2 mg Q30M PRN IV 12/09/24 21:30 Lactulose 30 ml Q6HR PO 12/10/24 06:00 12/11/24 06:00 30 ML Norepinephrine Bitartrate 250 ml @ 1.875 mls/ hr Q24H IV 12/10/24 04:45 Rifaximin 550 mg BID NG 12/10/24 22:00 12/10/24 22:09 550 MG Vancomycin HCl 0 ml @ 0 mls/hr UD IV 12/11/24 06:30 UNV Laboratory Results Laboratory Tests 12/11/24 03:43 Chemistry Test 12/11/24 03:43 Albumin 3.1 g/dL (3.2-4.8) L Calcium Level 8.8 mg/dL (8.7-10.4) Total Protein 5.9 g/dL (5.7-8.2) Cardiac Markers Test 12/11/24 03:43 B-Type Natriuretic Peptide 32.92 pg/mL (0-100) LFT Test 12/11/24 03:43 Alanine Aminotransferase (ALT) 19 U/L (7-40) Alkaline Phosphatase 185 U/L (46-116) H Aspartate Amino Transferase (AST) 33 U/L (13-40) Total Bilirubin 1.0 mg/dL (0.2-1.0) Urinalysis Test 12/09/24 16:51 Urine Color Light-yellow (Yellow) Urine Clarity Clear (Clear) Urine pH 7.5 (5.0-9.0) Urine Specific [place] 1.018 (1.001-1.035) Urine Protein Negative (Negative) Urine Ketones Negative (Negative) Urine Blood Negative /uL (Negative) Urine Nitrite Negative (Negative) Urine Bilirubin Negative (Negative) Urine Urobilinogen Normal mg/dL (Negative) Urine Leukocyte Esterase Negative /uL (Negative) Urine RBC 1 /hpf (0 - 4) Urine Microscopic WBC 1 /HPF (0-5) Urine Squamous Epithelial Cells None seen /hpf (<5) Urine Bacteria None seen /hpf (None Seen) Urine Glucose Normal mg/dL (Normal) Blood Gas Results Test 12/11/24 06:56 Arterial Blood pH 7.428 (7.350-7.450) FiO2 % 30.0 Microbiology Microbiology Date/Time Source Procedure Growth Status 12/10/24 03:00 Nose MRSA Screen - Final Complete 12/09/24 17:44 Blood Blood Culture - Preliminary NO GROWTH AFTER 24 HOURS OF INCUBATION. Resulted Assessment/Plan Assessment/Plan Slight fever Possible cellulitis right lower extremity/add vancomycin Acute respiratory failure with hypoxemia Questionable aspiration pneumonia/atelectasis Possible mild diastolic heart failure Liver cirrhosis Chronic low back pain and hip pain status post hip surgery Status post outpatient SI procedure by pain management done on the day before admission Status post right femoral neck fracture/ORIF in July 2024 History of TIA and CVA Liver cirrhosis Hypertension Dyslipidemia Mild dementia History of lumbar diskitis and osteomyelitis Plan: Add vancomycin. Monitor temperature. CPAP trial today for extubation. Repeat labs and x-ray. Better blood pressure. Monitor further for any need for vasopressors. Further plan per orders. Total critical care time 35 minutes Plan discussed with: Other (Granddaughter and nursing) My Orders Orders - YA MELISSA MD Procedure Category Date Status Time Lt Low Ext Art Duplex US 12/10/24 Resulted 11:05 Rt Lower Dvt US 12/10/24 Resulted 11:10 R Ankle 2 View Xray XY 12/10/24 Resulted 11:10 * Wound Consult CONS 12/10/24 Transmitted 11:18 * Dietary Consult CONS 12/10/24 Transmitted 11:18 Chest Portable XY 12/11/24 Resulted 06:00 Abg W/ Co-Ox RT 12/11/24 Logged 06:00 Rifaximin (Xifaxan) PHA 12/10/24 In Process 22:00 Vancomycin Per PHA 12/11/24 Pending Pharmacy 06:30 Date of Service: December 11, 2024 Billing Provider: YA MELISSA MD Common Visit Codes: [id number] CARE 30-74 MIN YA MELISSA MD December 11, 2024 09:07
[2024-12-11] MEDS ORDERED: OXYCODONE W/ ACETAMINOPHEN 5/325MG TABLET PO PRN (09:30)
[2024-12-11] MEDS: OXYCODONE W/ ACETAMINOPHEN 5/325MG TABLET PO PRN (11:04)
[2024-12-11 13:57] LABS: Urine Bacteria None Seen /hpf (None Seen)
[2024-12-11 14:03] LABS: Urine Blood TRACE /uL (Negative); Urine Clarity Clear (Clear); Urine Color Light-Yellow (Yellow); Urine Protein, UAD Negative (Negative); Urine Specific Gravity 1.007 (1.001-1.035); Urine Squamous Epithelial Cell None Seen /hpf (<5); Urine Urobilinogen Normal (Negative); Urine WBC < 1 /HPF (0-5); Urine pH 6.5 (5.0-9.0)
[2024-12-11] MEDS: VANCOMYCIN 750mg/150ml 150 ML IV SCH (20:00)
--- NOTE | 2024-12-11 22:57 | DVHPN2 ---
Progress Note - Dictate Date Seen: December 11, 2024 Medical Necessity Reason Pt with a Central, PICC or Fol: Yes The following are medically ne: Guadarrama Catheter Reason for guadarrama catheter: Strict I&O Subjective Patient seen and examined at bedside. Sedated, intubated on mechanical ventilator. Overnight events reviewed. vital signs Vital Sign Date Time Temp Pulse Resp B/P (MAP) Pulse Ox O2 Delivery O2 Flow Rate FiO2 12/11/24 22:15 99.7 88 11 148/86 (106) 100 99.7 12/11/24 22:00 30 12/11/24 22:00 Mechanical Ventilator+ Total Intake and Output 12/10/24 12/10/24 12/11/24 15:00 23:00 07:00 Intake Total 759.450 ml 907.800 ml 846.975 ml Output Total 1125 ml 500 ml Balance 759.450 ml -217.200 ml 346.975 ml medications Current Medications Medications Dose Ordered Sig/Lashell Route Start Time Stop Time Status Last Admin Dose Admin Propofol 100 ml @ 1.62 mls/hr Q24H IV 12/09/24 16:15 12/11/24 06:34 8.1 MLS/HR Fentanyl Citrate 250 ml @ 2.5 mls/hr Q24H IV 12/09/24 16:15 12/09/24 18:25 2.5 MLS/HR Midazolam HCl 50 ml @ 1 mls/hr Q24H IV 12/09/24 16:30 12/11/24 02:28 5 MLS/HR Famotidine 20 mg DAILY IV 12/10/24 10:00 12/11/24 09:50 20 MG Hydralazine HCl 10 mg Q6HP PRN IV 12/09/24 19:30 Dextrose/Sodium Chloride 1,000 ml @ 75 mls/hr [id number] IV 12/09/24 19:30 12/11/24 20:00 75 MLS/HR Levofloxacin/ Dextrose 100 ml @ 100 mls/hr DAILY IV 12/10/24 10:00 12/11/24 09:50 100 MLS/HR Diagnostic Test (Pha) 1 strip Q6HR 12/10/24 00:00 12/11/24 17:44 1 STRIP Insulin Human Regular Q6HR SC 12/10/24 00:00 12/11/24 17:53 2 UNITS Dextrose 50 ml UD PRN IV 12/09/24 19:30 Ondansetron HCl 4 mg Q4HP PRN IV 12/09/24 19:30 Enoxaparin Sodium 40 mg DAILY SC 12/10/24 10:00 12/11/24 09:51 40 MG Acetaminophen 650 mg Q6HP PRN [place] 12/09/24 19:30 12/11/24 04:18 650 MG Nitroglycerin 0.4 mg Q5MINP PRN SL 12/09/24 21:30 Morphine Sulfate 2 mg Q30M PRN IV 12/09/24 21:30 Lactulose 30 ml Q6HR PO 12/10/24 06:00 12/11/24 17:43 30 ML Norepinephrine Bitartrate 250 ml @ 1.875 mls/ hr Q24H IV 12/10/24 04:45 Rifaximin 550 mg BID NG 12/10/24 22:00 12/11/24 21:31 550 MG Vancomycin HCl 0 ml @ 0 mls/hr UD IV 12/11/24 06:30 Oxycodone/ Acetaminophen 1 tab Q6HP PRN PO 12/11/24 09:30 12/11/24 16:48 1 TAB Oxycodone/ Acetaminophen 2 tab Q6HP PRN PO 12/11/24 09:30 Vancomycin HCl 150 ml @ 150 mls/hr Q12H IV 12/11/24 20:00 12/11/24 20:00 150 MLS/HR objective Gen.: Patient lying in bed in medical ICU. Sedated, intubated on mechanical ventilator. Head: Normocephalic, atraumatic. Eyes: PERRLA. Ears: Normal external anatomy. Throat: Endotracheal tube and orogastric tube in place. Neck: Supple, trachea midline. Chest: Transmitted breath sounds bilaterally. Decreased air entry bilaterally. No wheezing. Bibasilar crackles. Cardiovascular: Positive S1, positive S2. Regular rate and rhythm. Abdomen: Positive bowel sounds in all 4 quadrants. Soft, nontender, nondistended. : Guadarrama in place. Normal external genitalia. Rectal: Deferred. Skin: Warm, dry. Intact. Extremities: 2+ radial pulses bilaterally. No lower extremity edema. Neuro: Sedated. laboratory and microbiology Laboratory Tests 12/11/24 03:43 Test 12/11/24 03:43 Range/Units Serum Glucose 134 H 74-106 mg/dL Assessment/Plan Impression: Acute hypoxic respiratory failure On mechanical ventilator Atelectasis Obesity S/p hip surgery Hypertension Liver cirrhosis Brain aneurysm Dementia Events: Remains on vent support On AC mode; RR 20, VT 450, PEEP 5, FiO2 30% ABG reviewed, compensated. Chest x-ray showed no acute opacities, devices in place. Sedated on Propofol, Versed Off pressors since 2 AM, hemodynamically stable. Continue antibiotics WBC within normal limits Elevated ammonia level -improved Monitor hemoglobin - trending down to 9.0 g/dL Monitor platelets - trending down to 90 K Labs and imaging reviewed. Rest of plan as noted below. Plan: S/p hip surgery at [facility] s/p intubation on mechanical ventilator. On AC mode; RR 20, VT 450, PEEP 5, FiO2 30% Titrate FIO2 to keep O2 saturation above 90%. VAP bundle. Daily ABG and CXR while intubated Sedate for ventilator synchrony Pressors if necessary for hemodynamic support Titrate to keep mean arterial pressure greater than 65 mmHg. Continue antibiotics. F/u cultures. Accu-Cheks, ISS Monitor renal function Monitor electrolytes. Supplement as necessary. Monitor ins and outs. Diet and lifestyle modifications for weight reduction Obesity - complicates all care GI prophylaxis. DVT prophylaxis. Prognosis: Poor given patient's multiple co-morbidities. Condition: Critical Rest of plan per hospitalist and other consultants. A total of 35 minutes of critical care time was spent reviewing the patient record, examining the patient, making a diagnostic and therapeutic plan, discussing this plan with the medical personnel, following up on diagnostic studies and following the patient for clinical stability excluding any and all procedures. At least 50% of this time was spent in direct, [id number] contact. Thank you, BOARD FINISHER Sen, for allowing me to participate in this patient's care. Further recommendations will depend on the patient's clinical course. Please do not hesitate to contact me if you have any questions or concerns. This medical document was created using an electronic medical record system with [employer] system. Although these documentations are being carefully reviewed, there may still be some phonetic and typographical changes. The errors are purely typographical, due to imperfection on the software program, and do not reflect any compromise in the patient's medical care. Dietary Evaluation Review Comments: 1) If patient remains NPO > 7 days, initiate EN/TPN to meet at least 75% of estimated daily needs. Note, current Propofol @ 8.1 mL/hr provides additional 214 kcal per 24 hrs 2) Advance to hepatic diet when medically feasible, pending IMAGING SYSTEM ADMINISTRATOR approval 3) Follow-up with social servives regarding polysubstance abuse 4) Follow-up with cardiology and information technology internship 5) Continue to monitor I&O, labs, and skin integrity Expected Outcomes/Goals: 1) patient to receive nutrition support within 7 days of NPO status 2) skin integrity and labs to improve 3) diet to advance 4) f/u in 2-3 days Plan discussed with: Patient, Other (AVI Sweeney) Critical Care Time(min): 35 BEE MARSHALL MD December 11, 2024 22:57
[2024-12-12] VITALS (115 sets, daily range): BP systolic 80–164; BP diastolic 33–85; PULSE 54–117; RESP 11–26; TEMP 98.1–101.1; O2SAT 88–100
[2024-12-12 04:09] LABS: Basophils # (auto) 0 10 ^3/uL (0-0.2); Basophils % (auto) 0.2 % (0.0-2.0); Eosinophils # (auto) 0.1 10 ^3/uL (0-0.8); Eosinophils % (auto) 2.6 % (0.0-7.0); Hematocrit 26.6 % (36.0-46.0); Hemoglobin 8.8 g/dL (12.2-16.2); Lymphocytes # (auto) 0.6 10 ^3/uL (0.4-5.4); Lymphocytes % (auto) 10.2 % (10.0-50.0); Mean Corpuscular Hgb Conc. 33.1 g/dL (32.0-36.0); Mean Corpuscular Volume 81.5 fL (80.0-100.0); Monocytes # (auto) 0.6 10 ^3/uL (0-1.3); Monocytes % (auto) 10.4 % (0.0-12.0); Neutrophils # (auto) 4.4 10 ^3/uL (1.6-8.6); Neutrophils % (auto) 76.6 % (37.0-80.0); Nucleated Red Blood Cells % 0.1 %; Platelet Count (auto) 73 10^3/uL (140-450); Red Blood Cells 3.27 10^6/uL (4.0-5.20); Red Cell Distribution Width 16.7 % (11.8-14.3); White Blood Cell 5.7 10^3/uL (4.4-10.8)
[2024-12-12 04:25] LABS: Alanine Aminotransferase 19 U/L (7-40); Anion Gap 8 (5-15); Aspartate Aminotransferase 30 U/L (13-40); Calcium 8.9 mg/dL (8.7-10.4); Carbon Dioxide 24 mmol/L (20-31); Chloride 107 mmol/L (98-107); Potassium 3.8 mmol/L (3.5-5.1); Sodium 139 mmol/L (136-145); Total Protein 5.9 g/dL (5.7-8.2)
[2024-12-12 04:37] LABS: Albumin 3.1 g/dL (3.2-4.8); Alkaline Phosphatase 194 U/L (46-116); BUN/Creatinine Ratio 10.4 (10.0-20.0); Bilirubin, Total 1.3 mg/dL (0.2-1.0); Blood Urea Nitrogen < 5 mg/dL (9-23); Glucose 171 mg/dL (74-106)
--- NOTE | 2024-12-12 05:17 | DVH ---
EXAM: XR Chest, 1 View CLINICAL INDICATION: fu TECHNIQUE: Frontal view of the chest. COMPARISON: XY CHEST PORTABLE on DOS: 12/11/24, XY CHEST XRAY 1 VIEW on DOS: 12/10/24, XY CHEST XRAY 1 VIEW on DOS: 12/09/24, XY CHEST XRAY 1 VIEW on DOS: 08/05/24, XY CHEST PORTABLE on DOS: 07/31/24 FINDINGS: LUNGS AND PLEURAL SPACES: Pulmonary venous congestion. No consolidation. No pneumothorax. HEART: Unremarkable. No cardiomegaly. MEDIASTINUM: Unremarkable. Normal mediastinal contour. BONES/JOINTS: Unremarkable. No acute fracture. TUBES, LINES AND DEVICES: The endotracheal tube (ETT) is in satisfactory position. Enteric tube ti p in the stomach. OTHER FINDINGS: . . . IMPRESSION: Pulmonary venous congestion.
[2024-12-12 05:21] LABS: Erythrocyte Sedimentation Rate 50 mm/hr (0-20)
[2024-12-12] MEDS ORDERED: FUROSEMIDE 40 MG/4 ML VIAL IV ONE (10:30)
--- NOTE | 2024-12-12 10:31 | DVHPN2 ---
Progress Note Date Seen: December 12, 2024 Medical Necessity Reason Pt with a Central, PICC or Fol: Yes The following are medically ne: Central Line, Guadarrama Catheter Reason for guadarrama catheter: Strict I&O Subjective Patient reports: No new complaints Review of Systems: HEENT:Normal, CVS:Normal, RESPIRATORY:Normal, GI:Normal, :Normal, MSK:Normal, NEURO:Normal Objective vital signs Vital Sign Date Time Temp Pulse Resp B/P (MAP) Pulse Ox O2 Delivery O2 Flow Rate FiO2 12/12/24 10:14 81 15 141/71 (94) 100 30 12/12/24 09:52 Mechanical Ventilator+ 12/12/24 09:45 98.8 209.8 Total Intake and Output 12/11/24 12/11/24 12/12/24 15:00 23:00 07:00 Intake Total 812.15 ml 713.75 ml 799.025 ml Output Total 1650 ml 1550 ml Balance 812.15 ml -936.25 ml -750.975 ml medications Current Medications Medications Dose Ordered Sig/Lashell Route Start Time Stop Time Status Last Admin Dose Admin Propofol 100 ml @ 1.62 mls/hr Q24H IV 12/09/24 16:15 12/11/24 06:34 8.1 MLS/HR Fentanyl Citrate 250 ml @ 2.5 mls/hr Q24H IV 12/09/24 16:15 12/09/24 18:25 2.5 MLS/HR Midazolam HCl 50 ml @ 1 mls/hr Q24H IV 12/09/24 16:30 12/11/24 02:28 5 MLS/HR Famotidine 20 mg DAILY IV 12/10/24 10:00 12/12/24 09:25 20 MG Hydralazine HCl 10 mg Q6HP PRN IV 12/09/24 19:30 Dextrose/Sodium Chloride 1,000 ml @ 75 mls/hr [id number] IV 12/09/24 19:30 12/12/24 09:26 75 MLS/HR Levofloxacin/ Dextrose 100 ml @ 100 mls/hr DAILY IV 12/10/24 10:00 12/11/24 09:50 100 MLS/HR Diagnostic Test (Pha) 1 strip Q6HR 12/10/24 00:00 12/12/24 05:38 1 STRIP Insulin Human Regular Q6HR SC 12/10/24 00:00 12/12/24 05:39 2 UNITS Dextrose 50 ml UD PRN IV 12/09/24 19:30 Ondansetron HCl 4 mg Q4HP PRN IV 12/09/24 19:30 Enoxaparin Sodium 40 mg DAILY SC 12/10/24 10:00 12/11/24 09:51 40 MG Acetaminophen 650 mg Q6HP PRN [place] 12/09/24 19:30 12/11/24 04:18 650 MG Nitroglycerin 0.4 mg Q5MINP PRN SL 12/09/24 21:30 Morphine Sulfate 2 mg Q30M PRN IV 12/09/24 21:30 Lactulose 30 ml Q6HR PO 12/10/24 06:00 12/12/24 05:38 30 ML Norepinephrine Bitartrate 250 ml @ 1.875 mls/ hr Q24H IV 12/10/24 04:45 Rifaximin 550 mg BID NG 12/10/24 22:00 12/11/24 21:31 550 MG Vancomycin HCl 0 ml @ 0 mls/hr UD IV 12/11/24 06:30 Oxycodone/ Acetaminophen 1 tab Q6HP PRN PO 12/11/24 09:30 12/12/24 05:50 1 TAB Oxycodone/ Acetaminophen 2 tab Q6HP PRN PO 12/11/24 09:30 Vancomycin HCl 150 ml @ 150 mls/hr Q12H IV 12/11/24 20:00 12/12/24 09:25 150 MLS/HR Examination: GENERAL:Normal, HEENT:Normal, NECK:Normal, LUNGS:Normal, LUNGS:Abnormal (intubated), CVS:Normal, ABDOMEN:Normal, MSK:Normal, SKIN:Normal, NEURO:Normal, :Normal laboratory and microbiology Laboratory Tests 12/12/24 03:41 Test 12/12/24 03:41 Range/Units Serum Glucose 171 H 74-106 mg/dL Microbiology Date/Time Source Procedure Growth Status 12/10/24 03:00 Nose MRSA Screen - Final Complete 12/09/24 17:44 Blood Blood Culture - Preliminary NO GROWTH AFTER 48 HOURS OF INCUBATION. Resulted 12/09/24 16:51 Urine - [place] Urine Culture - Preliminary Resulted Problem List/Assessment/Plan Problem List/Assessment/Plan #1 acute resp failure: cpap trial #2 acute diastolic heart failure: lasix iv #3 liver cirrhosis- non alcoholic #4 s/p fall s/p surgery right hip s/p pain procedure #5 dm: ssi #6 shock ? septic/pneumonia ?aspiration: iv antibiotics, off pressors #7 dementia #8 thrombocytopenia: dc lovenox #9 anemia #10 mod protein malnutrition #11 h/o cva Plan discussed with: Daughter My Orders My Orders Orders - RADHA DOMINGO MD Procedure Category Date Status Time Furosemide Injection PHA 12/12/24 Transmitted (Lasix Injection) 10:30 Complete Blood Count LAB 12/13/24 Verified 06:00 Comprehensive LAB 12/13/24 Verified Metabolic Panel 06:00 Ammonia LAB 12/13/24 Verified 06:00 Chest Portable XY 12/13/24 Transmitted 06:00 Extubate MICHAEL 12/12/24 Verified 10:24 Dietary Evaluation Review Comments: 1) If patient remains NPO > 7 days, initiate EN/TPN to meet at least 75% of estimated daily needs. Note, current Propofol @ 8.1 mL/hr provides additional 214 kcal per 24 hrs 2) Advance to hepatic diet when medically feasible, pending BI TECHNICAL LEAD approval 3) Follow-up with social servives regarding polysubstance abuse 4) Follow-up with cardiology and shirring machine operator 5) Continue to monitor I&O, labs, and skin integrity Expected Outcomes/Goals: 1) patient to receive nutrition support within 7 days of NPO status 2) skin integrity and labs to improve 3) diet to advance 4) f/u in 2-3 days Critical Care Time (mins): 81 (critical care time including cpap trial and excluding procedures was 81 mins) Date of Service: December 12, 2024 Billing Provider: RADHA DOMINGO MD Common Visit Codes: [id number] CARE 30-74 MIN, [id number] CARE-EACH +30MIN RADHA DOMINGO MD December 12, 2024 10:31
[2024-12-12] MEDS: FUROSEMIDE 40 MG/4 ML VIAL IV ONE (10:54)
[2024-12-12] MEDS: EPINEPHrine HCL 0.5 ML NEB NEB ONE ×2 (11:48→15:23)
[2024-12-12] MEDS: DexAMETHasone SOD PHOS 4 MG/1ML SDV INJ IV ONE (11:51)
[2024-12-12] MEDS: ALBUTEROL SULF 2.5 MG/0.5ML(0.5%) NEB SOLN ONE (12:14)
[2024-12-12] MEDS: IPRATROPIUM BROM 0.5 MG/2.5ML INH SOL ONE (12:15)
[2024-12-12] MEDS: FUROSEMIDE 20 MG/2 ML VIAL IV ONE (15:22)
[2024-12-12] MEDS: MORPHINE SULFATE INJ 2 MG/ml SYRG IV PRN (17:24)
[2024-12-12] MEDS: ALBUTEROL SULF 2.5 MG/0.5ML(0.5%) NEB SOLN NEB PRN (18:27)
[2024-12-12] MEDS: IPRATROPIUM BROM 0.5 MG/2.5ML INH SOL NEB PRN (18:27)
[2024-12-13] VITALS (116 sets, daily range): BP systolic 116–158; BP diastolic 58–112; PULSE 79–106; RESP 10–22; TEMP 99–99.5; O2SAT 85–100
[2024-12-13 03:53] LABS: Basophils # (auto) 0 10 ^3/uL (0-0.2); Basophils % (auto) 0.1 % (0.0-2.0); Eosinophils # (auto) 0 10 ^3/uL (0-0.8); Eosinophils % (auto) 1.1 % (0.0-7.0); Hematocrit 26.7 % (36.0-46.0); Hemoglobin 8.9 g/dL (12.2-16.2); Lymphocytes # (auto) 0.6 10 ^3/uL (0.4-5.4); Lymphocytes % (auto) 15.9 % (10.0-50.0); Mean Corpuscular Hgb Conc. 33.3 g/dL (32.0-36.0); Mean Corpuscular Volume 81.1 fL (80.0-100.0); Monocytes # (auto) 0.4 10 ^3/uL (0-1.3); Neutrophils % (auto) 72.9 % (37.0-80.0); Nucleated Red Blood Cells % 0.1 %; Platelet Count (auto) 90 10^3/uL (140-450); Red Blood Cells 3.29 10^6/uL (4.0-5.20); Red Cell Distribution Width 16.9 % (11.8-14.3); White Blood Cell 4.1 10^3/uL (4.4-10.8)
[2024-12-13 04:11] LABS: Alanine Aminotransferase 16 U/L (7-40); Albumin 3.3 g/dL (3.2-4.8); Anion Gap 8 (5-15); Aspartate Aminotransferase 23 U/L (13-40); BUN/Creatinine Ratio 17.3 (10.0-20.0); Bilirubin, Total 1.2 mg/dL (0.2-1.0); Carbon Dioxide 29 mmol/L (20-31); Chloride 107 mmol/L (98-107); Potassium 3.5 mmol/L (3.5-5.1); Sodium 144 mmol/L (136-145); Total Protein 6.4 g/dL (5.7-8.2)
[2024-12-13 04:12] LABS: INR 1.11 (0.9-1.15); Partial Thromboplastin Time 30.2 SEC (24.5-34.5); Prothrombin Time 11.6 sec (9.3-11.8)
[2024-12-13 04:24] LABS: Alkaline Phosphatase 176 U/L (46-116); Blood Urea Nitrogen 9 mg/dL (9-23); Calcium 8.4 mg/dL (8.7-10.4); Glucose 107 mg/dL (74-106)
--- NOTE | 2024-12-13 05:57 | DVH ---
EXAM: XR Chest, 1 View CLINICAL INDICATION: RESP FAILURE TECHNIQUE: Frontal view of the chest. COMPARISON: XY CHEST PORTABLE on DOS: 12/12/24, XY CHEST PORTABLE on DOS: 12/11/24, XY CHEST XRAY 1 V IEW on DOS: 12/10/24, XY CHEST XRAY 1 VIEW on DOS: 12/09/24, XY CHEST XRAY 1 VIEW on DOS: 08/05/24 FINDINGS: LUNGS AND PLEURAL SPACES: Unremarkable. No consolidation. No pneumothorax. HEART: Unremarkable. No cardiomegaly. MEDIASTINUM: Unremarkable. Normal mediastinal contour. BONES/JOINTS: Unremarkable. No acute fracture. OTHER FINDINGS: . IMPRESSION: No acute cardiopulmonary process.
[2024-12-13] MEDS: levoFLOXacin 250MG 50 ML IV SCH (10:00)
--- NOTE | 2024-12-13 11:46 | DVHPN2 ---
Progress Note Date Seen: December 13, 2024 Medical Necessity Reason Pt with a Central, PICC or Fol: Yes The following are medically ne: Central Line, Guadarrama Catheter Reason for guadarrama catheter: Strict I&O Subjective Patient reports: No new complaints Review of Systems: HEENT:Normal, CVS:Normal, RESPIRATORY:Normal, GI:Normal, :Normal, MSK:Normal, NEURO:Normal Objective vital signs Vital Sign Date Time Temp Pulse Resp B/P (MAP) Pulse Ox O2 Delivery O2 Flow Rate FiO2 12/13/24 11:15 99.3 80 14 126/62 (83) 97 210.7 12/13/24 10:15 Nasal Cannula* 2 28 Total Intake and Output 12/12/24 12/12/24 12/13/24 15:00 23:00 07:00 Intake Total 476.875 ml 150 ml 0 ml Output Total 3275 ml 1025 ml Balance 476.875 ml -3125 ml -1025 ml medications Current Medications Medications Dose Ordered Sig/Lashell Route Start Time Stop Time Status Last Admin Dose Admin Propofol 100 ml @ 1.62 mls/hr Q24H IV 12/09/24 16:15 12/11/24 06:34 8.1 MLS/HR Fentanyl Citrate 250 ml @ 2.5 mls/hr Q24H IV 12/09/24 16:15 12/09/24 18:25 2.5 MLS/HR Midazolam HCl 50 ml @ 1 mls/hr Q24H IV 12/09/24 16:30 12/11/24 02:28 5 MLS/HR Famotidine 20 mg DAILY IV 12/10/24 10:00 12/13/24 10:27 20 MG Hydralazine HCl 10 mg Q6HP PRN IV 12/09/24 19:30 Diagnostic Test (Pha) 1 strip Q6HR 12/10/24 00:00 12/13/24 05:41 1 STRIP Insulin Human Regular Q6HR SC 12/10/24 00:00 12/12/24 05:39 2 UNITS Dextrose 50 ml UD PRN IV 12/09/24 19:30 Ondansetron HCl 4 mg Q4HP PRN IV 12/09/24 19:30 Acetaminophen 650 mg Q6HP PRN [place] 12/09/24 19:30 12/12/24 15:50 650 MG Nitroglycerin 0.4 mg Q5MINP PRN SL 12/09/24 21:30 Morphine Sulfate 2 mg Q30M PRN IV 12/09/24 21:30 Lactulose 30 ml Q6HR PO 12/10/24 06:00 12/12/24 05:38 30 ML Norepinephrine Bitartrate 250 ml @ 1.875 mls/ hr Q24H IV 12/10/24 04:45 Rifaximin 550 mg BID NG 12/10/24 22:00 12/11/24 21:31 550 MG Vancomycin HCl 0 ml @ 0 mls/hr UD IV 12/11/24 06:30 Albuterol 2.5 mg Q4HPRN PRN NEB 12/12/24 12:15 12/13/24 09:48 2.5 MG Ipratropium Gilbert 0.5 mg Q4HPRN PRN NEB 12/12/24 12:15 12/13/24 09:48 0.5 MG Morphine Sulfate 1 mg Q4HP PRN IV 12/12/24 15:30 12/13/24 08:45 1 MG Vancomycin HCl 200 ml @ 200 mls/hr Q12HR@0600,1800 IV 12/13/24 06:00 12/13/24 05:41 200 MLS/HR Levofloxacin 50 ml @ 50 mls/hr DAILY IV 12/13/24 10:00 12/13/24 10:28 50 MLS/HR Examination: GENERAL:Normal, HEENT:Normal, NECK:Normal, LUNGS:Normal, CVS:Normal, ABDOMEN:Normal, MSK:Normal, SKIN:Normal, NEURO:Normal, :Normal laboratory and microbiology Laboratory Tests 12/13/24 03:32 Test 12/13/24 03:32 Range/Units Serum Glucose 107 H 74-106 mg/dL Microbiology Date/Time Source Procedure Growth Status 12/11/24 10:10 Blood Blood Culture - Preliminary NO GROWTH AFTER 48 HOURS OF INCUBATION. Resulted 12/10/24 03:00 Nose MRSA Screen - Final Complete 12/09/24 16:51 Urine - [place] Urine Culture - Final Enterococcus faecalis Complete Problem List/Assessment/Plan Problem List/Assessment/Plan #1 acute resp failure: cpap trial, extubated #2 acute diastolic heart failure: lasix iv-dc #3 liver cirrhosis- non alcoholic #4 s/p fall s/p surgery right hip s/p pain procedure #5 dm: ssi #6 shock ? septic/pneumonia ?aspiration: iv antibiotics, off pressors #7 dementia #8 thrombocytopenia: dc lovenox #9 anemia #10 mod protein malnutrition #11 h/o cva Plan discussed with: Patient, Daughter My Orders My Orders Orders - RADHA DOMINGO MD Procedure Category Date Status Time Albuterol Medneb PHA 12/12/24 In Process (Ventolin Medneb) 12:15 Ipratropium Medneb PHA 12/12/24 In Process (Atrovent Medneb) 12:15 Med Neb Initial RT 12/12/24 Logged Treatment 12:11 Morphine Sulfate PHA 12/12/24 In Process Injection 15:30 Dietary Evaluation Review Comments: 1) If patient remains NPO > 7 days, initiate EN/TPN to meet at least 75% of estimated daily needs. Note, current Propofol @ 8.1 mL/hr provides additional 214 kcal per 24 hrs 2) Advance to hepatic diet when medically feasible, pending PEANUT FARMER approval 3) Follow-up with social servives regarding polysubstance abuse 4) Follow-up with cardiology and hair spring winder 5) Continue to monitor I&O, labs, and skin integrity Expected Outcomes/Goals: 1) patient to receive nutrition support within 7 days of NPO status 2) skin integrity and labs to improve 3) diet to advance 4) f/u in 2-3 days Critical Care Time (mins): 37 (critical care time excluding procedures was 37 mins) Date of Service: December 13, 2024 Billing Provider: RADHA DOMINGO MD Common Visit Codes: [id number] CARE 30-74 MIN RADHA DOMINGO MD December 13, 2024 11:46
[2024-12-13] MEDS: IPRATROPIUM BROM 0.5 MG/2.5ML INH SOL ONE (12:53)
[2024-12-13] MEDS: MORPHINE SULFATE INJ 2 MG/ml SYRG IV PRN (13:23)
[2024-12-13] MEDS: hydrALAZINE HCL 20 MG/ML VL IV PRN (14:12)
[2024-12-13] MEDS: ALBUTEROL SULF 2.5 MG/0.5ML(0.5%) NEB SOLN NEB SCH (18:00)
[2024-12-13] MEDS: IPRATROPIUM BROM 0.5 MG/2.5ML INH SOL NEB SCH (18:00)
[2024-12-14] VITALS (55 sets, daily range): BP systolic 111–152; BP diastolic 50–84; PULSE 72–103; RESP 10–21; TEMP 98.1–99.1; O2SAT 95–100
[2024-12-14 03:42] LABS: Basophils # (auto) 0 10 ^3/uL (0-0.2); Eosinophils # (auto) 0.1 10 ^3/uL (0-0.8); Hematocrit 27.2 % (36.0-46.0); Lymphocytes # (auto) 0.7 10 ^3/uL (0.4-5.4); Monocytes # (auto) 0.4 10 ^3/uL (0-1.3); Neutrophils # (auto) 2.5 10 ^3/uL (1.6-8.6); White Blood Cell 3.7 10^3/uL (4.4-10.8)
[2024-12-14 03:44] LABS: Basophils % (auto) 0.4 % (0.0-2.0); Eosinophils % (auto) 3.4 % (0.0-7.0); Hemoglobin 8.8 g/dL (12.2-16.2); Lymphocytes % (auto) 18.5 % (10.0-50.0); Mean Corpuscular Hemoglobin 26.8 pg (28.0-32.0); Mean Corpuscular Hgb Conc. 32.4 g/dL (32.0-36.0); Mean Corpuscular Volume 82.7 fL (80.0-100.0); Monocytes % (auto) 10.6 % (0.0-12.0); Neutrophils % (auto) 67.1 % (37.0-80.0); Nucleated Red Blood Cells % 0.1 %; Platelet Count (auto) 110 10^3/uL (140-450); Red Blood Cells 3.29 10^6/uL (4.0-5.20); Red Cell Distribution Width 17.2 % (11.8-14.3)
[2024-12-14 03:54] LABS: Anion Gap 9 (5-15); Carbon Dioxide 27 mmol/L (20-31); Potassium 3.6 mmol/L (3.5-5.1); Sodium 143 mmol/L (136-145)
[2024-12-14 03:55] LABS: Calcium 8.8 mg/dL (8.7-10.4)
[2024-12-14 03:57] LABS: Chloride 107 mmol/L (98-107)
[2024-12-14 04:00] LABS: BUN/Creatinine Ratio 26.9 (10.0-20.0); Blood Urea Nitrogen 14 mg/dL (9-23)
[2024-12-14 04:01] LABS: Magnesium 1.8 mg/dL (1.6-2.6)
[2024-12-14 04:10] LABS: Glucose 118 mg/dL (74-106)
[2024-12-14] MEDS: ONDANSETRON HCL 4 MG/2 ML VIAL IV PRN (05:06)
--- NOTE | 2024-12-14 10:14 | MEDREC ---
[facility] Intervention Section I [facility] Intervention: Deescalate AB based on CS, Duplication of therapy (PLEASE CONSIDER DEESCALATING ANTIBIOTICS BASED ON CULTURE RESULTS - ENTEROCOCCUS FAECALIS SUCCEPTIBLE TO BOTH LEVOFLOXACIN AND VANCOMYCIN (POTENTIAL DUPLICATION OF THERAPY) ) DANA JULIO PHARMACIST December 14, 2024 10:14
[2024-12-14] MEDS: THROAT LOZENGES(CEPASTAT) MT PRN (12:29)
--- NOTE | 2024-12-14 13:23 | DVHPN2 ---
Progress Note Date Seen: December 14, 2024 Medical Necessity Reason Pt with a Central, PICC or Fol: Yes The following are medically ne: [place] Catheter Reason for guadarrama catheter: Strict I&O Subjective Patient reports: No new complaints Review of Systems: HEENT:Normal, CVS:Normal, RESPIRATORY:Normal, GI:Normal, :Normal, MSK:Normal, NEURO:Normal Objective vital signs Vital Sign Date Time Temp Pulse Resp B/P (MAP) Pulse Ox O2 Delivery O2 Flow Rate FiO2 12/14/24 13:18 86 18 133/67 12/14/24 13:00 99 12/14/24 12:15 Nasal Cannula* 2 28 12/14/24 12:00 98.1 98.1 Total Intake and Output 12/13/24 12/13/24 12/14/24 15:00 23:00 07:00 Intake Total 50 ml 210 ml 230 ml Output Total 400 ml 150 ml Balance 50 ml -190 ml 80 ml medications Current Medications Medications Dose Ordered Sig/Lashell Route Start Time Stop Time Status Last Admin Dose Admin Famotidine 20 mg DAILY IV 12/10/24 10:00 12/14/24 11:20 20 MG Hydralazine HCl 10 mg Q6HP PRN IV 12/09/24 19:30 12/13/24 14:12 10 MG Diagnostic Test (Pha) 1 strip Q6HR 12/10/24 00:00 12/14/24 12:13 1 STRIP Insulin Human Regular Q6HR SC 12/10/24 00:00 12/12/24 05:39 2 UNITS Dextrose 50 ml UD PRN IV 12/09/24 19:30 Ondansetron HCl 4 mg Q4HP PRN IV 12/09/24 19:30 12/14/24 05:06 4 MG Acetaminophen 650 mg Q6HP PRN NE 12/09/24 19:30 12/12/24 15:50 650 MG Nitroglycerin 0.4 mg Q5MINP PRN SL 12/09/24 21:30 Morphine Sulfate 2 mg Q30M PRN IV 12/09/24 21:30 Lactulose 30 ml Q6HR PO 12/10/24 06:00 12/12/24 05:38 30 ML Rifaximin 550 mg BID NG 12/10/24 22:00 12/13/24 21:53 550 MG Vancomycin HCl 0 ml @ 0 mls/hr UD IV 12/11/24 06:30 Albuterol 2.5 mg Q4HPRN PRN NEB 12/12/24 12:15 12/13/24 23:55 2.5 MG Vancomycin HCl 200 ml @ 200 mls/hr Q12HR@0600,1800 IV 12/13/24 06:00 12/14/24 05:24 200 MLS/HR Levofloxacin 50 ml @ 50 mls/hr DAILY IV 12/13/24 10:00 12/14/24 11:20 50 MLS/HR Morphine Sulfate 2 mg Q4HP PRN IV 12/13/24 11:45 12/14/24 12:31 2 MG Albuterol 2.5 mg Q6HWA NEB 12/13/24 12:00 12/14/24 12:38 2.5 MG Ipratropium [place] 0.5 mg Q6HWA NEB 12/13/24 12:00 12/14/24 12:38 0.5 MG Throat Lozenges 1 tati Q2HP PRN MT 12/14/24 01:00 12/14/24 12:29 1 TATI Examination: GENERAL:Normal, HEENT:Normal, NECK:Normal, LUNGS:Normal, CVS:Normal, ABDOMEN:Normal, MSK:Normal, SKIN:Normal, NEURO:Normal, :Normal laboratory and microbiology Laboratory Tests 12/14/24 03:12 Test 12/14/24 03:12 Range/Units Serum Glucose 118 H 74-106 mg/dL Microbiology Date/Time Source Procedure Growth Status 12/11/24 10:10 Blood Blood Culture - Preliminary NO GROWTH AFTER 72 HOURS OF INCUBATION. Resulted 12/10/24 03:00 Nose MRSA Screen - Final Complete 12/09/24 16:51 Urine - [place] Urine Culture - Final Enterococcus faecalis Complete Problem List/Assessment/Plan Problem List/Assessment/Plan #1 acute resp failure: cpap trial, extubated #2 acute diastolic heart failure: lasix iv-dc #3 liver cirrhosis- non alcoholic #4 s/p fall s/p surgery right hip s/p pain procedure #5 dm: ssi #6 shock ? septic/pneumonia ?aspiration: antibiotics, off pressors #7 dementia #8 thrombocytopenia: dc lovenox #9 anemia #10 mod protein malnutrition #11 h/o cva advance care planning- full code- time spent 19 mins Plan discussed with: Patient My Orders My Orders Orders - RADHA DOMINGO MD Procedure Category Date Status Time Apply Z-Guard MICHAEL 12/13/24 In Process 10:42 Pureed DIET 12/13/24 Transmitted Dinner Dietary Evaluation Review Comments: 1) If patient remains NPO > 7 days, initiate EN/TPN to meet at least 75% of estimated daily needs. Note, current Propofol @ 8.1 mL/hr provides additional 214 kcal per 24 hrs 2) Advance to hepatic diet when medically feasible, pending ELECTROLYSIS INVESTIGATOR approval 3) Follow-up with social servives regarding polysubstance abuse 4) Follow-up with cardiology and scrubber system attendant 5) Continue to monitor I&O, labs, and skin integrity Expected Outcomes/Goals: 1) patient to receive nutrition support within 7 days of NPO status 2) skin integrity and labs to improve 3) diet to advance 4) f/u in 2-3 days Date of Service: December 14, 2024 Billing Provider: RADHA DOMINGO MD Common Visit Codes: [id number] INP/OBS CARE(HIGH) Secondary Visit Codes: [id number] CARE PLAN 30 MINUTES RADHA DOMINGO MD December 14, 2024 13:23
[2024-12-14] MEDS: MAGNESIUM SULFATE 1GM/100ML 100 ML IV SCH (14:00)
[2024-12-15] VITALS (19 sets, daily range): BP systolic 115–158; BP diastolic 46–83; PULSE 71–114; RESP 16–19; TEMP 98–98.7; O2SAT 95–99
[2024-12-15] MEDS: PANTOPRAZOLE 40 MG TAB PO SCH (05:26)
[2024-12-15 07:42] LABS: Basophils # (auto) 0 10 ^3/uL (0-0.2); Basophils % (auto) 0.4 % (0.0-2.0); Eosinophils # (auto) 0.1 10 ^3/uL (0-0.8); Eosinophils % (auto) 3.5 % (0.0-7.0); Hematocrit 29.4 % (36.0-46.0); Hemoglobin 9.6 g/dL (12.2-16.2); Lymphocytes # (auto) 0.6 10 ^3/uL (0.4-5.4); Lymphocytes % (auto) 15.4 % (10.0-50.0); Mean Corpuscular Hemoglobin 27.2 pg (28.0-32.0); Mean Corpuscular Hgb Conc. 32.7 g/dL (32.0-36.0); Mean Corpuscular Volume 83.3 fL (80.0-100.0); Monocytes # (auto) 0.5 10 ^3/uL (0-1.3); Monocytes % (auto) 11.2 % (0.0-12.0); Neutrophils # (auto) 2.8 10 ^3/uL (1.6-8.6); Neutrophils % (auto) 69.5 % (37.0-80.0); Nucleated Red Blood Cells % 0.1 %; Platelet Count (auto) 116 10^3/uL (140-450); Red Blood Cells 3.53 10^6/uL (4.0-5.20); Red Cell Distribution Width 17.6 % (11.8-14.3); White Blood Cell 4.1 10^3/uL (4.4-10.8)
[2024-12-15 08:01] LABS: Alanine Aminotransferase 21 U/L (7-40); Albumin 3.6 g/dL (3.2-4.8); Anion Gap 9 (5-15); Aspartate Aminotransferase 36 U/L (13-40); Blood Urea Nitrogen 12 mg/dL (9-23); Calcium 9.1 mg/dL (8.7-10.4); Carbon Dioxide 26 mmol/L (20-31); Magnesium 1.9 mg/dL (1.6-2.6); Sodium 142 mmol/L (136-145); Total Protein 6.9 g/dL (5.7-8.2)
[2024-12-15 08:05] LABS: Alkaline Phosphatase 255 U/L (46-116); Bilirubin, Total 1.5 mg/dL (0.2-1.0); Chloride 107 mmol/L (98-107); Glucose 159 mg/dL (74-106); Potassium 3.5 mmol/L (3.5-5.1)
[2024-12-15] MEDS: levoFLOXacin 500 MG TAB PO SCH (09:31)
--- NOTE | 2024-12-15 10:03 | DVHPN2 ---
Progress Note Date Seen: December 15, 2024 Medical Necessity Reason Pt with a Central, PICC or Fol: Yes The following are medically ne: Guadarrama Catheter Reason for guadarrama catheter: Strict I&O Subjective Patient reports: No new complaints Review of Systems: HEENT:Normal, CVS:Normal, RESPIRATORY:Normal, GI:Normal, :Normal, MSK:Normal, NEURO:Normal Objective vital signs Vital Sign Date Time Temp Pulse Resp B/P (MAP) Pulse Ox O2 Delivery O2 Flow Rate FiO2 12/15/24 07:08 95 18 98 12/15/24 07:02 Nasal Cannula* 2 28 12/15/24 05:30 164/88 12/15/24 05:00 98.7 98.7 Total Intake and Output 12/14/24 12/14/24 12/15/24 15:00 23:00 07:00 Intake Total 50 ml 240 ml Output Total 250 ml 350 ml Balance 50 ml -250 ml -110 ml medications Current Medications Medications Dose Ordered Sig/Lashell Route Start Time Stop Time Status Last Admin Dose Admin Hydralazine HCl 10 mg Q6HP PRN IV 12/09/24 19:30 12/15/24 05:30 10 MG Diagnostic Test (Pha) 1 strip Q6HR 12/10/24 00:00 12/15/24 05:26 1 STRIP Insulin Human Regular Q6HR SC 12/10/24 00:00 12/12/24 05:39 2 UNITS Dextrose 50 ml UD PRN IV 12/09/24 19:30 Ondansetron HCl 4 mg Q4HP PRN IV 12/09/24 19:30 12/14/24 05:06 4 MG Acetaminophen 650 mg Q6HP PRN NV 12/09/24 19:30 12/12/24 15:50 650 MG Nitroglycerin 0.4 mg Q5MINP PRN SL 12/09/24 21:30 Morphine Sulfate 2 mg Q30M PRN IV 12/09/24 21:30 Lactulose 30 ml Q6HR PO 12/10/24 06:00 12/15/24 05:26 30 ML Rifaximin 550 mg BID NG 12/10/24 22:00 12/15/24 09:31 550 MG Vancomycin HCl 0 ml @ 0 mls/hr UD IV 12/11/24 06:30 Albuterol 2.5 mg Q4HPRN PRN NEB 12/12/24 12:15 12/15/24 04:36 2.5 MG Vancomycin HCl 200 ml @ 200 mls/hr Q12HR@0600,1800 IV 12/13/24 06:00 12/14/24 05:24 200 MLS/HR Morphine Sulfate 2 mg Q4HP PRN IV 12/13/24 11:45 12/15/24 04:36 2 MG Albuterol 2.5 mg Q6HWA [facility] 12/13/24 12:00 12/15/24 07:01 2.5 MG Ipratropium [place] 0.5 mg Q6HWA NEB 12/13/24 12:00 12/15/24 07:02 0.5 MG Throat Lozenges 1 tati Q2HP PRN MT 12/14/24 01:00 12/14/24 12:29 1 TATI Levofloxacin 500 mg DAILY PO 12/15/24 10:00 12/15/24 09:31 500 MG Pantoprazole Sodium 40 mg DAILY@0600 PO 12/15/24 06:00 12/15/24 05:26 40 MG Examination: GENERAL:Normal, HEENT:Normal, NECK:Normal, LUNGS:Normal, CVS:Normal, ABDOMEN:Normal, MSK:Normal, SKIN:Normal, NEURO:Normal, :Normal laboratory and microbiology Laboratory Tests 12/15/24 06:58 Test 12/15/24 06:58 Range/Units Serum Glucose 159 H 74-106 mg/dL Microbiology Date/Time Source Procedure Growth Status 12/11/24 10:10 Blood Blood Culture - Preliminary NO GROWTH AFTER 72 HOURS OF INCUBATION. Resulted 12/10/24 03:00 Nose MRSA Screen - Final Complete 12/09/24 16:51 Urine - [place] Urine Culture - Final Enterococcus faecalis Complete Problem List/Assessment/Plan Problem List/Assessment/Plan #1 acute resp failure: cpap trial, extubated #2 acute diastolic heart failure: lasix iv-dc #3 liver cirrhosis- non alcoholic #4 s/p fall s/p surgery right hip s/p pain procedure: percocet, flexeril #5 dm: ssi #6 shock ? septic/pneumonia ?aspiration: antibiotics, off pressors #7 dementia #8 thrombocytopenia: dc lovenox #9 anemia #10 mod protein malnutrition #11 h/o cva advance care planning- full code- time spent 19 mins Plan discussed with: Patient My Orders My Orders Orders - RADHA DOMINGO MD Procedure Category Date Status Time Levofloxacin Tablet PHA 12/15/24 In Process (Levaquin Tablet) 10:00 Pantoprazole Tablet PHA 12/15/24 In Process (Protonix Tablet) 06:00 Transfer Orders XFER 12/14/24 Transmitted 13:18 D/C Triple Lumen ORDERS 12/14/24 Transmitted 13:23 Dietary Evaluation Review Comments: 1) If patient remains NPO > 7 days, initiate EN/TPN to meet at least 75% of estimated daily needs. Note, current Propofol @ 8.1 mL/hr provides additional 214 kcal per 24 hrs 2) Advance to hepatic diet when medically feasible, pending SENIOR TECH MANUFACTURING ENGINEERING approval 3) Follow-up with social servives regarding polysubstance abuse 4) Follow-up with cardiology and advertising editor 5) Continue to monitor I&O, labs, and skin integrity Expected Outcomes/Goals: 1) patient to receive nutrition support within 7 days of NPO status 2) skin integrity and labs to improve 3) diet to advance 4) f/u in 2-3 days Date of Service: December 15, 2024 Billing Provider: RADHA DOMINGO MD Common Visit Codes: [id number] INP/OBS CARE(HIGH) RADHA DOMINGO MD December 15, 2024 10:03
[2024-12-15] MEDS: traMADol HCL 50 MG TAB PO ONE (11:15)
[2024-12-15] MEDS: OXYCODONE W/ ACETAMINOPHEN 5/325MG TABLET PO PRN (11:43)
[2024-12-15] MEDS: POTASSIUM EFFERVESENT TAB 25 MEQ PO ONE (11:43)
[2024-12-15] MEDS: CYCLOBENZAPRINE HCL 10 MG TAB PO PRN (13:41)
--- NOTE | 2024-12-15 14:41 | ECG ---
[facility] Test Date: 2024-12-09 Test Time: 15:50:30 Pat Name: NICOLE OROPEZA Department: ED Room: 0203T A Gender: F Forder Operator: pricilla : 1955 Requested By: MANGO TREADWELL Order Number: [id number] Reading MD: Neal Block Measurements Intervals [place] Rate: 82 P: 24 OR: 197 QRS: 2 QRSD: 77 T: 49 QT: 370 QTc: 432 Interpretive Statements Sinus rhythm Low voltage, extremity and precordial leads ST elevation, consider inferior injury Electronically Signed On 12-19-2024 10:48:04 PDT by Neal Block Please click the below link to view image of tracing.
[2024-12-16] VITALS (12 sets, daily range): BP systolic 119–164; BP diastolic 53–88; PULSE 90–105; RESP 18–19; TEMP 37; O2SAT 91–100
[2024-12-16] MEDS: rifAXIMin 550 MG TAB PO SCH (09:32)
[2024-12-16] MEDS ORDERED: LEVO500T91 PO (10:55)
--- NOTE | 2024-12-16 10:56 | DVHPN2 ---
Subjective Patient denies any symptoms Reviewed: Care Plan, H&P, Labs, Medications, Previous Orders, Radiology Changes from previous H/P or p: No Changes Genitourinary: Other (Key catheter in place) Objective Vitals Vital Signs Date Time Temp Pulse Resp B/P (MAP) Pulse Ox O2 Delivery O2 Flow Rate FiO2 12/16/24 08:40 98.6 95 18 142/70 (94) 94 98.6 12/16/24 07:39 Room Air* 0 21 Intake/Output Intake and Output 12/16/24 07:00 Intake Total 650 ml Output Total 300 ml Balance 350 ml Intake Oral 650 ml Output Urine Total 300 ml # Bowel Movements 4 General Appearance: Other (Sedated and intubated) HEENT: Atraumatic, PERRLA Lungs: Other (Very few crackles bilateral lungs with good air entry) Cardiovascular: Regular rate Abdomen: Normal bowel sounds, Soft Extremities: Other (better trace edema right lower extremity. Less Warm right foot and right lower extremity. ) Neuro: Sensation intact, Cranial nerves 3-12 NL Psych/Mental Status: Mental status NL, Mood NL Medications Current Medications Medications Dose Ordered Sig/Lashell Route Start Time Stop Time Status Last Admin Dose Admin Hydralazine HCl 10 mg Q6HP PRN IV 12/09/24 19:30 12/15/24 05:30 10 MG Diagnostic Test (Pha) 1 strip Q6HR 12/10/24 00:00 12/16/24 05:34 1 STRIP Insulin Human Regular Q6HR SC 12/10/24 00:00 12/12/24 05:39 2 UNITS Dextrose 50 ml UD PRN IV 12/09/24 19:30 Ondansetron HCl 4 mg Q4HP PRN IV 12/09/24 19:30 12/14/24 05:06 4 MG Acetaminophen 650 mg Q6HP PRN DC 12/09/24 19:30 12/12/24 15:50 650 MG Nitroglycerin 0.4 mg Q5MINP PRN SL 12/09/24 21:30 Morphine Sulfate 2 mg Q30M PRN IV 12/09/24 21:30 Lactulose 30 ml Q6HR PO 12/10/24 06:00 12/16/24 05:34 30 ML Albuterol 2.5 mg Q4HPRN PRN NEB 12/12/24 12:15 12/15/24 04:36 2.5 MG Morphine Sulfate 2 mg Q4HP PRN IV 12/13/24 11:45 12/15/24 04:36 2 MG Albuterol 2.5 mg Q6HWA NEB 12/13/24 12:00 12/16/24 05:33 2.5 MG Ipratropium [place] 0.5 mg Q6HWA NEB 12/13/24 12:00 12/16/24 05:33 0.5 MG Throat Lozenges 1 tati Q2HP PRN MT 12/14/24 01:00 12/14/24 12:29 1 TATI Levofloxacin 500 mg DAILY PO 12/15/24 10:00 12/16/24 09:32 500 MG Pantoprazole Sodium 40 mg DAILY@0600 PO 12/15/24 06:00 12/16/24 05:34 40 MG Oxycodone/ Acetaminophen 1 tab Q4HP PRN PO 12/15/24 10:00 12/15/24 23:27 1 TAB Cyclobenzaprine HCl 10 mg Q8HPRN PRN PO 12/15/24 10:15 12/16/24 06:31 10 MG Rifaximin 550 mg BID PO 12/16/24 10:00 12/16/24 09:32 550 MG Laboratory Results Laboratory Tests 12/15/24 06:58 Urinalysis Test 12/11/24 13:54 Urine Color Light-yellow (Yellow) Urine Clarity Clear (Clear) Urine pH 6.5 (5.0-9.0) Urine Specific [place] 1.007 (1.001-1.035) Urine Protein Negative (Negative) Urine Ketones Negative (Negative) Urine Blood Trace /uL (Negative) H Urine Nitrite Negative (Negative) Urine Bilirubin Negative (Negative) Urine Urobilinogen Normal mg/dL (Negative) Urine Leukocyte Esterase Negative /uL (Negative) Urine RBC 2 /hpf (0 - 4) Urine Microscopic WBC < 1 /HPF (0-5) Urine Squamous Epithelial Cells None seen /hpf (<5) Urine Bacteria None seen /hpf (None Seen) Urine Glucose Normal mg/dL (Normal) Microbiology Microbiology Date/Time Source Procedure Growth Status 12/11/24 10:10 Blood Blood Culture - Preliminary NO GROWTH AFTER 72 HOURS OF INCUBATION. Resulted 12/10/24 03:00 Nose MRSA Screen - Final Complete 12/09/24 16:51 Urine - [place] Urine Culture - Final Enterococcus faecalis Complete Labs and/or images reviewed: Labs reviewed by me, Image(s) reviewed by me Assessment/Plan Assessment/Plan Impression: -acute hypoxic respiratory failure, status post extubation -acute diastolic heart failure -nonalcoholic liver cirrhosis -status post right hip history, status post right hip injection for pain management -diabetes mellitus -questionable septic shock -complicated cystitis with Enterococcus faecalis -dementia -anemia of chronic disease -history of CVA Plan: -long discussion made with the patient's family as well as patient. Patient will be ambulated to ensure patient does not have significant hypoxia. Patient will be discharged and re-initiate home health services. Patient will be provided antibiotic therapy in the form of Levaquin 500 mg p.o. daily for additional seven days for treatment of UTI. All questions answered. Total time spent with patient discussing and formulating plan of care: 35 minutes. This medical document was created using an electronic medical record system with [employer] dictation system. Although this document has been carefully reviewed, there may still be some phonetic and typographical errors. These areas are purely typographical due to imperfections of the software programs, and do not reflect any compromise in the patient's medical care. Plan discussed with: Patient, Other (RN) My Orders Orders - KEVIN ROJAS NP Procedure Category Date Status Time Chest Xray 1 View XY 12/16/24 Logged 10:42 Date of Service: December 16, 2024 Billing Provider: KEVIN ROJAS NP Common Visit Codes: [id number] INP/OBS CARE(HIGH) KEVIN ROJAS NP December 16, 2024 10:56
--- NOTE | 2024-12-16 11:36 | DVH ---
EXAM: XY CHEST XRAY 1 VIEW Indication: sob Technique: Single frontal view of the chest was obtained Comparison: XY CHEST PORTABLE on DOS: 12/13/24, XY CHEST PORTABLE on DOS: 12/12/24, XY CHEST PORTABLE o n DOS: 12/11/24, XY CHEST XRAY 1 VIEW on DOS: 12/10/24, XY CHEST XRAY 1 VIEW on DOS: 12/09/24 FINDINGS: Lines and Tubes: None Lungs: No focal consolidation. Pleura: No effusion. No pneumothorax. Cardiomediastinal contours: Unremarkable. Atherosclerotic vascular calcifications of the thoracic ao rta are noted. Bones: No acute osseous abnormality. IMPRESSION: No acute cardiopulmonary disease.
== END 2024-12-16 14:00 | disposition home health service (06) | DRG 871 ==
LOC: EDBD 15:44 → EEVIPCON 15:47 → ER 15:47 → OVERFLOW 21:19 → ICU WEST 12-10 00:43 → CENTRAL 12-14 15:40 → TELE-CENTR 12-14 15:54
PROVIDERS: ADMIT Nurse Practitioner Acute Care; ATTEND Nurse Practitioner Acute Care
PROC: 0BH17EZ Insertion of Endotracheal Airway into Trachea, Via Natural or Artificial Opening (ICD-10-PCS; principal; 2024-12-09)
PROC: 5A1945Z Respiratory Ventilation, 24-96 Consecutive Hours (ICD-10-PCS; 2024-12-09)
PROC: 5A09357 Assistance with Respiratory Ventilation, Less than 24 Consecutive Hours, Continuous Positive Airway Pressure (ICD-10-PCS; 2024-12-09)
DX: A41.9 Sepsis, unspecified organism (principal); G93.41 Metabolic encephalopathy; R65.21 Severe sepsis with septic shock; J96.01 Acute respiratory failure with hypoxia; I50.33 Acute on chronic diastolic (congestive) heart failure; R57.9 Shock, unspecified; E46 Unspecified protein-calorie malnutrition; J98.11 Atelectasis; I13.0 Hypertensive heart and chronic kidney disease with heart failure and stage 1 through stage 4 chronic kidney disease, or unspecified chronic kidney disease; D63.8 Anemia in other chronic diseases classified elsewhere; K74.60 Unspecified cirrhosis of liver; E66.9 Obesity, unspecified; N18.9 Chronic kidney disease, unspecified; D69.6 Thrombocytopenia, unspecified; E11.22 Type 2 diabetes mellitus with diabetic chronic kidney disease; F19.10 Other psychoactive substance abuse, uncomplicated; F03.A0 Unspecified dementia, mild, without behavioral disturbance, psychotic disturbance, mood disturbance, and anxiety; E78.5 Hyperlipidemia, unspecified; I67.1 Cerebral aneurysm, nonruptured; B95.2 Enterococcus as the cause of diseases classified elsewhere; N30.90 Cystitis, unspecified without hematuria; M54.50 Low back pain, unspecified; G89.29 Other chronic pain; Z68.23 Body mass index [BMI] 23.0-23.9, adult; Z86.73 Personal history of transient ischemic attack (TIA), and cerebral infarction without residual deficits; Z83.3 Family history of diabetes mellitus; Z82.49 Family history of ischemic heart disease and other diseases of the circulatory system; Z82.3 Family history of stroke; Z88.1 Allergy status to other antibiotic agents
CPT/HCPCS: 31500; 36415; 36556; 36600; 70450; 71045; 71260; 73600; 74177; 80048; 80053; 80202; 80307; 81001; 82140; 82805; 82962; 83036; 83605; 83690; 83735; 83880; 84484; 85025; 85610; 85652; 85730; 87040; 87070; 87081; 87086; 87088; 87186; 87205; 92610; 93005; 93926; 93971; 94002; 94003; 94640; 96365; 96375; 97110; 97116; 97163; 97530; G0378; J1100; J1815; J1956; J2405; J2704; J3490

== ENCOUNTER 2025-01-11 10:06 | Inpatient (IN) | payer MEDICARE, MEDICAID ==
[~2025-01-11] VITALS: Ht 149.9 cm; Wt 52.3 kg
[~2025-01-11 10:06] MED LIST changes: +LEVO500T91 PO
[2025-01-11 11:28] LABS: Urine Bacteria None Seen /hpf (None Seen)
--- NOTE | 2025-01-11 11:35 | ED.PDOC ---
History of Present Illness HPI Comments 69 year old female with a Hx of multiple prior back surgeries was BIB granddaughter for a c/c of Lower Back pain. They were advised by Dr. Schwarz to present to the ED for further evaluation, after a recent MRI with possible Abscess on findings to the Lumbar region of the spine. Granddaughter notes that pts back pain radiates down her right leg. Pt states that this all happened in July after a Spine procedure. Chief Complaint: Back Pain Time Seen by MD: :28 Primary Care Provider: UNKNOWN Reviewed Notes: Nurses Notes, Medications, Allergies Allergies: Coded Allergies: Celecoxib (Verified Allergy, Unknown, 09/10/20) Cephalexin (Verified Allergy, Unknown, 09/10/20) Lorazepam (Verified Adverse Reaction, Unknown, 02/13/21) PATIENT BECOMES AGITATED AND EVEN MORE CONFUSED Home Meds Active Scripts Amoxicillin & Pot Clavulanate (AUGMENTIN TABLET) 875 Mg Tb, 875 MG PO BID for 5 Days, #10 TAB Prov:KEVIN ROJAS NP 01/13/25 Hydrocodone-Acetaminophen (Hydrocodone/Acetaminophen 5-325 mg) 1 Tab Tab, 1 TAB PO QIDP for 7 Days, #28 TAB Prov:RADHA DOMINGO MD 08/10/24 Prednisone (Prednisone) 10 Mg Tab, 10 MG PO DAILY for 5 Days, #5 MG Prov:CARLITOS BRENNAN MD 07/31/24 Triamcinolone Acetonide (Triamcinolone Acetonide) 0.025 % Cre, 1 APPLIC TOP BID, #30 GRAMS Prov:THUY REYNOLDS 07/27/24 Sucralfate (CARAFATE SUSP) 1 Gm/10 Ml Ss, 1 GM PO QIDACHS for 30 Days, #120 ML Prov:RADHA DOMINGO MD 02/17/22 Reported Medications Gabapentin (Gabapentin) 400 Mg Cap, 1 CAP PO TID 01/11/25 Albuterol Sulfate (Albuterol Sulfate) 2 Mg Tab, 90 MCG PO Q6HP PRN for NASAL CONGESTION, MG 08/04/24 Losartan Potassium (Losartan Potassium) 25 Mg Tab, 25 MG PO DAILY for 30 Days, MG 08/04/24 Meclizine Hcl (Meclizine Hcl) 12.5 Mg Tab, 12.5 MG PO BIDP PRN for DIZZINESS for 30 Days, MG 08/04/24 Furosemide (Furosemide) 20 Mg Tab, 20 MG PO DAILY for 30 Days, MG 08/04/24 Trazodone Hcl (Trazodone Hcl) 100 Mg Tab, 100 MG PO QPM, TAB 11/25/23 Fluticasone Furoate-Vilanterol (Fluticasone Furoate/Vilan 200-25 Mcg/Act) 1 Inh Inh, 1 PUFF INH DAILY Trelegy Ellipta 200/62.5/25 Mcg/INH 1 AER 08/31/23 Aspirin (ASPIRIN 81) 81 Mg Tab, 1 TAB PO DAILY 08/31/23 Rifaximin (Xifaxan) 550 Mg Tab, 1 TAB PO BID 11/19/21 Pantoprazole Sodium Sesquihydr (Pantoprazole Sodium) 40 Mg Tab, 1 TAB PO DAILY 06/07/21 Metformin Hydrochloride (Metformin Hcl) 500 Mg Tab, 1 TAB PO BID 02/13/21 Dapagliflozin Propanediol (Farxiga) 10 Mg Tab, 1 TAB PO QAM 02/13/21 Tramadol Hcl (Tramadol Hcl) 50 Mg Tab, 1 TAB PO BID PRN for pain 02/13/21 Ursodiol (Ursodiol) 300 Mg Cap, 600 MG PO BID 02/13/21 Atorvastatin Calcium (ATORVASTATIN CALCIUM) 20 Mg Tab, 1 TAB PO DAILY 04/26/19 Amlodipine Besylate (Amlodipine Besylate) 5 Mg Tab, 1 TAB PO DAILY 02/16/19 Discontinued Reported Medications Gabapentin (Gabapentin) 300 Mg Cap, 300 MG PO QID for 30 Days, MG 08/04/24 Gabapentin (Gabapentin) 300 Mg Cap, 1 CAP PO QID 02/13/21 Discontinued Scripts Levofloxacin Hemihydrate (LEVAQUIN 500 MG) 500 Mg Tab, 1 TAB PO DAILY for 7 Days, #7 TAB Prov:KEVIN ROJAS DIRECTOR [facility] 12/16/24 Amoxicillin Trihydrate (Amoxicillin) 500 Mg Tab, 1 TAB PO BID for 7 Days, #14 TAB Prov:CARLITOS BRENNAN MD 07/31/24 Ciprofloxacin HCl (Ophth) (Ciprofloxacin Hydrochlori) 0.3 % [place], 2 DROP OP QID, #5 ML Prov:THUY REYNOLDS PA 07/27/24 Information Source: Patient, Relative (GrandChild) Mode of Arrival: Ambulatory Severity: Moderate Timing: Days Duration: Since onset, Days Prehospital treatment: None Past Medical History PAST MEDICAL HISTORY: Anemia, CKF, CVA, Dementia, DM, High Lipids, HTN, Liver, TIA Surgical History: BTL, Tubal Ligation AUTOMATION ANALYST History: No Pertinent AUTOMATION ANALYST History Family History Family History: Reviewed,noncontributory to illness, Family hx of DM, Family hx of HTN, Family hx of stroke Social History Smoker: Non-Smoker Alcohol: Denies ETOH Use Drugs: Denies Drug Use Lives In: Home Constitutional: denies: chills, diaphoresis, fatigue, fever, malaise, sweats, weakness, others EENTM: denies: blurred vision, double vision, ear bleeding, ear discharge, ear drainage, ear pain, ear ringing, eye pain, eye redness, hearing loss, mouth pain, mouth swelling, nasal discharge, nose bleeding, nose congestion, nose pain, photophobia, tearing, throat pain, throat swelling, voice changes, others Respiratory: denies: cough, hemoptysis, orthopnea, SOB at rest, shortness of breath, SOB with excertion, stridor, wheezing, others Cardiovascular: denies: chest pain, dizzy spells, diaphoresis, Dyspnea on exertion, edema, irregular heart beat, left arm pain, lightheadedness, palpitations, PND, syncope, others Gastrointestinal: denies: abdomen distended, abdominal pain, blood streaked bowels, constipated, diarrhea, dysphagia, difficulty swallowing, hematemesis, melena, nausea, poor appetite, poor fluid intake, rectal bleeding, rectal pain, vomiting, others Genitourinary: denies: abnormal vagina bleeding, burning, dyspareunia, dysuria, flank pain, frequency, hematuria, incontinence, pain, , vagina discharge, urgency, others Neurological: denies: dizziness, fainting, headache, left sided numbness, left sided weakness, numbness, paresthesia, pre-existing deficit, right sided numbness, right sided weakness, seizure, speech problems, tingling, tremors, weakness, others Musculoskeletal: reports: back pain; denies: gout, joint pain, joint swelling, muscle pain, muscle stiffness, neck pain, others Integumetry: denies: bruises, change in color, change in hair/nails, dryness, laceration, lesions, lumps, rash, wounds, others Allergic/Immunocompromised: denies: Difficulty Healing, Frequent Infections, Hives, Itching, others Hematologic/Lymphatic: denies: anemia, blood clots, easy bleeding, easy bruising, swollen glands, others Endocrine: denies: excessive hunger, excessive sweating, excessive thirst, excessive urination, flushing, intolerance to cold, intolerance to heat, unexplained weight gain, unexplained weight loss, others Psychiatric: denies: anxiety, bipolar disorder, depression, hopeless, panic disorder, schizophrenia, sleepless, suicidal, others All Other Systems: Reviewed and Negative Physical Exam General Appearance: No Apparent Distress, Normal, Obese HEENT: Normal ENT Inspection, Pharynx Normal, TMs Normal Neck: Full Range of Motion, Non-Tender, Normal Respiratory: Chest Non-Tender, Lungs Clear, No Accessory Muscle Use, No Respiratory Distress, Normal Breath Sounds Cardiovascular: No Murmur, Regular Rate/Rhythm Breast Exam: Deferred Gastrointestinal: Non Tender, No Pulsatile Mass, Normal Bowel Sounds, Soft Genitalia: Deferred Pelvic: Deferred Rectal: Deferred Extremities: No calf tenderness, Normal range of motion, Non-tender, No pedal edema Musculoskeletal : Extremity Location: Back (LBP) Apperance: Normal Neurologic: Alert, No Motor Deficits, No Sensory Deficits Cerebellar Function: Normal Reflexes: Normal Skin: Dry, Normal Color, Warm Lymphatic: No Adenopathy Was a procedure done? Was a procedure done?: No Differential Dx Considerations may include: lumbar abscess X-Ray, Labs, Meds, VS Vital Signs Date Time Temp Pulse Resp B/P (MAP) Pulse Ox O2 Delivery O2 Flow Rate FiO2 01/11/25 15:56 98.4 64 11 108/47 (67) 95 98.4 01/11/25 15:43 Room Air* 0 21 01/11/25 14:33 97.9 63 17 133/55 (81) 99 97.9 01/11/25 12:41 98.8 66 16 149/80 (103) 96 98.8 01/11/25 11:17 98.8 64 20 150/84 (106) 95 98.8 01/11/25 10:36 98.8 64 20 150/84 (106) 95 98.8 Lab Test 01/11/25 11:58 01/11/25 11:36 01/11/25 10:30 Range/Units Lactic Acid Level 1.8 0.4-2.0 mmol/L White Blood Count 3.9 L 4.4-10.8 10^3/uL Red Blood Count 3.81 L 4.0-5.20 10^6/uL Hemoglobin 9.8 L 12.2-16.2 g/dL Hematocrit 30.6 L 36.0-46.0 % Mean Corpuscular Volume 80.2 80.0-100.0 fL Mean Corpuscular Hemoglobin 25.7 L 28.0-32.0 pg Mean Corpuscular Hemoglobin Concent 32.0 32.0-36.0 g/dL Red Cell Distribution Width 17.2 H 11.8-14.3 % Platelet Count 101 L 140-450 10^3/uL Mean Platelet Volume 9.5 6.9-10.8 fL Neutrophils (%) (Auto) 70.9 37.0-80.0 % Lymphocytes (%) (Auto) 17.5 10.0-50.0 % Monocytes (%) (Auto) 8.2 0.0-12.0 % Eosinophils (%) (Auto) 3.1 0.0-7.0 % Basophils (%) (Auto) 0.3 0.0-2.0 % Neutrophils # (Auto) 2.8 1.6-8.6 10 ^3/uL Lymphocytes # (Auto) 0.7 0.4-5.4 10 ^3/uL Monocytes # (Auto) 0.3 0-1.3 10 ^3/uL Eosinophils # (Auto) 0.1 0-0.8 10 ^3/uL Basophils # (Auto) 0 0-0.2 10 ^3/uL Nucleated Red Blood Cells 0.1 % Erythrocyte Sedimentation Rate 28 H 0-20 mm/hr Prothrombin Time 11.2 9.3-11.8 sec Prothrombin Time INR 1.06 0.9-1.15 Sodium Level 142 136-145 mmol/L Potassium Level 4.4 3.5-5.1 mmol/L Chloride Level 108 H 98-107 mmol/L Carbon Dioxide Level 25 20-31 mmol/L Anion Gap 9 5-15 Blood Urea Nitrogen 13 9-23 mg/dL Creatinine 0.63 0.550-1.02 mg/dL Glomerular Filtration Rate Calc 97 >90 mL/min BUN/Creatinine Ratio 20.6 H 10.0-20.0 Serum Glucose 87 74-106 mg/dL Calcium Level 9.7 8.7-10.4 mg/dL Total Bilirubin 0.7 0.2-1.0 mg/dL Aspartate Amino Transferase (AST) 25 <34 U/L Alanine Aminotransferase (ALT) 18 7-40 U/L Alkaline Phosphatase 198 H 46-116 U/L Troponin I High Sensitivity 3 L </=34 ng/L C-Reactive Protein High Sensitivity 0.17 <1.0 mg/dL Total Protein 7.3 5.7-8.2 g/dL Albumin 3.8 3.2-4.8 g/dL Urine Color Yellow Yellow Urine Clarity Clear Clear Urine pH 6.0 5.0-9.0 Urine Specific [place] 1.021 1.001-1.035 Urine Protein Negative Negative Urine Ketones Negative Negative Urine Blood Negative Negative /uL Urine Nitrite Negative Negative Urine Bilirubin Negative Negative Urine Urobilinogen 2 H Negative mg/dL Urine Leukocyte Esterase Trace Negative /uL Urine RBC 1 0 - 4 /hpf Urine Microscopic WBC 1 0-5 /HPF Urine Squamous Epithelial Cells Few <5 /hpf Urine Bacteria None seen None Seen /hpf Urine Mucus Few None Seen Urine Glucose Normal Normal mg/dL Microbiology Date/Time Source Procedure Growth Status 01/11/25 11:58 Blood Blood Culture - Preliminary NO GROWTH AFTER 72 HOURS OF INCUBATION. Resulted 01/11/25 11:40 Blood Blood Culture - Preliminary NO GROWTH AFTER 72 HOURS OF INCUBATION. Resulted PATIENT: NICOLE OROPEZA ACCT: [id number] UNIT: [id number] : 1955 LOC: MRI ROOM / BED: / AGE / SEX: 69 / F ADM STATUS: REG CLI SERVICE 0000 ORDERING PHYSICIAN: YA MELISSA MD PROCEDURE(s): MSL - LUMBAR SPINE WO CONTRAST REASON: PAIN ORDER NUMBER(s): [id number], ACCESSION NUMBER(s): [id number] PROCEDURE: MRI LUMBAR SPINE WO CONTRAST INDICATION: PAIN Exam Date: 01/07/2025 10:19 AM COMPARISON: MRI LUMBAR SPINE WO CONTRAST on DOS: 09/11/24, right hip radiographs 11/14/2024 TECHNIQUE: MRI lumbar spine without intravenous contrast. FINDINGS: There is similar minimal anterolisthesis of L4 on L5 and L5 on S1. The vertebral body heights and marrow signal are within normal limits. The visualized distal spinal cord and conus medullaris are within normal limits. The conus medullaris appears to terminate within normal limits. The visualized retroperitoneal soft tissues are unremarkable. When compared to 09/11/2024, there is a newly noted small oval focus of susceptibility hypointensity centered along the right sacroiliac joint, with an adjacent linear heterogeneous-signal tract extending posteromedially to the skin. Along this tract in the subcutaneous fat and adjacent to the right dorsal paraspinal muscle, there is a subcentimeter disruption of the fascia and a T2 hyperintense collection measuring 3.7 x 2.9 x 1.3 cm. The following axial levels are detailed below: L1-L2: Mild posterior disc bulge. Minimal facet hypertrophy. Patent thecal sac and neural foramina. L2-L3: Moderate disc height loss with circumferential disc osteophyte complex. Minimal facet hypertrophy. Patent thecal sac and neural foramina. L3-L4: Mild facet hypertrophy. Otherwise unremarkable. L4-L5: Tiny posterior disc bulge and partial unroofing of the disc. Moderate facet hypertrophy. Thecal sac is patent. Mild left neural foraminal narrowing. The right neural foramen is patent. L5-S1: Posterior disc bulge with partial unroofing of the disc. The thecal sac is patent. There is moderate facet hypertrophy. There is mild bilateral neural foraminal narrowing. IMPRESSION: When compared to 09/11/2024, new oval area of susceptibility artifact centered along the right sacroiliac joint with an adjacent tract that extends to the skin. Findings could represent postprocedural change versus posttraumatic (such as ballistic) sequelae. Correlate with history and consider CT pelvis if clinically indicated for further evaluation. Along this tract in the subcutaneous fat and adjacent to the right dorsal paraspinal muscle, there is a subcentimeter disruption of the fascia and a fluid collection measuring 3.7 x 2.9 x 1.3 cm, which could represent a seroma with superimposed infection /abscess not excluded. Similar background of degenerative changes when compared to 09/11/2024. X-Ray, Labs, Meds, VS Comment 69 year old female with a Hx of multiple prior back surgeries was BIB granddaughter for the c/c of Lower Back pain. Patient arrives alert and oriented, ABC's intact, afebrile, vital signs stable, saturating well in room air CBC was ordered to exclude anemia, blood loss, or infection. CMP was ordered to exclude electrolyte abnormalities, renal failure, dehydration, hyperglycemia and/or liver enzyme abnormalities. PT and INR were ordered to rule out coagulopathy. Troponin and BNP were ordered to rule out myocardial infarction, or congestive heart failure. Urinalysis was ordered to rule out UTI or hematuria. Lactic Acid Sed Rate CRP Blood Cultures IMPRESSION: When compared to 09/11/2024, new oval area of susceptibility artifact centered along the right sacroiliac joint with an adjacent tract that extends to the skin. Findings could represent postprocedural change versus posttraumatic (such as ballistic) sequelae. Correlate with history and consider CT pelvis if clinically indicated for further evaluation. Along this tract in the subcutaneous fat and adjacent to the right dorsal paraspinal muscle, there is a subcentimeter disruption of the fascia and a flui d collection measuring 3.7 x 2.9 x 1.3 cm, which could represent a seroma with superimposed infection /abscess not excluded. Pt will be admitted per Dr. Schwarz and Dr. Melissa The patient's workup reveals that the patient needs further evaluation and/or tr eatment for the above medical conditions. Patient verbalized understanding of the above and is awaiting further evaluation by the admitting service. Time of 1ST Reevaluation: 11:58 Reevaluation 1ST: Unchanged Patient Education/Counseling: Diagnosis, Treatment Family Education/Counseling: Diagnosis, Treatment SEPSIS Sepsis Screen Date sepsis recognized/suspect: Jan 11, 2025 Time Sepsis recognized/suspect: 1039 Recent Procedure: No On Antibiotic Therapy: No Respiratory Rate >20: No Heart Rate >90: No Temp<36 C (96.8 F) or >38.3 C: No SBP <90 or MAP <65 mmHG: No New Acute Mental Status Change: No Is the patient on CPAP, BIPAP,: No Orders/Vitals/Labs Physician Orders Blood Culture (01/11/25 11:32) Heplock Iv (01/11/25 ) Vital Signs Date Time Temp Pulse Resp B/P (MAP) Pulse Ox O2 Delivery O2 Flow Rate FiO2 01/11/25 15:56 98.4 64 11 108/47 (67) 95 98.4 01/11/25 15:43 Room Air* 0 21 01/11/25 14:33 97.9 63 17 133/55 (81) 99 97.9 01/11/25 12:41 98.8 66 16 149/80 (103) 96 98.8 01/11/25 11:17 98.8 64 20 150/84 (106) 95 98.8 01/11/25 10:36 98.8 64 20 150/84 (106) 95 98.8 Laboratory Tests Test 01/11/25 11:36 01/11/25 11:58 White Blood Count 3.9 10^3/uL (4.4-10.8) L Lactic Acid Level 1.8 mmol/L (0.4-2.0) Departure 1 Departure Time of Disposition: 11:42 Impression: Primary Impression: Abscess of back Disposition: ADMITTED INPATIENT Condition: Serious e-Prescriptions Amoxicillin & Pot Clavulanate (AUGMENTIN TABLET) 875 Mg Tb 875 MG PO BID for 5 Days, #10 TAB Prov: KEVIN ROJAS NP 01/13/25 Critical Care Note Critical Care Time?: No Stability Stability form required: No Heart Score Heart Score: Heart Score Response (Comments) Value History N/A 0 EKG N/A 0 Age N/A 0 Risk Factors N/A 0 Troponin N/A 0 Total 0 I personally scribed for LAAY SANTOS DIRECTOR [facility] on 01/11/25 at 11:35. Electronically submitted by Gustavo Burnham ([email or web address]). I personally scribed for LAYA SANTOS DIRECTOR [facility] on 01/11/25 at 11:43. Electronically submitted by Gustavo Burnham ([email or web address]). I personally scribed for LAYA SANTOS DIRECTOR [facility] on 01/11/25 at 12:20. Electronically submitted by Gustavo Burnham ([email or web address]). I personally scribed for LAYA SANTOS DIRECTOR [facility] on 01/11/25 at 12:25. Electronically submitted by Gustavo Burnham ([email or web address]). LAYA SANTOS NP Jan 11, 2025 11:35
[2025-01-11 11:41] LABS: Urine Blood Negative /uL (Negative); Urine Clarity Clear (Clear); Urine Color Yellow (Yellow); Urine Mucus FEW (None Seen); Urine Protein, UAD Negative (Negative); Urine Specific Gravity 1.021 (1.001-1.035); Urine Squamous Epithelial Cell FEW /hpf (<5); Urine Urobilinogen 2 mg/dL (Negative); Urine WBC 1 /HPF (0-5)
[2025-01-11 12:02] LABS: INR 1.06 (0.9-1.15); Prothrombin Time 11.2 sec (9.3-11.8)
[2025-01-11 12:06] LABS: Basophils # (auto) 0 10 ^3/uL (0-0.2); Basophils % (auto) 0.3 % (0.0-2.0); Eosinophils # (auto) 0.1 10 ^3/uL (0-0.8); Eosinophils % (auto) 3.1 % (0.0-7.0); Hematocrit 30.6 % (36.0-46.0); Hemoglobin 9.8 g/dL (12.2-16.2); Lymphocytes # (auto) 0.7 10 ^3/uL (0.4-5.4); Lymphocytes % (auto) 17.5 % (10.0-50.0); Mean Corpuscular Hemoglobin 25.7 pg (28.0-32.0); Mean Corpuscular Volume 80.2 fL (80.0-100.0); Monocytes # (auto) 0.3 10 ^3/uL (0-1.3); Monocytes % (auto) 8.2 % (0.0-12.0); Neutrophils # (auto) 2.8 10 ^3/uL (1.6-8.6); Neutrophils % (auto) 70.9 % (37.0-80.0); Nucleated Red Blood Cells % 0.1 %; Platelet Count (auto) 101 10^3/uL (140-450); Red Blood Cells 3.81 10^6/uL (4.0-5.20); Red Cell Distribution Width 17.2 % (11.8-14.3); White Blood Cell 3.9 10^3/uL (4.4-10.8)
[2025-01-11 12:08] LABS: Alanine Aminotransferase 18 U/L (7-40); Albumin 3.8 g/dL (3.2-4.8); Alkaline Phosphatase 198 U/L (46-116); Anion Gap 9 (5-15); Aspartate Aminotransferase 25 U/L (<34); BUN/Creatinine Ratio 20.6 (10.0-20.0); Bilirubin, Total 0.7 mg/dL (0.2-1.0); Blood Urea Nitrogen 13 mg/dL (9-23); CRP High Sensitivity 0.17 mg/dL (<1.0); Calcium 9.7 mg/dL (8.7-10.4); Carbon Dioxide 25 mmol/L (20-31); Chloride 108 mmol/L (98-107); Glucose 87 mg/dL (74-106); Potassium 4.4 mmol/L (3.5-5.1); Sodium 142 mmol/L (136-145); Total Protein 7.3 g/dL (5.7-8.2)
[2025-01-11 12:18] LABS: Erythrocyte Sedimentation Rate 28 mm/hr (0-20)
[2025-01-11] MEDS ORDERED: VANCOMYCIN PER PHARMACY 0 MG IV SCH (13:00)
[2025-01-11] MEDS: OXYCODONE W/ ACETAMINOPHEN 5/325MG TABLET PO ONE (13:06)
[2025-01-11] MEDS: VANCOMYCIN 1.25GM/250ML 250 ML IV ONE (15:36)
[2025-01-11] MEDS ORDERED: ONDANSETRON HCL 4 MG/2 ML VIAL IV PRN (16:15)
[2025-01-11] MEDS ORDERED: DOCUSATE SOD 100 MG CAP PO PRN (16:15)
[2025-01-11] MEDS ORDERED: GABA-1251 PO (16:15)
[2025-01-11] MEDS ORDERED: ACETAMINOPHEN 325 MG TAB PO PRN (16:15)
[2025-01-11] MEDS ORDERED: DEXTROSE (50%) 50ML SYRG IV PRN (16:30)
--- NOTE | 2025-01-11 16:35 | DVHHP2 ---
History of Present Illness Reason for Visit: back pain History of Present Illness Stacey Marino is a 69-year-old female with past medical history of liver cirrhosis, hypertension, hyperlipidemia, diabetes, dementia, anemia, and dementia who came to the hospital due to back pain. Patient had a spine surgery 12/09/2024 that was supposed to help with her back pain. Since the surgery her pain has worsened. She was seen by her primary care provider and an MRI was ordered. When the results came in her primary care provider called and instructed her to go to the ER due to possible abscess in her back. On assessment, the patient does have a palpable lump on her lower back, close to the surgical incision that is tender to the touch. Cardiovascular: HTN, hyperipidemia Pulmonary: Asthma EQUINE BREEDER: Other (CVA, dementia) Heme/Onc: Anemia NOS Hepatobiliary: Cirrhosis Endocrine: Diabetes Past Surgical History: Hysterectomy, Other (carpal tunel), Total hip replacement (right) Smoke: No ALCOHOL: none Drugs: None Lives: with Family Domestic Violence: Neg Review of Systems Constitutional: No: Fever, Chills, Sweats, Weakness, Malaise, Other Eyes: No: Pain, Vision change, Conjunctivae inflammation, Eyelid inflammation, Other, Redness ENT: No: Ear pain, Ear discharge, Nose pain, Nose discharge, Nose congestion, Mouth pain, Mouth swelling, Throat pain, Throat swelling, Other Respiratory: No: Cough, Dry, Shortness of breath, SOB with excertion, Wheezing, Hemoptysis, Pleuritic Pain, Sputum, Wheezing, Other Cardiovascular: No: Chest Pain, Palpitations, Orthopnea, Paroxysmal Noc. Dyspnea, Edema, Lt Headedness, Other Gastrointestinal: No: Nausea, Vomiting, Abdominal Pain, Diarrhea, Constipation, Melena, Hematochezia, Other Genitourinary: No Dysuria, No Frequency, No Incontinence, No Hematuria, No Retention, No Other Musculoskeletal: back pain, leg pain (right); No: other, neck pain, shoulder pain, arm pain, hand pain, foot pain Skin: No: Rash, Lesions, Jaundice, Bruising, Other Neurological: No: Weakness, Numbness, Incoordination, Change in speech, Confusion, Seizures, Other Allergies: Coded Allergies: Celecoxib (Verified Allergy, Unknown, 09/10/20) Cephalexin (Verified Allergy, Unknown, 09/10/20) Lorazepam (Verified Adverse Reaction, Unknown, 02/13/21) PATIENT BECOMES AGITATED AND EVEN MORE CONFUSED Medications Current Medications Medications Dose Ordered Sig/Lashell Route Start Time Stop Time Status Last Admin Dose Admin Vancomycin HCl 0 ml @ 0 mls/hr UD IV 01/11/25 13:00 Acetaminophen/ Hydrocodone Bitart 1 tab Q4HP PRN PO 01/11/25 16:15 UNV Ondansetron HCl 4 mg Q4HP PRN IV 01/11/25 16:15 UNV Docusate Sodium 100 mg BIDPRN PRN PO 01/11/25 16:15 UNV Acetaminophen 650 mg Q6HP PRN PO 01/11/25 16:15 UNV Aspirin 81 mg DAILY PO 01/12/25 10:00 UNV Atorvastatin Calcium 20 mg DAILY PO 01/12/25 10:00 UNV Furosemide 20 mg DAILY PO 01/12/25 10:00 UNV Losartan Potassium 25 mg DAILY PO 01/12/25 10:00 UNV Metformin HCl 500 mg BID PO 01/11/25 22:00 UNV Pantoprazole Sodium 40 mg DAILY PO 01/12/25 10:00 UNV Rifaximin 550 mg BID PO 01/11/25 22:00 UNV Sucralfate 1 gm QIDACHS PO 01/11/25 17:00 UNV Ursodiol 600 mg BID PO 01/11/25 22:00 UNV Patient Own Medication 100 mg QPM PO 01/11/25 18:00 UNV Exam Vital Signs Vital Signs Date Time Temp Pulse Resp B/P (MAP) Pulse Ox O2 Delivery O2 Flow Rate FiO2 01/11/25 15:56 98.4 64 11 108/47 (67) 95 98.4 01/11/25 15:43 Room Air* 0 21 General Appearance: Alert, Oriented X3, Cooperative, mild distress HEENT: Atraumatic, PERRLA Respiratory: Clear to auscultation, Normal air movement Cardiovascular: Regular rate, Normal S1, Normal S2, No murmurs Abdominal: Normal bowel sounds, Soft, No tenderness, No hepatospenomegaly Extremities: No clubbing, No cyanosis, No edema, Normal pulses Skin: No rashes, No breakdown, No significant lesion Neuro: Normal speech, Other (low back pain that radiates down her right leg) Psych/Mental Status: Mood NL Labs/Xrays Labs Test 01/11/25 11:58 01/11/25 11:36 01/11/25 10:30 Range/Units Lactic Acid Level 1.8 0.4-2.0 mmol/L White Blood Count 3.9 L 4.4-10.8 10^3/uL Red Blood Count 3.81 L 4.0-5.20 10^6/uL Hemoglobin 9.8 L 12.2-16.2 g/dL Hematocrit 30.6 L 36.0-46.0 % Mean Corpuscular Volume 80.2 80.0-100.0 fL Mean Corpuscular Hemoglobin 25.7 L 28.0-32.0 pg Mean Corpuscular Hemoglobin Concent 32.0 32.0-36.0 g/dL Red Cell Distribution Width 17.2 H 11.8-14.3 % Platelet Count 101 L 140-450 10^3/uL Mean Platelet Volume 9.5 6.9-10.8 fL Neutrophils (%) (Auto) 70.9 37.0-80.0 % Lymphocytes (%) (Auto) 17.5 10.0-50.0 % Monocytes (%) (Auto) 8.2 0.0-12.0 % Eosinophils (%) (Auto) 3.1 0.0-7.0 % Basophils (%) (Auto) 0.3 0.0-2.0 % Neutrophils # (Auto) 2.8 1.6-8.6 10 ^3/uL Lymphocytes # (Auto) 0.7 0.4-5.4 10 ^3/uL Monocytes # (Auto) 0.3 0-1.3 10 ^3/uL Eosinophils # (Auto) 0.1 0-0.8 10 ^3/uL Basophils # (Auto) 0 0-0.2 10 ^3/uL Nucleated Red Blood Cells 0.1 % Erythrocyte Sedimentation Rate 28 H 0-20 mm/hr Prothrombin Time 11.2 9.3-11.8 sec Prothrombin Time INR 1.06 0.9-1.15 Sodium Level 142 136-145 mmol/L Potassium Level 4.4 3.5-5.1 mmol/L Chloride Level 108 H 98-107 mmol/L Carbon Dioxide Level 25 20-31 mmol/L Anion Gap 9 5-15 Blood Urea Nitrogen 13 9-23 mg/dL Creatinine 0.63 0.550-1.02 mg/dL Glomerular Filtration Rate Calc 97 >90 mL/min BUN/Creatinine Ratio 20.6 H 10.0-20.0 Serum Glucose 87 74-106 mg/dL Calcium Level 9.7 8.7-10.4 mg/dL Total Bilirubin 0.7 0.2-1.0 mg/dL Aspartate Amino Transferase (AST) 25 <34 U/L Alanine Aminotransferase (ALT) 18 7-40 U/L Alkaline Phosphatase 198 H 46-116 U/L Troponin I High Sensitivity 3 L </=34 ng/L C-Reactive Protein High Sensitivity 0.17 <1.0 mg/dL Total Protein 7.3 5.7-8.2 g/dL Albumin 3.8 3.2-4.8 g/dL Urine Color Yellow Yellow Urine Clarity Clear Clear Urine pH 6.0 5.0-9.0 Urine Specific [place] 1.021 1.001-1.035 Urine Protein Negative Negative Urine Ketones Negative Negative Urine Blood Negative Negative /uL Urine Nitrite Negative Negative Urine Bilirubin Negative Negative Urine Urobilinogen 2 H Negative mg/dL Urine Leukocyte Esterase Trace Negative /uL Urine RBC 1 0 - 4 /hpf Urine Microscopic WBC 1 0-5 /HPF Urine Squamous Epithelial Cells Few <5 /hpf Urine Bacteria None seen None Seen /hpf Urine Mucus Few None Seen Urine Glucose Normal Normal mg/dL Assessment/Plan Assessment/Plan Assessment: Abscess of back, Intractable back pain, Diabetes, Hyperlipidemia, Hypertension, Plan: Admit to Med-Surg, IR consult for possible drainage of abscess, Possible CT of pelvis to evaluate abscess, IV antibiotics, Accu checks Q AC&HS with sliding scale, Pain management, Home medications reconciled, Plan discussed with: Patient, Daughter, Son My Orders Orders - LYNETTE CANALES Procedure Category Date Status Time Admit ADMIT 01/11/25 Transmitted 16:04 Code Status CODE 01/11/25 Transmitted 16:04 2 Gm Sodium Diet DIET 01/11/25 Transmitted Dinner Hydrocodone-Acet PHA 01/11/25 Logged 5/325mg Tab ([place] 16:15 Ondansetron Hcl PHA 01/11/25 Logged (Zofran) 16:15 Docusate Sodium PHA 01/11/25 Logged Capsule (Colace 16:15 Complete Blood Count LAB 01/12/25 Verified 04:00 Comprehensive LAB 01/12/25 Verified Metabolic Panel 04:00 Condition: Serious MICHAEL 01/11/25 In Process 16:04 Acetaminophen Tablet PHA 01/11/25 Logged (Tylenol Tablet) 16:15 * Radiologist Consult CONS 01/11/25 Transmitted 16:04 Aspirin Enteric PHA 01/12/25 Logged Coated Tablet 10:00 Atorvastatin (Lipitor) PHA 01/12/25 Logged 10:00 Furosemide Tablet PHA 01/12/25 Logged (Lasix Tablet) 10:00 Losartan Tablet PHA 01/12/25 Logged (Cozaar Tablet) 10:00 Metformin PHA 01/11/25 Logged Hydrochloride 22:00 Pantoprazole Tablet PHA 01/12/25 Logged (Protonix Tablet) 10:00 Rifaximin (Xifaxan) PHA 01/11/25 Logged 22:00 Sucralfate Susp PHA 01/11/25 Logged (Carafate Susp) 17:00 Ursodiol (Actigall) PHA 01/11/25 Logged 22:00 (Nf) Trazodone Hcl PHA 01/11/25 Logged 18:00 Ceftriaxone Ivpb PHA 01/12/25 Verified Rocephin 09:00 Ceftriaxone Ivpb PHA 01/11/25 Verified Rocephin 16:15 Gabapentin Capsule PHA 01/11/25 Verified (Neurontin Capsule) 22:00 Date of Service: Jan 11, 2025 Billing Provider: LYNETTE CANALES Common Visit Codes: [id number] INP/OBS CARE (MOD) LYNETTE CANALES Jan 11, 2025 16:35
[2025-01-11] MEDS: InsuLIN REG 1unit/0.01ml Soln (100units/ml) SC SCH ×2 (17:00→21:47)
[2025-01-11] MEDS: ACCU-CHEK COMFORT CURVE STRIP VI SCH (17:00)
[2025-01-11] MEDS: SUCRALFATE 1 GM/10 ML ORAL SUSP PO SCH (17:30)
[2025-01-11] MEDS: cefTRIAXone 1GM/50ML D5W 50 ML IV ONE (17:30)
--- NOTE | 2025-01-11 17:32 | DVH ---
EXAM: XY CHEST PORTABLE TECHNIQUE: Single frontal chest radiograph CLINICAL HISTORY: SOB COMPARISON: XY CHEST XRAY 1 VIEW on DOS: 12/16/24, XY CHEST PORTABLE on DOS: 12/13/24, XY CHEST PORTABL E on DOS: 12/12/24 Findings/Impression: Frontal chest radiograph demonstrates no acute osseous or superficial soft tissue abnormalities. The trachea is midline. The cardiac silhouette and mediastinum are within normal limits. Moderate elevation of the right hemidiaphragm with right mid lung field atelectasis. No pneumothorax, pleural effusions, or consolidations.
[2025-01-11] MEDS: traZODone HCL 50 MG TAB PO SCH (17:47)
[2025-01-11] MEDS: metFORMIN HYDROCHLORIDE 500 MG TAB PO SCH (17:48)
[2025-01-11] MEDS: HYDROcodone-ACET 5/325MG TAB PO PRN (20:30)
[2025-01-11 20:46] VITALS: PULSE 71; RESP 15; O2SAT 96
[2025-01-11 20:50] VITALS: BP 119/70; PULSE 65; RESP 19; TEMP 96.2; O2SAT 94
[2025-01-11 21:00] VITALS: BP 119/70; PULSE 65; RESP 19; TEMP 96.2; O2SAT 94
[2025-01-11] MEDS: rifAXIMin 550 MG TAB PO SCH (21:44)
[2025-01-11] MEDS: GABAPENTIN 400 MG CAP PO SCH (21:45)
[2025-01-11] MEDS: URSODIOL 300 MG CAP PO SCH (21:46)
[2025-01-11 22:38] VITALS: PULSE 65; RESP 19; O2SAT 94
[2025-01-12] VITALS (8 sets, daily range): BP systolic 112–161; BP diastolic 58–85; PULSE 64–77; RESP 16–19; TEMP 96.9–98.4; O2SAT 93–97
[2025-01-12 07:40] LABS: Basophils # (auto) 0 10 ^3/uL (0-0.2); Basophils % (auto) 0.3 % (0.0-2.0); Eosinophils # (auto) 0.1 10 ^3/uL (0-0.8); Eosinophils % (auto) 2.8 % (0.0-7.0); Hemoglobin 9.2 g/dL (12.2-16.2); Lymphocytes # (auto) 0.3 10 ^3/uL (0.4-5.4); Lymphocytes % (auto) 11.7 % (10.0-50.0); Mean Corpuscular Hemoglobin 26.3 pg (28.0-32.0); Mean Corpuscular Hgb Conc. 32.7 g/dL (32.0-36.0); Mean Corpuscular Volume 80.5 fL (80.0-100.0); Monocytes # (auto) 0.2 10 ^3/uL (0-1.3); Monocytes % (auto) 10.3 % (0.0-12.0); Neutrophils # (auto) 1.6 10 ^3/uL (1.6-8.6); Neutrophils % (auto) 74.9 % (37.0-80.0); Nucleated Red Blood Cells % 0.1 %; Platelet Count (auto) 77 10^3/uL (140-450); Red Blood Cells 3.48 10^6/uL (4.0-5.20); Red Cell Distribution Width 17.2 % (11.8-14.3); White Blood Cell 2.2 10^3/uL (4.4-10.8)
[2025-01-12 07:47] LABS: Alanine Aminotransferase 13 U/L (7-40); Anion Gap 9 (5-15); Blood Urea Nitrogen 13 mg/dL (9-23); Calcium 9.5 mg/dL (8.7-10.4); Carbon Dioxide 25 mmol/L (20-31); Glucose 106 mg/dL (74-106); Potassium 4.1 mmol/L (3.5-5.1); Sodium 142 mmol/L (136-145); Total Protein 6.6 g/dL (5.7-8.2)
[2025-01-12 07:48] LABS: Albumin 3.3 g/dL (3.2-4.8); Aspartate Aminotransferase 20 U/L (<34); BUN/Creatinine Ratio 19.7 (10.0-20.0); Bilirubin, Total 0.6 mg/dL (0.2-1.0)
[2025-01-12 07:50] LABS: Alkaline Phosphatase 179 U/L (46-116); Chloride 108 mmol/L (98-107)
[2025-01-12] MEDS: cefTRIAXone 1GM/50ML D5W 50 ML IV SCH (09:37)
[2025-01-12] MEDS: PANTOPRAZOLE 40 MG TAB PO SCH (09:37)
[2025-01-12] MEDS: FUROSEMIDE 20 MG TAB PO SCH (09:38)
[2025-01-12] MEDS: ASPirin-EC 81 mg tab PO SCH (09:39)
[2025-01-12] MEDS: ATORVASTATIN 20 MG TAB PO SCH (09:40)
[2025-01-12] MEDS: LOSARTAN POTASSIUM 25 MG TAB PO SCH (09:40)
[2025-01-12] MEDS: VANCOMYCIN 750MG KIT 100 ML IV SCH (13:08)
[2025-01-12] MEDS: OXYCODONE W/ ACETAMINOPHEN 5/325MG TABLET PO PRN (16:34)
--- NOTE | 2025-01-12 18:22 | DVHPN2 ---
Progress Note Date Seen: Jan 12, 2025 Medical Necessity Reason Pt with a Central, PICC or Fol: No Subjective Patient reports: No new complaints Review of Systems: HEENT:Normal, CVS:Normal, RESPIRATORY:Normal, GI:Normal, :Normal, MSK:Normal, NEURO:Normal Objective vital signs Vital Sign Date Time Temp Pulse Resp B/P (MAP) Pulse Ox O2 Delivery O2 Flow Rate FiO2 01/12/25 17:00 98.4 69 16 123/65 (84) 95 98.4 01/12/25 08:00 Room Air* 0 21 Total Intake and Output 01/11/25 01/11/25 01/12/25 15:00 23:00 07:00 Intake Total 300 ml 50 ml Balance 300 ml 50 ml medications Current Medications Medications Dose Ordered Sig/Lashell Route Start Time Stop Time Status Last Admin Dose Admin Vancomycin HCl 0 ml @ 0 mls/hr UD IV 01/11/25 13:00 Acetaminophen/ Hydrocodone Bitart 1 tab Q4HP PRN PO 01/11/25 16:15 01/12/25 11:40 1 TAB Ondansetron HCl 4 mg Q4HP PRN IV 01/11/25 16:15 Docusate Sodium 100 mg BIDPRN PRN PO 01/11/25 16:15 Acetaminophen 650 mg Q6HP PRN PO 01/11/25 16:15 Aspirin 81 mg DAILY PO 01/12/25 10:00 01/12/25 09:39 81 MG Atorvastatin Calcium 20 mg DAILY PO 01/12/25 10:00 01/12/25 09:40 20 MG Furosemide 20 mg DAILY PO 01/12/25 10:00 01/12/25 09:38 20 MG Losartan Potassium 25 mg DAILY PO 01/12/25 10:00 01/12/25 09:40 25 MG Metformin HCl 500 mg IBID PO 01/11/25 18:00 01/12/25 17:57 500 MG Pantoprazole Sodium 40 mg DAILY PO 01/12/25 10:00 01/12/25 09:37 40 MG Rifaximin 550 mg BID PO 01/11/25 22:00 01/12/25 09:38 550 MG Sucralfate 1 gm QIDACHS PO 01/11/25 17:00 01/12/25 16:33 1 GM Ursodiol 600 mg BID PO 01/11/25 22:00 01/11/25 21:46 600 MG Trazodone HCl 100 mg QPM PO 01/11/25 18:00 01/12/25 17:58 100 MG Ceftriaxone Sodium 50 ml @ 100 mls/hr DAILY@09 IV 01/12/25 09:00 01/12/25 09:37 100 MLS/HR Gabapentin 400 mg TID PO 01/11/25 22:00 01/12/25 15:24 400 MG Diagnostic Test (Pha) 1 strip ACHS 01/11/25 17:00 01/12/25 17:00 1 STRIP Insulin Human Regular HS SC 01/11/25 22:00 Insulin Human Regular AC SC 01/11/25 17:00 Dextrose 50 ml UD PRN IV 01/11/25 16:30 Vancomycin HCl 100 ml @ 100 mls/hr Q12H IV 01/12/25 13:00 01/12/25 13:08 100 MLS/HR Oxycodone/ Acetaminophen 1 tab Q6HP PRN PO 01/12/25 16:15 01/12/25 16:34 1 TAB Examination: GENERAL:Normal, HEENT:Normal, NECK:Normal, LUNGS:Normal, CVS:Normal, ABDOMEN:Normal, MSK:Normal, SKIN:Normal, NEURO:Normal, :Normal laboratory and microbiology Laboratory Tests 01/12/25 06:58 Test 01/12/25 06:58 Range/Units Serum Glucose 106 74-106 mg/dL Microbiology Date/Time Source Procedure Growth Status 01/12/25 01:00 Nose MRSA Screen - Final Complete 01/11/25 11:58 Blood Blood Culture - Preliminary NO GROWTH AFTER 24 HOURS OF INCUBATION. Resulted Problem List/Assessment/Plan Problem List/Assessment/Plan * right hip ?seroma ?abscess: augmentin h/o Right hip fracture with right pubic ramus fracture, status post surgery. * Diabetes mellitus: metformina. * Hypertension. * Liver cirrhosis: lactulose * History of cerebrovascular accident. * Right shoulder dislocation status post. * h/o sacro iliac spacer advance care planning- full code- time spent 19 mins Plan discussed with: Patient My Orders My Orders Orders - RADHA DOMINGO MD Procedure Category Date Status Time Oxycodone W/ Acet PHA 01/12/25 In Process 5/325mg Tab (Percocet 16:15 Insert Midline ORDERS 01/12/25 Transmitted 16:48 Lactulose Oral PHA 01/12/25 Transmitted 22:00 Lactulose Oral PHA 01/12/25 Transmitted 18:30 Amoxicillin/Clavulanate PHA 01/12/25 Transmitted Tablet (Augmenti 22:00 Date of Service: Jan 12, 2025 Billing Provider: RADHA DOMINGO MD Common Visit Codes: [id number] INP/OBS CARE(HIGH) Secondary Visit Codes: [id number] CARE PLAN 30 MINUTES RADHA DOMINGO MD Jan 12, 2025 18:22
[2025-01-12] MEDS ORDERED: LACTULOSE 20Gm/30ML SOLN PO ONE (18:30)
[2025-01-12] MEDS: AMOXICILLIN/CLAVUL 875 MG TAB PO SCH (21:29)
[2025-01-12] MEDS: LACTULOSE 20Gm/30ML SOLN PO SCH (21:30)
[2025-01-13 01:00] VITALS: BP 137/67; PULSE 77; RESP 17; TEMP 98; O2SAT 93
[2025-01-13 05:00] VITALS: BP 112/61; PULSE 77; RESP 17; TEMP 98.2; O2SAT 97
[2025-01-13 09:00] VITALS: BP 113/71; PULSE 68; RESP 18; TEMP 97.7; O2SAT 95
[2025-01-13 13:00] VITALS: BP 133/78; PULSE 74; RESP 16; TEMP 96.3; O2SAT 94
--- NOTE | 2025-01-13 14:36 | DVHDS2 ---
Discharge Summary Date of Admission Jan 11, 2025 at 16:04 Date of Discharge: Jan 13, 2025 Admitting Diagnosis Questionable abscess of the back Labs/Diagnostic Data: Laboratory Results Test 01/13/25 11:20 01/12/25 06:58 01/11/25 11:58 01/11/25 11:36 POC Glucose 89 mg/dl (70-106) White Blood Count 2.2 10^3/uL (4.4-10.8) Red Blood Count 3.48 10^6/uL (4.0-5.20) Hemoglobin 9.2 g/dL (12.2-16.2) Hematocrit 28.0 % (36.0-46.0) Mean Corpuscular Volume 80.5 fL (80.0-100.0) Mean Corpuscular Hemoglobin 26.3 pg (28.0-32.0) Mean Corpuscular Hemoglobin Concent 32.7 g/dL (32.0-36.0) Red Cell Distribution Width 17.2 % (11.8-14.3) Platelet Count 77 10^3/uL (140-450) Mean Platelet Volume 9.3 fL (6.9-10.8) Neutrophils (%) (Auto) 74.9 % (37.0-80.0) Lymphocytes (%) (Auto) 11.7 % (10.0-50.0) Monocytes (%) (Auto) 10.3 % (0.0-12.0) Eosinophils (%) (Auto) 2.8 % (0.0-7.0) Basophils (%) (Auto) 0.3 % (0.0-2.0) Neutrophils # (Auto) 1.6 10 ^3/uL (1.6-8.6) Lymphocytes # (Auto) 0.3 10 ^3/uL (0.4-5.4) Monocytes # (Auto) 0.2 10 ^3/uL (0-1.3) Eosinophils # (Auto) 0.1 10 ^3/uL (0-0.8) Basophils # (Auto) 0 10 ^3/uL (0-0.2) Nucleated Red Blood Cells 0.1 % Sodium Level 142 mmol/L (136-145) Potassium Level 4.1 mmol/L (3.5-5.1) Chloride Level 108 mmol/L (98-107) Carbon Dioxide Level 25 mmol/L (20-31) Anion Gap 9 (5-15) Blood Urea Nitrogen 13 mg/dL (9-23) Creatinine 0.66 mg/dL (0.550-1.02) Glomerular Filtration Rate Calc 96 mL/min (>90) BUN/Creatinine Ratio 19.7 (10.0-20.0) Serum Glucose 106 mg/dL (74-106) Calcium Level 9.5 mg/dL (8.7-10.4) Total Bilirubin 0.6 mg/dL (0.2-1.0) Aspartate Amino Transferase (AST) 20 U/L (<34) Alanine Aminotransferase (ALT) 13 U/L (7-40) Alkaline Phosphatase 179 U/L (46-116) Total Protein 6.6 g/dL (5.7-8.2) Albumin 3.3 g/dL (3.2-4.8) Random Vancomycin Level 10.1 ug/mL (5-10) Lactic Acid Level 1.8 mmol/L (0.4-2.0) Erythrocyte Sedimentation Rate 28 mm/hr (0-20) Prothrombin Time 11.2 sec (9.3-11.8) Prothrombin Time INR 1.06 (0.9-1.15) Troponin I High Sensitivity 3 ng/L (</=34) C-Reactive Protein High Sensitivity 0.17 mg/dL (<1.0) Test 01/11/25 10:30 Urine Color Yellow (Yellow) Urine Clarity Clear (Clear) Urine pH 6.0 (5.0-9.0) Urine Specific [place] 1.021 (1.001-1.035) Urine Protein Negative (Negative) Urine Ketones Negative (Negative) Urine Blood Negative /uL (Negative) Urine Nitrite Negative (Negative) Urine Bilirubin Negative (Negative) Urine Urobilinogen 2 mg/dL (Negative) Urine Leukocyte Esterase Trace /uL (Negative) Urine RBC 1 /hpf (0 - 4) Urine Microscopic WBC 1 /HPF (0-5) Urine Squamous Epithelial Cells Few /hpf (<5) Urine Bacteria None seen /hpf (None Seen) Urine Mucus Few (None Seen) Urine Glucose Normal mg/dL (Normal) Other Laboratory Tests 01/12/25 06:58 Brief Hx & Hospital Course: History of Present Illness Stacey Marino is a 69-year-old female with past medical history of liver cirrhosis, hypertension, hyperlipidemia, diabetes, dementia, anemia, and dementia who came to the hospital due to back pain. Patient had a spine surgery 12/09/2024 that was supposed to help with her back pain. Since the surgery her pain has worsened. She was seen by her primary care provider and an MRI was ordered. When the results came in her primary care provider called and instructed her to go to the ER due to possible abscess in her back. On assessment, the patient does have a palpable lump on her lower back, close to the surgical incision that is tender to the touch. Course of hospitalization: Patient was referred to the hospital after having MRI of her hip which had questionable abscess to the iliosacral joint. Patient has no signs of fevers, chills, leukocytosis. Patient was started on antibiotic therapy. Patient is requesting to be discharged home, and will be continued on antibiotic therapy with Augmentin 875 mg p.o. b.i.d.. She will follow up with her PCP in 1-2 weeks. Patient will be continued previous home medications. Discussions were also made to follow up with the patient's orthopedic surgeon regarding MRI findings. Physical examination General: Alert and Oriented x3. No acute distress. Well-nourished. Eyes: EOMI. Anicteric. HENT: Moist mucous membranes. Lungs: Clear to auscultation bilaterally. No accessory muscle use. Cardiovascular: Regular rate and rhythm. No murmur. No JVD. Abdomen: Soft, non-tender and non-distended. No palpable masses. Extremities: No edema. Non-tender. Skin: No rashes or lesions. Warm. Neurologic: No focal neurological deficits. CN II-XII grossly intact, but not individually tested. Psychiatric: Cooperative. Appropriate mood and affect. Total time spent with patient discussing and formulating plan of care: 35 minutes. This medical document was created using an electronic medical record system with [employer] dictation system. Although this document has been carefully reviewed, there may still be some phonetic and typographical errors. These areas are purely typographical due to imperfections of the software programs, and do not reflect any compromise in the patient's medical care. Condition at Discharge: Fair Final Diagnosis/Problems List Rule out iliosacral abscess Secondary diagnosis: * probable right hip seroma h/o Right hip fracture with right pubic ramus fracture, status post surgery. * Diabetes mellitus * Hypertension. * Liver cirrhosis * History of cerebrovascular accident. * Right shoulder dislocation status post. * h/o sacro iliac spacer Discharge Disposition: Home Discharge Instruct/Medications Diet: Consistent carbohydrate, Cardiac 2g Na,low cholest Activity: No Restrictions, As Tolerated Follow Up/Referral: Follow up with PCP, Dr. Medrano, in 1-2 weeks Medications: Augmentin 875 mg p.o. b.i.d. x5 days Continue all previous home medications Discharge Statement: "Patient was advised to return to the ER or call 911 if any headaches, dizziness, shortness of breath, chest pain, abdominal pain, bleeding, fevers, or worsening of medical condition. Patient was counseled about treatment plan, medications, possible side effects, patientverbalized understanding. All questions were answered to the best of my ability. This discharge took greater then 30 minutes in planning, reviewing documentation, counseling the patient, and discussing with other team members." ASSESSMENT ASSESSMENT Assessment Rule out iliosacral abscess Date of Service: Jan 13, 2025 Billing Provider: KEVIN ROJAS NP Common Visit Codes: [id number] DISCH DAY >30min KEVIN ROJAS NP Jan 13, 2025 14:36
[2025-01-13] MEDS ORDERED: AUG875T PO (14:45)
== END 2025-01-13 15:37 | disposition home or self-care (01) | DRG 603 ==
LOC: ER 10:06 → OVERFLOW 16:04 → WEST WING 20:50
PROVIDERS: ADMIT Nurse Practitioner Acute Care; ATTEND Nurse Practitioner Acute Care
PROC: 05HD33Z Insertion of Infusion Device into Right Cephalic Vein, Percutaneous Approach (ICD-10-PCS; principal; 2025-01-12)
PROC: B54MZZA Ultrasonography of Right Upper Extremity Veins, Guidance (ICD-10-PCS; 2025-01-12)
DX: L02.212 Cutaneous abscess of back [any part, except buttock and flank] (principal); L76.34 Postprocedural seroma of skin and subcutaneous tissue following other procedure; K74.60 Unspecified cirrhosis of liver; I10 Essential (primary) hypertension; E11.9 Type 2 diabetes mellitus without complications; J45.909 Unspecified asthma, uncomplicated; F03.90 Unspecified dementia, unspecified severity, without behavioral disturbance, psychotic disturbance, mood disturbance, and anxiety; E78.5 Hyperlipidemia, unspecified; Z96.641 Presence of right artificial hip joint; Z90.710 Acquired absence of both cervix and uterus; Z86.73 Personal history of transient ischemic attack (TIA), and cerebral infarction without residual deficits; Z88.1 Allergy status to other antibiotic agents
CPT/HCPCS: 36415; 71045; 80053; 80202; 81001; 82962; 83605; 84484; 85025; 85610; 85652; 86141; 87040; 87081; 96365; G0378

== ENCOUNTER 2025-04-27 08:02 | Day surgery (SDC) | payer MEDICARE, MEDICAID ==
[2025-04-24 10:14] LABS: INR 1.06 (0.9-1.15); Partial Thromboplastin Time 21.4 SEC (24.5-34.5); Prothrombin Time 11.2 sec (9.3-11.8)
[2025-04-24 10:18] LABS: Urine Protein, UAD Negative (Negative)
[2025-04-24 10:23] LABS: Alanine Aminotransferase 20 U/L (7-40); Albumin 3.9 g/dL (3.2-4.8); Anion Gap 9 (5-15); BUN/Creatinine Ratio 12.0 (10.0-20.0); Calcium 9.1 mg/dL (8.7-10.4); Carbon Dioxide 26 mmol/L (20-31); Chloride 107 mmol/L (98-107); Glucose 101 mg/dL (74-106); Potassium 4.4 mmol/L (3.5-5.1); Sodium 142 mmol/L (136-145); Total Protein 7.9 g/dL (5.7-8.2)
[2025-04-24 10:24] LABS: Bilirubin, Total 0.8 mg/dL (0.2-1.0)
[2025-04-24 10:25] LABS: Alkaline Phosphatase 219 U/L (46-116); Blood Urea Nitrogen 9 mg/dL (9-23)
[2025-04-24 11:52] LABS: Hematocrit 33.5 % (36.0-46.0); Hemoglobin 9.8 g/dL (12.2-16.2); Mean Corpuscular Hemoglobin 22.6 pg (28.0-32.0); Mean Corpuscular Volume 77.5 fL (80.0-100.0); Nucleated Red Blood Cells % 0.2 %
[~2025-04-27] VITALS: Ht 149.9 cm; Wt 64.4 kg
[~2025-04-27 08:02] MED LIST changes: -AMLO1TAB22 PO; -AMOX500T3 PO; -ATOR20TA50 PO; +BUDE1AER16 IN; +CETI5SOL52 PO; +CHOLCAP10 PO; -CIPR0.3S67 OP; +FLUT1AER17 IN; -GABA-1250 PO; +GABA-1251 PO; -HYDR1TAB97 PO; +IPRA0.03; +LACT10SO3 PO; -LEVO500T91 PO; -PRED10TA PO; +SPIR50TA5 PO; -TRAM50TA2 PO; -TRAZ-228 PO; -TRIA0.02 TOP
--- NOTE | 2025-04-27 10:08 | DVHHP2 ---
GI H&P Pre-Op Assessment Date: 04/27/25 Chief complaint: Cirrhosis, dysphagia HPI: per clinic note Past medical history: per clinic note Past surgical history: per clinic note Family history: per clinic note Physical exam: General: NAD, AAOX3 HEENT: PERRL, no scleral icterus, normal hearing, gums without lesions or bleeding, oropharynx clear without erythema or exudate. Neck: Supple without enlargement of the thyroid, or lymphadenopathy. Chest: Normal size and shape, no tenderness, lung sousa clear to auscultation and percussion, nonlabored breathing. Heart: RRR, no murmur Abdomen: non-distended, no tenderness to palpation, +BS, no hepatosplenomegaly Extremities: no edema Neurological: CN II-XII intact, sensation intact in all extremities, 5+ strength in all extremities Skin: No rashes, No jaundice Assessment: - Cirrhosis, dysphagia Plan: - EGD - Risks (bleeding, infection, perforation, reaction to sedation medications and cardiopulmonary arrest) and benefit of the procedure were explained to patient. Patient agrees to undergo the procedure. KEVIN ROSE MD Apr 27, 2025 10:08
[2025-04-27] MEDS ORDERED: fentaNYL CITRATE 100 MCG/2 ML VL ONE (10:21)
[2025-04-27] MEDS ORDERED: PROPOFOL 10 MG/ML 20 ML IV ONE (10:21)
[2025-04-27 10:34] VITALS: BP 122/69; PULSE 77; RESP 11; TEMP 98.8; O2SAT 100
--- NOTE | 2025-04-27 10:37 | DVHOP2 ---
Operative Report DATE OF OPERATION: 04/27/25 PROCEDURE: Upper Endoscopy. PREOPERATIVE INDICATION: The patient is a 69 -year-old female with cirrhosis undergoing endoscopy for dysphagia. POSTOPERATIVE DIAGNOSES: 1. White spots in the duodenum that were biopsy with cold forceps. 2. Mild gastritis 3. Portal hypertensive gastropathy 4. Normal esophagus. Esophagus was dilated with 18 mm balloon PROCEDURE PERFORMED BY: Fran Wallace SCOPE: Olympus videoendoscope. ASA CLASS: 3 PREOPERATIVE MEDICATIONS: MAC with Dr Pool PROCEDURE IN DETAIL: After obtaining an informed consent, the patient was placed on left lateral decubitus position. The patient was then sedated with the above medications. A bite block was placed between her teeth. The endoscope was then passed through the oropharynx, into the esophagus, and through the stomach and pylorus up to the second and third part of the duodenum. There were white spots in the duodenum that were biopsy with cold forceps. There was mild gastritis. There was portal hypertensive gastropathy. GE junction was normal in appearance at 30 cm. The esophagus was normal in appearance. The esophagus was dilated with 18 mm balloon. The endoscope was then withdrawn. The patient tolerated the procedure well without difficulty. COMPLICATIONS : None SPECIMENS: Duodenal biopsy DISPOSITION: D/C to home PLAN: 1. Await for biopsy result 2. Will see the dilation improve her dysphagia. 3. Continue with PPI FRAN WALLACE MD Apr 27, 2025 10:37
--- NOTE | 2025-04-27 10:38 | DVHDS2 ---
Physician Discharge Progress N Final Diagnosis: [place] in the duodenum. Portal hypertensive gastropathy. Mild gastritis. Operations or Procedures: Operations or Procedures EGD with cold forceps biopsy and balloon dilation Condition on Discharge: Good Disposition: Home Discharge Instructions: Diet: Regular Activity: No Restrictions, As Tolerated Medications: Resume with previous home medications Follow Up Care: Discharge Statement: "Patient was advised to return to the ER or call 911 if any headaches, dizziness, shortness of breath, chest pain, abdominal pain, bleeding, fevers, or worsening of medical condition. Patient was counseled about treatment plan, medications, possible side effects, patientverbalized understanding. All questions were answered to the best of my ability. This discharge took greater then 30 minutes in planning, reviewing documentation, counseling the patient, and discussing with other team members." KEVIN ROSE MD Apr 27, 2025 10:38
== END 2025-04-27 11:55 | disposition home or self-care (01) ==
LOC: GI 08:02
PROVIDERS: ATTEND Internal Medicine Gastroenterology
DX: K74.60 Unspecified cirrhosis of liver (principal); K31.89 Other diseases of stomach and duodenum; K29.70 Gastritis, unspecified, without bleeding; K76.6 Portal hypertension; R13.10 Dysphagia, unspecified; I10 Essential (primary) hypertension; I42.9 Cardiomyopathy, unspecified; E11.9 Type 2 diabetes mellitus without complications; J45.909 Unspecified asthma, uncomplicated; D69.6 Thrombocytopenia, unspecified; F03.90 Unspecified dementia, unspecified severity, without behavioral disturbance, psychotic disturbance, mood disturbance, and anxiety; Z79.899 Other long term (current) drug therapy; Z86.73 Personal history of transient ischemic attack (TIA), and cerebral infarction without residual deficits; Z98.51 Tubal ligation status; Z90.710 Acquired absence of both cervix and uterus; Z96.641 Presence of right artificial hip joint; Z98.890 Other specified postprocedural states; Z88.8 Allergy status to other drugs, medicaments and biological substances
CPT/HCPCS: 36415; 43239; 80053; 81001; 82962; 85025; 85610; 85730; 88305; J2704; J3010; J7030; 43249

== ENCOUNTER → 2025-05-17 | Outpatient (CLI) | payer MEDICARE, MEDICAID ==
[2025-05-17 13:12] LABS: Microalb/Creat Ratio, Urine 3.00
== END | disposition home or self-care (01) ==
LOC: LAB 11:30
PROVIDERS: ATTEND Internal Medicine
DX: E11.9 Type 2 diabetes mellitus without complications (principal); D61.818 Other pancytopenia; D63.8 Anemia in other chronic diseases classified elsewhere; K74.60 Unspecified cirrhosis of liver
CPT/HCPCS: 36415; 82043; 82140; 82570; 83036; 84443; 85652; 86141